=== PATIENT | female | born 1950 | race Caucasian/White ===

== ENCOUNTER 2021-10-04 09:45 | Outpatient (RCR) | payer MEDICARE, SELFPAY ==
--- NOTE | 2021-09-27 15:36 | PT.OPEX ---
[facility] [place] Outpatient Eval PT [facility] Outpatient Eval Start: 09/27/21 07:12 Freq: Status: Active Protocol: Document 09/27/21 13:45 CLK (Rec: 09/27/21 13:54 CLK [id number]) E-Signed By Donya Palacio PT Physical Therapy Outpatient Evaluation Insurance Information Recert Due Date 12/20/21 Insurance Name Medicare B Medical Diagnosis Vertigo Imbalance Treating Diagnosis functional strength deficit Poor balance skills Referring MD Dr Ceci Kessler Subjective Subjective Radha reports having vertigo for the first time on August 01, 2021. This was her first time with these issues. Score of self graded 8/10 vertigo. I was given Meclizine, which I took for only a week or so. My symptoms have slowly dissolved to only being present at night with rolling and now have been absent for a week. I am back to 100% PLOF concerning my vertigo. However, I do still feel like I have impaired balance since having obdulio TKR. They were completing in September and Nov. I was trying to be active, then covid hit and I have never really gotten back to ex. I really do not feel comfortable returning to [place]. I used to do their swim class. I would like a routine I can do on my own. I have pain greater in the morning at mid to low back. My legs feel fine. Some LE ache with fatique at night. I can walk fine, up to 2 hours if needed. I have not had any sensation of buckling. I can A/D stairs correctly. I just don't feel stable, and I would like to. Pain Comments low and more tolerable, seems to subside with activities Date of Last Physician Visit 09/01/21 Current Work Status Retired Precautions Treatment Precautions/Contraindications Arthritis Obdulio TKR GERD Chronic diarhea Obesity Hypertension Weight Bearing Status Full Weight Bearing Objective Range of Motion Reduced Rt hip AROM 0-6 deg Strength 3+/5 strength obdulio hip ABD and EXT Balance & Gait SLS max 5 sec obdulio Gait with reduced heel to toe and lateral trunk shift Posture Increased lumbar lordosis Assessment Assessment/Impression 71 yo female with DX of Vertigo, sudden onset on July 29, 2021. She was seen in ED and started on Meclizine. Over the past 2 months these symptoms have dissipated, with client denying any residual symptoms. She does report feeling unsteady and unstable with gait. She exhibits reduced heel to toe gait pattern with near flat foot strike and lateral trunk shift . She has weakness 3+/5 obdulio hip EXT and ABD (mini squat and step up and over exhibit obdulio hip IR and hip ADD - weakness of hip ABD and ER). Poor quad control in both concentric step up and eccentric step down (obdulio). She has reduced Rt hip EXT in AROM in stance, rectus femoris /hip flex hypertension. SLS is max of 5 sec obdulio. She is able to perform Dbl heel raise, but only to partial range due to weakness of ankle planter flex/gastroc. She will benefit from continued skilled physical therapy to compile HEP to address the above with ex of stretch, strength and balance/prop training. Thank you for this referral. Plan of Care Rehabilitation Potential Good Physical Therapy Goals In 3-5 visits, Radha will be able to: 1. Complete HEP with proper alignment, pace, reps/HOLD times to regain full strength and flexibility 2. Increased SLS to minimum of 10 sec obdulio In 8-10 visits, Radha will be able to: 1. Squat to depth of at least 50 deg with proper hip/knee/ foot alignment 2. Resume walking for ex, at least 30 min per day average 3. Improved confidence with A/ D stairs; gently hold railing with hand for safety vs pulling up with UE assist 4. Return to ex at [employer] with her 3 X/ week to promote full body strength and improve community ambulation and safety remaining living with her in her own home. Coordination/Communication With Referral Source Treatment Plan/Direct Interventions Canalith Repositioning,Gait Training,Joint Mobilization, Manual Therapy,Neuromuscular Re-ed,Self-Care/Home Management,Therapeutic Exercises Frequency/Duration 1X/Wk for 10 visits Patient Will Be Discharged From Therapy Completion of LTG(s),Skills Plateau,Independent w/HEP, Independently Progressing Evaluation Billing Untimed Code Treatment Minutes 38 Complexity Moderate Certification Information Initial Certification Date 09/27/21 Ending Certification Date 12/20/21 Document 09/27/21 15:30 PILO (Rec: 09/27/21 15:35 PILO [id number]) E-Signed By Donya Palacio PT Physical Therapy Outpatient Evaluation Insurance Information Recert Due Date 12/20/21 Insurance Name Medicare B Medical Diagnosis Vertigo Imbalance Treating Diagnosis functional strength deficit Poor balance skills Referring MD Dr Ceci Kessler Subjective Subjective Radha reports having vertigo for the first time on August 01, 2021. This was her first time with these issues. Score of self graded 8/10 vertigo. I was given Meclizine, which I took for only a week or so. My symptoms have slowly dissolved to only being present at night with rolling and now have been absent for a week. I am back to 100% PLOF concerning my vertigo. However, I do still feel like I have impaired balance since having obdulio TKR. They were completing in September and Nov. I was trying to be active, then covid hit and I have never really gotten back to ex. I really do not feel comfortable returning to [place]. I used to do their swim class. I would like a routine I can do on my own. I have pain greater in the morning at mid to low back. My legs feel fine. Some LE ache with fatique at night. I can walk fine, up to 2 hours if needed. I have not had any sensation of buckling. I can A/D stairs correctly. I just don't feel stable, and I would like to. Pain Comments low and more tolerable, seems to subside with activities Date of Last Physician Visit 09/01/21 Current Work Status Retired Precautions Treatment Precautions/Contraindications Arthritis Obdulio TKR GERD Chronic diarhea Obesity Hypertension Weight Bearing Status Full Weight Bearing Objective Range of Motion Reduced Rt hip AROM 0-6 deg Strength 3+/5 strength obdulio hip ABD and EXT Balance & Gait SLS max 5 sec obdulio Gait with reduced heel to toe and lateral trunk shift Posture Increased lumbar lordosis Assessment Assessment/Impression 71 yo female with DX of Vertigo, sudden onset on July 29, 2021. She was seen in ED and started on Meclizine. Over the past 2 months these symptoms have dissipated, with client denying any residual symptoms. She does report feeling unsteady and unstable with gait. She exhibits reduced heel to toe gait pattern with near flat foot strike and lateral trunk shift . She has weakness 3+/5 obdulio hip EXT and ABD (mini squat and step up and over exhibit obdulio hip IR and hip ADD - weakness of hip ABD and ER). Poor quad control in both concentric step up and eccentric step down (obdulio). She has reduced Rt hip EXT in AROM in stance, rectus femoris /hip flex hypertension. SLS is max of 5 sec obdulio. She is able to perform Dbl heel raise, but only to partial range due to weakness of ankle planter flex/gastroc. She will benefit from continued skilled physical therapy to compile HEP to address the above with ex of stretch, strength and balance/prop training. Thank you for this referral. Plan of Care Rehabilitation Potential Good Physical Therapy Goals In 3-5 visits, Radha will be able to: 1. Complete HEP with proper alignment, pace, reps/HOLD times to regain full strength and flexibility 2. Increased SLS to minimum of 10 sec obdulio In 8-10 visits, Radha will be able to: 1. Squat to depth of at least 50 deg with proper hip/knee/ foot alignment 2. Resume walking for ex, at least 30 min per day average 3. Improved confidence with A/ D stairs; gently hold railing with hand for safety vs pulling up with UE assist 4. Return to ex at [employer] with her 3 X/ week to promote full body strength and improve community ambulation and safety remaining living with her in her own home. Coordination/Communication With Referral Source Treatment Plan/Direct Interventions Canalith Repositioning,Gait Training,Joint Mobilization, Manual Therapy,Neuromuscular Re-ed,Self-Care/Home Management,Therapeutic Exercises Frequency/Duration 1X/Wk for 10 visits Patient Will Be Discharged From Therapy Completion of LTG(s),Skills Plateau,Independent w/HEP, Independently Progressing Evaluation Billing Untimed Code Treatment Minutes 38 Complexity Moderate Certification Information Initial Certification Date 09/27/21 Ending Certification Date 12/20/21
== END 2021-11-18 08:35 | disposition home or self-care (01) ==
PROVIDERS: PCP Family Medicine; Visit Provider Family Medicine
DX: R42 Dizziness and giddiness (principal); R26.9 Unspecified abnormalities of gait and mobility; Z51.89 Encounter for other specified aftercare
CPT/HCPCS: 97110; 97162

== ENCOUNTER 2022-01-20 13:23 | Outpatient (CLI) | payer MEDICARE, SELFPAY | END 2022-01-20 13:24 | disposition home or self-care (01) | PROVIDERS: PCP Family Medicine; Visit Provider Student in an Organized Health Care Education/Training Program | DX: R30.0 Dysuria (principal); R35.0 Frequency of micturition; N39.0 Urinary tract infection, site not specified | CPT/HCPCS: 87086; 87186 ==

== ENCOUNTER 2022-03-01 09:55 | Outpatient (CLI) | payer MEDICARE, SELFPAY | END 2022-03-01 09:56 | disposition home or self-care (01) | LOC: NFLDREF 10:02 | PROVIDERS: PCP Family Medicine; Visit Provider Family Medicine | DX: R30.0 Dysuria (principal); R35.0 Frequency of micturition | CPT/HCPCS: 87086 ==

== ENCOUNTER 2022-09-05 08:44 | Outpatient (CLI) | payer MEDICARE, SELFPAY | END 2022-09-05 08:45 | disposition home or self-care (01) | LOC: NFLDREF 13:15 | PROVIDERS: PCP Internal Medicine; Referring Provider Family Medicine; Visit Provider Internal Medicine | DX: E78.5 Hyperlipidemia, unspecified (principal); I10 Essential (primary) hypertension | CPT/HCPCS: 80048; 80061 ==

== ENCOUNTER 2022-09-19 08:32 | Outpatient (CLI) | payer MEDICARE, SELFPAY ==
--- NOTE | 2022-09-19 08:45 | CRLHL7_ITS ---
For Patients: As a result of the Cures Act, medical imaging exams and procedure reports are released immediately into your electronic medical record. You may view this report before your referring provider. If you have questions, please contact your health care provider. BILATERAL SCREENING MAMMOGRAM WITH COMPUTER-AIDED DETECTION AND TOMOSYNTHESIS TECHNIQUE: CC and MLO views were obtained. These mammographic images have been obtained using full-field digital technique. These mammographic images were interpreted with the benefit of computer-aided detection. Breast Tomosynthesis was used in this interpretation. COMPARISON FILM: 08/31/21, 11/10/19, 10/18/17. FINDINGS: The breasts are almost entirely fatty IMPRESSION: There is no radiographic evidence for malignancy. ASSESSMENT: BI-RADS Category 1: Negative RECOMMENDATION: Routine screening mammogram in 1 year. A lay language report of this examination will be provided to the patient. Naresh Joshi M.D. Diagnostic Radiologist [email or web address] MEE/marline / be/Dictated by: Naresh Joshi MD @ 09/19/2022 11:01:00 AM (Electronically Signed)
== END 2022-09-19 08:33 | disposition home or self-care (01) ==
LOC: MAMMO 08:32
PROVIDERS: PCP Internal Medicine; Visit Provider Internal Medicine
DX: Z12.31 Encounter for screening mammogram for malignant neoplasm of breast (principal)
CPT/HCPCS: 77063; 77067

== ENCOUNTER 2022-10-25 11:57 | Day surgery (SDC) | payer MEDICARE, SELFPAY ==
[2022-10-25] MEDS: LACTATED RINGERS 1000 ML 1,000 ML 100 ML IV (11:15)
[2022-10-25 12:07] VITALS: BP 126/90; PULSE 74; RESP 16; TEMP 36.5; O2SAT 98; BMI 49.0
[2022-10-25] MEDS: SODIUM CHLORIDE 0.9 % (FLUSH) 10 ML SYRINGE IVF (12:18)
--- NOTE | 2022-10-25 13:02 | P.ANES_ITS ---
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
[2022-10-25] MEDS: BUPIVACAINE 0.5 %/EPI 1:200K 30 ML INJECTION (13:18)
[2022-10-25] MEDS: TETRACAINE 0.5% OPHTH 2 DROP EYE-BOTH (13:19)
--- NOTE | 2022-10-25 13:55 | W.ANESCHARGE ---
Anesthesia Charges Start Date/Time Anesthesia Start Date: 10/25/22 Anesthesia Start Time: 13:05 Stop Date/Time Anesthesia Stop Date: 10/25/22 Anesthesia Stop Time: 14:13 Summary Extremes of Age - Over 70 or under 1: MDA
--- NOTE | 2022-10-25 14:13 | P.OPTPRC_ITS ---
Procedure Note Date of procedure: 10/25/22 Will [facility] bill your pro fee for this procedure?: Yes Procedure Description: SURGEON: Kimberly Aguilar MD PREOPERATIVE DIAGNOSIS: Dermatochalasis, bilateral upper eyelids. POSTOPERATIVE DIAGNOSIS: Dermatochalasis, bilateral upper eyelids. NAME OF OPERATION: Bilateral upper eyelid blepharoplasty. ANESTHESIA: Local monitored anesthesia care. ESTIMATED BLOOD LOSS: Less than 2 cc. COMPLICATIONS: None. IMPLANTS: None. INDICATIONS: The patient is seen today for bilateral upper eyelid blepharoplasty. The patient complains of upper eyelids interfering with vision. I reviewed the visual engel and facial photographs. Surgery was indicated for functional improvement of vision. The risks, benefits and alternatives were discussed pre-operatively. The risks included pain, infection, bleeding, poor cosmetic result, scarring, asymmetry, need for further treatment including surgery, inability to close lids, dry eyes, decreased vision, loss of vision and loss of eye. The benefits included improvement of symptoms. The alternative was observation and no surgery. All questions were answered to the patient's satisfaction, and the patient elected to proceed with the bilateral upper eyelid blepharoplasty. Informed consent was obtained. PROCEDURE: In a sitting position, the upper eyelid crease was marked with a marking pen, and the pinch technique was used to determine the amount of upper eyelid skin to be excised. A calipers was used to measure for symmetry and to confirm an appropriate amount of remaining skin. The patient was taken to the operating room. 4 cc of anesthetic was injected subcutaneously along the full extent of each upper eyelid. This anesthetic was made with 1:1 of 2% lidocaine with epinephrine and 0.5% bupivacaine. Both eyes were prepped and draped in the usual sterile ophthalmic fashion. The following was performed on both the right and left upper eyelid: A #15 blade was used to incise the skin. Bishops and Robert scissors were used to excise the skin and orbicularis muscle. Handheld cautery was used to achieve hemostasis. The eyelids were examined for symmetry. The skin was closed with a running 6-0 nylon suture. Erythromycin ointment was applied to the wounds. The patient tolerated the procedure well. DISPOSITION: The patient was sent to the recovery room and discharged to home in stable condition. The patient was given my postoperative instructions handout. The patient was told to ice as directed. The patient will apply erythromycin ophthalmic ointment to the eyelids three times a day until the sutures are removed, then for another three days. The patient will follow up in one week for suture removal or sooner as needed. The patient was instructed to call me or go to the emergency department with any sudden change, including dramatic loss of vision, excessive bleeding, redness or discharge from the incisions, or severe pain in the eye.
[2022-10-25 14:19] VITALS: BP 140/107; PULSE 62; RESP 16; TEMP 36.4; O2SAT 99
[2022-10-25 14:30] VITALS: BP 151/73; PULSE 61; RESP 16; O2SAT 100
[2022-10-25 14:45] VITALS: BP 142/75; PULSE 62; RESP 16; O2SAT 100
== END 2022-10-25 15:00 | disposition home or self-care (01) ==
LOC: OR 11:57
PROVIDERS: PCP Internal Medicine; Visit Provider Ophthalmology
PROC: (CPT 15823; principal; 2022-10-25 12:30)
DX: H02.834 Dermatochalasis of left upper eyelid (principal); H02.831 Dermatochalasis of right upper eyelid; H53.8 Other visual disturbances
CPT/HCPCS: 15823; 103; 99100; A9270; J2250; J2704; J3010; J3490; J7120

== ENCOUNTER 2022-11-30 08:42 | Outpatient (CLI) | payer MEDICARE, SELFPAY | END 2022-11-30 08:43 | disposition home or self-care (01) | LOC: NFLDREF 12-04 13:09 | PROVIDERS: PCP Internal Medicine; Referring Provider Internal Medicine; Visit Provider Internal Medicine | DX: E78.5 Hyperlipidemia, unspecified (principal) | CPT/HCPCS: 80061 ==

== ENCOUNTER 2023-02-05 11:13 | Outpatient (CLI) | payer MEDICARE, SELFPAY | END 2023-02-05 11:14 | disposition home or self-care (01) | PROVIDERS: PCP Internal Medicine; Visit Provider Obstetrics & Gynecology | DX: R30.0 Dysuria (principal) | CPT/HCPCS: 87086; 87186 ==

== ENCOUNTER 2023-09-05 09:30 | Outpatient (CLI) | payer MEDICARE, SELFPAY ==
--- OUTSIDE RECORDS SUMMARY | 2023-09-07 09:14 | XMS_ITS | Encounter Summary ---
Author Organization [facility] Address [address] [address] Care Team Providers Care Accounts Receivable Supervisor Name Role Phone Ceci Kessler MD Primary Care Provider + Reason for Visit * Auth/Cert (Routine) Specialty Diagnoses / Procedures Referred By Amilcar t Referred To Contact Surgery Diagnoses Urge incontinence Full incontinence of feces Urge incontinence [N39.41] Full incontinence of feces [R15.9] Procedures TN INSERT/REPL PERIPH SACRAL/GASTRIC NSTIM/RCVR, W PCKT CRTJ & CONN TN REV/REM PERIPH SACRAL/GASTRIC NSTIM/RCV, DETACH CONN ELEC ARRAY REMOVAL OF INTERSTIM SACRAL NEUROMODULATION LEAD AND GENERATOR. 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 PLACE [employer]ONICS SACRAL NEUROMODULATION SYSTEM STAGE ONE AND TWO (Bladder) Dave Stout MD 06/28/23 0941 06/28/23 1124 Events Date Time Event Comment 06/28/2023 0841 0941 An Start 0943 An Start Data 0945 AN REASSESS I attest that I have identified and re-evaluated the patient immediately before the induction of anesthesia and I am satisfied that the anesthetic plan is suitable for the patient's condition and procedure. The first vital signs recorded are pre- induction. Vincenzo Kenney APRN [employer]ICULTURAL FARMWORKER 0949 Anesthesia Ready for Procedu re 1015 MD Present 1051 MD Present 1118 an stop data 1124 An Stop Electronically signed by Vincenzo Kenney APRN CRNA on June 28, 2023 11:24 AM Meds Name Total fentaNYL (SUBLIMAZE) injection 100 mcg lidocaine 1% 5 mL propofol drip mcg/kg/min 927.77 mg phenylephrine (VINCENT-SYNEPHRINE) injection 200 mcg ondansetron 2mg/mL 4 mg ceFAZolin Sodium (ANCEF) injection 3 g 3 g dexmedeTOMIDine (PRECEDEX) bolus 200 mcg 20 mcg lactated ringers infusion 1,200 mL * Agents Name O2 Exp Sevoflurane Exp Isoflurane Exp Desflurane O2 Delivery Device Ins Sevoflurane Ins Isoflurane Ins Desflurane O2 Auxiliary * Blood No blood administrations on file. Lines, Drains, and Airways Type Details Placement Removal Incision/Surgical Site 10/26/14; 1018; Back 10/10 09/23 1018 by Corina Gonzalez RN Incision/Surgical Site 10/26/14; 1018; R ight; Back 10/26/14 1018 by Corina Gonzalez RN Incision/Surgical Site 06/28/23; 1109; R ight, Lateral; Lumbar spine 06/28/23 1109 by Ginger Gómez RN Incision/Surgical Site 06/28/23; 1110; L ower, Midline; Lumbar spine 06/28/23 1110 by Ginger Gómez RN Incision/Surgical Site 06/28/23; 1110; L eft; Lumbar spine 06/28/23 1110 by Ginger Gómez RN Peripheral IV 06/28/23; 0850; 20 G ; Right, Dorsal; Hand; Chlorhexidine 06/28/23 0850 by Ana Pinto RN 06/28/23 1212 by Haley Jimenez RN documented in this encounter Social History Tobacco Use Types Packs/Day Years Used Date Smoking Tobacco: Former Cigarettes Q uit: 10/28/1976 Smokeless Tobacco: Never Comments:quit more than 35 y ears ago Alcohol Use Standard Drinks/Week Comments Yes 0 (1 standard drink = 0.6 oz pur e alcohol) twice a month PHQ-2 Answer Date Recorded PHQ-2 Score 0 01/16/2019 Adolescent Education Answer Date Record ed Getting School Help Needed Not on file 12/16 Sex and Gender Information Value Date Recorded Sex Assigned at Not on file Gender Identity Not on file Sexual Orientation Not on file documented as of this encounter OR Notes * Anesthesia Postprocedure Evaluation - Dave Stout MD - 06/28/2023 12:59 PM CDT Patient: Radha Phan Procedure: Procedure(s): REMOVAL OF INTERSTIM SACRAL NEUROMODULATION LEAD AND GENERATOR. PLACE [employer] SACRAL NEUROMODULATION SYSTEM STAGE ONE AND TWO Anesthesia Type: MAC Note: Disposition: Outpatient Postop Pain Control: Uneventful Sign Out: Well controlled pain PONV: No Neuro/Psych: Uneventful Sign Out: Acceptable/Baseline neuro status Airway/Respiratory: Uneventful Sign Out: Acceptable/Baseline resp. status CV/Hemodynamics: Uneventful Sign Out: Acceptable CV status; No obvious hypovolemia; No obvious fluid overload Other NRE: NONE DID A NON-ROUTINE EVENT OCCUR? No Last vitals: Vitals Value Taken Time BP 128/65 06/28/23 1213 Temp 36.6 ??C (97.8 ??F) 06/28/23 1213 Pulse 62 06/28/23 1215 Resp 16 06/28/23 1213 SpO2 100 % 06/28/23 1215 Electronically Signed By: Dave Stout MD June 28, 2023 12:59 PM * Anesthesia Preprocedure Evaluation - Dave Stout MD - 06/28/2023 8:30 AM CDT Anesthesia Pre-Procedure Evaluation Patient: Radha Phan : 1950 Procedure : Procedure(s): REMOVAL OF INTERSTIM SACRAL NEUROMODULATION LEAD AND GENERATOR. PLACE AXONICS SACRAL NEUROMODULATION SYSTEM STAGE ONE AND TWO Past Medical History: Diagnosis Date A-fib (H) Allergic rhinitis, cause unspecified Arrhythmia a fib Atrial fibrillation (H) Hyperlipidemia Hypertension on medication to control NONSPECIFIC MEDICAL HISTORY 03/18 nl DEXA Obesity, unspecified ANA MARIA (obstructive sleep apnea) does not use CPAP Pain in joint, lower leg knee pain, previous steriod injections Palpitations 11/15 event monitor: PAC and SVT PONV (postoperative nausea and vomiting) Rosacea Past Surgical History: Procedure Laterality Date BREAST SURGERY 03/12/1993 reduction BREAST SURGERY 03/12/1993 reduction COLONOSCOPY 02/09/2014 COSMETIC SURGERY 03/12/1993 breast reduction COSMETIC SURGERY 03/12/1993 breast reduction GENITOURINARY SURGERY bladder sling GENITOURINARY SURGERY bladder sling IMPLANT STIMULATOR AND LEADS SACRAL NERVE (STAGE ONE AND TWO) N/A 10/26/2014 Procedure: IMPLANT STIMULATOR AND LEADS SACRAL NERVE (STAGE ONE AND TWO); Surgeon: Sukhjinder Wolf MD; Location: [facility] OR ORTHOPEDIC SURGERY SURGICAL HISTORY OF - 11/11/2007 bladder sling placed [facility] NONSPECIFIC PROCEDURE 03/12/1993 breast reduction [facility] NONSPECIFIC PROCEDURE 1977 & nvd-full term [facility] NONSPECIFIC PROCEDURE 03/12/2003 nl colonoscopy Allergies Allergen Reactions No Known Drug Allergy Social History Tobacco Use Smoking status: Former Current packs/day: 0.00 Types: Cigarettes Quit date: 10/28/1976 Years since quittin.6 Smokeless tobacco: Never Tobacco comments: quit more than 35 years ago Substance Use Topics Alcohol use: Yes Alcohol/week: 0.0 standard drinks of alcohol Comment: twice a month Wt Readings from Last 1 Encounters: 06/28/23 124.2 kg (273 lb 14.4 oz) Anesthesia Evaluation Pt has had prior anesthetic. History of anesthetic complications - PONV. ROS/MED HX ENT/Pulmonary: (+) sleep apnea, Neurologic: - neg neurologic ROS Cardiovascular: (+) Dyslipidemia hypertension- - - - - Taking blood thinners dysrhythmias, a- fib, (-) murmur METS/Exercise Tolerance: Hematologic: Musculoskeletal: (+) arthritis, GI/Hepatic: - neg GI/hepatic ROS Renal/Genitourinary: - neg Renal ROS Endo: (+) Obesity, Psychiatric/Substance Use: - neg psychiatric ROS Infectious Disease: - neg infectious disease ROS Malignancy: - neg malignancy ROS Other: - neg other ROS Physical Exam Airway airway exam normal Mallampati: II TM distance: > 3 FB Neck ROM: full Mouth opening: > 3 cm Respiratory Devices and Support Dental (+) Completely normal teeth Cardiovascular cardiovascular exam normal Rhythm and rate: regular and normal (-) no murmur Pulmonary pulmonary exam normal breath sounds clear to auscultation OUTSIDE LABS: CBC: Lab Results Component Value Date WBC 5.9 11/28/2018 WBC 5.3 08/22/2018 HGB 13.2 11/28/2018 HGB 13.6 08/22/2018 HCT 40.6 11/28/2018 HCT 41.1 08/22/2018 PLT 259 11/28/2018 PLT 247 08/22/2018 BMP: Lab Results Component Value Date NA 139 11/28/2018 NA 140 08/22/2018 POTASSIUM 4.5 11/28/2018 POTASSIUM 4.4 08/22/2018 CHLORIDE 100 07/29/2021 CHLORIDE 105 11/28/2018 CO2 29 11/28/2018 CO2 28 08/22/2018 BUN 16 11/28/2018 BUN 17 08/22/2018 CR 0.81 11/28/2018 CR 0.83 08/22/2018 GLC 94 11/28/2018 GLC 98 08/22/2018 COAGS: Lab Results Component Value Date PTT 28 11/25/2007 INR 0.96 07/29/2021 POC: Lab Results Component Value Date BGM 98 10/26/2014 HEPATIC: Lab Results Component Value Date ALBUMIN 3.6 12/06/2017 PROTTOTAL 7.1 12/06/2017 ALT 26 12/06/2017 AST 17 12/06/2017 ALKPHOS 89 12/06/2017 BILITOTAL 1.1 12/06/2017 OTHER: Lab Results Component Value Date A1C 5.4 02/15/2015 JULI 9.4 11/28/2018 LIPASE 138 06/23/2014 TSH 2.47 04/25/2017 CRP 0.9 03/01/2009 Anesthesia Plan ASA Status: 3 NPO Status: NPO Appropriate Anesthesia Type: MAC. - Reason for MAC: straight local not clinically adequate Consents Anesthesia Plan(s) and associated risks, benefits, and realistic alternatives discussed. Questions answered and patient/auto claim representative(s) expressed understanding. - Discussed: Risks, Benefits and Alternatives for BOTH SEDATION and the PROCEDURE were discussed - Discussed with: Patient Postoperative Care Pain management: IV analgesics, Oral pain medications, Multi-modal analgesia. PONV prophylaxis: Ondansetron (or other 5HT-3), Background Propofol Infusion Comments: Other Comments: Risks of MAC anesthesia including but not limited to recall, awareness, and potential conversion to general anesthesia discussed. Dave Stout MD I have reviewed the pertinent notes and labs in the chart from the past 30 days and (re)examined the patient. Any updates or changes from those notes are reflected in this note. # Drug Induced Coagulation Defect: home medication list includes an anticoagulant medication documented in this encounter Miscellaneous Notes * Anesthesia Care Transfer Note - Vincenzo Kenney APRN H[employer]ICULTURAL FARMWORKER - 06/28/2023 11:24 AM CDT Patient: Radha Phan Procedure: Procedure(s): REMOVAL OF INTERSTIM SACRAL NEUROMODULATION LEAD AND GENERATOR. PLACE [employer] SACRAL NEUROMODULATION SYSTEM STAGE ONE AND TWO Diagnosis: Urge incontinence [N39.41] Full incontinence of feces [R15.9] Diagnosis Additional Information: No value filed. Anesthesia Type: MAC Note: Oropharynx: oropharynx clear of all foreign objects Level of Consciousness: awake Oxygen Supplementation: room air Independent Airway: airway patency satisfactory and stable Dentition: dentition unchanged Vital Signs Stable: post-procedure vital signs reviewed and stable Report to RN Given: handoff report given Patient transferred to: Phase II Handoff Report: Identifed the Patient, Identified the Reponsible Provider, Reviewed the pertinent medical history, Discussed the surgical course, Reviewed Intra-OP anesthesia mangement and issues during anesthesia, Set expectations for post-procedure period and Allowed opportunity for questions andacknowledgement of understanding Vitals: Vitals Value Taken Time BP 93/53 06/28/23 1122 Temp 97.8 Pulse 65 06/28/23 1122 Resp 12 SpO2 96 % 06/28/23 1122 Vitals shown include unfiled device data. Electronically Signed By: Vincenzo Kenney APRN CRNA June 28, 2023 11:24 AM documented in this encounter Plan of Treatment Not on file documented as of this encounter Visit Diagnoses Not on filedocumented in this encounter Administered Medications Inactive Administered Medications - up to 3 most recent administrations Medication Order MAR Action Action Date Dose Rate Site ceFAZolin Sodium (ANCEF) injection 3 g Routine, 3 g, Intravenous, PRE-OP/PRE-PROCEDURE, Starting on Kalani 06/28/23 at 0743, For 1 dose, Give first dose within 1 hour PRIOR to incision. If patient weight is greater than or equal to 120 kg increase dose to 3 g., Indications: Perioperative Pharmacoprophylaxis, Pre-procedure $Given 06/28/2023 9:45 AM CDT 3 g dexmedeTOMIDine (PRECEDEX) bolus 200 mcg Intravenous, CONTINUOUS PRN, Starting on Kalani 06/28/23 at 0942, Anesthesia Intra-op $Bolus 06/28/2023 9:54 AM CDT 4 mcg $Bolus 06/28/2023 9:49 AM CDT 8 mcg $New Bag 06/28/2023 9:42 AM CDT 8 mcg fentaNYL (PF) (SUBLIMAZE) injection Intravenous, PRN, Administer over 3-5 Minutes, Starting on Kalani 06/28/23 at 0943, Anesthesia Intra-op $Given 06/28/2023 11:02 AM CDT 25 mcg $Given 06/28/2023 10:14 AM CDT 25 mcg $Given 06/28/2023 9:43 AM CDT 50 mcg lactated ringers infusion at 10 mL/hr, Intravenous, CONTINUOUS, Pre-procedure, Starting on Kalani 06/28/23 at 0900, Until Kalani 06/28/23 at 1432 $New Bag 06/28/2023 11:05 AM CDT $New Bag 06/28/2023 9:13 AM CDT $New Bag 06/28/2023 8:51 AM CDT 10 mL/hr lidocaine 1 % injection Intravenous, PRN, Starting on Kalani 06/28/23 at 0945, Anesthesia Intra-op $Given 06/28/2023 9:45 AM CDT 5 mLs ondansetron (ZOFRAN) injection Intravenous, PRN, Administer over 2-5 Minutes, Starting on Kalani 06/28/23 at 1000, Anesthesia Intra-op $Given 06/28/2023 10:00 AM CDT 4 mg phenylephrine (VINCENT-SYNEPHRINE) injection Intravenous, CONTINUOUS PRN, Starting on Kalani 06/28/23 at 1028, Anesthesia Intra-op $Bolus 06/28/2023 10:52 AM CDT 100 mcg $New Bag 06/28/2023 10:28 AM CDT 100 mcg propofol (DIPRIVAN) infusion Intravenous, CONTINUOUS PRN, Starting on Kalani 06/28/23 at 0945, Anesthesia Intra-op Rate/Dose Change 06/28/2023 11:03 AM CDT 80 mcg/kg/min 59.616 mL/hr Rate/Dose Change 06/28/2023 10:52 AM CDT 100 mcg/kg/min 74 .52 mL/hr Rate/Dose Change 06/28/2023 10:45 AM CDT 110 mcg/kg/min 81 .972 mL/hr documented in this encounter Additional Health Concerns Assessment Noted Time PHQ-9 Depression Total Score: 0 09/22/19 17 7:24 AM CDT documented as of this encounter Care Teams Accounts Receivable Supervisor Relationship Specialty Start Date End Date Ceci Kessler MD [facility] [place] [address] PCP - General Family Medicine 09/02/20 documented as of this encounter
--- OUTSIDE RECORDS SUMMARY | 2023-09-07 09:14 | XMS_ITS | Referral Summary ---
Author Organization [facility] Address [address] [place] [address] Care Team Providers Care Watch Mechanic Name Role Phone Ceci Kessler MD Primary Care Provider + Encounters Date Type Department Care Team Description 06/28/2023 9:41 AM CDT Anesthesia Event [address] [phone] Dave Stout MD Corrow, Vincenzo, REVENUE AUDIT CLERK FRANCHISE SALES REPRESENTATIVE 06/28/2023 9:00 AM CDT - 06/28/2023 11:00 AM CDT Surgery [address] [phone] Marco Padilla MD REMOVAL OF INTERSTIM SACRAL NEUROMODULATION LEAD AND GENERATOR. PLACE [employer] SACRAL NEUROMODULATION SYSTEM STAGE ONE AND TWO 06/28/2023 7:13 AM CDT - 06/28/2023 12:32 PM CDT Hospital Encounter [facility] PR[facility]NA Phase II [address] [place] [phone] Marco Padilla MD S/P gynecological surgery, follow-up exam (Primary Dx) Discharge Disposition: Home or Self Care from Last 3 Months Allergies Active Allergy Reactions Criticality Noted Date Comments No Known Drug Allergy 09/16/2003 Medications Medication Sig Dispensed Refills Start Date End Date Status MULTI-DAY OR 1 tablet daily Active Cholecalciferol (VITAMIN D3 PO) Take 2,000 Units by mouth daily Active calcium-vitamin D (CALTRATE) 600-400 MG-UNIT per tablet Take 1 tablet by mouth 2 times daily Active Carroll-3 Fatty Acids (OMEGA-3 FISH OIL PO) Take 1,600 mg by mouth daily Active betamethasone dipropionate (DIPROSONE) 0.05 % creamIndications:Nestor h and nonspecific skin eruption Apply topically 2 times daily 15 g 1 03/23/2016 Active MAGNESIUM ASPARTATE PO Take 400 mg by mouth daily Active trospium (SANCTURA XR) 60 MG CP24 24 hr capsule Take 60 mg by mouth every morning Active metroNIDAZOLE (METROGEL) 0.75 % external gelIndications:Rosac ea Apply topically daily as needed Apply 0.25 inches topically daily as needed. 45 g 2 04/04/2018 Active gabapentin (NEURONTIN) 300 MG capsule Take 1 capsule at bedtime for 3 to 4 days, then increase to 1 capsule twice daily thereafter if needed 03/13/2019 Active traMADol (ULTRAM) 50 MG tabletIndications:Ch ronic pain of both knees Take 1 tablet (50 mg) by mouth every 6 hours as needed for moderate to severe pain 30 tablet 09/05/2019 Active Additional Information Patient not taking.Reported on 11/25/2021 tolterodine ER (DETROL LA) 4 MG 24 hr capsuleIndications:U rge incontinence of urine Take 1 capsule by mouth daily. This replaces the Oxybutynin and/or Trospium. 90 capsule 1 09/04/2019 Active fluticasone (FLONASE) 50 MCG/ACT nasal spray [place] 1 spray into both nostrils as needed for rhinitis or allergies Generic target brand Active omeprazole (PRILOSEC) [address] capsule Take 1 capsule by mouth every 24 hours 09/20/2021 Active triamcinolone (KENALOG) 0.1 % external ointment Apply topically 2 times daily Active losartan (COZAAR) 50 MG tabletIndications:Be nign essential hypertension Take 1.5 tablets (75 mg) by mouth daily 135 tablet 4 11/25/2021 Active metoprolol succinate ER (TOPROL XL) 50 MG 24 hr tabletIndications:At rial fibrillation, unspecified type (H) Take 1 tablet (50 mg) by mouth 2 times daily 180 tablet 4 11/25/2021 Active rivaroxaban ANTICOAGULANT (XARELTO ANTICOAGULANT) 20 MG TABS tabletIndications:At rial fibrillation, unspecified type (H),Benign essential hypertension,Mixed hyperlipidemia Take 1 tablet (20 mg) by mouth daily (with dinner) 90 tablet 4 11/25/2021 Active acetaminophen (TYLENOL) 500 MG tablet Take 1,000 mg by mouth every 6 hours as needed for mild pain Active rosuvastatin (CRESTOR) 5 MG tablet Take 5 mg by mouth daily Active ibuprofen (ADVIL/MOTRIN) 600 MG tabletIndications:S/ P gynecological surgery, follow-up exam Take 1 tablet (600 mg) by mouth every 6 hours as needed for other (mild and/or inflammatory pain) 30 tablet 06/28/2023 Active oxyCODONE (ROXICODONE) 5 MG tabletIndications:S/ P gynecological surgery, follow-up exam Take 1-2 tablets (5-10 mg) by mouth every 4 hours as needed for moderate to severe pain 20 tablet 06/28/2023 Active Active Problems Problem Noted Date Diagnosed Date Obesity (BMI 35.0-39.9) with comorbidity 019 A-fib 10/01/2012 Overview: On Xarelto Fam hx-osteoporosis 10/02/2011 Obstructive sleep apnea 02/14/2011 Overview: On CPAP CARDIOVASCULAR SCREENING; LDL GOAL LESS THAN 160 09/27/2010 Urge incontinence 04/29/2007 Symptomatic menopausal or female climacteric sta melissa 04/29/2007 Obesity 09/16/2003 Overview: Problem list name updated by automated process. Provider to review Rosacea 09/16/2003 Hyperlipidemia Palpitations Overview: event monitor: PAC and SVT ANA MARIA (obstructive sleep apnea) Hypertension Resolved Problems Problem Noted Date Diagnosed Date Resolved Date Morbid obesity 01/19/2017 08/22/2018 Advanced directives, counseling/discussion 09/19/2010 08/27/2023 Overview: Advance Directive Problem List Overview: Name Relationship Phone Primary Health Care Agent Alternative Health Care Agent Discussed advance care planning with patient; information given to patient to review. 10/21/2010 Ines Green RN Hyperlipidemia LDL goal <160 01/09/2010 09/27/2010 Hypercholesteremia 03/08/2009 1 Plantar fascial fibromatosis 10/29/2008 12/14/2008 Contact dermatitis and other eczema, due to unspecified cause 04/29/2007 09/27/2010 Allergic rhinitis 09/16/2003 09/27/2010 Overview: Problem list name updated by automated process. Provider to review Immunizations Name Administration Dates Next Due Influenza (High Dose) 3 valent vaccine 9,12/06/2017 Influenza (IIV3) PF 12/09/2014,12/18/2012,2002 Influenza (intradermal) 12/19/2011,12/06/2010 Influenza Vaccine 65+ (Fluzone HD) 12/17/2019 Influenza Vaccine, 6+MO IM ( QUADRIVALENT W/PRESERVATIVES) 12/15/2016 Nasal Influenza Vaccine 2-49 (FluMist) 4 Pneumo Conj 13-V (2010&after) 12/06/2017 Pneumococcal 23 valent 01/16/2019 TD,PF 7+ (Tenivac) 03/12/2000 TDAP Vaccine (Adacel) 09/19/2010 09/20/2011 Zoster recombinant adjuvanted (SHINGRIX) 019,07/25/2018 Social History Tobacco Use Types Packs/Day Years Used Date Smoking Tobacco: Former Cigarettes Q uit: 10/28/1976 Smokeless Tobacco: Never Tobacco Cessation:Counseling Given: Not Answered Comments:quit more than 35 years ago Alcohol Use Standard Drinks/Week Comments Yes [...] on file Sexual Orientation Not on file Last Filed Vital Signs Vital Sign Reading Time Taken Comments Blood Pressure 128/65 06/28/2023 12:13 PM CDT Pulse 62 06/28/2023 12:15 PM CDT Temperature 36.6 ??C (97.8 ??F) 06/28/2023 1 2:13 PM CDT Respiratory Rate 16 06/28/2023 12:1 3 PM CDT Oxygen Saturation 100% 06/28/2023 12: 15 PM CDT Inhaled Oxygen Concentration - - Weight 124.2 kg (273 lb 14.4 oz) 06/28/2023 7:29 AM CDT Height 162.6 cm (5' 4) 11/25/2021 10:2 1 AM CDT Body Mass Index 47.01 11/25/2021 10:21 AM CDT Plan of Treatment Not on file Medical Devices Implanted Type Area Cardiovascular Disease Specialist Device Identifier Shelf Expiration Date Model / Serial / Lot Kit Nrstm [employer] Caro Lead Curved Stylet 1201 - [id number] Implanted:Qty : 1 on 06/28/2023 by Marco Padilla MD at [facility] Leads N/A: Bladder [employer] [id number] 09/20/2025 1201 / [id number] / Imp Nrstm [employer] Snm System 4101 - [id number] Implanted:Qty : 1 on 06/28/2023 by Marco Padilla MD at [facility] Neurology device N/A: Bladder [employer] [id number] 01/26/2024 4101 / [id number] / Sns Lead 28cm Implanted:Qty : 1 on 10/26/2014 by Sukhjinder Wolf MD at [facility] N/A: Sacrum [employer] 08/18/2018 3889 / / [id number] Stimulator Neuro Interstim Ii 3058 Implanted:Qty : 1 on 10/26/2014 by Sukhjinder Wolf MD at [facility] N/A: Sacrum [employer] 02/07/2016 [id number] / [id number] / Procedures Procedure Name Priority Date/Time Associated Diagnosis Comments XR SURGERY BRODIE FLUORO LESS THAN 5 MIN Routine 06/28/2023 11:09 AM CDT REVISION, PROCEDURE INVOLVING BLADDER NEUROSTIMULATOR 06/28/2023 9:43 AM CDT Urge incontinence Full incontinence of feces Case Notes [employer] sales representative womens health coming (Chevy Moseley)Antibiotic irrigation ordered - need to release Special Needs Req 90 mins, Philomena Barraza to Assist. [employer] rep will coordinate with [employer] regarding supplies and equipment. REP. Chevy Moseley notified. HCG QUANTITATIVE STAT 06/28/2023 8:00 AM CDT MAMMOGRAM - HIM SCAN 08/31/2021 1:36 PM CDT LIPID PROFILE Routine 08/26/2019 8:33 AM CDT Atrial fibrillation, unspecified type (H) Essential hypertension Paroxysmal atrial fibrillation (H) Benign essential hypertension Mixed hyperlipidemia BASIC METABOLIC PANEL Routine 11/28/2018 9:04 AM CDT Preop general physical exam DX BONE DENSITY Routine 05/16/2017 10:06 AM GEOMORPHOLOGIST Screening for osteoporosis HEPATITIS C SCREEN REFLEX TO HCV RNA QUANT AND GENOTYPE Routine 03/23/2016 9:49 AM GEOMORPHOLOGIST Need for hepatitis C screening test COLONOSCOPY - HIM SCAN Routine 02/16/2014 from Last 3 Months or Most Recently Relevant to Health Maintenance Results * XR Surgery BRODIE L/T 5 Min Fluoro (06/28/2023 11:09 AM CDT) Narrative [facility] - 06/28/2023 11:10 AM CDT This exam was marked as non-reportable because it will not be read by a radiologist or a [facility] non-radiologist provider. Marco Padilla MD IMG DIAGNOSTIC IM AGING ORDERABLES [facility] * HCG quantitative (06/28/2023 8:00 AM CDT) hCG Quantitative 1 <5 mIU/mL 06/28/19 8:39 AM CDT [facility] Comment: Adult: 0-5 mIU/mL for healthy non- person Neonates: Should be within normal ranges by 2 days after Blood TOPOGRAPHY UNKNOWN / Unknown Venipuncture / Unknown 06/28/2023 8:00 AM CDT 06/28/2023 8:10 AM CDT Janie Jajakandice Jacques REVENUE AUDIT CLERK HEALTH OFFICER LAB - BLOOD ORDERABLES [facility] [address] [place] [address], [facility] * MAMMOGRAM - HIM SCAN (08/31/2021 1:36 PM CDT) Anatomical Region Laterality Modality Other 08/31/2021 1:36 PM CDT Provider Outside IMG MAMMOGRAPHY AVELINOE EJ * (ABNORMAL) Lipid Profile (08/26/2019 8:33 AM CDT) Cholesterol 206(H) <200 mg/dL 08/26/2019 12:46 PM CDT [facility] Comment:Desirable: <200 mg/d l Triglycerides 84 <150 mg/dL 08/26/2019 12:57 PM CDT [facility] HDL Cholesterol 63 >49 mg/dL 0 1:00 PM CDT [facility] LDL Cholesterol Calculated 126(H) <100 mg/dL 08/26/2019 1:00 PM CDT [facility] Comment: Above desirable: ??100-129 mg/dl Borderline High: ??130-159 mg/dL High: ? 160-189 mg/dL Very high: ? >189 mg/dl Non HDL Cholesterol 143(H) <130 mg/dL 08/26/2019 1:00 PM CDT [facility] Comment: Above Desirable: ??130-159 mg/dl Borderline high: ??160-189 mg/dl High: ? 190-219 mg/dl Very high: ? >219 mg/dl Blood specimen (specimen) 08/26/2019 8:33 AM CDT 08/26/2019 8:34 AM CDT Tiffanie Araya DO LAB - BLOOD ORDERABLES [facility] [address] [place] [address] * Basic metabolic panel (11/28/2018 9:04 AM CDT) Sodium 139 133 - 144 mmol/L 11/29/2018 8:06 AM CDT [facility] Potassium 4.5 3.4 - 5.3 mmol/L 11/29/2018 8:06 AM CDT [facility] Chloride 105 94 - 109 mmol/L 11/29/2018 8:06 AM CDT [facility] Carbon Dioxide 29 20 - 32 mmol/L 11/29/2018 8:15 AM CDT [facility] Anion Gap 5 3 - 14 mmol/L 11/29/2018 8:15 AM CDT [facility] Glucose 94 70 - 99 mg/dL 11/29/2018 8:15 AM CDT [facility] Urea Nitrogen 16 7 - 30 mg/dL 11/29/2018 8:15 AM CDT [facility] Creatinine 0.81 0.52 - 1.04 mg/dL 11/29/2018 8:15 AM CDT [facility] GFR Estimate 76 >60 mL/min/{1 .73_m2} 11/29/2018 8:15 AM T [facility] Comment: Non GFR Calc Starting 02/26/2018, serum creatinine based estimated GFR (eGFR) will be calculated using the Chronic Kidney Disease Epidemiology Collaboration (CKD-EPI) equation. GFR Estimate If Black 88 >60 mL/min/{1 .73_m2} 11/29/2018 8:15 AM CDT [facility] Comment: GFR Calc Starting 02/26/2018, serum creatinine based estimated GFR (eGFR) will be calculated using the Chronic Kidney Disease Epidemiology Collaboration (CKD-EPI) equation. Calcium 9.4 8.5 - 10.1 mg/dL 11/29/2018 8:15 AM CDT [facility] Blood specimen (specimen) 11/28/2018 9:04 AM CDT 11/28/2018 9:08 AM CDT Parag Pires PA-C LAB - BLOOD OR DERABLES Performing Organization Address [facility]/State/ZIP Co de Phone Number [facility] [address] [place] [address] * DX Hip/Pelvis/Spine (05/16/2017 10:06 AM GEOMORPHOLOGIST) Anatomical Region Laterality Modality Dexa Bone Mineral Den sity Narrative 05/17/2017 4:13 PM GEOMORPHOLOGIST BONE DENSITOMETRY [address] [address] 05/16/2017 ?? PATIENT: Vi Donato CHART: [id number] : ??1950 AGE: ??66 year old SEX: ??female REFERRING PROVIDER: ??Parag Pires PA-C ?? PROCEDURE: ??Bone density scanning was performed using DXA technology of the lumbar spine and hip. ??Scanning was performed on a [employer] scanner. ??Reporting is completed in the form of a T-score. ??The T-score represents the standard deviation from peak bone mass based on a young healthy adult. ?? REFERENCE T-SCORES: ?Normal ?-1.0 and greater ?Osteopenia ? Between -1.0 and -2.5 ?Osteoporosis ? -2.5 and less ? RISK FACTORS: ??Post-menopausal, Parent history of osteoporosis CURRENT TREATMENT: ??Calcium with Vitamin D ?? FINDINGS: ? Lumbar Spine (L1-L2) T-score: -1.0, marked degenerative changes present at L3,4, so only L1,2 are evaluated. ? Left Femoral Neck T-score: ??-0.7 ? Right Femoral Neck T-score: ??-1.0 ? Lumbar (L1-L2) BMD: 1.047 ?? Previous: 1.198 ? Total Hip Mean BMD: 1.003 ?? Previous: 1.115 Comparison is made to another DXA performed on a different [employer] machine on 11/06/2011. IMPRESSION Normal bone mineral density. Comparisons from different scanners that have not been cross calibrated, are not necessarily valid. Such a comparison has been performed here; one should interpret with caution. There has been probable ??significant decrease in bone density of the lumbar spine. There has been probable significant decrease in bone density of the hip(s). Recommendations include ensuring adequate Calcium and Vitamin D. The current NOF Guidelines recommend treatment for patients with prior hip or vertebral fracture, T-score -2.5 or below, or 10 year risk of any major osteoporotic fracture >20% or 10 year risk of hip fracture >3%, as calculated using the FRAX calculator (www.shef.ac.uk/FRAX or you can google FRAX). ?? This patient's risks based on available information, with the use of FRAX, are 6.7 % for major osteoporotic fracture and 0.4 % for hip fracture. Based on these guidelines, treatment (in addition to calcium and vitamin D) is not recommended for this patient, after ruling out other causes of osteoporosis. This is meant as an aid to clinical decision making; one must still use clinical judgement. Follow up can be considered in 5 years. Vero Rodriguez M.D. Electronically signed ? Parag Pires PA-C IMG DEXA ORDER [facility] * Hepatitis C Screen Reflex to HCV RNA Quant and Genotype (03/23/2016 9:49 AM GEOMORPHOLOGIST) Hepatitis C Antibody Nonreactive Assay performance characteristics have not been established for newborns, infants, and children NR [facility] Blood specimen (specimen) 03/23/2016 9:49 AM GEOMORPHOLOGIST 03/23/2016 9:50 AM GEOMORPHOLOGIST Parag Pires PA-C LAB - BLOOD OR DERABLES [facility] [address] [place], [place] [address] * Colonoscopy - HIM Scan (02/16/2014) Naz Lugo PA-C PROCEDURES from Last 3 Months or Most Recently Relevant to Health Maintenance Care Teams Watch Mechanic Relationship Specialty Start Date End Date Ceci Kessler MD [facility] & [address] [address] PCP - General Family Medicine 09/02/20
--- OUTSIDE RECORDS SUMMARY | 2023-09-07 09:14 | XMS_ITS | Clinical Summary ---
Author Organization [place] Address [address] [place] [address] Care Team Providers Care Back Panel Padder Name Role Phone Ceci Kessler MD Primary Care Provider + Allergies Active Allergy Reactions Criticality Noted Date Comments No Known Drug Allergy 09/16/2003 Medications Medication Sig Dispensed Refills Start Date End Date Status MULTI-DAY OR 1 tablet daily Active Cholecalciferol (VITAMIN D3 PO) Take 2,000 Units by mouth daily Active calcium-vitamin D (CALTRATE) 600-400 MG-UNIT per tablet Take 1 tablet by mouth 2 times daily Active [place]-3 Fatty Acids (OMEGA-3 FISH OIL PO) Take [...] Active fluticasone (FLONASE) 50 MCG/ACT nasal spray [place] 1 spray into both nostrils as needed [...] Diagnosed Date Obesity (BMI 35.0-39.9) with comorbidity 06/13/2 019 A-fib 10/01/2012 Overview: On Xarelto Fam [...] updated by automated process. Provider to review Encounters Date Type Department Care Team Description 06/28/2023 9:41 AM CDT Anesthesia Event [address] [phone] Dave Stout MD Corrow, Caleb, APRN CRNA 06/28/2023 9:00 AM CDT - 06/28/2023 11:00 AM CDT Surgery [address] [phone] Marco Padilla MD REMOVAL OF INTERSTIM SACRAL NEUROMODULATION LEAD AND GENERATOR. PLACE [employer] SACRAL NEUROMODULATION SYSTEM STAGE ONE AND TWO 06/28/2023 7:13 AM CDT - 06/28/2023 12:32 PM CDT [facility] Phase II [address] [place] [phone] Marco Padilla MD S/P gynecological surgery, follow-up exam (Primary Dx) Discharge Disposition: Home or Self Care from Last 3 Months Immunizations Name Administration Dates Next Due Influenza (High Dose) 3 valent vaccine 9,12/06/2017 Influenza (IIV3) PF 12/09/2014,12/18/2012,2002 Influenza (intradermal) 12/19/2011,12/06/2010 Influenza Vaccine 65+ (Fluzone HD) 12/17/2019 Influenza Vaccine, 6+MO IM ( QUADRIVALENT W/PRESERVATIVES) 12/15/2016 Nasal Influenza Vaccine 2-49 (FluMist) 4 Pneumo Conj 13-V (2010&after) 12/06/2017 Pneumococcal 23 valent 01/16/2019 TD,PF 7+ (Tenivac) 03/12/2000 TDAP Vaccine (Adacel) 09/19/2010 09/20/2011 Zoster recombinant adjuvanted (SHINGRIX) 019,07/25/2018 Family History Medical History Relation Comments Cancer Brother 1 nonsmoker Other Cancer Brother 1 Lung cancer No Known Problems Brother 2 Other Cancer Cousin abdominal mass/a bdominal mass/abdominal mass/abdominal mass Hypertension Father Anesthesia Reaction Mother extreme naus ea Cerebrovascular Disease Mother Hyperlipidemia Mother Hypertension Mother Osteoporosis Mother Breast Cancer Other Breast Cancer Paternal Aunt Cerebrovascular Disease Paternal Grandfather Breast Cancer Paternal Grandmother Mental Illness Son Colon Cancer No family hx of Diabetes No family hx of Relation Status Comments Brother 1 Brother 2 Alive Cousin Father Maternal Grandfather Maternal Grandmother Mother Alive Other Paternal Aunt Paternal Grandfather Paternal Grandmother Son Social History Tobacco Use Types Packs/Day Years [...] 11/25/2021 10:21 AM CDT Plan of Treatment Health Maintenance Due Date Last Done Comments ANNUAL REVIEW OF HM ORDERS 1950 CT COLONOGRAPHY 1950 FIT 1950 FLEX SIG 1950 URINE DRUG SCREEN 1950 sDNA (Cologuard) 1950 RSV VACCINE ( & 60+) (1 - 1-dose 60+ series) 2012 FALL RISK ASSESSMENT 01/17/2020 01/16/2019, 11/28/2018, 11/28/2018, Additional history exists LIPID 08/25/2020 08/26/2019, 0608/2018, 12/06/2017, Additional history exists MEDICARE ANNUAL WELLNESS VISIT 08/31/2021 08/31/2020, 07/08/2020, 07/08/2020, Additional history exists GLUCOSE 11/28/2021 11/28/2018, 08/10, 01/22/2018, Additional history exists DEXA 05/16/2022 05/16/2017, 080 09/2011, 03/20/2006 COVID-19 Vaccine (7 - 2023-24 season) 2022 09/09/2022, 01/12/2022, 10/04/2021, Additional history exists PHQ-2 (once per calendar year) 2023 01/16/2019, 11/28/2018, 12/06/2017, Additional history exists MAMMO SCREENING 09/01/2023 08/31/2021, 0803/2019, 10/18/2017, Additional history exists INFLUENZA VACCINE (Season Ended) 2023 01/20/2022, 12/09/2020, 12/17/2019, Additional history exists ADVANCE CARE PLANNING 01/28/2024 01/27/2019 , 12/06/2017, 10/20/2010, Additional history exists COLONOSCOPY 08/12/2025 08/12/2020, 12/10/2013, 01/04/2004 COLORECTAL CANCER SCREENING 08/12/2025 DTAP/TDAP/TD IMMUNIZATION (3 - Td or Tdap) 11/29/2030 11/29/2020, 09/19/2010, 03/12/2000 HEPATITIS C SCREENING Completed 03/23/2016 ZOSTER IMMUNIZATION Completed 10/04/2018, 9 Pneumococcal Vaccine: 65+ Years Completed 01/16/2019, 12/06/2017 HPV IMMUNIZATION Aged Out No longer e ligible based on patient's age to complete this topic IPV IMMUNIZATION Aged Out No longer e ligible based on patient's age to complete this topic MENINGITIS IMMUNIZATION Aged Out No l onger eligible based on patient's age to complete this topic RSV MONOCLONAL ANTIBODY Aged Out No l onger eligible based on patient's age to complete this topic Medical Devices Implanted Type Area Educational Technologist Device Identifier Shelf Expiration Date Model / Serial / Lot Kit [facility] [employer] Caro Lead Curved Stylet 1201 - [id number] Implanted:Qty : 1 on 06/28/2023 by Marco Padilla MD at [facility] Leads N/A: Bladder [employer] [id number] 09/20/2025 1201 / [id number] / Imp Nrs [employer] Snm System 4101 - [id number] Implanted:Qty : 1 on 06/28/2023 by Marco Padilla MD at [facility] Neurology device N/A: Bladder [employer] [id number] 01/26/2024 4101 / [id number] / Sns Lead 28cm Implanted:Qty : 1 on 10/26/2014 by Sukhjinder Wolf MD at [facility] N/A: Sacrum [employer] 08/18/2018 3889 / / [id number] Stimulator Neuro Interstim Ii 3058 Implanted:Qty : 1 on 10/26/2014 by Sukhjinder Wolf MD at [facility] N/A: Sacrum [employer] 02/07/2016 [id number] / [id number] / Procedures Procedure Name Priority Date/Time Associated Diagnosis Comments XR SURGERY BRODIE FLUORO LESS THAN 5 MIN Routine 06/28/2023 11:09 AM CDT REVISION, PROCEDURE INVOLVING BLADDER NEUROSTIMULATOR 06/28/2023 9:43 AM CDT Urge incontinence Full incontinence of feces Case Notes Knowlent sales producer coming (Chevy Moseley)Antibiotic irrigation ordered - need to release Special Needs Req 90 mins, Philomena Barraza to Assist. Knowlent rep will coordinate with [facility] regarding supplies and equipment. REP. Chevy Moseley [...] DX BONE DENSITY Routine 05/16/2017 10:06 AM DIRECTOR SEARCH Screening for osteoporosis HEPATITIS C SCREEN REFLEX TO HCV RNA QUANT AND GENOTYPE Routine 03/23/2016 9:49 AM DIRECTOR SEARCH Need for hepatitis C screening test COLONOSCOPY - HIM SCAN Routine 02/16/2014 from Last 3 Months or Most Recently Relevant to Health Maintenance Results * XR Surgery BRODIE L/T 5 Min Fluoro (06/28/2023 11:09 AM CDT) Narrative RADIANT - 06/28/2023 11:10 AM CDT This exam was marked as non-reportable because it will not be read by a radiologist or a [place] non-radiologist provider. Marco Padilla MD IMG DIAGNOSTIC IM AGING ORDERABLES RADIANT * HCG quantitative (06/28/2023 8:00 AM CDT) hCG Quantitative 1 <5 mIU/mL 06/28/19 8:39 AM CDT [facility] Comment: Adult: 0-5 mIU/mL for healthy non- person Neonates: Should be within normal ranges by 2 days after Blood TOPOGRAPHY UNKNOWN / Unknown Venipuncture / Unknown 06/28/2023 8:00 AM CDT 06/28/2023 8:10 AM CDT Janie Jacques QUALITY ASSURANCE ENGINEER ENTRY LEVEL INSTALLATION TECHNICIAN LAB - BLOOD ORDERABLES N LABORATORY [facility] [address] * MAMMOGRAM - HIM SCAN (08/31/2021 1:36 PM CDT) Anatomical Region Laterality Modality Other 08/31/2021 1:36 PM CDT Provider Outside IMG MAMMOGRAPHY ORDE RABLES * (ABNORMAL) Lipid Profile (08/26/2019 8:33 AM CDT) Cholesterol 206(H) <200 mg/dL 08/26/2019 12:46 PM CDT [facility] Comment:Desirable: <200 mg/d l Triglycerides 84 <150 mg/dL 08/26/2019 12:57 PM CDT [facility] HDL Cholesterol 63 >49 mg/dL 0 1:00 PM CDT [facility] LDL Cholesterol Calculated 126(H) <100 mg/dL 08/26/2019 1:00 PM CDT [facility] Comment: Above desirable: ??100-129 mg/dl Borderline High: ??130-159 mg/dL High: ? 160-189 mg/dL Very high: ? >189 mg/dl Non HDL Cholesterol 143(H) <130 mg/dL 08/26/2019 1:00 PM CDT [facility] Comment: Above Desirable: ??130-159 mg/dl Borderline high: ??160-189 mg/dl High: ? 190-219 mg/dl Very high: ? >219 mg/dl Blood specimen (specimen) 08/26/2019 8:33 AM CDT 08/26/2019 8:34 AM CDT Tiffanie Luly Araya DO LAB - BLOOD ORDERABLES [facility] [address] [place] [address] * Basic metabolic panel (11/28/2018 9:04 AM CDT) Sodium 139 133 - 144 mmol/L 11/29/2018 8:06 AM CDT [facility] Potassium 4.5 3.4 - 5.3 mmol/L 11/29/2018 8:06 AM CDT [facility] Chloride 105 94 - 109 mmol/L 11/29/2018 8:06 AM CDT [facility] Carbon Dioxide 29 20 - 32 mmol/L 11/29/2018 8:15 AM CDT [facility] Anion Gap 5 3 - 14 mmol/L 11/29/2018 8:15 AM CDT [facility] Glucose 94 70 - 99 mg/dL 11/29/2018 8:15 AM CDT [facility] Urea Nitrogen 16 7 - 30 mg/dL 11/29/2018 8:15 AM CDT [facility] Creatinine 0.81 0.52 - 1.04 mg/dL 11/29/2018 8:15 AM CDT [facility] GFR Estimate 76 >60 mL/min/{1 .73_m2} 11/29/2018 8:15 AM CDT [facility] Comment: Non GFR Calc Starting 02/26/2018, serum creatinine based estimated GFR (eGFR) will be calculated using the Chronic Kidney Disease Epidemiology Collaboration (CKD-EPI) equation. GFR Estimate If Black 88 >60 mL/min/{1 .73_m2} 11/29/2018 8:15 AM CDT [facility] Comment: GFR Calc Starting 02/26/2018, serum creatinine based estimated GFR (eGFR) will be calculated using the Chronic Kidney Disease Epidemiology Collaboration (CKD-EPI) equation. Calcium 9.4 8.5 - 10.1 mg/dL 11/29/2018 8:15 AM CDT [facility] Blood specimen (specimen) 11/28/2018 9:04 AM CDT 11/28/2018 9:08 AM CDT Parag Pires PA-C LAB - BLOOD OR DERABLES [facility] [address] [place] [address] * DX Hip/Pelvis/Spine (05/16/2017 10:06 AM DIRECTOR SEARCH) Anatomical Region Laterality Modality Dexa Bone Mineral Den sity Narrative 05/17/2017 4:13 PM DIRECTOR SEARCH BONE DENSITOMETRY [address] [address] 05/16/2017 ?? PATIENT: Vi Phan CHART: [id number] : ??1950 AGE: ??66 year old SEX: ??female REFERRING PROVIDER: ??Parag Pires PA-C ?? PROCEDURE: ??Bone density scanning was performed using DXA technology of the lumbar spine and hip. ??Scanning was performed on a Bizen scanner. ??Reporting is completed in the form [...] to another DXA performed on a different Intelipost machine on 11/06/2011. IMPRESSION Normal bone mineral [...] RNA Quant and Genotype (03/23/2016 9:49 AM DIRECTOR SEARCH) Hepatitis C Antibody Nonreactive Assay performance characteristics have not been established for newborns, infants, and children NR [facility] Blood specimen (specimen) 03/23/2016 9:49 AM DIRECTOR SEARCH 03/23/2016 9:50 AM DIRECTOR SEARCH Parag Pires PA-C LAB - BLOOD OR DERABLES [facility] [address] * Colonoscopy - HIM Scan (02/16/2014) Naz Lugo PA-C PROCEDURES from Last 3 Months or Most Recently Relevant to Health Maintenance Care Teams Back Panel Padder Relationship Specialty Start Date End Date Ceci Kessler MD [facility] [address] [place] [address] PCP - General Family Medicine 09/02/20
--- OUTSIDE RECORDS SUMMARY | 2023-09-07 09:15 | XMS_ITS | Encounter Summary ---
Author Organization [place] Address [address] [facility] [place] [address] Care Team Providers Care Cuff Turner Machine Operator Name Role Phone Elvis Lugo PA-C Primary Care Provid er Jocelyn Jane PA-C Primary Care Pr ovider Parag Pires PA-C Primary Care Provider Parag Pires PA-C Unavailable [phone] Parag Pires PA-C Unavailable [phone] Tiffanie Araya DO Unavailable [phone] Ceci Kessler MD Primary Care Provider + Encounter Details Date Type Department Care Team (Late st Contact Info) Description 08/06/2012 Office Visit-[facility] [place] [id number] [facility] [address] [place] [address] Morena Mota MD HEART [address] [place], [place] [id number] Social History Tobacco Use Types Packs/Day Years Used Date Smoking Tobacco: Former Cigarettes Q uit: 10/28/1976 Smokeless Tobacco: Never Comments:quit more than 25 y ears ago Alcohol Use Standard Drinks/Week Comments Yes 0 (1 standard drink = 0.6 oz pur e alcohol) very rare Sex and Gender Information Value Date Recorded Sex Assigned at Not on file Gender Identity Not on file Sexual Orientation Not on file documented as of this encounter Progress Notes * Morena Mota MD - 08/12/2012 10:12 AM CDT Progress Note Created by: Morena Mota M.D. [id number] DATE: 08/06/2012 [place] VI DATE OF : 1950 AGE: [age] years old Referring Physician: ELVIS LEIVA Referring Clinic: [facility] CURRENT DIAGNOSES 1. Hyperlipidemia-mixed disorder, 272.4 2. Arrhythmia-Palpitations, 785.1 3. - Abnormal EKG, 794.31 4. - Atrial Fibrillation, 427.31 ALLERGIES NKDA MEDICATIONS (prior to changes made today) 1. Calcium 500 With D 500 mg(1,250mg) -400 unit Tablet, 2 p.o. daily 2. Daily Multi-Vitamin Tablet, 1 p.o. daily 3. Fish Oil 1,000 (120-180) mg Capsule, 1400mg tab daily 4. metoprolol succinate 50 mg tablet extended release 24 hr, 1 tab twice daily 5. Metrogel Vaginal 0.75 % Gel, 1 p.o. PRN as Directed 6. Vesicare 10 mg Tablet, 1 p.o. daily 7. Vitamin D3 2,000 unit Tablet, 1 p.o. daily 8. Xarelto 10 mg tablet, 1 p.o. daily CHIEF COMPLAINTS HISTORY OF PRESENT ILLNESS This is a follow-up for atrial fibrillation. Ms. Phan is a very pleasant 61-year-old lady who comes in routine follow-up. She was last seen by Dr. Ugalde in August of last year who started her on Xareltoin the setting of chronic asymptomatic atrial fibrillation and hypertension. He recommended continuing rate control, as well as managing her sleep apnea. Ms. Phan has been going quite well and denies cardiorespiratory complaints of chest pain, shortness of breath, light-headedness, syncope or presyncope, paroxysmal nocturnal dyspnea, orthopnea, significant palpitations or pedal edema. Her blood pressure is elevated today on our check and we have been surveilling this in the past. Review of her note with her primary care physician on last evaluationunfortunately does not document vital signs. Her dyspnea has not particularly changed and she does complain about her need for weight loss. We have discussed various diets and she expresses her frustration with failure, but wonders if laparoscopic banding would be reasonable. PAST HISTORY Past Medical Illnesses: obesity, insomnia, hyperlipidemia, urge incontinence Past Cardiac Illnesses: irregular heart beat, Mild pulmonary hypertension Infectious History: UTI Surgeries/Procedures - General: no prior surgical procedures Cardiology Procedures-NonInvasive: holter monitor Nov 2010, echocardiogram Nov 2010 Pulmonary Testing: Sleep Study Jan 2011 PMHx Echo Results: 11/20 LVSF normal, RVSF normal, no regional wall motion abnormalities, Left atrium mildly dilated, Mild OMID,Right atrium mildly dilated,Trace to mild MR,Mild TR, Mild PHTN,Trace to mild AR,Mild PVR, Afib Left Ventricular Ejection Fraction: EF 55-60% by echo 11/20 LVEF of 55-60% documented via echocardiogram on 11/29/2010 FAMILY HISTORY: Father - Age 65, 'electrical system shut down'; Mother - mitral valve replacement in 1983, arthri; CARDIAC RISK FACTORS Tobacco Abuse: negative; Family History of Heart Disease: negative; Hyperlipidemia: positive; Hypertension: negative; Diabetes Mellitus: negative; Prior History of Heart Disease: negative SOCIAL HISTORY Alcohol Use - drinks rarely; Smoking - does not smoke; Diet - regular diet without modifications and caffeine use-rare; Lifestyle - and children; Exercise - stationery bike, resistant bands and no regular exercise; Seat Belt Use - always; 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 INTEGUMENTARY denies any change in hair or nails, rashes, or skin lesions. EYES wears eye glasses/contact lenses EARS, NOSE, THROAT, MOUTH denies any hearing loss, epistaxis, hoarseness or difficulty speaking. RESPIRATORY sleep apnea, not using c-pap, dyspnea, when going up stairs CARDIOVASCULAR palpitations, occ. ABDOMINAL history of GERD and Acid reflux/heart burn from tomatoes MUSCULOSKELETAL denies any history of arthritic symptoms or back problems. NEUROLOGICAL denies any history of recurrent strokes, headaches, TIA, or seizure disorder. PSYCHIATRIC denies any history of depression, substance abuse or change in cognitive functions. ENDOCRINE denies any history of thyroid disease or diabetes mellitus. HEMATOLOGICAL/IMMUNOLOGIC denies any food allergies, seasonal allergies, bleeding disorders. PHYSICAL EXAMINATION VITAL SIGNS: Blood Pressure: 144/90Sitting, Left arm, large cuff Pulse- 84.00/min. Weight- 260.80 lbs. Height- 64 BMI Measurement: 44 CONSTITUTIONAL cooperative, alert and oriented,well developed, well nourished, in no acute distress. SKIN warm and dry to touch, no apparent skin lesions, or masses noted. HEAD normocephalic, atraumatic EYES Pupils equal and round, conjunctivae and lids unremarkable, sclera white, no xanthalasma ENT no pallor or cyanosis, dentition good NECK carotid pulses are full and equal bilaterally, JVP normal, no carotid bruit, CHEST normal symmetry, no tenderness to palpation, normal respiratory excursion, no intercostal retraction, no use of accessory muscles, clear to auscultation and percussion. CARDIAC no murmurs, gallops or rubs detected, irregularly irregular rhythm ABDOMEN abdomen soft, bowel sounds normoactive, no masses, no hepatosplenomegaly, non- tender, no bruits PERIPHERAL PULSES pulses full and equal in all extremities, no bruits auscultated. EXTREMITIES & BACK no deformities, clubbing, cyanosis, erythema or edema observed. There are no spinal abnormalities noted. Normal muscle strength and tone. NEUROLOGICAL no gross motor deficits noted, affect appropriate, oriented to time, person and place. MEDICATIONS UPDATED/STARTED TODAY: metoprolol succinate 50 mg tablet extended release 24 hr, 1 tab twice daily, #180 (One [place] Eighty) Metrogel Vaginal 0.75 % Gel, 1 p.o. PRN as Directed, #0 (Zero) Xarelto 10 mg tablet, 1 p.o. daily, #90 (Ninety) MEDICATIONS REFILLED/STOPPED TODAY: metoprolol succinate 50 mg Tablet Extended Release 24 hr 1 tabs daily #0 (Zero) Refill and Xarelto 20 mg tablet 1 p.o. daily #90 (Ninety) Refill IMPRESSIONS/PLAN A pleasant 71-year-old lady with atrial fibrillation and hypertension. She is currently on Xarelto and rate control. She is on metoprolol for rate control with a pulse today of 84, which increases with activity. I do think it is reasonable to double her metoprolol to 100 at bedtime (50 twice daily)and she will have a follow-up Holter monitor in one week's to document rate control. With respect to her weight loss I have encouraged her to get in touch with a biomass plant technician as been referred previously with Debi, who also appears to do counseling with macario since Debi has had significant weight loss. I have given her the number that was communicating to me in our medical records. We will follow-up after the Holter monitor and make further recommendations at that time. Further recommendations will be pending the results. She continues to be followed by her primary care physician. Total time was 30 minutes, 25 in coordination of care and counseling. TODAYS ORDERS 1. Holter Monitor 24 1 week, 24-Hour 2. F/U with Any POWERTRAIN CONTROL SYSTEMS ENGINEER Return with Diagnostic Testing Morena Mota M.D. documented in this encounter Plan of Treatment Not on file documented as of this encounter Visit Diagnoses Not on filedocumented in this encounter Care Teams Cuff Turner Machine Operator Relationship Specialty Start Date End Date Elvis Lugo PA-C [address] [address] PCP - General Family Practice 10/02/11 09/14/14 Jocelyn Jane PA-C [address] [place] [address] PCP - General Physician Systems Accountant 09/15/14 03/22/16 Parag Pires PA-C [address] [place] [address] PCP - General Physician Systems Accountant - Medical 03/23/16 09/01/20 Parag Pires PA-C [address] [facility] [place] [address] PCP - Assigned PCP 06/17/17 05/14/18 Ceci Kessler MD [facility] & [address] [address] PCP - General Family Medicine 09/02/20 Parag Pires PA-C [address] [place] [address] Assigned PCP 06/17/17 01/20/22 Tiffanie Araya DO [address] [place] [address] Assigned Heart and Vascular Provider 01/02/20 06/01/23 documented as of this encounter
--- OUTSIDE RECORDS SUMMARY | 2023-09-07 09:15 | XMS_ITS | Encounter Summary ---
Author Organization [place] Address [address] [place] [address] Care Team Providers Care Entry Level Financial Analyst Name Role Phone Isabell Keating MD Primary Care Provider Naz Lugo PA-C Primary Care Provid er Jocelyn Jane-C Primary Care Pr ovider Parag Pires PA-C Primary Care Provider Parag Pires PA-C Unavailable + [phone] Parag PiersC Unavailable + [phone] Tiffanie Araya DO Unavailable + [phone] Ceci Kessler MD Primary Care Provider + Encounter Details Date Type Department Care Team (Late st Contact Info) Description 03/20/2011 Office Visit-[facility] [place] [address] [facility] [address] [place] [address] Jessica Franks, PRODUCT DEVELOPMENT ACTUARY LACTATION CONSULTANT [address] [facility] [address] [place] [id number] Social History Tobacco Use Types Packs/Day Years Used Date Smoking Tobacco: Former Cigarettes Q uit: 10/28/1976 Comments:quit more than 25 y ears ago Alcohol Use Standard Drinks/Week Comments Yes 0 (1 standard drink = 0.6 oz pur e alcohol) very rare Sex and Gender Information Value Date Recorded Sex Assigned at Not on file Gender Identity Not on file Sexual Orientation Not on file documented as of this encounter Progress Notes * Jessica Franks NP - 03/23/2011 3:19 PM CST Progress Note Created by: Jessica Franks N.P. [id number] DATE: 03/20/2011 RADHA DONATO DATE OF : 1950 AGE: [age] years old Referring Physician: ISABELL KEATING Referring Clinic: [facility] CURRENT DIAGNOSES 1. Hyperlipidemia-mixed disorder, 272.4 2. - Atrial Fibrillation, 427.31 3. Arrhythmia-Palpitations, 785.1 4. - Abnormal EKG, 794.31 ALLERGIES NKDA MEDICATIONS (prior to changes made today) 1. Aspirin 81 Mg Tablet, Delayed Release (e.c.), 2 p.o. daily 2. Calcium 500 With D 500 mg(1,250mg) -400 unit Tablet, 2 p.o. daily 3. carbidopa-levodopa 25-100 mg Tablet Extended Release, 1 p.o. twice daily 4. Fish Oil 1,000 (120-180) mg Capsule, 1400mg tab daily 5. metoprolol succinate 50 mg Tablet Extended Release 24 hr, 1 1/2 tabs daily 6. Vesicare 10 mg Tablet, 1 p.o. daily CHIEF COMPLAINTS Followup of CAD HISTORY OF PRESENT ILLNESS This is a delightful 60-year-old female who presents to the [facility] today for a follow-up visit. She is a patient of Dr. Mota seen in our clinic for a past medical history of: Atrial fibrillation, hypertension and sleep apnea. Radha has a history of chronic atrial fibrillation. She is fairly asymptomatic. Holter monitor done November of 2010 showed uncontrolled heart rate and she was started on metoprolol succinate. In follow-up her heart rate improved. She remains in aspirin for cerebrovascular accident prophylaxis. E chocardiogram done in November of 2010 shows preserved left ventricular function, mild biatrial enlargement and diastolic dysfunction. Her blood pressure has been borderline. She recently underwent a sleep study, which revealed mild obstructive sleep apnea and has since been started on carbidopa/levodopa. She was noted to have elevated heart rates during her sleep. She returns today for reassessment. Radha tells me she has been doing well. Since starting this new medication for sleep she has beenfeeling more restful sleep and improved daytime energy. She denies any chest discomfort, neck, arm or jaw pain with activity or at rest. She is not short of breath. She denies any sensations of palpations, light- headedness, dizziness or near syncope. She also denies orthopnea, peripheral arterial disease or peripheral edema. Her blood pressure today is 134/88 with a heart rate of 96 beats per minute. I took a full minute apical pulse and got a heart rate of 86 beats per minute. Her lungs are clear. There is no evidence of any jugular venous distention or peripheral edema. It appears her sleep study did reveal that her heart rate was elevated during sleep anywhere from 60 to 150 beats per minute. Further review of systems and physical examination as noted below. 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 EYES wears eye glasses/contact lenses EARS, NOSE, THROAT, MOUTH denies any hearing loss, epistaxis, hoarseness or difficulty speaking. RESPIRATORY positive for sleep apnea, c pap CARDIOVASCULAR negative for palpitations, chest pain, orthopnea, PND, peripheral edema, syncope or claudication. ABDOMINAL history of GERD and Acid reflux/heart [...] disorders. PHYSICAL EXAMINATION VITAL SIGNS: Blood Pressure: 134/88Sitting, Right arm, large cuff Pulse- 96.00/min. Weight- 256.00 lbs. Height- 64.00 CONSTITUTIONAL cooperative, alert and oriented,well developed, well [...] time, person and place. MEDICATIONS UPDATED/STARTED TODAY: carbidopa-levodopa 25-100 mg Tablet Extended Release, 1 p.o. twice daily, #0 (Zero) metoprolol succinate 50 mg Tablet Extended Release 24 hr, 1 1/2 tabs daily, #135 (One Purcell Thirty Five) MEDICATIONS REFILLED/STOPPED TODAY: metoprolol succinate 50 mg Tablet Extended Release 24 hr 1 1/2 tabs daily #45 Refill and metoprololsuccinate 50 mg Tablet Extended Release 24 hr 1 p.o. daily #90 (Ninety) Dosage Increased IMPRESSIONS/PLAN 1. Atrial fibrillation. Chronic. Asymptomatic. She is on metoprolol for heart rate control, however, recent evaluation did show slightly elevated heart rates when sleeping. Her resting heart rate today is 96 beats per minute. Therefore, I have elected to increase her metoprolol to 75 mg daily. I would like for her to return in two months for reassessment. She is on aspirin for cerebrovascular accident prophylaxis as her CHADS 2 score is 0. 2. Hypertension, borderline diastolic elevation today. Again her metoprolol dose has been adjusted. 3. Sleep apnea with recent addition of carbidopa/levodopa. Her sleeping actually has improved. Thank you for allowing me to participate in this patient's care. I will have her return as planned.She is to notify our clinic with chest discomfort, shortness of breath, light-headedness, dizzinessor other concerns she may have during the interim. TODAYS ORDERS 1. Return Visit 2 months Jessica Franks N.P. documented in this encounter Plan of Treatment Not on file documented as of this encounter Visit Diagnoses Not on filedocumented in this encounter Care Teams Entry Level Financial Analyst Relationship Specialty Start Date End Date Isabell Keating MD PCP - General Family Practice 09/05/10 10/01/11 Naz Lugo PA-C [address] [address] PCP - General Family Practice 10/02/11 09/14/14 Jocelyn Jane PA-C [address] [place] [address] PCP - General Physician Chisel Worker 09/15/14 03/22/16 Parag Pires PA-C [address] [place] [address] PCP - General Physician Chisel Worker - Medical 03/23/16 09/01/20 Parag Pires PA-C [address] [place] [address] PCP - Assigned PCP 06/17/17 05/14/18 Ceci Kessler MD [facility] & [address] [address] PCP - General Family Medicine 09/02/20 Parag Pires PA-C [address] [place] [id number] Assigned PCP 06/17/17 01/20/22 Tiffanie Araya DO [address] [place] [address] Assigned Heart and Vascular Provider 01/02/20 06/01/23 documented as of this encounter
--- OUTSIDE RECORDS SUMMARY | 2023-09-07 09:15 | XMS_ITS | Encounter Summary ---
Author Organization [place] Address [address] [facility] [place] [address] Care Team Providers Care Clerical Proofreader Name Role Phone Naz Lugo PA-C Primary Care Provid er Jocelyn Jane PA-C Primary Care Pr ovider Parag Pires PA-C Primary Care Provider Parag iPres PA-C Unavailable [phone] Parag Pires PA-C Unavailable [phone] Tiffanie Araya DO Unavailable + [phone] Ceci Kessler MD Primary Care Provider + Encounter Details Date Type Department Care Team (Late st Contact Info) Description 06/28/2012 [facility] Only [facility] [address], [address] [place] [id number] Radha Phan Social History Tobacco Use Types Packs/Day Years [...] on file documented as of this encounter Plan of Treatment Not on file documented as of this encounter Visit Diagnoses Not on filedocumented in this encounter Care Teams Clerical Proofreader Relationship Specialty Start Date End Date Naz Lugo PA-C [address] [address] [place] [address] PCP - General Family Practice 10/02/11 09/14/14 Jocelyn Jane PA-C [address] [place] [address] PCP - General Physician New Car Make Ready Mechanic 09/15/14 03/22/16 Parag Pires PA-C [address] [place] [address] PCP - General Physician New Car Make Ready Mechanic - Medical 03/23/16 09/01/20 Parag Pires PA-C [address] [place] [address] PCP - Assigned PCP 06/17/17 05/14/18 Ceci Kessler MD [facility] & [address] [address] PCP - General Family Medicine 09/02/20 Parag Pires PA-C [address] [address] [place] [address] Assigned PCP 06/17/17 01/20/22 Tiffanie Araya DO [address] [place] [id number] Assigned Heart and Vascular Provider 01/02/20 06/01/23 documented as of this encounter
--- OUTSIDE RECORDS SUMMARY | 2023-09-07 09:15 | XMS_ITS | Encounter Summary ---
Author Organization [place] Address [address] [place] [address] Care Team Providers Care Audio Video Repairer Name Role Phone Parag Pires PA-C Primary Care Provider Parag Pires PA-C Unavailable + [phone] Tiffanie Araya DO Unavailable + [phone] Ceci Kessler MD Primary Care Provider + Reason for Visit * Reason Onset Date Comments Refill Request 03/10/2019 Tramadol 50mg Encounter Details Date Type Department Care Team (Late st Contact Info) Description 03/10/2019 My[facility] Medical Advice [address], [address] [place] [address] Parag Pires PA-C [address] [place], [place] [id number] Refill Request (Tramadol 50mg) Social History Tobacco Use Types Packs/Day Years Used Date Smoking Tobacco: Former Cigarettes Q uit: 10/28/1976 Smokeless Tobacco: Never Comments:quit more than 35 y ears ago Alcohol Use Standard Drinks/Week Comments Yes 0 (1 standard drink = 0.6 oz pur e alcohol) twice a month PHQ-2 Answer Date Recorded PHQ-2 Score 0 01/16/2019 Sex and Gender Information Value Date Recorded Sex Assigned at Not on file Gender Identity Not on file Sexual Orientation Not on file documented as of this encounter Miscellaneous Notes * Telephone Encounter - Ines Green RN - 03/14/2019 7:45 AM CST Tolterodine ER 4mg rx was sent to [facility] on 01/16/2019 for #90 with 1 additional refill. Ines Green RN TRUCTION SAFETY MANAGER * Telephone Encounter - Shruthi Burger RN - 03/13/2019 3:17 PM CONSTRUCTION SAFETY MANAGER Routing refill request to provider for review/approval because: Tramadol: Drug not on the [facility] refill [place] Requested Prescriptions Pending Prescriptions Disp Refills ??? tolterodine ER (DETROL LA) 4 MG 24 hr capsule 90 capsule 1 Sig: Take 1 capsule by mouth daily. This replaces the Oxybutynin and/or Trospium. Muscarinic Antagonists (Urinary Incontinence Agents) Passed - 03/11/2019 8:26 AM Passed - Recent (12 mo) or future (30 days) visit within the authorizing provider's specialty Patient has had an office visit with the authorizing provider or a provider within the authorizing providers department within the previous 12 mos or has a future within next 30 days. See Patient Info tab in inbasket, or Choose Columns in Meds & Orders section of the refill encounter. Passed - Patient does not have a diagnosis of glaucoma on the problem list If glaucoma diagnosis is new, refer refill to physician. Passed - Medication is active on med list Passed - Patient is 18 years of age or older ??? traMADol (ULTRAM) 50 MG tablet 30 tablet 0 Sig: Take 1 tablet (50 mg) by mouth every 6 hours as needed for moderate to severe pain There is no refill protocol information for this order TRUCTION SAFETY MANAGER documented in this encounter Plan of Treatment Not on file documented as of this encounter Visit Diagnoses Diagnosis Urge incontinence of urine Urge incontinence Chronic pain of both knees documented in this encounter Additional Health Concerns Assessment Noted Time PHQ-9 Depression Total Score: 0 09/22/19 17 7:24 AM CDT documented as of this encounter Care Teams Audio Video Repairer Relationship Specialty Start Date End Date Parag Pires PA-C PCP - General Physician Social Work Professor - Medical 03/23/16 09/01/[address] [facility] & [address] [address] PCP - General Family Medicine 09/02/20 Parag Pires PA-C [address] [place] [id number] Assigned PCP 06/17/17 01/20/22 Tiffanie Araya DO [address] [place] [address] Assigned Heart and Vascular Provider 01/02/20 06/01/23 documented as of this encounter
--- OUTSIDE RECORDS SUMMARY | 2023-09-07 09:15 | XMS_ITS | Encounter Summary ---
Author Organization [place] Address [address] [facility] [place] [address] Care Team Providers Care Roll Forming Machine Operator Name Role Phone Naz Lugo PA-C Primary Care Provid er Jocelyn Jane PA-C Primary Care Pr ovider Parag Pires PA-C Primary Care Provider Parag Pires PA-C Unavailable [phone] Parag Pires PA-C Unavailable [phone] Tiffanie Araya DO Unavailable + [phone] Ceci Kessler MD Primary Care Provider + Encounter Details Date Type Department Care Team (Late st Contact Info) Description 03/04/2012 [facility] [place] [address] [place] [address] Lissy Cintron MD Social History Tobacco Use Types Packs/Day Years [...] on file documented as of this encounter Last Filed Vital Signs Vital Sign Reading Time Taken Comments Blood Pressure - - Pulse - - Temperature - - Respiratory Rate - - Oxygen Saturation - - Inhaled Oxygen Concentration - - Weight 117.2 kg (258 lb 7 oz) 11/20/2011 8:00 AM CDT Height 161.9 cm (5' 3.75) 11/20/2011 8:00 AM CD T Body Mass Index 44.71 11/20/2011 8:00 AM CDT documented in this encounter Plan of Treatment Not on file documented as of this encounter Visit Diagnoses Not on filedocumented in this encounter Care Teams Roll Forming Machine Operator Relationship Specialty Start Date End Date Naz Lugo PA-C [address] [address] [place] [address] PCP - General Family Practice 10/02/11 09/14/14 Jocelyn Jane PA-C [address] [place] [address] PCP - General Physician Mold Cutting Machine Operator 09/15/14 03/22/16 Parag Pires PA-C [address] [place] [address] PCP - General Physician Mold Cutting Machine Operator - Medical 03/23/16 09/01/20 Parag Pires PA-C [address] [place] [address] PCP - Assigned PCP 06/17/17 05/14/18 Ceci Kessler MD [facility] & [address] [address] PCP - General Family Medicine 09/02/20 Parag Pires PA-C [address] [place] [id number] Assigned PCP 06/17/17 01/20/22 Tiffaine Araya DO [address] [place] [address] Assigned Heart and Vascular Provider 01/02/20 06/01/23 documented as of this encounter
--- OUTSIDE RECORDS SUMMARY | 2023-09-07 09:15 | XMS_ITS | Encounter Summary ---
Author Organization [place] Address [address] [facility] [address] [place] [address] Care Team Providers Care Addictions Counselor Assistant Name Role Phone Elvis Lugo PA-C Primary Care Provid er Jocelyn Jane PA-C Primary Care Pr ovider Parag Pires PA-C Primary Care Provider Parag Pires PA-C Unavailable [phone] Parag Pires PA-C Unavailable [phone] Tiffanie Araya DO Unavailable + [phone] Ceci Kessler MD Primary Care Provider + Encounter Details Date Type Department Care Team (Late st Contact Info) Description 09/05/2012 Office Visit-[facility] [place] [id number] [facility] [address] [place] [address] Joleen Pineda APRN CNP Social History Tobacco Use Types Packs/Day Years [...] as of this encounter Progress Notes * Joleen Pineda, DIPTI - 09/10/2012 1:23 PM CDT Progress Note Created by: Joleen Pineda. N.P. #[id number] DATE: 09/05/2012 VI DONATO DATE OF : 1950 AGE: [age] years [...] unit Tablet, 1 p.o. daily 8. Xarelto 20 mg tablet, 1 p.o. daily CHIEF COMPLAINTS A-fib HISTORY OF PRESENT ILLNESS: Vi Donato is a delightful 61-year-old patient of Dr. Mota who presents in clinic today for a follow-up on her atrial fibrillation. She has persistent atrial fibrillation, which is treated with anticoagulation and rate control therapy. She does have sleep apnea, which is treated with CPAP therapy. She has hypertension as well, which is medically treated. At her last visit, resting heart rate was somewhat elevated and her metoprolol was increased. She states that she felt fatigue on the increased dose, however, is adjusting to it. Holter monitor was performed showing an average heart rate of 90 beats/minute with a minimum heart rate of 50 and a maximum heart rate of 140. She is not having any symptoms at this time. She has no chest pain or pressure, has no lightheadedness, dizziness, presyncope, syncope, palpitations, shortness of breath, PND ororthopnea. In our office today, her blood pressure is 124/84. Heart rate is 79 beats/minute. Her weight is 258.6 pounds. Please see below for remaining past medical history and physical exam. 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 PHYSICAL EXAMINATION VITAL SIGNS: Blood Pressure: 124/84Sitting, Right arm, large cuff Pulse- 79.00/min. Weight- 258.60 lbs. Height- 64.00 BMI Measurement: 44 CONSTITUTIONAL cooperative, alert and [...] time, person and place. MEDICATIONS UPDATED/STARTED TODAY: IMPRESSION/PLAN: 1. Persistent atrial fibrillation with rate control and anticoagulation therapy. She is currently asymptomatic and has been tolerating the increased dose of metoprolol. 2. Hypertension with mildly elevated blood pressure today. She does have follow-up with her primary care physician in the near future where she states her blood pressure will be reevaluated. 3. Obesity. She is trying to lose weight and has begun to be more active riding her bike and will continue to move forward with this. 4. Obstructive sleep apnea, currently treated with CPAP therapy. It was my pleasure to participate in the care of Ms. Donato in clinic today. Joleen Pineda. N.P. documented in this encounter Plan of Treatment Not on file documented as of this encounter Visit Diagnoses Not on filedocumented in this encounter Care Teams Addictions Counselor Assistant Relationship Specialty Start Date End Date Elvis Lugo PA-C [address] [address] [place] [id number] PCP - General Family Practice 10/02/11 09/14/14 Jocelyn Jane PA-C [address] [facility] [facility] [place] [address] PCP - General Physician Bead Worker Sewing 09/15/14 03/22/16 Parag Pires PA-C [address] [place] [address] PCP - General Physician Bead Worker Sewing - Medical 03/23/16 09/01/20 Parag Pires PA-C [address] [place] [address] PCP - Assigned PCP 06/17/17 05/14/18 Ceci Kessler MD [facility] & [address] [address] PCP - General Family Medicine 09/02/20 Parag Pires PA-C [address] [place] [address] Assigned PCP 06/17/17 01/20/22 Tiffanie Araya DO [address] [place] [address] Assigned Heart and Vascular Provider 01/02/20 06/01/23 documented as of this encounter
--- OUTSIDE RECORDS SUMMARY | 2023-09-07 09:15 | XMS_ITS | Encounter Summary ---
Author Organization [place] Address [address] [facility] [place] [address] Care Team Providers Care Assembler Cards And Announcements Name Role Phone Parag Pires PA-C Primary Care Provider Parag Pires PA-C Unavailable + [phone] Parag Pires PA-C Unavailable + [phone] Tiffanie Araya DO Unavailable [phone] Ceci Kessler MD Primary Care Provider + Encounter Details Date Type Department Care Team (Late st Contact Info) Description 03/26/2017 MyC Medical Advice [address], [address] [place] [address] Alice Hardin MA Social History Tobacco Use Types Packs/Day Years Used Date Smoking Tobacco: Former Cigarettes Q uit: 10/28/1976 Smokeless Tobacco: Never Comments:quit more than 35 y ears ago Alcohol Use Standard Drinks/Week Comments Yes 0 (1 standard drink = 0.6 oz pur e alcohol) twice a month Sex and Gender Information Value Date Recorded Sex Assigned at Not on file Gender Identity Not on file Sexual Orientation Not on file documented as of this encounter Plan of Treatment Not on file documented as of this encounter Visit Diagnoses Not on filedocumented in this encounter Additional Health Concerns Assessment Noted Time PHQ-9 Depression Total Score: 0 09/22/19 17 7:24 AM CDT documented as of this encounter Care Teams Assembler Cards And Announcements Relationship Specialty Start Date End Date Parag Pires PA-C PCP - General Physician Extender - Medical 03/23/16 09/01/20 Parag Pires PA-C [address] [address] [place] [address] PCP - Assigned PCP 06/17/17 05/14/18 Ceci Kessler MD [facility] & [address] [address] PCP - General Family Medicine 09/02/20 Parag Pires PA-C [address] [place] [id number] Assigned PCP 06/17/17 01/20/22 Tiffanie Araya DO [address] [place] [address] Assigned Heart and Vascular Provider 01/02/20 06/01/23 documented as of this encounter
--- OUTSIDE RECORDS SUMMARY | 2023-09-07 09:15 | XMS_ITS | Encounter Summary ---
Author Organization [place] Address [address] [place] [address] Care Team Providers Care Healthcare Risk Control Consultant Name Role Phone Parag Pires PA-C Unavailable + [phone] Tiffanie Araya DO Unavailable + [phone] Ceci Kessler MD Primary Care Provider + Encounter Details Date Type Department Care Team (Late st Contact Info) Description 07/29/2021 External Order Results Formerly [facility] [address] [place] [address] Outside, Provider Social History Tobacco Use Types Packs/Day Years [...] on file documented as of this encounter Procedures Procedure Name Priority Date/Time Associated Diagnosis Comments TROPONIN I Routine 07/29/2021 3:10 PM CDT CBC WITH PLATELETS & DIFFERENTIAL Routine 07/29/2021 1:10 PM CDT TSH Routine 07/29/2021 1:10 PM CDT TROPONIN I Routine 07/29/2021 1:10 PM CDT ROUTINE UA WITH MICROSCOPIC Routine 07/29/2021 1:10 PM CDT INR Routine 07/29/2021 1:10 PM CDT N TERMINAL PRO BNP OUTPATIENT Routine 07/29/2021 1:10 PM CDT CRP INFLAMMATION Routine 07/29/2021 1:10 PM CDT COMPREHENSIVE METABOLIC PANEL Routine 07/29/2021 1:10 PM CDT EXTERNAL CULTURE RESULTS Routine 07/29/2021 12:32 PM CDT documented in this encounter Results * Troponin I (07/29/2021 3:10 PM CDT) Troponin I (External) 0.01 0.00 - 0.04 NG/ML NON-INTERFACED (ONBASE SCANS) Blood 07/29/2021 3:10 PM CDT Precious CAMPOS PFT - 11/10/2021 9:04 AM CDT Verified by Shahid Leon on 11/10/2021. Provider Outside LAB - BLOOD ORDERABL ES BREEZE PFT NON-INTERFACED (ONBASE SCANS) * (ABNORMAL) CRP inflammation (07/29/2021 1:10 PM CDT) CRP Inflammation (External) <0.50(L) 0.5 - 1.0 mg/dL NON-INTERFACE D (ONBASE SCANS) Blood 07/29/2021 1:10 PM CDT Precious CAMPOS PFT - 11/10/2021 9:04 AM CDT Verified by Shahid Leon on 11/10/2021. Provider Outside LAB - BLOOD ORDERABL ES BREEZE PFT NON-INTERFACED (ONBASE SCANS) * (ABNORMAL) CBC with Platelets & Differential (07/29/2021 1:10 PM CDT) WBC Count (External) 4.64(L) 5.00 - 10.00 K/UL NON-INTERFACE D (ONBASE SCANS) RBC Count (External) 4.95 3.90 - 5.03 M/UL NON-INTERFACE D (ONBASE SCANS) Hemoglobin (External) 14.5 12.0 - 15.5 GM/DL NON-INTERFACE D (ONBASE SCANS) Hematocrit (External) 44.4 34.9 - 44.5 % NON-INTERFACE D (ONBASE SCANS) MCV (External) 90 82 - 98 FL NON- INTERFACE D (ONBASE SCANS) MCH (External) 29 27 - 34 PG NON- INTERFACE D (ONBASE SCANS) MCHC (External) 33 32 - 36 GM/DL NON-INTERFACE D (ONBASE SCANS) Platelet Count (External) 251 150 - 450 K/UL NON-INTERFACE D (ONBASE SCANS) RDW (External) 13.3 11.5 - 15.3 % NON-INTERFACE D (ONBASE SCANS) % Neutrophils (External) 69.4 50.0 - 70.0 % NON-INTERFACE D (ONBASE SCANS) % Lymphocytes (External) 22.0(L) 25.0 - 45.0 % NON-INTERFACE D (ONBASE SCANS) % Monocytes (External) 8.0 0.00 - 11.0 % NON-INTERFACE D (ONBASE SCANS) % Eosinophils (External) 0.2 0.0 - 7.0 % NON-INTERFACE D (ONBASE SCANS) % Basophils (External) 0.4 0.0 - 3.0 % NON-INTERFACE D (ONBASE SCANS) % Immature Granulocytes (External) 0.0 % NON-INTERFACE D (ONBASE SCANS) Absolute Neutrophils (External) 3.22 1.70 - 7.00 K/UL NON-INTERFACE D (ONBASE SCANS) Absolute Lymphocytes (External) 1.02 0.90 - 2.90 K/uL NON-INTERFACE D (ONBASE SCANS) Absolute Monocytes (External) 0.37 0.30 - 0.90 K/uL NON-INTERFACE D (ONBASE SCANS) Absolute Eosinophils (External) 0.01 0.00 - 0.50 K/uL NON-INTERFACE D (ONBASE SCANS) Absolute Basophils (External) 0.02 0.00 - 0.20 K/uL NON-INTERFACE D (ONBASE SCANS) Absolute Immature Granulocytes (External) 0.00 K/uL NON-INTERFACE D (ONBASE SCANS) Blood 07/29/2021 1:10 PM CDT Narrative BREEZE PFT - 11/10/2021 9:04 AM CDT Verified by Shahid Leon on 11/10/2021. Provider Outside LAB - BLOOD ORDERABL ES Performing Organization Address [facility]/ZIP Co de Phone Number BREEZE PFT NON-INTERFACED (ONBASE SCANS) * INR (07/29/2021 1:10 PM CDT) INR (External) 0.96 0.91 - 1.10 NON-INTERFACED (ONBASE SCANS) Blood 07/29/2021 1:10 PM CDT Narrative BREEZE PFT - 11/10/2021 9:04 AM CDT Verified by Shahid Leon on 11/10/2021. Provider Outside LAB - BLOOD ORDERABL ES Performing Organization Address [facility] Co de Phone Number BREEZE PFT NON-INTERFACED (ONBASE SCANS) * UA with Microscopic (07/29/2021 1:10 PM CDT) Color Urine (External) YELLOW YELLOW NON-INTERFAC ED (ONBASE SCANS) Appearance Urine (External) CLEAR CLEAR NON-INTERFAC ED (ONBASE SCANS) Glucose Urine (External) NEGATIVE NEGATIVE NON-INTERFAC ED (ONBASE SCANS) Bilirubin Urine (External) NEGATIVE NEGATIVE NON-INTERFAC ED (ONBASE SCANS) Ketones Urine (External) NEGATIVE NEGATIVE NON-INTERFAC ED (ONBASE SCANS) Specific [place] Urine (External) 1.010 1.000 - 1.030 NON-INTERFAC ED (ONBASE SCANS) pH Urine (External) 7.0 5.0 - 8.5 NON-INTERFAC ED (ONBASE SCANS) Protein Albumin Ur (External) NEGATIVE NEGATIVE NON-INTERFAC ED (ONBASE SCANS) Urobilinogen (External) 0.2 0.2 NON-INTERFAC ED (ONBASE SCANS) Nitrites Urine (External) NEGATIVE NEGATIVE NON-INTERFAC ED (ONBASE SCANS) Blood Urine (External) NEGATIVE NEGATIVE NON-INTERFAC ED (ONBASE SCANS) Leukocyte Esterase Urine (External) NEGATIVE NEGATIVE NON-INTERFAC ED (ONBASE SCANS) WBC Urine (External) 0-2 0 - 2 NON-INTERFAC ED (ONBASE SCANS) RBC Urine (External) 0-2 0 - 2 NON-INTERFAC ED (ONBASE SCANS) Casts Urine (External) 0 0 NON-INTERFAC ED (ONBASE SCANS) Crystal Urine (External) 0 0 NON-INTERFAC ED (ONBASE SCANS) Squamous Epithelial Urine (External) FEW FEW NON-INTERFAC ED (ONBASE SCANS) Bacteria Urine (External) RARE FEW NON-INTERFAC ED (ONBASE SCANS) Urine 07/29/2021 1:10 PM CDT Narrative MYAHE PFT - 11/10/2021 9:04 AM CDT Verified by Shahid Leon on 11/10/2021. Provider Outside LAB - URINE ORDERABL ES ANDRES PFT NON-INTERFACED (ONBASE SCANS) * Comprehensive metabolic panel (07/29/2021 1:10 PM CDT) Glucose (External) 113 60 - 115 mg/dL NON-INTERFACE D (ONBASE SCANS) Urea Nitrogen (External) 16 7 - 30 mg/dL NON-INTERFACE D (ONBASE SCANS) Creatinine (External) 0 . 7 0.5 - 1.5 mg/dL NON-INTERFACE D (ONBASE SCANS) GFR Estimated (External) 69.78249 ml/min NON-INTERFACE D (ONBASE SCANS) Sodium (External) 139 135 - 149 mmol/L NON-INTERFACE D (ONBASE SCANS) Potassium (External) 4.0 3.6 - 5.1 mmol/L NON-INTERFACE D (ONBASE SCANS) Chloride (External) 100 96 - 114 mmol/L NON-INTERFACE D (ONBASE SCANS) CO2 (External) 31 20 - 32 mmol/L NON-INTERFACE D (ONBASE SCANS) Calcium (External) 9.5 2.4 - 10.6 mg/dL NON-INTERFACE D (ONBASE SCANS) Protein Total (External) 8.2 6.0 - 8.3 g/dL NON-INTERFACE D (ONBASE SCANS) Albumin (External) 4.5 3.3 - 5.0 g/dL NON-INTERFACE D (ONBASE SCANS) Bilirubin Total (External) 1.2 0.1 - 1.5 mg/dL NON-INTERFACE D (ONBASE SCANS) Bilirubin Direct (External) 0.4 0.0 - 0.5 MG/DL NON-INTERFACE D (ONBASE SCANS) AST (External) 28 12 - 35 U/L NON-INTERFACE D (ONBASE SCANS) ALT (External) 24 4 - 35 U/L NON- INTERFACE D (ONBASE SCANS) Alk Phosphatase (External) 127 40 - 150 U/L NON-INTERFACE D (ONBASE SCANS) Blood 07/29/2021 1:10 PM CDT Narrative BREEZE PFT - 11/10/2021 9:04 AM CDT Verified by Shahid Leon on 11/10/2021. Provider Outside LAB - BLOOD ORDERABL ES Performing Organization Address City/[facility]/ZIP Co de Phone Number BREEZE PFT NON-INTERFACED (ONBASE SCANS) * TSH (07/29/2021 1:10 PM CDT) TSH (External) 1.890 0.270 - 4.200 uIU/mL NON-INTERFACED (ONBASE SCANS) Blood 07/29/2021 1:10 PM CDT Narrative BREEZE PFT - 11/10/2021 9:04 AM CDT Verified by Shahid Leon on 11/10/2021. Provider Outside LAB - BLOOD ORDERABL ES BREEZE PFT NON-INTERFACED (ONBASE SCANS) * Troponin I (07/29/2021 1:10 PM CDT) Troponin I (External) 0.01 0.00 - 0.04 NG/ML NON-INTERFACED (ONBASE SCANS) Blood 07/29/2021 1:10 PM CDT Narrative BREEZE PFT - 11/10/2021 9:04 AM CDT Verified by Shahid Leon on 11/10/2021. Provider Outside LAB - BLOOD ORDERABL ES Performing Organization Address [facility] Co de Phone Number BREEZE PFT NON-INTERFACED (ONBASE SCANS) * (ABNORMAL) N terminal pro BNP outpatient (07/29/2021 1:10 PM CDT) N-Terminal Pro BNP (External) 431(H) 0 - 125 pg/mL NON-INTERFACED (ONBASE SCANS) Blood 07/29/2021 1:10 PM CDT Narrative BREEZE PFT - 11/10/2021 9:04 AM CDT Verified by Shahid Leon on 11/10/2021. Provider Outside LAB - BLOOD ORDERABL ES Performing Organization Address [facility] de Phone Number BREEZE PFT NON-INTERFACED (ONBASE SCANS) * External Culture Results (07/29/2021 12:32 PM CDT) Scan Culture Results (External) See Scanned Report NON-INTERFACE D (ONBASE SCANS) Comment:URINE CULTURE 07/29/2021 12:3 2 PM CDT Narrative BREEZE PFT - 11/10/2021 9:04 AM CDT Verified by Shahid Leon on 11/10/2021. Provider Outside LABORATORY Performing Organization Address [facility] Co de Phone Number BREEZE PFT NON-INTERFACED (ONBASE SCANS) documented in this encounter Visit Diagnoses Not on filedocumented in this encounter Additional Health Concerns Assessment Noted Time PHQ-9 Depression Total Score: 0 09/22/19 17 7:24 AM CDT documented as of this encounter Care Teams Healthcare Risk Control Consultant Relationship Specialty Start Date End Date Ceci Kessler MD [facility] [address] [place] [address] PCP - General Family Medicine 09/02/20 Parag Pires PA-C [address] [place] [address] Assigned PCP 06/17/17 01/20/22 Tiffanie Araya DO [address] [place] [address] Assigned Heart and Vascular Provider 01/02/20 06/01/23 documented as of this encounter
--- OUTSIDE RECORDS SUMMARY | 2023-09-07 09:15 | XMS_ITS | Encounter Summary ---
Author Organization [place] Address [address] [address] Care Team Providers Care Account Contact Associate Name Role Phone Naz Lugo PA-C Primary Care Provid er Jocelyn Jane PA-C Primary Care Pr ovider Parag Pires PA-C Primary Care Provider Parag Pires PA-C Unavailable [phone] Parag Pires PA-C Unavailable [phone] Tiffanie Araya DO Unavailable + [phone] Ceci Kessler MD Primary Care Provider + Reason for Visit * Reason Onset Date Comments MyChart Communication 12/22/2013 Encounter Details Date Type Department Care Team (Latest Contact Info) Description 12/22/2013 MyC Medical Advice [address] [address] Naz Lugo PA-C [address] [id number] MyChart Communication Social History Tobacco Use Types Packs/Day Years [...] on filedocumented in this encounter Care Teams Account Contact Associate Relationship Specialty Start Date End Date Naz Lugo PA-C [address] [facility] [address] [place] [address] PCP - General Family Practice 10/02/11 09/14/14 Jocelyn Jane PA-C [address] [place] [address] PCP - General Physician Manufacturing Leader 09/15/14 03/22/16 Parag Pires PA-C [address] [place] [address] PCP - General Physician Manufacturing Leader - Medical 03/23/16 09/01/20 Parag Pires PA-C [address] [place] [address] PCP - Assigned PCP 06/17/17 05/14/18 Ceci Kessler MD [facility] [address] [address] PCP - General Family Medicine 09/02/20 Parag Pires PA-C [address] [place] [address] Assigned PCP 06/17/17 01/20/22 Tiffanie Araya DO [address] [place] [address] Assigned Heart and Vascular Provider 01/02/20 06/01/23 documented as of this encounter
--- OUTSIDE RECORDS SUMMARY | 2023-09-07 09:15 | XMS_ITS | Encounter Summary ---
Author Organization [place] Address [address] [place] [address] Care Team Providers Care Welder Repair Name Role Phone Isabell Capone MD Primary Care Provider Naz Lugo PA-C Primary Care Provid er Jocelyn aJne-C Primary Care Pr ovider Parag Pires PA-C Primary Care Provider Parag Pires PA-C Unavailable + [phone] Parag Pires-C Unavailable + [phone] Tiffanie Araya DO Unavailable + [phone] Ceci Kessler MD Primary Care Provider + Encounter Details Date Type Department Care Team (Late st Contact Info) Description 08/24/2011 Office Visit-[facility] [place] [address] [facility] [address] [place] [phone] Tejal Ugalde MD [address] [facility] [address] [place] [address] Social History Tobacco Use Types Packs/Day Years [...] as of this encounter Progress Notes * Tejal Ugalde MD - 08/29/2011 10:52 AM CDT Progress Note Created by: Tejal Ugalde M.D. [id number] DATE: 08/24/2011 DONATOVI DATE OF : 1950 AGE: [age] years old Referring Physician: ISABELL CAPONE Referring Clinic: [facility] CURRENT DIAGNOSES 1. Hyperlipidemia-mixed disorder, [...] tab daily 4. metoprolol succinate 50 mg Tablet Extended Release 24 hr, 1 tabs daily 5. Vesicare 10 mg Tablet, 1 p.o. daily 6. Vitamin D3 2,000 unit Tablet, 1 p.o. daily 7. Xarelto 20 mg tablet, 1 p.o. daily CHIEF COMPLAINTS Atrial Fibrillation HISTORY OF PRESENT ILLNESS Dr. Morena Mota has asked me to evaluate Ms. Vi Donato regarding longstanding persistentatrial fibrillation. This is a truly delightful 60-year-old woman with a history of atrial fibrillation that was discovered on routine exam in the summer. Reportedly, the patient had an irregular heartbeat three or four years earlier at the time of blood donation. A Holter monitor around that time had shown some atrial fibrillation as well. I do not have details. Ms. Donato's cardiac workup included an echocardiogram that showed normal LV function with EF of 55-60%, with normal LV size and mild biatrial enlargement. There was a Holter monitor in November,,which showed elevated average heart rate at 106 beats per minute. The patient was placed on a beta-tamara. Finally, she underwent polysomnography and was diagnosed with sleep apnea but unfortunatelythe patient has been unable to tolerate CPAP. Other than occasional and brief sensation of palpitations, the patient appears to be completely asymptomatic from her AF. She does describe some breathlessness on exertion when walking upstairs, but she is significantly overweight. She has had no syncope, chest pain with exertion, or other symptoms. Her current treatment for AF includes metoprolol and aspirin. On physical examination today blood pressure is 152/90, heart rate 100 and irregular, weight 259.6 pounds. This is a significantly overweight, very pleasant woman in no apparent distress. Head: Normocephalic, atraumatic. Neck: Supple without bruits. Lungs: Clear, no crackles or wheezes. Cardiovascular: Normal JVP, irregular rhythm, around 90 beats per minute, no gallop, murmur, or rub. Abdomen: Moderately obese, soft, and nontender. Extremities: Trace edema. Skin: No rash. Back: No CVA tenderness. Neurologic: Alert and oriented x 3. DIAGNOSTIC STUDIES: Her 12-lead electrocardiogram today showed atrial fibrillation with a resting rate of 109 beats per minute. There was delayed R wave progression in the precordial leads, likely reflecting the patient's body habitus and/or lead placement. For the results of her echocardiogram, please refer to the HPI. I reviewed her laboratory tests, including a normal thyroid panel from September,. 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 INTEGUMENTARY denies any change in hair or nails, rashes, or skin lesions. EYES wears eye glasses/contact lenses EARS, NOSE, THROAT, MOUTH denies any hearing loss, epistaxis, hoarseness or difficulty speaking. RESPIRATORY sleep apnea, not using c-pap CARDIOVASCULAR palpitations, occ. ABDOMINAL history of GERD and Acid reflux/heart burn from tomatoes MUSCULOSKELETAL joint pain NEUROLOGICAL denies any history of recurrent strokes, headaches, TIA, or seizure disorder. PSYCHIATRIC denies any history of depression, substance abuse or change in cognitive functions. ENDOCRINE denies any history of thyroid disease or diabetes mellitus. HEMATOLOGICAL/IMMUNOLOGIC denies any food allergies, seasonal allergies, bleeding disorders. PHYSICAL EXAMINATION VITAL SIGNS: Blood Pressure: 152/90Sitting, Right arm, large cuff Pulse- 109.00/min. Weight- 259.60 lbs. Height- 64 BMI Measurement: 44 CONSTITUTIONAL [...] time, person and place. MEDICATIONS UPDATED/STARTED TODAY: Daily Multi-Vitamin Tablet, 1 p.o. daily, #0 (Zero) Xarelto 20 mg tablet, 1 p.o. daily, #30 (Thirty) MEDICATIONS REFILLED/STOPPED TODAY: Aspirin 81 Mg Tablet, Delayed Release (e.c.) 2 p.o. daily #0 Physician Order IMPRESSION/RECOMMENDATIONS: 1. Longstanding persistent atrial fibrillation. Ms. Donato is a 60-year-old woman with obesity, sleep apnea, and borderline hypertension. Her blood pressure was elevated today. She has been treated withmetoprolol and aspirin thus far. Her heart rate was mildly tachycardic when she came in but decreased after several minutes of rest. Ms. Donato's AF is almost completely asymptomatic. She has normal LV function. A. We had a long discussion regarding anticoagulation. Her CHADS 2 score is either 0 or 1,depending on whether someone gives her a point for hypertension, which I think is reasonable. Even with a CHADS 2 score of 0, her annual risk of stroke is estimated to be in the 1.5-1.8% per year range. For a CHADS 2 score of 1, the annual risk of stroke increases to approximately 2.8% per year. I think that treatment with a more potent anticoagulant such as warfarin, Xarelto, or Pradaxa is certainly in the devlin zone but reasonable given her circumstances. I discussed with the patient that she is clearly at a low risk category with regard to cardioembolic risk associated with her AF. However, low risk does not mean zero risk. The ultimate priority is to protect the brain and in my opinion I think it is reasonable to consider a more potent anticoagulant than aspirin. In the end, she decided to try Xarelto 20 mg q.d. She will call us back if the cost of this is prohibitive. B. With regard to rate control versus rhythm control, I would favor continuation of rate control in this lady. Given the almost complete lack of symptoms, the untreated sleep apnea (the patient states that she cannot at all tolerate CPAP), I think mu-ism and maintenance of sinus rhythm would be an uphill soriano that will not be clearly beneficial for the patient. It would require either treatment with potent antiarrhythmic agents and/or catheter ablation. This will be hard to justify in an asymptomatic patient. RECOMMENDATIONS: A. Stop aspirin and start Xarelto 20 mg q.d. B. Continue treatment with metoprolol for rate control and not attempt to restore/maintain sinus rhythm. C. A follow up with Dr. Mota has been made in [place] in one year. Thank you very much for giving me the opportunity to evaluate Ms. Donato. Please feel free to contact me should you have additional questions or concerns. TODAYS ORDERS 1. Return Visit 1 year Tejal Ugalde M.D. documented in this encounter Plan of Treatment Not on file documented as of this encounter Visit Diagnoses Not on filedocumented in this encounter Care Teams Welder Repair Relationship Specialty Start Date End Date Isabell Capone MD PCP - General Family Practice 09/05/10 10/01/11 Naz Lugo PA-C [address] [address] PCP - General Family Practice 10/02/11 09/14/14 Jocelyn Jane PA-C [address] [place] [address] PCP - General Physician Vp Account Director 09/15/14 03/22/16 Parag Pires PA-C [address] [place] [address] PCP - General Physician Vp Account Director - Medical 03/23/16 09/01/20 Parag Pires PA-C [address] [facility] [place] [address] PCP - Assigned PCP 06/17/17 05/14/18 Ceci Kessler MD [facility] [address] [place] [address] PCP - General Family Medicine 09/02/20 Parag Pires PA-C [address] [facility] [address] Assigned PCP 06/17/17 01/20/22 Tiffanie Araya DO [address] [place] [address] Assigned Heart and Vascular Provider 01/02/20 06/01/23 documented as of this encounter
--- OUTSIDE RECORDS SUMMARY | 2023-09-07 09:15 | XMS_ITS | Encounter Summary ---
Author Organization [place] Address [address] [place] [address] Care Team Providers Care Statement Clerks Manager Name Role Phone Isabell Keating MD Primary Care Provider Naz Lugo PA-C Primary Care Provid er Jocelyn Jane-C Primary Care Pr ovider Parag Pires PA-C Primary Care Provider Parag Pires PA-C Unavailable [phone] Parag Pires-C Unavailable + [phone] Tiffanie Araya DO Unavailable [phone] Ceci Kessler MD Primary Care Provider + Encounter Details Date Type Department Care Team (Late st Contact Info) Description 07/25/2011 Office Visit-[facility] [place] [id number] [facility] [address] [place] [address] Morena Mota MD HEART [facility] [address] [facility] [place] [address] Social History Tobacco Use Types Packs/Day Years [...] Progress Notes * Morena Mota MD - 08/22/2011 8:25 AM CDT Progress Note Created by: Morena Mota M.D. [id number] DATE: 07/25/2011 VI DONATO DATE OF : 1950 AGE: [age] years old Referring Physician: ISABELL KEATING Referring Clinic: [facility] CURRENT DIAGNOSES 1. Hyperlipidemia-mixed disorder, 272.4 2. Arrhythmia-Palpitations, 785.1 3. - Abnormal EKG, 794.31 4. - Atrial Fibrillation, 427.31 ALLERGIES NKDA MEDICATIONS (prior to changes made today) 1. Aspirin 81 Mg Tablet, Delayed Release (e.c.), 2 p.o. daily 2. Calcium 500 With D 500 mg(1,250mg) -400 unit Tablet, 2 p.o. daily 3. Fish Oil 1,000 (120-180) mg Capsule, 1400mg tab daily 4. metoprolol succinate 50 mg Tablet Extended Release 24 hr, 1 tabs daily 5. Vesicare 10 mg Tablet, 1 p.o. daily 6. Vitamin D3 2,000 unit Tablet, 1 p.o. daily CHIEF COMPLAINTS HISTORY OF PRESENT ILLNESS This is a follow-up visit for atrial fibrillation, hypertension and sleep apnea. Ms. Donato is a very pleasant 60-year-old lady with a history of chronic atrial fibrillation, with which she is asymptomatic. She had apparently had episodes of arrhythmias as far back as five or six years ago when she was trying to give blood and was told she could not without a physician's clearance given an irregularheartbeat. We have suggestions that three to four years before presentation with us she may have had paroxysms of atrial fibrillation at least. She has been in chronic atrial fibrillation since I sawher in November of 2010 with a Holter monitor showing uncontrolled heart rate and she was started on metoprolol at that time. She is still on aspirin 162 mg a day for stroke prophylaxis, this is given her young age and absence of known hypertension, diabetes, valvular heart disease, congestive heart failure or history of stroke. She does have mild obstructive sleep apnea and is also unfortunately obese. It is unclear to me whether she, in fact, has some degree of hypertension to begin with, although her wall thickness on echo was normal last year. I have discussed with her that she may potentially have a CHADS 1 risk score if her blood pressure is, in fact, elevated reasonably consistently, giving her a choice between aspirin and Coumadin. Given the uncertainty of that possibility though she prefers to continue on aspirin, which is certainly reasonable. She has no cardiorespiratory complaints. She denies chest pain, shortness of breath, light-headedness, syncope or presyncope, paroxysmal nocturnal dyspnea, orthopnea, palpations or swelling of the ankles. She states she is not really compliant with her continuous positive airway pressure because she awakens after fours hours with it and cannot get back to sleep. I have suggested that she discuss this with her sleep doctor and consider perhaps a dental device or some other alternative just so that it is being managed to some degree. 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 EYES wears eye glasses/contact lenses EARS, NOSE, THROAT, MOUTH denies any hearing loss, epistaxis, hoarseness or difficulty speaking. RESPIRATORY positive for sleep apnea, c pap - not using consistently CARDIOVASCULAR negative for palpitations, chest pain, orthopnea, [...] disorders. PHYSICAL EXAMINATION VITAL SIGNS: Blood Pressure: 120/90Sitting, Left arm, large cuff Pulse- 80.00/min. Weight- 261.00 lbs. Height- 64.00 BMI Measurement: 44 CONSTITUTIONAL [...] MEDICATIONS UPDATED/STARTED TODAY: metoprolol succinate 50 mg Tablet Extended Release 24 hr, 1 tabs daily, #0 (Zero) Vitamin D3 2,000 unit Tablet, 1 p.o. daily, #0 (Zero) MEDICATIONS REFILLED/STOPPED TODAY: carbidopa-levodopa 25-100 mg Tablet Extended Release 1 p.o. twice daily #0 (Zero) Patient Terminated and metoprolol succinate 50 mg Tablet Extended Release 24 hr 1 1/2 tabs daily #135 (One Rector Thirty Five) Patient Request IMPRESSIONS/PLAN A pleasant 60-year-old lady with chronic atrial fibrillation. It has been actually quite longstanding and she has ongoing precipitants of obesity and sleep apnea. I have mentioned that I will curbside one of our electrophysiologists with respect to whether he would offer any other potential therapies, but at this time I would continue on her current course. Her heart rate appears to be reasonablywell controlled. She will be checking her lipids again in September with her primary care physician, which have been controlled in the past and she does also want to make efforts towards weight loss. I dorecommend she be vigilant for hypertension and may check her blood pressure sporadically, otherwiseI will see her back in a year's time or sooner as needed. It is a pleasure being involved in this pleasant lady's care. Total time was 30 minutes, 25 in coordination of care and counseling. TODAYS ORDERS 1. Return Visit 1 year Morena Mota M.D. documented in this encounter Plan of Treatment Not on file documented as of this encounter Visit Diagnoses Not on filedocumented in this encounter Care Teams Statement Clerks Manager Relationship Specialty Start Date End Date Isabell Keating MD PCP - General Family Practice 09/05/10 10/01/11 Naz Lugo PA-C [address] [address] PCP - General Family Practice 10/02/11 09/14/14 Jocelyn Jane PA-C [address] [place], [place] [id number] PCP - General Physician Drug Clerk 09/15/14 03/22/16 Parag Pires PA-C [address] [place], [place] [id number] PCP - General Physician Drug Clerk - Medical 03/23/16 09/01/20 Parag Pires PA-C [address] [place] [address] PCP - Assigned PCP 06/17/17 05/14/18 Ceci Kessler MD [facility] & [address] [address] PCP - General Family Medicine 09/02/20 Parag Pires PA-C [address] [place] [address] Assigned PCP 06/17/17 01/20/22 Tiffanie Araya DO [address] [place] [address] Assigned Heart and Vascular Provider 01/02/20 06/01/23 documented as of this encounter
--- OUTSIDE RECORDS SUMMARY | 2023-09-07 09:15 | XMS_ITS | Encounter Summary ---
Author Organization [place] Address [address] [address] Care Team Providers Care Geriatric Nurse Name Role Phone Radha Keating MD Primary Care Provider Naz Lugo PA-C Primary Care Provid er Jocelyn Jane-Grant Primary Care Pr ovider Parag Pires PA-C Primary Care Provider Parag Pires PA-C Unavailable [phone] Parag Pires PA-C Unavailable + [phone] Tiffanie Araya DO Unavailable + [phone] Ceci Kessler MD Primary Care Provider + Encounter Details Date Type Department Care Team (Late st Contact Info) Description 09/29/[address] [address] [place] [address] Social History Tobacco Use Types Packs/Day Years [...] on filedocumented in this encounter Care Teams Geriatric Nurse Relationship Specialty Start Date End Date Radha Keating MD PCP - General Family Practice 09/05/10 10/01/11 Naz Lugo PA-C [address] [address] PCP - General Family Practice 10/02/11 09/14/14 Jocelyn Jane PA-C [address] [place] [address] PCP - General Physician Warp Hauler 09/15/14 03/22/16 Parag Pires PA-C [address] [place] [address] PCP - General Physician Warp Hauler - Medical 03/23/16 09/01/20 Parag Pires PA-C [address] [place] [address] PCP - Assigned PCP 06/17/17 05/14/18 Ceci Kessler MD [facility] & [address] [address] PCP - General Family Medicine 09/02/20 Parag Pires PA-C [address] [place] [address] Assigned PCP 06/17/17 01/20/22 Tiffanie Araya DO [address] [place] [address] Assigned Heart and Vascular Provider 01/02/20 06/01/23 documented as of this encounter
--- OUTSIDE RECORDS SUMMARY | 2023-09-07 09:15 | XMS_ITS | Encounter Summary ---
Author Organization [place] Address [address] [facility] [place] [address] Care Team Providers Care Field Support Technician Name Role Phone Isabell Capone MD Primary Care Provider Naz Lugo PA-C Primary Care Provid er Jocelyn Jane-C Primary Care Pr ovider Parag Pires PA-C Primary Care Provider Parag Pires PA-C Unavailable [phone] Parag PiresC Unavailable + [phone] Tiffanie Araya DO Unavailable [phone] Ceci Kessler MD Primary Care Provider + Encounter Details Date Type Department Care Team (Late st Contact Info) Description 01/12/2011 Office Visit-[facility] [address] [place] [address] Unknown, DoctorMD Social History Tobacco Use Types Packs/Day Years [...] as of this encounter Progress Notes * Unknown, DoctorMD - 01/17/2011 2:20 PM CST Progress Note Created by: Kimberly Alvarez PA-C DATE: 01/12/2011 [id number] VI DONATO DATE OF : 1950 AGE: [age] years old Referring Physician: ISABELL CAPONE Referring Clinic: [facility] CURRENT DIAGNOSES 1. - Atrial Fibrillation, 427.31 2. Hyperlipidemia-mixed disorder, 272.4 3. Arrhythmia-Palpitations, 785.1 4. - Abnormal EKG, 794.31 ALLERGIES NKDA MEDICATIONS (prior to changes made today) 1. Aspirin 81 Mg Tablet, Delayed Release (e.c.), 2 p.o. daily 2. Calcium 500 With D 500 mg(1,250mg) -400 unit Tablet, 2 p.o. daily 3. Fish Oil 1,000 (120-180) mg Capsule, 1400mg tab daily 4. metoprolol succinate 50 mg Tablet Extended Release 24 hr, 1 p.o. daily 5. Vesicare 10 mg Tablet, 1 p.o. daily CHIEF COMPLAINTS fu afib and med change HISTORY OF PRESENT ILLNESS Ms. Donato is a very delightful 60-year-old female who presents to [facility] today for a follow-up visit regarding her atrial fibrillation and medication change. Asyou recall, she is followed in our office by Dr. Mota due to atrial fibrillation for which she is relatively asymptomatic. It sounds as though she had atrial fibrillation noted approximately three years ago. She has had borderline high blood pressure in the past. A Holter monitor was done that shows that her heart rates were not adequately controlled and for this reason I have started her on metoprolol succinate at 50 mg q.d. She is tolerating this without any difficulty. Her blood pressure appears to be adequately controlled now and her heart rates are much improved compared to her last visit without the metoprolol. An echocardiogram did not show any evidence of LVH or diastolic dysfunction and her ejection fraction was normal. She had mild biatrial enlargement, most likely from the atrial fibrillation. I also discussed the possibility of obstructive sleep apnea and referred her to Dr. Travis. She did undergo a sleep study earlier this week and is awaiting the results. On physical examination today her blood pressure is 110/72, pulse is 72 and irregular. All other review of systems, past medical history, and physical examination findings are noted below. 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 EYES wears eye glasses/contact lenses EARS, NOSE, THROAT, MOUTH denies any hearing loss, epistaxis, hoarseness or difficulty speaking. RESPIRATORY dyspnea with exertion, after flights of stairs CARDIOVASCULAR negative for palpitations, chest pain, orthopnea, PND, peripheral edema, syncope or claudication. ABDOMINAL denies ulcer disease, hematochezia or melena. MUSCULOSKELETAL denies any history of arthritic symptoms or back problems. NEUROLOGICAL denies any history of recurrent strokes, headaches, TIA, or seizure disorder. PSYCHIATRIC denies any history of depression, substance abuse or change in cognitive functions. ENDOCRINE denies any history of thyroid disease or diabetes mellitus. HEMATOLOGICAL/IMMUNOLOGIC denies any food allergies, seasonal allergies, bleeding disorders. PHYSICAL EXAMINATION VITAL SIGNS: Blood Pressure: 110/74 Pulse- 72.00/min. Weight- .00 lbs. CONSTITUTIONAL cooperative, alert and oriented,well developed, well [...] muscles, clear to auscultation and percussion. CARDIAC regular rhythm, S1 normal, S2 normal, No S3 or S4, Apical impulse not displaced, no murmurs, gallops or rubs detected. ABDOMEN abdomen soft, bowel sounds normoactive, no [...] mg Tablet Extended Release 24 hr, 1 p.o. daily, #90 (Ninety) MEDICATIONS REFILLED/STOPPED TODAY: metoprolol succinate 50 mg Tablet Extended Release 24 hr 1 p.o. daily #30 (Thirty) Refill IMPRESSIONS/PLAN 1. Atrial fibrillation with improved ventricular rates now that she is on long- acting metoprolol. At this point in time I think it is reasonable to continue with this. She has a CHADS score of 0 withno evidence of hypertension, stroke, diabetes, advanced age, or cardiomyopathy. She can continue with aspirin. 2. Possible obstructive sleep apnea for which she did undergo a sleep study earlier thisweek and is awaiting her echocardiogram results. She does have a mild elevation of her pulmonary pressures on echo and this may be actually due to sleep apnea. 3. At this point in time I am not goingto make any further changes. I will have her return in six months for a follow-up visit, or sooner if she has problems in the interim, and I would certainly be happy to see her sooner. Thank you for allowing us to be involved in her care. TODAYS ORDERS 1. F/U with Morena Kolb MD 6 months PALOMO Bennett documented in this encounter Plan of Treatment Not on file documented as of this encounter Visit Diagnoses Not on filedocumented in this encounter Care Teams Field Support Technician Relationship Specialty Start Date End Date Isabell Capone MD PCP - General Family Practice 09/05/10 10/01/11 Naz Lugo PA-C [address] [place] [address] [place] [address] PCP - General Family Practice 10/02/11 09/14/14 Jocelyn Jane PA-C [address] [place] [address] PCP - General Physician High School Mathematics Teacher 09/15/14 03/22/16 Parag Pires PA-C [address] [place] [address] PCP - General Physician High School Mathematics Teacher - Medical 03/23/16 09/01/20 Parag Pires PA-C [address] [place] [address] PCP - Assigned PCP 06/17/17 05/14/18 Ceci Kessler MD [facility] & [address] [address] PCP - General Family Medicine 09/02/20 Parag Pires PA-C [address] [place] [address] Assigned PCP 06/17/17 01/20/22 Tiffanie Araya DO [address] [place] [address] Assigned Heart and Vascular Provider 01/02/20 06/01/23 documented as of this encounter
--- OUTSIDE RECORDS SUMMARY | 2023-09-07 09:15 | XMS_ITS | Encounter Summary ---
Author Organization [place] Address [address] [facility] [place] [address] Care Team Providers Care Page Makeup System Operator Name Role Phone Jocelyn Jane PA-C Primary Care Pr ovider Parag Pires PA-C Primary Care Provider Parag Pires PA-C Unavailable + [phone] Parag Pires PA-C Unavailable [phone] Tiffanie Araya DO Unavailable + [phone] Ceci Kessler MD Primary Care Provider + Reason for Visit * Reason Onset Date Comments MyChart Communication 04/26/2015 Encounter Details Date Type Department Care Team (Latest Contact Info) Description 04/26/2015 MyC Medical Advice [facility] [id number] [place] [phone] Jocelyn Jane PA-C [id number] [place] [address] MyChart Communication Social History Tobacco Use Types [...] encounter Miscellaneous Notes * Telephone Encounter - Kathy Garduno RN - 04/26/2015 1:09 PM CST Please see my chart Kathy Garduno RN AGE MAKER documented in this encounter Plan of Treatment Not on file documented as of this encounter Visit Diagnoses Not on filedocumented in this encounter Care Teams Page Makeup System Operator Relationship Specialty Start Date End Date Jocelyn Jane PA-C [address] [place] [address] PCP - General Physician Obstetrics Tech 09/15/14 03/22/16 Parag Pires PA-C [address] [place] [address] PCP - General Physician Obstetrics Tech - Medical 03/23/16 09/01/20 Parag Pires PA-C [address] [place] [address] PCP - Assigned PCP 06/17/17 05/14/[address] [facility] [address] [place] [address] PCP - General Family Medicine 09/02/20 Parag Pires PA-C [address] [place] [address] Assigned PCP 06/17/17 01/20/22 Tiffanie Araya DO [address] [place] [id number] Assigned Heart and Vascular Provider 01/02/20 06/01/23 documented as of this encounter
--- OUTSIDE RECORDS SUMMARY | 2023-09-07 09:15 | XMS_ITS | Encounter Summary ---
Author Organization [place] Address [address] [facility] [place] [address] Care Team Providers Care Manager Credit Name Role Phone Jocelyn Jane PA-C Primary Care Pr ovider Parag Pires PA-C Primary Care Provider Parag Pires PA-C Unavailable + [phone] Parag Pires PA-C Unavailable [phone] Tiffanie Araya DO Unavailable + [phone] Ceci Kessler MD Primary Care Provider + Reason for Visit * Reason Onset Date Comments MyChart Communication 06/07/2015 Encounter Details Date Type Department Care Team (Latest Contact Info) Description 06/07/2015 MyC Medical Advice [facility] [address] [place] [phone] Jocelyn Jane PA-C [id number] [place] [address] MyChart Communication Social History Tobacco Use [...] encounter Miscellaneous Notes * Telephone Encounter - Rosa Isela Navarro RN - 06/07/2015 12:33 PM CDT Routing refill request to provider for review/approval because: Drug not active on patient's medication list Rosa Isela Navarro RN, BSN documented in this encounter Plan of Treatment Not on file documented as of this encounter Visit Diagnoses Diagnosis Rosacea- Primary documented in this encounter Care Teams Manager Credit Relationship Specialty Start Date End Date Jocelyn Jane PA-C [address] [place] [address] PCP - General Physician Dress Cutter 09/15/14 03/22/16 Parag Pires PA-C [address] [place] [address] PCP - General Physician Dress Cutter - Medical 03/23/16 09/01/20 Parag Pires PA-C [address] [facility] [place] [address] PCP - Assigned PCP 06/17/17 05/14/18 Ceci Kessler MD [facility] & [address] [address] PCP - General Family Medicine 09/02/20 Parag Pires PA-C [address] [place] [address] Assigned PCP 06/17/17 01/20/22 Tiffanie Araya DO [address] [place] [address] Assigned Heart and Vascular Provider 01/02/20 06/01/23 documented as of this encounter
--- OUTSIDE RECORDS SUMMARY | 2023-09-07 09:15 | XMS_ITS | Encounter Summary ---
Author Organization [place] Address [address] [place] [address] Care Team Providers Care Genetic Physician Name Role Phone Radha Keating MD Primary Care Provider Naz Lugo PA-C Primary Care Provid er Jocelyn Jane-C Primary Care Pr ovider Parag Pires PA-C Primary Care Provider Parag Pires PA-C Unavailable [phone] Parag PiresC Unavailable + [phone] Tiffanie Araya DO Unavailable [phone] Ceci Kessler MD Primary Care Provider + Encounter Details Date Type Department Care Team (Late st Contact Info) Description 12/22/2010 Office Visit-[facility] [address] [place] [address] Unknown, DoctorMD Social History Tobacco [...] encounter Progress Notes * Unknown, DoctorMD - 12/26/2010 1:51 PM CDT Progress Note Created by: Kimberly Alvarez PA-C DATE: 12/22/2010 [id number] VI DONATO DATE OF : 1950 AGE: [age] years old Referring Physician: ELIEZER ROMEO Referring Clinic: [facility] CURRENT DIAGNOSES 1. - Atrial Fibrillation, 427.31 [...] mg Tablet, 1 p.o. daily CHIEF COMPLAINTS follow up holter and echo HISTORY OF PRESENT ILLNESS: Ms. Donato is a delightful 60-year-old female who presents to the [facility] today for a follow-up visit regarding her atrial fibrillation and recent Holter monitor and echocardiogram. As you recall, she was seen in consultation by Dr. Her due to the atrial fibrillation. She has actually been relatively asymptomatic with this. It sounds as though she had an electrocardiogram and Holter monitor done three years ago, which apparently did show atrial fibrillation. Her thyroid has been checked and has been within normal limits. She has had borderline high blood pressure in the past. We did obtain a Holter monitor to check for adequate rate control. Her Holter monitor shows that she was in atrial fibrillation for the time she had the monitor on with an average heart rate of 106 beats per minute with a minimum of 57 and a maximum of 169. Also an echocardiogram was obtained, which did not show any evidence of left ventricular hypertrophy or diastolic dysfunction. Her ejection fraction was normal. She does have mild biatrial enlargement most likely from the atrial fibrillation. She has a trace to mild mitral regurgitation. She also has mild tricuspid regurgitation with mild elevation in her pulmonary pressures estimated at 33 mm ofmercury plus right atrial pressure. Due to this finding I did inquire about possibly obstructive sleep apnea. She does have a poor sleep pattern, as well as the fact that she does have complaints of nocturia consistent with sleep apnea. She has daytime fatigue as well. Certainly she is willing to do a sleep study and I would recommend this. All other review of systems, past medical [...] of 55-60% documented via echocardiogram on 11/29/2010 REVIEW OF SYSTEMS GENERAL weight loss, 1 [...] disorders. PHYSICAL EXAMINATION VITAL SIGNS: Blood Pressure: 130/80Sitting, Right arm, large cuff Pulse- 88.00/min. Weight- 248.50 lbs. Height- 64.00 CONSTITUTIONAL cooperative, alert and [...] Extended Release 24 hr, 1 p.o. daily, #30 (Thirty) IMPRESSION/PLAN: 1. Atrial fibrillation with poor ventricular rate control. For this reason I am going to place her on metoprolol long acting 50 mg once daily. We will plan to see her back in the clinic in three to four weeks to assess her heart rate at that time. We may need to repeat her Holter monitor to make sure that she does have adequate rate control. She has a CHADS score of 0 as there is no evidence of hypertension. For this reason she can continue with aspirin. 2. Possible obstructive sleep apnea. Maverick have some symptoms consistent with obstructive sleep apnea with mild elevation in her pulmonary pressures on echo, which I think is probably likely due to this. For this reason I have referred her for a sleep study and sleep evaluation. Otherwise I am not going to make any further changes other than what is noted above. We will see her back in the clinic in three to four weeks. If she has any problems in the interim certainly would be happy to see her sooner. Thank you for allowing us to be involved in her care. TODAYS ORDERS 1. Sleep Study Schedule At [facility] 2. Return Visit 3 weeks PALOMO Bennett Electronically signed by [facility], [facility] Data Conversion at 07/24/2013 7:59 PM CDT documented in this encounter Plan of Treatment Not on file documented as of this encounter Visit Diagnoses Not on filedocumented in this encounter Care Teams Genetic Physician Relationship Specialty Start Date End Date Radha Keating MD PCP - General Family Practice 09/05/10 10/01/11 Naz Lugo PA-C [address] [place] [address] [place] [address] PCP - General Family Practice 10/02/11 09/14/14 Jocelyn Jaen PA-C [address] [place] [address] PCP - General Physician Song Lyricist 09/15/14 03/22/16 Parag Pires PA-C [address] [place] [address] PCP - General Physician Song Lyricist - Medical 03/23/16 09/01/20 Parag Pires PA-C [address] [place] [address] PCP - Assigned PCP 06/17/17 05/14/18 Ceci Kessler MD [facility] & [address] [address] PCP - General Family Medicine 09/02/20 Parag Pires PA-C [address] [place] [address] Assigned PCP 06/17/17 01/20/22 Tiffanie Araya DO [address] [place] [address] Assigned Heart and Vascular Provider 01/02/20 06/01/23 documented as of this encounter
--- OUTSIDE RECORDS SUMMARY | 2023-09-07 09:15 | XMS_ITS | Encounter Summary ---
Author Organization [place] Address [address] [place] [address] Care Team Providers Care Tar Processing Technician Name Role Phone Jocelyn Jane PA-C Primary Care Pr ovider Parag Pires PA-C Primary Care Provider Parag Pires PA-C Unavailable + [phone] Parag Pires PA-C Unavailable [phone] Tiffanie Araya DO Unavailable + [phone] Ceci Kessler MD Primary Care Provider + Encounter Details Date Type Department Care Team (Late st Contact Info) Description 01/12/2015 MyC Medical Advice [facility] [id number] [place] [address] Aubrie Summers, CLINICAL EDUCATION ACADEMIC COORDINATOR Social History Tobacco Use Types Packs/Day Years [...] on filedocumented in this encounter Care Teams Tar Processing Technician Relationship Specialty Start Date End Date Jocelyn Jane PA-C [address] [place] [address] PCP - General Physician Bog Cutter 09/15/14 03/22/16 Parag Pires PA-C [address] [place] [address] PCP - General Physician Bog Cutter - Medical 03/23/16 09/01/20 Parag Pires PA-C [address] [place] [address] PCP - Assigned PCP 06/17/17 05/14/18 Ceci Kessler MD [facility] & [address] [address] PCP - General Family Medicine 09/02/20 Parag Pires PA-C [address] [place] [address] Assigned PCP 06/17/17 01/20/22 Tiffanie Araya DO [address] [place] [address] Assigned Heart and Vascular Provider 01/02/20 06/01/23 documented as of this encounter
--- OUTSIDE RECORDS SUMMARY | 2023-09-07 09:15 | XMS_ITS | Encounter Summary ---
Author Organization [place] Address [address] [facility] [place] [address] Care Team Providers Care Storage Garage Manager Name Role Phone Parag Pires PA-C Primary Care Provider Parag Pires PA-C Unavailable + [phone] Parag Pires PA-C Unavailable + [phone] Tiffanie Araya DO Unavailable [phone] Ceci Kessler MD Primary Care Provider + Encounter Details Date Type Department Care Team (Late st Contact Info) Description 03/19/2017 MyC Medical Advice [address], [address] [place] [address] Alice Hardin MA Social History [...] documented as of this encounter Care Teams Storage Garage Manager Relationship Specialty Start Date End Date Parag Pires PA-C PCP - General Physician Mail Processor - Medical 03/23/16 09/01/20 Parag Pires PA-C [address] [address] PCP - Assigned PCP 06/17/17 05/14/18 Ceci Kessler MD [facility] & [address] [address] PCP - General Family Medicine 09/02/20 Parag Pires PA-C [address] [address] Assigned PCP 06/17/17 01/20/22 Tiffanie Araya DO [address] [place] [address] Assigned Heart and Vascular Provider 01/02/20 06/01/23 documented as of this encounter
--- OUTSIDE RECORDS SUMMARY | 2023-09-07 09:15 | XMS_ITS | Encounter Summary ---
Author Organization [employer] Address [address] [place] [address] Care Team Providers Care Technology Lead Name Role Phone Naz Lugo PA-C Primary Care Provid er Jocelyn Jane PA-C Primary Care Pr ovider Parag Pires PA-C Primary Care Provider Parag Pires PA-C Unavailable [phone] Parag Pires PA-C Unavailable [phone] Tiffanie Araya DO Unavailable + [phone] Ceci Kessler MD Primary Care Provider + Reason for Visit * Reason Onset Date Comments Refill Request 03/04/2014 metronidazole ge l Encounter Details Date Type Department Care Team (Late st Contact Info) Description 03/04/2014 Refill [facility] [address] [address] Naz Lugo PA-C [address] [id number] Refill Request (metronidazole gel) Social History Tobacco Use Types Packs/Day Years [...] encounter Miscellaneous Notes * Telephone Encounter - Jackson Beyer RN - 03/11/2014 9:11 AM CST If pharmacy cannot refill PSO,an RN cannot refill PSO. PCP, Naz Lugo PA-C, is no longer working for [employer]. Will ask team provider to review. Jackson Beyer RN CTOR PROCESS * Telephone Encounter - Phoebe Orosco - 03/04/2014 12:53 PM CST Last Fill Date: 11/17/2013 Last Fill Quantity: 45 Last Office Visit: 01/20/2013 [facility]ebe Orosco [phone] CTOR PROCESS documented in this encounter Plan of Treatment Not on file documented as of this encounter Visit Diagnoses Diagnosis Rosacea- Primary documented in this encounter Care Teams Technology Lead Relationship Specialty Start Date End Date Naz Lugo PA-C [address] [address] PCP - General Family Practice 10/02/11 09/14/14 Jocelyn Jane PA-C [address] [facility] [place] [address] PCP - General Physician In Room Dining Server 09/15/14 03/22/16 Parag Pires PA-C [address] [place] [address] PCP - General Physician In Room Dining Server - Medical 03/23/16 09/01/20 Parag Pires PA-C [address] [place] [address] PCP - Assigned PCP 06/17/17 05/14/18 Ceci Kessler MD [facility] & [address] [address] PCP - General Family Medicine 09/02/20 Parag Pires PA-C [address] [address] Assigned PCP 06/17/17 01/20/22 Tiffanie Araya DO [address] [place] [id number] Assigned Heart and Vascular Provider 01/02/20 06/01/23 documented as of this encounter
--- OUTSIDE RECORDS SUMMARY | 2023-09-07 09:15 | XMS_ITS | Encounter Summary ---
Author Organization [facility] Address [address] [place] [address] Care Team Providers Care Cotton Converter Name Role Phone Ceci Kessler MD Primary Care Provider + Reason for Visit * Auth/Cert (Routine) Specialty Diagnoses / Procedures Referred By Amilcar rodrigez Referred To Contact Surgery Diagnoses Urge incontinence Full incontinence of feces Urge incontinence [N39.41] Full incontinence of feces [R15.9] Procedures [place] INSERT/REPL PERIPH SACRAL/GASTRIC NSTIM/RCVR, W PCKT CRTJ & CONN [place] REV/REM PERIPH SACRAL/GASTRIC NSTIM/RCV, DETACH CONN ELEC ARRAY REMOVAL OF INTERSTIM SACRAL NEUROMODULATION LEAD AND GENERATOR. PLACE [employer] SACRAL NEUROMODULATION SYSTEM STAGE ONE AND TWO [facility] [address] [place] [address] Referral ID Status Reason Start Date Expiration Date Visits Re quested Visits Authorized [id number] 1 1 Encounter Details Date Type Department Care Team (Latest Contact Info) Description 06/28/2023 7:13 AM CDT - 06/28/2023 12:32 PM CDT Hospital Encounter [facility] Phase II [address] [place] [address] Marco Padilla MD [address] [place] [address] S/P gynecological surgery, follow-up exam (Primary Dx) Discharge Disposition: Home or Self Care Social History Tobacco Use Types Packs/Day Years [...] 14.4 oz) 06/28/2023 7:29 AM CDT Height - - Body Mass Index 47.01 11/25/2021 10:21 AM CDT documented in this encounter Discharge Instructions * Attachments The following attachments cannot be sent through Care Everywhere. * (s) After Anesthesia (Sleep Medicine) (Senegalese) documented in this encounter Medications at Time of Discharge Medication Sig Dispensed Refills Start Date End Date acetaminophen (TYLENOL) 500 MG tablet Take 1,000 mg by mouth every 6 hours as needed for mild pain betamethasone dipropionate (DIPROSONE) 0.05 % creamIndications:Rash and nonspecific skin eruption Apply topically 2 times daily 15 g 1 03/23/2016 calcium-vitamin D (CALTRATE) 600-400 MG-UNIT per tablet Take 1 tablet by mouth 2 times daily Cholecalciferol (VITAMIN D3 PO) Take 2,000 Units by mouth daily fluticasone (FLONASE) 50 MCG/ACT nasal spray [place] 1 spray into both nostrils as needed for rhinitis or allergies Generic target brand gabapentin (NEURONTIN) 300 MG capsule Take 1 capsule at bedtime for 3 to 4 days, then increase to 1 capsule twice daily thereafter if needed 03/13/2019 ibuprofen (ADVIL/MOTRIN) 600 MG tabletIndications:S/P gynecological surgery, follow-up exam Take 1 tablet (600 mg) by mouth every 6 hours as needed for other (mild and/or inflammatory pain) 30 tablet 06/28/2023 losartan (COZAAR) 50 MG tabletIndications:[place] gn essential hypertension Take 1.5 tablets (75 mg) by mouth daily 135 tablet 4 11/25/2021 MAGNESIUM ASPARTATE PO Take 400 mg by mouth daily metoprolol succinate ER (TOPROL XL) 50 MG 24 hr tabletIndications:Atri al fibrillation, unspecified type (H) Take 1 tablet (50 mg) by mouth 2 times daily 180 tablet 4 11/25/2021 metroNIDAZOLE (METROGEL) 0.75 % external gelIndications:Rosacea Apply topically daily as needed Apply 0.25 inches topically daily as needed. 45 g 2 04/04/2018 MULTI-DAY OR 1 tablet daily [place]-3 Fatty Acids (OMEGA-3 FISH OIL PO) Take 1,600 mg by mouth daily omeprazole (PRILOSEC) [address] capsule Take 1 capsule by mouth every 24 hours 09/20/2021 oxyCODONE (ROXICODONE) 5 MG tabletIndications:S/P gynecological surgery, follow-up exam Take 1-2 tablets (5-10 mg) by mouth every 4 hours as needed for moderate to severe pain 20 tablet 06/28/2023 rivaroxaban ANTICOAGULANT (XARELTO ANTICOAGULANT) 20 MG TABS tabletIndications:Atri al fibrillation, unspecified type (H),Benign essential hypertension,Mixed hyperlipidemia Take 1 tablet (20 mg) by mouth daily (with dinner) 90 tablet 4 11/25/2021 rosuvastatin (CRESTOR) 5 MG tablet Take 5 mg by mouth daily tolterodine ER (DETROL LA) 4 MG 24 hr capsuleIndications:Urg e incontinence of urine Take 1 capsule by mouth daily. This replaces the Oxybutynin and/or Trospium. 90 capsule 1 09/04/2019 traMADol (ULTRAM) 50 MG tabletIndications:Stable Helper elva pain of both knees Take 1 tablet (50 mg) by mouth every 6 hours as needed for moderate to severe pain 30 tablet 09/05/2019 triamcinolone (KENALOG) 0.1 % external ointment Apply topically 2 times daily trospium (SANCTURA XR) 60 MG CP24 24 hr capsule Take 60 mg by mouth every morning cephALEXin (KEFLEX) 500 MG capsuleIndications:S/P gynecological surgery, follow-up exam Take 1 capsule (500 mg) by mouth 2 times daily for 7 days 14 capsule 06/28/2023 07/05/2023 documented as of this encounter H&P Notes * Marco Padilla MD - 06/28/2023 9:19 AM CDT I have reviewed the surgical (or preoperative) H&P that is linked to this encounter, and examined the patient. There are no significant changes Clinical Conditions Present on Arrival: Clinically Significant Risk Factors Present on Admission # Drug Induced Coagulation Defect: home medication list includes an anticoagulant medication Source Note - Shamir Provider - 06/15/2023 7:48 AM CDT documented in this encounter Miscellaneous Notes * Op Note - Marco Padilla MD - 06/28/2023 10:11 AM CDT Images from the original note were not included. Procedure Date: 12/21/22 PREOPERATIVE DIAGNOSES: 1. Urge incontinence. 2. Overactive bladder. PREOPERATIVE DIAGNOSES: 1. Urge incontinence. 2. Overactive bladder. PROCEDURES: 1. Removal of Interstim generator. 2. Removal of Interstim lead. 3. Placement of Axonics generator. 4. Placement of Axonics lead. 5. Complex programming. 6. Fluoroscopy. SURGEON: Marco Padilla MD FINDINGS: Normal pelvis. DESCRIPTION OF PROCEDURE: After assuring informed consent, the patient was taken to the operating room. She was prepped and draped in the usual manner, placed in the prone position. At this point, anincision was made over the previous generator site. The generator was removed from the incision. The lead midline location was then identified by gently pulling the generator. A separate small incision was made over the lead in the midline location. Dissection through the midline incision was performed to idenify the lead. The lead was then taken through this incision. The lead and generator removed intact. At this point, fluoroscopy was used to identify the S3 foramen. S3 foramen was identified. A foramen needle was placed through the S3 foramen on the patient's right side. She had good motor and sensory responses. At this point, the directional guide was placed followed by a cannula. The lead was then placed with electrode 3 and 2 straddling the anterior bone plate. There were good responses on all electrodes; 2 and 3 had the best response. At this point, the lead was then tunneled tothe pocket. A new generator was attached to the lead. This was placed into the pocket. The pocket was closed. The space was closed. The skin incisions were closed. This concluded the procedure. Instruments, needle, and sponge counts were correct x2. It should be noted a complex Axonics programming was performed. DISPOSITION: The patient sent to recovery room in stable condition. Marco Padilla MD documented in this encounter Plan of Treatment Not on file documented as of this encounter Procedures Procedure Name Priority Date/Time Associated Diagnosis Comments XR SURGERY BRODIE FLUORO LESS THAN 5 MIN Routine 06/28/2023 11:09 AM CDT REVISION, PROCEDURE INVOLVING BLADDER NEUROSTIMULATOR 06/28/2023 9:43 AM CDT Urge incontinence Full incontinence of feces Case Notes [employer] commercial solar sales consultant coming (Chevy Moseley)Antibiotic irrigation ordered - need to release Special Needs Req 90 mins, Philomena Barraza to Assist. [facility] rep will coordinate with [facility] regarding supplies and equipment. REP. Chevy Moseley notified. HCG QUANTITATIVE STAT 06/28/2023 8:00 AM CDT documented in this encounter Results * XR Surgery BRODIE L/T 5 Min Fluoro (06/28/2023 11:09 AM CDT) Narrative RADIANT - 06/28/2023 11:10 AM CDT This exam was marked as non-reportable because it will not be read by a radiologist or a [facility] non-radiologist provider. Marco Padilla MD IMG DIAGNOSTIC IM AGING ORDERABLES RADIANT * HCG quantitative (06/28/2023 8:00 AM CDT) hCG Quantitative 1 <5 mIU/mL 06/28/19 8:39 AM CDT [facility] Comment: Adult: 0-5 mIU/mL for healthy non- person Neonates: Should be within normal ranges by 2 days after Blood TOPOGRAPHY UNKNOWN / Unknown Venipuncture / Unknown 06/28/2023 8:00 AM CDT 06/28/2023 8:10 AM CDT Janie Jacques REGULATORY AFFAIRS CONSULTANT CAR WASH SUPERVISOR LAB - BLOOD ORDERABLES Performing Organization Address City/[facility] Co de Phone Number [facility] [address] [place] [address], [facility] documented in this encounter Visit Diagnoses Diagnosis S/P gynecological surgery, follow-up exam- Primary Follow-up examination, following other surgery documented in this encounter Administered Medications Inactive Administered Medications - up to 3 most recent administrations Medication Order MAR Action Action Date Dose Rate Site acetaminophen (TYLENOL) tablet 975 mg 975 mg, Oral, ONCE, On Kalani 06/28/23 at 0800, For 1 dose, Give within 60 min of procedure. Hold if patient has taken acetaminophen within 4 hours. Maximum acetaminophen dose from all sources = 75 mg/kg/day not to exceed 4 grams/day., Pre-procedure $Given 06/28/2023 8:56 AM CDT 975 mg ceFAZolin Sodium (ANCEF) injection 3 g Routine, 3 g, Intravenous, SEE ADMIN INSTRUCTIONS, Starting on Kalani 06/28/23 at 0743, Intra-Op Dose.??Give every 4 hours while patient in surgery, starting 4 hours after pre-op dose., Indications: Perioperative Pharmacoprophylaxis, Pre-procedure lactated ringers infusion at 10 mL/hr, Intravenous, CONTINUOUS, Pre-procedure, Starting on Kalani 06/28/23 at 0900, Until Kalani 06/28/23 at 1432 $New Bag 06/28/2023 11:05 AM CDT $New Bag 06/28/2023 9:13 AM CDT $New Bag 06/28/2023 8:51 AM CDT 10 mL/hr lidocaine (LMX4) cream Topical, EVERY 1 HOUR PRN, pain, with VAD insertion, Starting on Kalani 06/28/23 at 0836, Apply at least 30 minutes prior to VAD insertion in divided doses as needed for size of site for insertion. MAX Dose: 2.5 g (?? of 5 g tube) Do NOT give if patient has a history of allergy to any local anesthetic or any lana product. Do NOT use both lidocaine intradermal/subcutaneous injection and the lidocaine cream on the same site., Pre-procedure lidocaine 1 % 0.1-1 mL 0.1-1 mL, Other, EVERY 1 HOUR PRN, mild pain with VAD insertion, Starting on Kalani 06/28/23 at 0836, MAX dose 1 mL subcutaneous OR intradermal along the side of the vein in divided doses as needed for VAD insertion. Do NOT give if patient has a history of allergy to any local anesthetic or any lana product. Do NOT use both lidocaine intradermal/subcutaneous injection and the lidocaine cream on the same site., Pre-procedure lidocaine-EPINEPHrine 1 %-1:085457 injection PRN, Starting on Kalani 06/28/23 at 1011, Intra-procedure $Given 06/28/2023 11:04 AM CDT 14 mLs Operative Site/Surgi deidre Site $Given 06/28/2023 10:16 AM CDT 3 mLs $Given 06/28/2023 10:11 AM CDT 8 mLs naloxone (NARCAN) injection 0.1 mg 0.1 mg, Intravenous, EVERY 2 MIN PRN, opioid reversal, Starting on Kalani 06/28/23 at 1128, Notify Anesthesia Provider when administering naloxone (NARCAN) for unintended sedation or respiratory depression IF all three of the following criteria are met: 1. Respiratory rate LESS than or EQUAL to 8. 2. SaO2 is LESS than 92% and/or end-tidal CO2 is GREATER than 50. 3. Patient is receiving an opioid, has unintended sedation assessed as RASS (-4) or (-5) and patient is NOT currently on mechanical ventilation. RASS scale (-4) is deep sedation with no response to voice but movement or eye opening to physical stimulation. RASS scale (-5) is unarousable. Notify Anesthesia Provider PRIOR to administering additional opioids if naloxone (NARCAN) given. Once patient has demonstrated a response to naloxone (NARCAN), continue to monitor respiratory rate, depth, oxygen saturation EVERY 15 minutes x 2, then EVERY 30 minutes x 2, then EVERY hour x 1 after each naloxone (NARCAN) dose. Monitor in Phase II for 2 hours after last naloxone (NARCAN) dose PRIOR to discharge., Phase ll ondansetron (ZOFRAN ODT) ODT tab 4 mg 4 mg, Oral, EVERY 30 MIN PRN, nausea, Starting on Kalani 06/28/23 at 1128, For 2 doses, MAX total dose = 8 mg, including OR dosing. If not resolved in 15 minutes, then go to step 2 [prochlorperazine (COMPAZINE), if ordered]. With dry hands, peel back foil backing and gently remove tablet. Do not push oral disintegrating tablet through foil backing. Administer immediately on tongue and oral disintegrating tablet dissolves in seconds, then swallow with saliva. Liquid not required., Phase ll ondansetron (ZOFRAN) injection 4 mg 4 mg, Intravenous, EVERY 30 MIN PRN, nausea, Administer over 2-5 Minutes, Starting on Kalani 06/28/23 at 1128, For 2 doses, MAX total dose = 8 mg, including OR dosing. If not resolved in 15 minutes, then go to step 2 [prochlorperazine (COMPAZINE), if ordered]. Irritant., Phase ll oxyCODONE (ROXICODONE) tablet 5 mg 5 mg, Oral, ONCE PRN, moderate pain, other, or is unable to participate in post op recovery due to pain., Starting on Kalani 06/28/23 at 1128, For 1 dose, Max: 5 mg for opioid-na??ve patient., Phase ll prochlorperazine (COMPAZINE) injection 5 mg 5 mg, Intravenous, EVERY 6 HOURS PRN, nausea, vomiting, Administer over 1-2 Minutes, Starting on Kalani 06/28/23 at 1128, Phase ll sodium chloride (PF) 0.9% PF flush 3 mL 3 mL, Intracatheter, EVERY 8 HOURS, First dose on Kalani 06/28/23 at 0900, to lock peripheral IV dormant line, Pre-procedure sodium chloride (PF) 0.9% PF flush 3 mL 3 mL, Intracatheter, EVERY 1 MIN PRN, line flush, other, to ensure patency or to lock dormant line, Starting on Kalani 06/28/23 at 0836, Pre-procedure documented in this encounter Active and Recently Administered Medications Times are shown in CDT. Scheduled Medication Order 06/26/2023 06/27/2023 06/28/2023 acetaminophen (TYLENOL) tablet 975 mg (COMPLETED) 975 mg, Oral, ONCE, On Kalani 06/28/23 at 0800, For 1 dose, Give within 60 min of procedure. Hold if patient has taken acetaminophen within 4 hours. Maximum acetaminophen dose from all sources = 75 mg/kg/day not to exceed 4 grams/day., Pre-procedure 0856 ($Given - Provi nicole: Ana Pinto RN) ceFAZolin (ANCEF) 1 g in sterile water (bottle) 500 mL irrigation bottle (ANCEF) (COMPLETED) 1 g, Irrigation, CONSTRUCTION IRONWORKER TO O.R., Starting on Kalani 06/28/23 at 0919, For 1 dose, Intra-procedure 1108 ($Given - Provi nicole: Marco Padilla MD) ceFAZolin Sodium (ANCEF) injection 3 g (COMPLETED) Routine, 3 g, Intravenous, PRE-OP/PRE-PROCEDURE, Starting on Kalani 06/28/23 at 0743, For 1 dose, Give first dose within 1 hour PRIOR to incision. If patient weight is greater than or equal to 120 kg increase dose to 3 g., Indications: Perioperative Pharmacoprophylaxis, Pre-procedure 0945 ($Given - Provi nicole: Vincenzo Kenney APRN CRNA) ceFAZolin Sodium (ANCEF) injection 3 g Routine, 3 g, Intravenous, SEE ADMIN INSTRUCTIONS, Starting on Kalani 06/28/23 at 0743, Intra-Op Dose.??Give every 4 hours while patient in surgery, starting 4 hours after pre-op dose., Indications: Perioperative Pharmacoprophylaxis, Pre-procedure sodium chloride (PF) 0.9% PF flush 3 mL 3 mL, Intracatheter, EVERY 8 HOURS, First dose on Kalani 24 at 0900, to lock peripheral IV dormant line, Pre-procedure 0900 (Canceled Entry - Provider: Orders Generic Provider - Comment: Automatically canceled at discontinue of medication order) Continuous Medication Order 06/26/2023 06/27/2023 06/28/2023 lactated ringers infusion at 10 mL/hr, Intravenous, CONTINUOUS, Pre-procedure, Starting on Kalani 06/28/23 at 0900, Until Kalani 06/28/23 at 1432 0851 ($New Bag - Pro vider: Ana Pinto RN)0912 (Paused - Provider: Vincenzo Kenney APRN SALES SUPPORT REP - Comment: Switch to gravity)0913 ($New Bag - Provider: Vincenzo Kenney APRN SALES SUPPORT REP)1105 ($New Bag - Provider: Vincenzo Kenney APRN CRNA)1124 (Anesthesia Volume Adjustment - Provider: Vincenzo Kenney APRN CRNA) PRN Medication Order 06/26/2023 06/27/2023 06/28/2023 lidocaine (LMX4) cream Topical, EVERY 1 HOUR PRN, pain, with VAD insertion, Starting on Kalani 06/28/23 at 0836, Apply at least 30 minutes prior to VAD insertion in divided doses as needed for size of site for insertion. MAX Dose: 2.5 g (?? of 5 g tube) Do NOT give if patient has a history of allergy to any local anesthetic or any lana product. Do NOT use both lidocaine intradermal/subcutaneous injection and the lidocaine cream on the same site., Pre-procedure lidocaine 1 % 0.1-1 mL 0.1-1 mL, Other, EVERY 1 HOUR PRN, mild pain with VAD insertion, Starting on Kalani 06/28/23 at 0836, MAX dose 1 mL subcutaneous OR intradermal along the side of the vein in divided doses as needed for VAD insertion. Do NOT give if patient has a history of allergy to any local anesthetic or any lana product. Do NOT use both lidocaine intradermal/subcutaneous injection and the lidocaine cream on the same site., Pre-procedure lidocaine-EPINEPHrine 1 %-1:314992 injection PRN, Starting on Kalani 06/28/23 at 1011, Intra-procedure 1011 ($Given - Provi nicole: Marco Padilla MD)1016 ($Given - Provider: Marco Padilla MD)1104 ($Given - Provider: Marco Padilla MD) naloxone (NARCAN) injection 0.1 mg 0.1 mg, Intravenous, EVERY 2 MIN PRN, opioid reversal, Starting on Kalani 06/28/23 at 1128, Notify Anesthesia Provider when administering naloxone (NARCAN) for unintended sedation or respiratory depression IF all three of the following criteria are met: 1. Respiratory rate LESS than or EQUAL to 8. 2. SaO2 is LESS than 92% and/or end-tidal CO2 is GREATER than 50. 3. Patient is receiving an opioid, has unintended sedation assessed as RASS (-4) or (-5) and patient is NOT currently on mechanical ventilation. RASS scale (-4) is deep sedation with no response to voice but movement or eye opening to physical stimulation. RASS scale (-5) is unarousable. Notify Anesthesia Provider PRIOR to administering additional opioids if naloxone (NARCAN) given. Once patient has demonstrated a response to naloxone (NARCAN), continue to monitor respiratory rate, depth, oxygen saturation EVERY 15 minutes x 2, then EVERY 30 minutes x 2, then EVERY hour x 1 after each naloxone (NARCAN) dose. Monitor in Phase II for 2 hours after last naloxone (NARCAN) dose PRIOR to discharge., Phase ll ondansetron (ZOFRAN ODT) ODT tab 4 mg(Linked Group 1) 4 mg, Oral, EVERY 30 MIN PRN, nausea, Starting on Kalani 06/28/23 at 1128, For 2 doses, MAX total dose = 8 mg, including OR dosing. If not resolved in 15 minutes, then go to step 2 [prochlorperazine (COMPAZINE), if ordered]. With dry hands, peel back foil backing and gently remove tablet. Do not push oral disintegrating tablet through foil backing. Administer immediately on tongue and oral disintegrating tablet dissolves in seconds, then swallow with saliva. Liquid not required., Phase ll ondansetron (ZOFRAN) injection 4 mg(Linked Group 1) 4 mg, Intravenous, EVERY 30 MIN PRN, nausea, Administer over 2-5 Minutes, Starting on Kalani 24 at 1128, For 2 doses, MAX total dose = 8 mg, including OR dosing. If not resolved in 15 minutes, then go to step 2 [prochlorperazine (COMPAZINE), if ordered]. Irritant., Phase ll oxyCODONE (ROXICODONE) tablet 5 mg 5 mg, Oral, ONCE PRN, moderate pain, other, or is unable to participate in post op recovery due to pain., Starting on Kalani 06/28/23 at 1128, For 1 dose, Max: 5 mg for opioid-na??ve patient., Phase ll prochlorperazine (COMPAZINE) injection 5 mg 5 mg, Intravenous, EVERY 6 HOURS PRN, nausea, vomiting, Administer over 1-2 Minutes, Starting on Kalani 06/28/23 at 1128, Phase ll sodium chloride (PF) 0.9% PF flush 3 mL 3 mL, Intracatheter, EVERY 1 MIN PRN, line flush, other, to ensure patency or to lock dormant line, Starting on Kalani 06/28/23 at 0836, Pre-procedure Linked Groups Order Group 1: ondansetron (ZOFRAN ODT) ODT tab 4 mgJump to med 4 mg, Oral, EVERY 30 MIN PRN, nausea, Starting on Kalani 06/28/23 at 1128, For 2 doses, MAX total dose = 8 mg, including OR dosing. If not resolved in 15 minutes, then go to step 2 [prochlorperazine (COMPAZINE), if ordered]. With dry hands, peel back foil backing and gently remove tablet. Do not push oral disintegrating tablet through foil backing. Administer immediately on tongue and oral disintegrating tablet dissolves in seconds, then swallow with saliva. Liquid not required., Phase ll Or ondansetron (ZOFRAN) injection 4 mgJump to med 4 mg, Intravenous, EVERY 30 MIN PRN, nausea, Administer over 2-5 Minutes, Starting on Kalani 06/28/23 at 1128, For 2 doses, MAX total dose = 8 mg, including OR dosing. If not resolved in 15 minutes, then go to step 2 [prochlorperazine (COMPAZINE), if ordered]. Irritant., Phase ll documented in this encounter Additional Health Concerns Assessment Noted Time PHQ-9 Depression Total Score: 0 09/22/19 17 7:24 AM CDT documented as of this encounter Care Teams Cotton Converter Relationship Specialty Start Date End Date Ceci Kessler MD [facility] & [address] [address] PCP - General Family Medicine 09/02/20 documented as of this encounter
--- OUTSIDE RECORDS SUMMARY | 2023-09-07 09:15 | XMS_ITS | Encounter Summary ---
Author Organization [facility] Address [address] [address] Care Team Providers Care Laborer [employer] Name Role Phone Parag Pires PA-C Primary Care Provider Parag Pires PA-C Unavailable + [phone] Parag Pires PA-C Unavailable + [phone] Tifafnie Araya DO Unavailable [phone] Ceci Kessler MD Primary Care Provider + Encounter Details Date Type Department Care Team (Late st Contact Info) Description 04/17/2017 MyC Medical Advice [facility] [address] [place] [address] Janel Mueller PA-C [address] [place] [address] Social History Tobacco Use Types Packs/Day Years [...] documented as of this encounter Care Teams Laborer Golf Course Relationship Specialty Start Date End Date Parag Pires PA-C PCP - General Physician Mining Technician - Medical 03/23/16 09/01/20 Parag Pires PA-C [id number] [id number] PCP - Assigned PCP 06/17/17 05/14/18 Ceci Kessler MD [facility] & [address] [address] PCP - General Family Medicine 09/02/20 Parag Pires PA-C [address] [id number] Assigned PCP 06/17/17 01/20/22 Tiffanie Araya DO [address] [id number] Assigned Heart and Vascular Provider 01/02/20 06/01/23 documented as of this encounter
--- OUTSIDE RECORDS SUMMARY | 2023-09-07 09:15 | XMS_ITS | Encounter Summary ---
Author Organization [place] Address [address] [place] [address] Care Team Providers Care Vessel Builder Name Role Phone Ceci Kessler MD Primary Care Provider + Reason for Visit * Auth/Cert (Routine) Specialty Diagnoses / Procedures Referred By Amilcar rodrigez Referred To Contact Surgery Diagnoses Urge incontinence Full incontinence of feces Urge incontinence [N39.41] Full incontinence of feces [R15.9] Procedures SC INSERT/REPL PERIPH SACRAL/GASTRIC NSTIM/RCVR, W PCKT CRTJ & CONN SC REV/REM PERIPH SACRAL/GASTRIC NSTIM/RCV, DETACH CONN ELEC ARRAY REMOVAL OF INTERSTIM SACRAL NEUROMODULATION LEAD AND GENERATOR. PLACE [employer] SACRAL NEUROMODULATION SYSTEM STAGE ONE AND TWO [facility] [address] [place] [phone] Referral ID Status Reason Start Date Expiration Date Visits Re quested Visits Authorized [id number] 1 1 Encounter Details Date Type Department Care Team (Late st Contact Info) Description 06/28/2023 9:00 AM CDT - 06/28/2023 11:00 AM CDT Surgery [facility] [address] [place] [phone] Marco Padilla MD [address] [place] [address] REMOVAL OF INTERSTIM SACRAL NEUROMODULATION LEAD AND GENERATOR. PLACE [employer] SACRAL NEUROMODULATION SYSTEM STAGE ONE AND TWO Surgery Details Date/Time Status Location OR Service Patient Class Case Class Case Type Trauma Case? 06/28/23 9:00 AM Posted [facility] OR [facility] OR Gynecology Same Day Surgery Elective Panel 1 Procedure LRB Anes Op Region Wound Class Comments REMOVAL OF INTERSTIM SACRAL NEUROMODULATION LEAD AND GENERATOR. PLACE [employer] SACRAL NEUROMODULATION SYSTEM STAGE ONE AND TWO N/A MAC Bladder I-Clean Surgeon Surgeon Role Service Panel Marco Padilla MD Primary Gynecology 1 Case Notes [employer] sales porter coming (Chevy Moseley)Antibiotic irrigation ordered - need to release Special Needs Req 90 mins, Philomena Barraza to Assist. [employer] rep will coordinate with [employer] regarding supplies and equipment. REP. Chevy Moseley notified. documented in this encounter Social History Tobacco [...] Sign Reading Time Taken Comments Blood Pressure 147/70 06/28/2023 7:40 AM CDT Pulse 77 06/28/2023 7:40 AM CDT Temperature 37.2 ??C (98.9 ??F) 06/28/2023 7:40 AM CD T Respiratory Rate 18 06/28/2023 7:40 AM CDT Oxygen Saturation 98% 06/28/2023 7:40 AM CDT Inhaled Oxygen Concentration - - Weight 124.2 kg (273 lb 14.4 oz) 06/28/2023 7:29 AM CDT Height - - Body Mass Index 47.01 11/25/2021 10:21 AM CDT documented in this encounter Discharge Instructions * Attachments The following attachments cannot be sent through Care Everywhere. * (s) After Anesthesia (Sleep Medicine) ([place]) documented in this encounter Medications at Time [...] daily fluticasone (FLONASE) 50 MCG/ACT nasal spray [place] 1 spray into both nostrils as needed [...] 2 04/04/2018 MULTI-DAY OR 1 tablet daily [place]-3 Fatty Acids (OMEGA-3 FISH OIL PO) Take [...] capsule 1 09/04/2019 traMADol (ULTRAM) 50 MG tabletIndications:[place] Feather Trimmer elva pain of both knees Take 1 [...] incontinence Full incontinence of feces Case Notes [employer] sales porter coming (Chevy Moseley)Antibiotic irrigation ordered - need to release Special Needs Req 90 mins, Philomena Barraza to Assist. [employer] rep will coordinate with [facility] regarding supplies and equipment. REP. Chevy Moseley notified. HCG QUANTITATIVE STAT 06/28/2023 8:00 AM CDT documented in this encounter Results * XR Surgery BRODIE L/T 5 Min Fluoro (06/28/2023 11:09 AM CDT) Narrative RADIANT - 06/28/2023 11:10 AM CDT This exam was marked as non-reportable because it will not be read by a radiologist or a [place] non-radiologist provider. Marco Padilla MD IMG DIAGNOSTIC IM AGING ORDERABLES Performing Organization Address City/[facility] Co de Phone Number RADIANT * HCG quantitative (06/28/2023 8:00 AM CDT) hCG Quantitative 1 <5 mIU/mL 06/28/19 24 8:39 AM CDT N LABORATORY Comment: Adult: 0-5 mIU/mL for healthy non- person Neonates: Should be within normal ranges by 2 days after Blood TOPOGRAPHY UNKNOWN / Unknown Venipuncture / Unknown 06/28/2023 8:00 AM CDT 06/28/2023 8:10 AM CDT Janie Jacques APRN FACILITIES OPERATIONS TECHNICIAN LAB - BLOOD ORDERABLES Performing Organization Address City/[facility]/ZIP Co de Phone Number [facility] [address] [place] [address], [facility] documented in this encounter Visit Diagnoses Diagnosis S/P gynecological surgery, follow-up exam- Primary Follow-up examination, following other surgery Urge incontinence Full incontinence of feces documented in this encounter Administered Medications Inactive [...] 06/28/2023 8:56 AM CDT 975 mg ceFAZolin (ANCEF) 1 g in sterile water (bottle) 500 mL irrigation bottle (ANCEF) 1 g, Irrigation, CARDIOVASCULAR SONOGRAPHER TO O.R., Starting on Kalani 06/28/23 at 0919, For 1 dose, Intra-procedure $Given 06/28/2023 11:08 AM CDT 500 mLs Operative Site/Surgical Site ceFAZolin Sodium (ANCEF) injection 3 g [...] on the same site., Pre-procedure lidocaine-EPINEPHrine 1 %-1:814327 injection PRN, Starting on Kalani 06/28/23 at [...] irrigation bottle (ANCEF) (COMPLETED) 1 g, Irrigation, CARDIOVASCULAR SONOGRAPHER TO O.R., Starting on Kalani 06/28/23 at [...] RN)0912 (Paused - Provider: Vincenzo Kenney APRN CRNA - Comment: Switch to gravity)0913 ($New Bag - Provider: Vincenzo Kenney APRN CRNA)1105 ($New Bag - Provider: Vincenzo Kenney APRN [...] on the same site., Pre-procedure lidocaine-EPINEPHrine 1 %-1:058343 injection PRN, Starting on Kalani 06/28/23 at [...] 30 MIN PRN, nausea, Starting on Kalani 24 at 1128, For [...] Administer over 1-2 Minutes, Starting on Kalani 24 at 1128, Phase ll sodium chloride (PF) 0.9% PF flush 3 mL 3 mL, Intracatheter, EVERY 1 MIN PRN, line flush, other, to ensure patency or to lock dormant line, Starting on Kalani 06/28/23 at 0836, Pre-procedure Linked Groups Order Group 1: ondansetron (ZOFRAN ODT) ODT tab 4 mgJump to med 4 mg, Oral, EVERY 30 MIN PRN, nausea, Starting on Kalani 24 at 1128, For [...] documented as of this encounter Care Teams Vessel Builder Relationship Specialty Start Date End Date Ceci Kessler MD [facility] & [address] [address] PCP - General Family Medicine 09/02/20 documented as of this encounter
--- OUTSIDE RECORDS SUMMARY | 2023-09-07 09:15 | XMS_ITS | Encounter Summary ---
Author Organization [place] Address [address] [place] [address] Care Team Providers Care Director Nursery School Name Role Phone Parag Pires PA-C Primary Care Provider Parag Pires PA-C Unavailable + [phone] Tiffanie Araya DO Unavailable + [phone] Ceci Kessler MD Primary Care Provider + Encounter Details Date Type Department Care Team (Late st Contact Info) Description 03/14/2019 [facility] Medical Advice [address], [address] [place] [address] Gilma Lopez, EVELIO Social History Tobacco Use Types Packs/Day Years [...] documented as of this encounter Care Teams Director Nursery School Relationship Specialty Start Date End Date Parag Pires PA-C PCP - General Physician Business Development Director - Medical 03/23/16 09/01/20 Ceci Kessler MD [facility] & [address] [address] PCP - General Family Medicine 09/02/20 Parag Pires PA-C [address] [address] Assigned PCP 06/17/17 01/20/22 Tiffanie Araya DO [address] [place] [address] Assigned Heart and Vascular Provider 01/02/20 06/01/23 documented as of this encounter
--- OUTSIDE RECORDS SUMMARY | 2023-09-07 09:16 | XMS_ITS | Encounter Summary ---
Author Organization [place] Address [address] [place] [address] Care Team Providers Care Artist'S Representative Name Role Phone Radha Keating MD Primary Care Provider Naz Lugo PA-C Primary Care Provid er Jocelyn Jane-C Primary Care Pr ovider Parag Pires PA-C Primary Care Provider Parag Pires PA-C Unavailable [phone] Parag PiresC Unavailable + [phone] Tiffanie Araya DO Unavailable + [phone] Ceci Kessler MD Primary Care Provider + Reason for Visit * Reason Onset Date Comments Referral 09/26/2010 Cardiology Pt. Information/instruction 09/26/2010 [facility] record Encounter Details Date Type Department Care Team (Late st Contact Info) Description 09/26/2010 My[facility] Medical Advice [address], [address] [place] [address] [place] [address] [place] [address] Referral (Cardiology); Pt. Information/ins... Social History Tobacco Use Types Packs/Day Years [...] as of this encounter Visit Diagnoses Diagnosis CARDIOVASCULAR SCREENING; LDL GOAL LESS THAN 160- Primary documented in this encounter Care Teams Artist'S Representative Relationship Specialty Start Date End Date Radha Keating MD PCP - General Family Practice 09/05/10 10/01/11 Naz Lugo PA-C [address] [address] PCP - General Family Practice 10/02/11 09/14/14 Jocelyn Jane PA-C [address] [place] [address] PCP - General Physician Commissioned Sales Associate 09/15/14 03/22/16 Parag Pires PA-C [address] [place] [address] PCP - General Physician Commissioned Sales Associate - Medical 03/23/16 09/01/20 Parag Pires PA-C [address] [place] [address] PCP - Assigned PCP 06/17/17 05/14/18 Ceci Kessler MD [facility] [address] [place] [address] PCP - General Family Medicine 09/02/20 Parag Piers PA-C [address] [place] [address] Assigned PCP 06/17/17 01/20/22 Tiffanie Araya DO [address] [place] [address] Assigned Heart and Vascular Provider 01/02/20 06/01/23 documented as of this encounter
--- OUTSIDE RECORDS SUMMARY | 2023-09-07 09:16 | XMS_ITS | Encounter Summary ---
Author Organization [place] Address [address] [place] [address] Care Team Providers Care Service Delivery Supervisor Name Role Phone Radha Keating MD Primary Care Provider Naz Lugo PA-C Primary Care Provid er Jocelyn Jane-C Primary Care Pr ovider Parag Pires PA-C Primary Care Provider Parag Pires PA-C Unavailable [phone] Parag Pires-C Unavailable + [phone] Tiffanie Araya DO Unavailable + [phone] Ceci Kessler MD Primary Care Provider + Encounter Details Date Type Department Care Team (Late st Contact Info) Description 10/27/2010 Office Visit-[facility] [place] [address] [facility] [address] [place] [address] Morena Mota MD HEART [facility] [address] [facility] [address] [place], [place] [id number] Social History Tobacco Use Types Packs/Day Years [...] Progress Notes * Morena Mota MD - 11/01/2010 3:16 PM CDT Progress Note Created by: Morena Mota M.D. [id number] DATE: 10/27/2010 VI DONATO DATE OF : 1950 AGE: [age] years old Referring Physician: ELIEZER ROMEO Referring Clinic: [facility] CURRENT DIAGNOSES 1. - Atrial Fibrillation, 427.31 2. Hyperlipidemia-mixed disorder, 272.4 3. Arrhythmia-Palpitations, 785.1 4. - Abnormal EKG, 794.31 ALLERGIES NKDA MEDICATIONS (prior to changes made today) 1. Vesicare 10 mg Tablet, 1 p.o. daily 2. Fish Oil 1,000 (120-180) mg Capsule, 1400mg tab daily 3. Calcium 500 With D 500 mg(1,250mg) -400 unit Tablet, 2 p.o. daily 4. Aspirin 81 Mg Tablet, Delayed Release (e.c.), 2 p.o. daily CHIEF COMPLAINTS Last ekg showed afib HISTORY OF PRESENT ILLNESS REASON FOR VISIT: New patient evaluation for atrial fibrillation. SUBJECTIVE: Ms. Donato is a very pleasant 60-year-old lady who was found to be in atrial fibrillation on routine exam. She has had apparently an EKG and Holter monitor three years ago that showed nothing to worry about though apparently initially did show atrial fibrillation. She is completely asymptomatic with the arrhythmia. She is currently in atrial fibrillation at this visit. She has no lightheadedness or shortness of breath. Occasionally she can feel her heart race a bit and can feel it irregular if she takes her pulse. She has no chest discomfort. Her thyroid has been checked and is normal. She has no swelling of the ankle or orthopnea. She has no TIA or CVA history, no family history of premature coronary disease, no diabetes, no hypertension, though she has had borderline hypertension in the past and she has no significant tobacco abuse history, having quit over 30 years agoafter smoking about two cigarettes a week. She is dyslipidemic. She is less than 75 years of age and has no suggestion of congestive heart failure. I looked at her last lipids with an LDL of 128. 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 INTEGUMENTARY denies any change in hair or nails, rashes, or skin lesions. EYES wears eye glasses/contact lenses EARS, NOSE, THROAT, MOUTH denies any hearing loss, epistaxis, hoarseness or difficulty speaking. RESPIRATORY dyspnea with exertion, after flights of stairs CARDIOVASCULAR recent ekg showed afib ABDOMINAL denies ulcer disease, hematochezia or melena. [...] disorders. PHYSICAL EXAMINATION VITAL SIGNS: Blood Pressure: 110/80Sitting, Right arm, large cuff Pulse- 110.00/min. Weight- 249.40 lbs. Height- 64.00 Temperature- .00 CONSTITUTIONAL cooperative, alert and oriented,well developed, well [...] time, person and place. MEDICATIONS UPDATED/STARTED TODAY: Aspirin 81 Mg Tablet, Delayed Release (e.c.), 2 p.o. daily, #0 Calcium 500 With D 500 mg(1,250mg) -400 unit Tablet, 2 p.o. daily, #0 Fish Oil 1,000 (120-180) mg Capsule, 1400mg tab daily, #0 Vesicare 10 mg Tablet, 1 p.o. daily, #0 MEDICATIONS REFILLED/STOPPED TODAY: aspirin 81 mg Tablet, Delayed Release (E.C.) 1 p.o. daily #0 Refill ASSESSMENT/PLAN: This is a pleasant 59-year-old lady with atrial fibrillation, completely asymptomatic. She is currently taking aspirin for anticoagulation, and I have suggested she take 162 mg q.d. as long as it is tolerated. Rate control did not appear to be an issue but I will check a Holter monitor to verify that in facther rate is reasonably controlled with activity at home. I will check an echo for structural evaluation. This will have prognostic significance. With respect to her lipids, we have reduced the fat in her diet and she will recheck it in three months with her primary physician. We have discussed the importance of rate control, anticoagulation, and atrial fibrillation. Her CHADS risk score is potentially 1 with possible hypertension, but even that is unclear. LVH on Holter may substantiate that. However, her blood pressure is entirely normal now as it was at her primary doctor's, without medication. With a CHADS score of zero she does not require anticoagulation. We will have her back with the results of the above tests and make further recommendations at that time. It is a pleasure to be involved in this pleasant lady's care. Total time: 45 minutes, 40 in coordination of care and counseling. TODAYS ORDERS 1. 2D, color flow, doppler 1 week 2. F/U with Any FLYER REPAIRER 7-14 days 3. Holter Monitor Today, 24-Hour Morena Mota M.D. documented in this encounter Plan of Treatment Not on file documented as of this encounter Visit Diagnoses Not on filedocumented in this encounter Care Teams Service Delivery Supervisor Relationship Specialty Start Date End Date Radha Keatign MD PCP - General Family Practice 09/05/10 10/01/11 Naz Lugo PA-C [address] [address] PCP - General Family Practice 10/02/11 09/14/14 Jocelyn Jane PA-C [address] [address] PCP - General Physician Storage Garage Manager 09/15/14 03/22/16 Parag Pires PA-C [address] [place] [address] PCP - General Physician Storage Garage Manager - Medical 03/23/16 09/01/20 Parag Pires PA-C [address] [place] [address] PCP - Assigned PCP 06/17/17 05/14/18 Ceci Kessler MD [facility] & [address] [address] PCP - General Family Medicine 09/02/20 Parag Pires PA-C [address] [place] [address] Assigned PCP 06/17/17 01/20/22 Tiffanie Araya DO [address] [place] [id number] Assigned Heart and Vascular Provider 01/02/20 06/01/23 documented as of this encounter
== END 2023-09-05 09:31 | disposition home or self-care (01) ==
PROVIDERS: PCP Internal Medicine; Referring Provider Internal Medicine; Visit Provider Internal Medicine
DX: I10 Essential (primary) hypertension (principal); E78.5 Hyperlipidemia, unspecified; R73.03 Prediabetes; I48.0 Paroxysmal atrial fibrillation; K21.9 Gastro-esophageal reflux disease without esophagitis; E66.01 Morbid (severe) obesity due to excess calories
CPT/HCPCS: 80061; 82947

== ENCOUNTER 2023-09-21 10:15 | Outpatient (CLI) | payer MEDICARE, SELFPAY ==
--- NOTE | 2023-09-21 10:15 | CRLHL7_ITS ---
For Patients: As a result of the Century Cures Act, medical imaging exams and procedure reports are released immediately into your electronic medical record. You may view this report before your referring provider. If you have questions, please contact your health care provider. BILATERAL SCREENING MAMMOGRAM WITH COMPUTER-AIDED DETECTION AND TOMOSYNTHESIS TECHNIQUE: CC and MLO views were obtained. These mammographic images have been obtained using full-field digital technique. These mammographic images were interpreted with the benefit of computer-aided detection. Breast Tomosynthesis was used in this interpretation. COMPARISON FILM: 09/19/22, 08/31/21, 11/10/19. FINDINGS: The breasts are almost entirely fatty. IMPRESSION: There is no radiographic evidence for malignancy. ASSESSMENT: BI-RADS Category 1: Negative RECOMMENDATION: Routine screening mammogram in 1 year. A lay language report of this examination will be provided to the patient. Naresh Joshi M.D. Diagnostic Radiologist [email or web address] SP/Dictated by: Naresh Joshi MD @ 09/24/2023 12:03:00 PM (Electronically Signed)
--- OUTSIDE RECORDS SUMMARY | 2023-09-21 10:18 | XMS_ITS | Encounter Summary ---
Author Organization [place] Address [address] [facility] [facility] [address] [place] [address] Care Team Providers Care Mixed Livestock Farmer Name Role Phone Ceci Kessler MD Primary Care Provider + Reason for Visit * Auth/Cert (Routine) Specialty Diagnoses / Procedures Referred By Amilcar t Referred To Contact Surgery Diagnoses Urge incontinence Full incontinence of feces Urge incontinence [N39.41] Full incontinence of feces [R15.9] Procedures [place] INSERT/REPL PERIPH SACRAL/GASTRIC NSTIM/RCVR, W PCKT CRTJ & CONN [place] REV/REM PERIPH SACRAL/GASTRIC NSTIM/RCV, DETACH CONN ELEC ARRAY REMOVAL OF INTERSTIM SACRAL NEUROMODULATION LEAD AND GENERATOR. PLACE [employer] SACRAL NEUROMODULATION SYSTEM STAGE ONE AND TWO [facility] [address] [place] [address] Referral ID Status Reason Start Date Expiration Date Visits Re quested Visits Authorized [id number] 1 1 Encounter Details Date Type Department Care Team (Late st Contact Info) Description 06/28/2023 9:41 AM CDT Anesthesia Event [facility] [address] [place] [address] Dave Stout [place] [address] [place] [address] Vincenzo Kenney APRN EMAIL PRODUCER Anesthesia Record Procedure Summary Procedure Name Responsible [...] recorded are pre- induction. Vincenzo Kenney APRN EMAIL PRODUCER 0949 Anesthesia Ready for Procedu re 1015 [...] INTERSTIM SACRAL NEUROMODULATION LEAD AND GENERATOR. PL[employer] SACRAL NEUROMODULATION SYSTEM STAGE ONE AND [...] and realistic alternatives discussed. Questions answered and patient/fraud representative(s) expressed understanding. - Discussed: Risks, Benefits [...] Care Transfer Note - Vincenzo Kenney APRN EMAIL PRODUCER - 06/28/2023 11:24 AM CDT Patient: Radha [...] documented as of this encounter Care Teams Mixed Livestock Farmer Relationship Specialty Start Date End Date Ceci Kessler MD [facility] [place] [place] [address] PCP - General Family Medicine 09/02/20 documented as of this encounter
--- OUTSIDE RECORDS SUMMARY | 2023-09-21 10:18 | XMS_ITS | Clinical Summary ---
Author Organization [facility] Address [address] [address] Care Team Providers Care Innovations Paraprofessional Name Role Phone Ceci Kessler MD Primary [...] tablet by mouth 2 times daily Active Drifting-3 Fatty Acids (OMEGA-3 FISH OIL PO) Take [...] Active fluticasone (FLONASE) 50 MCG/ACT nasal spray [place] 1 spray into both nostrils as needed [...] Description 06/28/2023 9:41 AM CDT Anesthesia Event [address] [phone] Dave Stout MD Corrow, Caleb, APRN CRNA 06/28/2023 9:00 AM CDT - 06/28/2023 11:00 AM CDT Surgery [address] [phone] Marco Padilla MD REMOVAL OF INTERSTIM SACRAL NEUROMODULATION LEAD AND GENERATOR. PLACE [employer] SACRAL NEUROMODULATION SYSTEM STAGE ONE AND TWO 06/28/2023 7:13 AM CDT - 06/28/2023 12:32 PM CDT Hospital [facility] PRERNA Phase II [address] [place] [phone] Marco Padilla MD S/P gynecological surgery, follow-up [...] 05/16/2022 05/16/2017, 080 09/2011, 03/20/2006 COVID-19 Vaccine ( season) 2022 09/09/2022, 01/12/2022, 10/04/2021, Additional history exists PHQ-2 (once per calendar year) 2023 01/16/2019, 11/28/2018, 12/06/2017, Additional history exists MAMMO SCREENING 09/01/2023 08/31/2021, 08/03/2019, 10/18/2017, Additional history exists INFLUENZA VACCINE (#1) 2023 , 12/09/2020, 12/17/2019, Additional history exists ADVANCE CARE [...] this topic Medical Devices Implanted Type Area Psychotherapist Social Worker Device Identifier Shelf Expiration Date Model / Serial / Lot Kit [facility] Axon[employer]epoint Caro Lead Curved Stylet 1201 - [id number] Implanted:Qty : 1 on 06/28/2023 by Marco Padilla MD at [facility] Leads N/A: Bladder [employer] [id number] 09/20/2025 1201 / [id number] 33 / Imp Nrs [employer]epoint Snm System 4101 - [id number] Implanted:Qty : 1 on 06/28/2023 by Marco Padilla MD at [facility] Neurology device N/A: Bladder [employer] [id number] 01/26/2024 4101 / [id number] 59 / Sns Lead 28cm Implanted:Qty : 1 on 10/26/2014 by Sukhjinder Wolf MD at [facility] N/A: Sacrum [employer] 08/18/2018 3889 / / [id number] Stimulator Neuro Interstim Ii [id number] Implanted:Qty : 1 on 10/26/2014 by Sukhjinder Wolf MD at [facility] N/A: Sacrum [employer] 02/07/2016 [id number] / [id number] / Procedures Procedure Name Priority Date/Time Associated Diagnosis Comments XR SURGERY BRODIE FLUORO LESS THAN 5 MIN Routine 06/28/2023 11:09 AM CDT REVISION, PROCEDURE INVOLVING BLADDER NEUROSTIMULATOR 06/28/2023 9:43 AM CDT Urge incontinence Full incontinence of feces Case Notes [employer] specialty sales representative coming (Chevy Moseley)Antibiotic irrigation ordered - need to release Special Needs Req 90 mins, Philomena Barraza to Assist. [employer] rep will coordinate with [facility] regarding supplies and equipment. REP. Chevy Moseley [...] DX BONE DENSITY Routine 05/16/2017 10:06 AM COACH BUILDER Screening for osteoporosis HEPATITIS C SCREEN REFLEX TO HCV RNA QUANT AND GENOTYPE Routine 03/23/2016 9:49 AM COACH BUILDER Need for hepatitis C screening test COLONOSCOPY - HIM SCAN Routine 02/16/2014 from Last 3 Months or Most Recently Relevant to Health Maintenance Results * XR Surgery BRODIE L/T 5 Min Fluoro (06/28/2023 11:09 AM CDT) Narrative RADIANT - 06/28/2023 11:10 AM CDT This exam was marked as non-reportable because it will not be read by a radiologist or a [facility] non-radiologist provider. Marco Padilla MD IMG DIAGNOSTIC IM AGING ORDERABLES [facility] * HCG quantitative (06/28/2023 8:00 AM CDT) hCG Quantitative 1 <5 mIU/mL 06/28/19 8:39 AM CDT [facility] Comment: Adult: 0-5 mIU/mL for healthy non- person Neonates: Should be within normal ranges by 2 days after Blood TOPOGRAPHY UNKNOWN / Unknown Venipuncture / Unknown 06/28/2023 8:00 AM CDT 06/28/2023 8:10 AM CDT Janie Jacques INTERMEDIATE CARD TENDER TAIL BOARD WORKER LAB - BLOOD ORDERABLES N LABORATORY [facility] [address] * MAMMOGRAM - HIM SCAN (08/31/2021 1:36 PM CDT) Anatomical Region Laterality Modality Other 08/31/2021 1:36 PM CDT Provider Outside IMG MAMMOGRAPHY ORDE RABLES * (ABNORMAL) Lipid Profile (08/26/2019 8:33 AM CDT) Cholesterol 206(H) <200 mg/dL 08/26/2019 12:46 PM CDT [facility] Comment:Desirable: <200 mg/d l Triglycerides 84 <150 mg/dL 08/26/2019 12:57 PM CDT [facility] HDL Cholesterol 63 >49 mg/dL 0 1:00 PM CDT [facility] LDL Cholesterol Calculated 126(H) <100 mg/dL 08/26/2019 1:00 PM CDT [facility] Comment: Above desirable: ??100-129 mg/dl Borderline High: ??130-159 mg/dL High: ? 160-189 mg/dL Very high: ? >189 mg/dl Non HDL Cholesterol 143(H) <130 mg/dL 08/26/2019 1:00 PM CDT [facility] Comment: Above Desirable: ??130-159 mg/dl Borderline high: ??160-189 mg/dl High: ? 190-219 mg/dl Very high: ? >219 mg/dl Blood specimen (specimen) 08/26/2019 8:33 AM CDT 08/26/2019 8:34 AM CDT Tiffanie Luly Araya DO LAB - BLOOD ORDERABLES [facility] [address] [place] [address] * Basic metabolic panel (11/28/2018 9:04 AM CDT) Sodium 139 133 - 144 mmol/L 11/29/2018 8:06 AM CDT [facility] Potassium 4.5 3.4 - 5.3 mmol/L 11/29/2018 8:06 AM CDT [facility] Chloride 105 94 - 109 mmol/L 11/29/2018 8:06 AM CDT [facility] Carbon Dioxide 29 20 - 32 mmol/L 11/29/2018 8:15 AM CDT [facility] Anion Gap 5 3 - 14 mmol/L 11/29/2018 8:15 AM CDT [facility] Glucose 94 70 - 99 mg/dL 11/29/2018 8:15 AM CDT [facility] Urea Nitrogen 16 7 - 30 mg/dL 11/29/2018 8:15 AM CDT [facility] Creatinine 0.81 0.52 - 1.04 mg/dL 11/29/2018 8:15 AM CDT [facility] GFR Estimate 76 >60 mL/min/{1 .73_m2} 11/29/2018 8:15 AM CDT [facility] Comment: Non GFR Calc Starting 02/26/2018, serum creatinine based estimated GFR (eGFR) will be calculated using the Chronic Kidney Disease Epidemiology Collaboration (CKD-EPI) equation. GFR Estimate If Black 88 >60 mL/min/{1 .73_m2} 11/29/2018 8:15 AM CDT [facility] Comment: GFR Calc Starting 02/26/2018, serum creatinine based estimated GFR (eGFR) will be calculated using the Chronic Kidney Disease Epidemiology Collaboration (CKD-EPI) equation. Calcium 9.4 8.5 - 10.1 mg/dL 11/29/2018 8:15 AM CDT [facility] Blood specimen (specimen) 11/28/2018 9:04 AM CDT 11/28/2018 9:08 AM CDT Parag Pires PA-C LAB - BLOOD OR DERABLES [facility] [address] [place] [address] * DX Hip/Pelvis/Spine (05/16/2017 10:06 AM COACH BUILDER) Anatomical Region Laterality Modality Dexa Bone Mineral Den sity Narrative 05/17/2017 4:13 PM COACH BUILDER BONE DENSITOMETRY [address] [address] 05/16/2017 ?? PATIENT: Vi Phan CHART: [id number] : ??1950 AGE: ??66 year old SEX: ??female REFERRING PROVIDER: ??Parag Pires PA-C ?? PROCEDURE: ??Bone density scanning was performed using DXA technology of the lumbar spine and hip. ??Scanning was performed on a EyeQuant scanner. ??Reporting is completed in the form [...] to another DXA performed on a different [employer] machine on 11/06/2011. IMPRESSION Normal bone mineral [...] RNA Quant and Genotype (03/23/2016 9:49 AM COACH BUILDER) Hepatitis C Antibody Nonreactive Assay performance characteristics have not been established for newborns, infants, and children NR [facility] Blood specimen (specimen) 03/23/2016 9:49 AM COACH BUILDER 03/23/2016 9:50 AM COACH BUILDER Parag iPres PA-C LAB - BLOOD OR DERABLES [facility] [address] * Colonoscopy - HIM Scan (02/16/2014) Naz Lugo PA-C PROCEDURES from Last 3 Months or Most Recently Relevant to Health Maintenance Care Teams Innovations Paraprofessional Relationship Specialty Start Date End Date Ceci Kessler MD [facility] [address] [place] [address] PCP - General Family Medicine 09/02/20
--- OUTSIDE RECORDS SUMMARY | 2023-09-21 10:18 | XMS_ITS | Referral Summary ---
Author Organization [facility] Address [address] [place] [address] Care Team Providers Care Electrical Cad Technician Name Role Phone Ceci Kessler MD Primary Care Provider + Encounters Date Type Department Care Team Description 06/28/2023 9:41 AM CDT Anesthesia Event [address] [phone] Dave Stout MD Corrow, Vincenzo, MANAGER BANK PARTS CLASSIFIER 06/28/2023 9:00 AM CDT - 06/28/2023 11:00 AM CDT Surgery [address] [phone] Marco Padilla MD REMOVAL OF INTERSTIM SACRAL NEUROMODULATION LEAD AND GENERATOR. PLACE AXONICS SACRAL NEUROMODULATION SYSTEM STAGE ONE AND TWO 06/28/2023 7:13 AM CDT - 06/28/2023 12:32 PM CDT Hospital Encounter [facility] PRERNA Phase II [address] [place] [phone] Marco Padilla MD S/P gynecological surgery, follow-up [...] tablet by mouth 2 times daily Active [place]-3 Fatty Acids (OMEGA-3 FISH OIL PO) Take [...] Active fluticasone (FLONASE) 50 MCG/ACT nasal spray [place] 1 spray into both nostrils as needed [...] on file Medical Devices Implanted Type Area Accuracy Expert Device Identifier Shelf Expiration Date Model / Serial / Lot Kit Nrstm [employer] Caro Lead Curved Stylet 1201 - [id number] Implanted:Qty : 1 on 06/28/2023 by Marco Padilla MD at [facility] Leads N/A: Bladder [employer] [id number] 09/20/2025 1201 / [id number] 33 / Imp Nrstm [employer]on[employer] Snm System 4101 - [id number] Implanted:Qty : 1 on 06/28/2023 by Marco Padilla MD at [facility] Neurology device N/A: Bladder [employer] [id number] 01/26/2024 4101 / [id number] 59 / Sns Lead 28cm Implanted:Qty : 1 on 10/26/2014 by Sukhjinder Wolf MD at [facility] N/A: Sacrum [employer] 08/18/2018 3889 / / [id number] Stimulator Neuro Interstim Ii [id number] Implanted:Qty : 1 on 10/26/2014 by Sukhjinder Wolf MD at [facility] N/A: Sacrum [employer] 02/07/2016 [id number] / [id number] / Procedures Procedure Name Priority Date/Time Associated Diagnosis Comments XR SURGERY BRODIE FLUORO LESS THAN 5 MIN Routine 06/28/2023 11:09 AM CDT REVISION, PROCEDURE INVOLVING BLADDER NEUROSTIMULATOR 06/28/2023 9:43 AM CDT Urge incontinence Full incontinence of feces Case Notes [employer] equipment sales specialist coming (Chevy Moseley)Antibiotic irrigation ordered - need to release Special Needs Req 90 mins, Philomena Barraza to Assist. [employer] rep will coordinate with [place] regarding supplies and equipment. REP. Chevy Moseley [...] DX BONE DENSITY Routine 05/16/2017 10:06 AM PERSONNEL WORKER Screening for osteoporosis HEPATITIS C SCREEN REFLEX TO HCV RNA QUANT AND GENOTYPE Routine 03/23/2016 9:49 AM PERSONNEL WORKER Need for hepatitis C screening test COLONOSCOPY - HIM SCAN Routine 02/16/2014 from Last 3 Months or Most Recently Relevant to Health Maintenance Results * XR Surgery BRODIE L/T 5 Min Fluoro (06/28/2023 11:09 AM CDT) Narrative RADIANT - 06/28/2023 11:10 AM CDT This exam was marked as non-reportable because it will not be read by a radiologist or a [facility] non-radiologist provider. Marco Padilla MD IMG DIAGNOSTIC [...] 06/28/2023 8:10 AM CDT Janie Jajakandice Jacques MANAGER BANK ELECTRIC MOTOR WINDERS ASSEMBLER LAB - BLOOD ORDERABLES [facility] [address] [place] [address], [facility] * MAMMOGRAM - HIM SCAN (08/31/2021 1:36 PM CDT) Anatomical Region Laterality Modality Other 08/31/2021 1:36 PM CDT Provider Outside IMG MAMMOGRAPHY [facility] * (ABNORMAL) Lipid Profile (08/26/2019 8:33 AM CDT) Cholesterol 206(H) <200 mg/dL 08/26/2019 12:46 PM CDT [facility] Comment:Desirable: <200 mg/d l Triglycerides 84 <150 mg/dL 08/26/2019 12:57 PM CDT [facility] HDL Cholesterol 63 >49 mg/dL 0 1:00 PM CDT [facility] LDL Cholesterol Calculated 126(H) <100 mg/dL 08/26/2019 1:00 PM CDT [facility] Comment: Above desirable: ??100-129 mg/dl Borderline High: ??130-159 mg/dL High: ? 160-189 mg/dL Very high: ? >189 mg/dl Non HDL Cholesterol 143(H) <130 mg/dL 08/26/2019 1:00 PM CDT [facility] Comment: Above Desirable: ??130-159 mg/dl Borderline high: ??160-189 mg/dl High: ? 190-219 mg/dl Very high: ? >219 mg/dl Blood specimen (specimen) 08/26/2019 8:33 AM CDT 08/26/2019 8:34 AM CDT Tiffanie Araya DO LAB - BLOOD ORDERABLES [facility] [address] [place] [address] * Basic metabolic panel (11/28/2018 9:04 AM CDT) Sodium 139 133 - 144 mmol/L 11/29/2018 8:06 AM CDT [facility] Potassium 4.5 3.4 - 5.3 mmol/L 11/29/2018 8:06 AM CDT [facility] Chloride 105 94 - 109 mmol/L 11/29/2018 8:06 AM CDT [facility] Carbon Dioxide 29 20 - 32 mmol/L 11/29/2018 8:15 AM CDT [facility] Anion Gap 5 3 - 14 mmol/L 11/29/2018 8:15 AM CDT [facility] Glucose 94 70 - 99 mg/dL 11/29/2018 8:15 AM CDT [facility] Urea Nitrogen 16 7 - 30 mg/dL 11/29/2018 8:15 AM CDT [facility] Creatinine 0.81 0.52 - 1.04 mg/dL 11/29/2018 8:15 AM CDT [facility] GFR Estimate 76 >60 mL/min/{1 .73_m2} 11/29/2018 8:15 AM T [facility] Comment: Non GFR Calc Starting 02/26/2018, serum creatinine based estimated GFR (eGFR) will be calculated using the Chronic Kidney Disease Epidemiology Collaboration (CKD-EPI) equation. GFR Estimate If Black 88 >60 mL/min/{1 .73_m2} 11/29/2018 8:15 AM CDT [facility] Comment: GFR Calc Starting 02/26/2018, serum creatinine based estimated GFR (eGFR) will be calculated using the Chronic Kidney Disease Epidemiology Collaboration (CKD-EPI) equation. Calcium 9.4 8.5 - 10.1 mg/dL 11/29/2018 8:15 AM CDT [facility] Blood specimen (specimen) 11/28/2018 9:04 AM CDT 11/28/2018 9:08 AM CDT Parag Pires PA-C LAB - BLOOD OR DERABLES Performing Organization Address [facility]/State/ZIP Co de Phone Number [facility] [address] [place] [address] * DX Hip/Pelvis/Spine (05/16/2017 10:06 AM PERSONNEL WORKER) Anatomical Region Laterality Modality Dexa Bone Mineral Den sity Narrative 05/17/2017 4:13 PM PERSONNEL WORKER BONE DENSITOMETRY [address] [address] 05/16/2017 ?? PATIENT: Vi Donato CHART: [id number] : ??1950 AGE: ??66 year old SEX: ??female REFERRING PROVIDER: ??Parag Pires PA-C ?? PROCEDURE: ??Bone density scanning was performed using DXA technology of the lumbar spine and hip. ??Scanning was performed on a [employer] scanner. ??Reporting is completed in the form [...] to another DXA performed on a different [employer] machine on 11/06/2011. IMPRESSION Normal bone mineral [...] RNA Quant and Genotype (03/23/2016 9:49 AM PERSONNEL WORKER) Hepatitis C Antibody Nonreactive Assay performance characteristics have not been established for newborns, infants, and children NR [facility] Blood specimen (specimen) 03/23/2016 9:49 AM PERSONNEL WORKER 03/23/2016 9:50 AM PERSONNEL WORKER Parag Pires PA-C LAB - BLOOD OR DERABLES [facility] [address] [place], [place] [address] * Colonoscopy - HIM Scan (02/16/2014) Naz Lugo PA-C PROCEDURES from Last 3 Months or Most Recently Relevant to Health Maintenance Care Teams Electrical Cad Technician Relationship Specialty Start Date End Date Ceci Kessler MD [facility] & [address] [address] PCP - General Family Medicine 09/02/20
--- OUTSIDE RECORDS SUMMARY | 2023-09-21 10:18 | XMS_ITS | Encounter Summary ---
Author Organization [facility] Address [address] [place] [address] Care Team Providers Care Corn Breeder Name Role Phone Ceci Kessler MD Primary Care Provider + Reason for Visit * Auth/Cert (Routine) Specialty Diagnoses / Procedures Referred By Amilcar rodrigez Referred To Contact Surgery Diagnoses Urge incontinence Full incontinence of feces Urge incontinence [N39.41] Full incontinence of feces [R15.9] Procedures UT INSERT/REPL PERIPH SACRAL/GASTRIC NSTIM/RCVR, W PCKT CRTJ & CONN UT REV/REM PERIPH SACRAL/GASTRIC NSTIM/RCV, DETACH CONN ELEC ARRAY REMOVAL OF INTERSTIM SACRAL NEUROMODULATION LEAD AND GENERATOR. PLACE [employer] SACRAL NEUROMODULATION SYSTEM STAGE ONE AND TWO [facility] Periop Services [facility] [place] [address] Referral ID Status Reason Start Date Expiration Date Visits Re quested Visits Authorized [id number] 1 1 Encounter Details Date Type Department Care Team (Late st Contact Info) Description 06/28/2023 9:00 AM CDT - 06/28/2023 11:00 AM CDT Surgery [facility] [address] [place] [phone] Marco Padilla MD [address] [place] [address] REMOVAL OF INTERSTIM SACRAL NEUROMODULATION LEAD AND GENERATOR. PLACE [employer] SACRAL NEUROMODULATION SYSTEM STAGE ONE AND TWO Surgery Details Date/Time Status Location OR Service Patient Class Case Class Case Type Trauma Case? 06/28/23 9:00 AM Posted [facility] OR [facility] OR Gynecology Same Day Surgery Elective Panel 1 Procedure [facility] Anes Op Region Wound Class Comments REMOVAL OF INTERSTIM SACRAL NEUROMODULATION LEAD AND GENERATOR. PLACE AXONICS SACRAL NEUROMODULATION SYSTEM STAGE ONE AND TWO N/A MAC Bladder I-Clean Surgeon Surgeon Role Service Panel Marco Padilla MD Primary Gynecology 1 Case Notes [employer] sales developer coming (Chevy Moseley)Antibiotic irrigation ordered - need to release Special Needs Req 90 mins, Philomena Barraza to Assist. Health Benefits Direct rep will coordinate with [facility] regarding supplies [...] Everywhere. * (s) After Anesthesia (Sleep Medicine) (Belizean) documented in this encounter Medications at Time of Discharge Medication Sig Dispensed Refills Start Date End Date acetaminophen (TYLENOL) 500 MG tablet Take 1,000 mg by mouth every 6 hours as needed for mild pain betamethasone dipropionate (DIPROSONE) 0.05 % creamIndications:Rash and nonspecific skin eruption Apply topically 2 times daily 15 g 1 03/23/2016 ibuprofen (ADVIL/MOTRIN) 600 MG tabletIndications:S/P gynecological surgery, follow-up exam Take 1 tablet (600 mg) by mouth every 6 hours as needed for other (mild and/or inflammatory pain) 30 tablet 06/28/2023 losartan (COZAAR) 50 MG tabletIndications:[place] gn essential hypertension Take 1.5 tablets (75 mg) by mouth daily 135 tablet 4 11/25/2021 metoprolol succinate ER (TOPROL XL) 50 MG 24 hr tabletIndications:Atri al fibrillation, unspecified type (H) Take 1 tablet (50 mg) by mouth 2 times daily 180 tablet 4 11/25/2021 metroNIDAZOLE (METROGEL) 0.75 % external gelIndications:Rosacea Apply topically daily as needed Apply 0.25 inches topically daily as needed. 45 g 2 04/04/2018 omeprazole (PRILOSEC) [address] capsule Take 1 capsule by mouth every 24 hours 09/20/2021 oxyCODONE (ROXICODONE) 5 MG tabletIndications:S/P gynecological surgery, follow-up exam Take 1-2 tablets (5-10 mg) by mouth every 4 hours as needed for moderate to severe pain 20 tablet 06/28/2023 rosuvastatin (CRESTOR) 5 MG tablet Take 5 mg by mouth daily tolterodine ER (DETROL LA) 4 MG 24 hr capsuleIndications:Urg e incontinence of urine Take 1 capsule by mouth daily. This replaces the Oxybutynin and/or Trospium. 90 capsule 1 09/04/2019 triamcinolone (KENALOG) 0.1 % external ointment Apply topically 2 times daily calcium-vitamin D (CALTRATE) 600-400 MG-UNIT per tablet Take 1 tablet by mouth 2 times daily Cholecalciferol (VITAMIN D3 PO) Take 2,000 Units by mouth daily fluticasone (FLONASE) 50 MCG/ACT nasal spray [place] 1 spray into both nostrils as needed for rhinitis or allergies Generic target brand gabapentin (NEURONTIN) 300 MG capsule Take 1 capsule at bedtime for 3 to 4 days, then increase to 1 capsule twice daily thereafter if needed 03/13/2019 MAGNESIUM ASPARTATE PO Take 400 mg by mouth daily MULTI-DAY OR 1 tablet daily [place]ool-3 Fatty Acids (OMEGA-3 FISH OIL PO) Take 1,600 mg by mouth daily rivaroxaban ANTICOAGULANT (XARELTO ANTICOAGULANT) 20 MG TABS tabletIndications:Atri al fibrillation, unspecified type (H),Benign essential hypertension,Mixed hyperlipidemia Take 1 tablet (20 mg) by mouth daily (with dinner) 90 tablet 4 11/25/2021 traMADol (ULTRAM) 50 MG tabletIndications:Cloud Developer elva pain of both knees Take 1 tablet (50 mg) by mouth every 6 hours as needed for moderate to severe pain 30 tablet 09/05/2019 trospium (SANCTURA XR) 60 MG CP24 24 [...] incontinence Full incontinence of feces Case Notes Health Benefits Direct sales developer coming (Chevy Moseley)Antibiotic irrigation ordered - need to release Special Needs Req 90 mins, Philomena Barraza to Assist. Health Benefits Direct rep will coordinate with [facility] regarding supplies and equipment. REP. Chevy Moseley notified. HCG QUANTITATIVE STAT 06/28/2023 8:00 AM CDT documented in this encounter Results * XR Surgery BRODIE L/T 5 Min Fluoro (06/28/2023 11:09 AM CDT) Narrative RADIANT - 06/28/2023 11:10 AM CDT This exam was marked as non-reportable because it will not be read by a radiologist or a [facility] non-radiologist provider. Maroc Padilla MD IMG DIAGNOSTIC IM AGING ORDERABLES Performing Organization Address City/[facility] Co de Phone Number RADI[facility] * HCG quantitative (06/28/2023 8:00 AM CDT) hCG Quantitative 1 <5 mIU/mL 06/28/19 24 8:39 AM CDT N LABORATORY Comment: Adult: 0-5 mIU/mL for healthy non- person Neonates: Should be within normal ranges by 2 days after Blood TOPOGRAPHY UNKNOWN / Unknown Venipuncture / Unknown 06/28/2023 8:00 AM CDT 06/28/2023 8:10 AM CDT Janie Jacques APRN BRIDGE TEACHER LAB - BLOOD ORDERABLES Performing Organization Address City/[facility]/ZIP Co de Phone Number [facility] [address] [place] [address], [facility] documented in this encounter Visit Diagnoses Diagnosis [...] mL irrigation bottle (ANCEF) 1 g, Irrigation, SLIP BRIDGE OPERATOR TO O.R., Starting on Kalani 06/28/23 at [...] on the same site., Pre-procedure lidocaine-EPINEPHrine 1 %-1:[id number] injection PRN, Starting on Kalani 06/28/23 at [...] irrigation bottle (ANCEF) (COMPLETED) 1 g, Irrigation, SLIP BRIDGE OPERATOR TO O.R., Starting on Kalani 06/28/23 at [...] on the same site., Pre-procedure lidocaine-EPINEPHrine 1 %-1:[id number] injection PRN, Starting on Kalani 06/28/23 at [...] documented as of this encounter Care Teams Corn Breeder Relationship Specialty Start Date End Date Ceci Kessler MD [facility] & [address] [address] PCP - General Family Medicine 09/02/20 documented as of this encounter
--- OUTSIDE RECORDS SUMMARY | 2023-09-21 10:19 | XMS_ITS | Encounter Summary ---
Author Organization [place] Address [address] [facility] [place] [address] Care Team Providers Care Machine Stacker Name Role Phone Radha Keating MD Primary Care Provider Naz Lugo PA-C Primary Care Provid er Jocelyn Jane-Grant Primary Care Pr ovider Parag Pires PA-C Primary Care Provider Parag Pires PA-C Unavailable [phone] Parag Pires PA-C Unavailable + [phone] Tiffanie Araya DO Unavailable + [phone] Ceci Kessler MD Primary Care Provider + Encounter Details Date Type Department Care Team (Late st Contact Info) Description 09/29/[address] [address] Emilia Lr Social History Tobacco [...] on filedocumented in this encounter Care Teams Machine Stacker Relationship Specialty Start Date End Date Radha Keating MD PCP - General Family Practice 09/05/10 10/01/11 Naz Lugo PA-C [address] [address] PCP - General Family Practice 10/02/11 09/14/14 Jocelyn Jane PA-C [address] [place] [address] PCP - General Physician Merchandise Adjustment Clerk 09/15/14 03/22/16 Parag Pires PA-C [address] [place] [address] PCP - General Physician Merchandise Adjustment Clerk - Medical 03/23/16 09/01/20 Parag Pires PA-C [address] [place] [address] PCP - Assigned PCP 06/17/17 05/14/18 Ceci Kessler MD [facility] & [address] [address] PCP - General Family Medicine 09/02/20 Parag Pires PA-C [address] [place] [address] Assigned PCP 06/17/17 01/20/22 Tiffanie Araya DO [address] [place] [address] Assigned Heart and Vascular Provider 01/02/20 06/01/23 documented as of this encounter
--- OUTSIDE RECORDS SUMMARY | 2023-09-21 10:19 | XMS_ITS | Encounter Summary ---
Author Organization [place] Address [address] [facility] [place] [address] Care Team Providers Care Cloth Folder Machine Name Role Phone Parag Pires PA-C Primary Care Provider Parag Pires PA-C Unavailable + [phone] Parag Pires PA-C Unavailable + [phone] Tiffanie Araya DO Unavailable +[phone] Ceci Kessler MD Primary Care Provider + Encounter Details Date Type Department Care Team (Late st Contact Info) Description 03/19/2017 MyC Medical Advice [address], [address] [place] [address] Alice Hardin MA Social History [...] documented as of this encounter Care Teams Cloth Folder Machine Relationship Specialty Start Date End Date Parag Pires PA-C PCP - General Physician Beauty School Instructor - Medical 03/23/16 09/01/20 Parag Pires PA-C [address] [place] [address] PCP - Assigned PCP 06/17/17 05/14/18 Ceci Kessler MD [facility] & [address] [address] PCP - General Family Medicine 09/02/20 Parag Pires PA-C [address] [place] [address] Assigned PCP 06/17/17 01/20/22 Tiffanie Araya DO [address] [place] [address] Assigned Heart and Vascular Provider 01/02/20 06/01/23 documented as of this encounter
--- OUTSIDE RECORDS SUMMARY | 2023-09-21 10:19 | XMS_ITS | Encounter Summary ---
Author Organization [place] Address [address] [facility] [place] [address] Care Team Providers Care High School French Teacher Name Role Phone Naz Lugo PA-C Primary Care Provid er Jocelyn Jane PA-C Primary Care Pr ovider Parag Pires PA-C Primary Care Provider Parag Pires PA-C Unavailable [phone] Parag Pires PA-C Unavailable +[phone] Tiffanie Araya DO Unavailable + [phone] Ceci Kessler MD Primary Care Provider + Encounter Details Date Type Department Care Team (Late st Contact Info) Description 06/28/2012 [facility] Only [facility] [address], [address] [place] [phone] Radha Phan Social History Tobacco Use Types [...] on filedocumented in this encounter Care Teams High School French Teacher Relationship Specialty Start Date End Date Naz Lugo PA-C [address] [place] [address] [place] [address] PCP - General Family Practice 10/02/11 09/14/14 Jocelyn Jane PA-C [address] [place] [address] PCP - General Physician Disc Recordist 09/15/14 03/22/16 Parag Pires PA-C [address] [place] [address] PCP - General Physician Disc Recordist - Medical 03/23/16 09/01/20 Parag Pires PA-C [address] [place] [address] PCP - Assigned PCP 06/17/17 05/14/18 Ceci Kessler MD [facility] & [address] [address] PCP - General Family Medicine 09/02/20 Parag Pires PA-C [address] [place] [place] [address] Assigned PCP 06/17/17 01/20/22 Tiffanie Araya DO [address] [place] [id number] Assigned Heart and Vascular Provider 01/02/20 06/01/23 documented as of this encounter
--- OUTSIDE RECORDS SUMMARY | 2023-09-21 10:19 | XMS_ITS | Encounter Summary ---
Author Organization [place] Address [address] [facility] [place] [address] Care Team Providers Care Animal Husbandry Worker Name Role Phone Radha Keating MD Primary Care Provider Naz Lugo PA-C Primary Care Provid er Jocelyn Jane-C Primary Care Pr ovider Parag Pires PA-C Primary Care Provider Parag Pires PA-C Unavailable +[phone] Parag Pires-C Unavailable + [phone] Tiffanie Araya DO Unavailable + [phone] Ceci Kessler MD Primary Care Provider + Encounter Details Date Type Department Care Team (Late st Contact Info) Description 10/27/2010 Office Visit-[facility] [place] [address] [facility] [address] [place] [address] Morena Mota MD HEART [facility] [address] [facility] [address] [place], [place] [id number] Social History Tobacco Use Types Packs/Day Years [...] Progress Note Created by: Morena Mota M.D. [id number] DATE: 10/27/2010 VI DONATO DATE OF : 1950 AGE: [age] years old Referring Physician: ELIEZER ROMEO Referring Clinic: [facility] CURRENT DIAGNOSES 1. 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 F/U with Any AIRCRAFT ELECTRONICS TECHNICAL OFFICER 7-14 days 3. Holter Monitor Today, 24-Hour Morena Mota M.D. documented in this encounter Plan of Treatment Not on file documented as of this encounter Visit Diagnoses Not on filedocumented in this encounter Care Teams Animal Husbandry Worker Relationship Specialty Start Date End Date Radha Keating MD PCP - General Family Practice 09/05/10 10/01/11 Naz Lugo PA-C [address] [address] PCP - General Family Practice 10/02/11 09/14/14 Jocelyn Jane PA-C [address] [place] [address] PCP - General Physician Commis Chef 09/15/14 03/22/16 Parag Pires PA-C [address] [place] [address] PCP - General Physician Commis Chef - Medical 03/23/16 09/01/20 Parag Pires PA-C [address] [place] [address] PCP - Assigned PCP 06/17/17 05/14/18 Ceci Kessler MD [facility] & [address] [address] PCP - General Family Medicine 09/02/20 Parag Pires PA-C [address] [place] [address] Assigned PCP 06/17/17 01/20/22 Tiffanie Araya DO [address] [place] [id number] Assigned Heart and Vascular Provider 01/02/20 06/01/23 documented as of this encounter
--- OUTSIDE RECORDS SUMMARY | 2023-09-21 10:19 | XMS_ITS | Encounter Summary ---
Author Organization [place] Address [address] [facility] [place] [address] Care Team Providers Care General Practice Name Role Phone Radha Keating MD Primary Care Provider Naz Lugo PA-C Primary Care Provid er Jocelyn Jane-C Primary Care Pr ovider Parag Pires PA-C Primary Care Provider Parag Pires PA-C Unavailable +[phone] Parag PiresC Unavailable + [phone] Tiffanie Araya DO Unavailable [phone] Ceci Kessler MD Primary Care Provider + Encounter Details Date Type Department Care Team (Late st Contact Info) Description 12/22/2010 Office Visit-[facility] [address] [place] [address] Unknown, DoctorMD Social History Tobacco [...] Created by: Kimberly Alvarez PA-C DATE: 12/22/2010 [id number] [place] DATE OF : 1950 AGE: [age] years old Referring Physician: ELIEZER ROMEO Referring Clinic: [facility] CURRENT DIAGNOSES 1. - Atrial [...] delightful 60-year-old female who presents to the [facility] today for a follow-up [...] TODAYS ORDERS 1. Sleep Study Schedule [facility] 2. Return Visit 3 weeks PALOMO Bennett documented in this encounter Plan of Treatment Not on file documented as of this encounter Visit Diagnoses Not on filedocumented in this encounter Care Teams General Practice Relationship Specialty Start Date End Date Radha Keating MD PCP - General Family Practice 09/05/10 10/01/11 Naz Lugo PA-C [address] [place] [address] [place] [address] PCP - General Family Practice 10/02/11 09/14/14 Jocelyn Jane PA-C [address] [place] [address] PCP - General Physician Photographic Platemaker 09/15/14 03/22/16 Parag Pires PA-C [address] [place] [address] PCP - General Physician Photographic Platemaker - Medical 03/23/16 09/01/20 Parag Pires PA-C [address] [place] [address] PCP - Assigned PCP 06/17/17 05/14/18 Ceci Kessler MD [facility] & [address] [address] PCP - General Family Medicine 09/02/20 Parag Pires PA-C [address] [place] [address] Assigned PCP 06/17/17 01/20/22 Tiffanie Araya DO [address] [place] [address] Assigned Heart and Vascular Provider 01/02/20 06/01/23 documented as of this encounter
--- OUTSIDE RECORDS SUMMARY | 2023-09-21 10:19 | XMS_ITS | Encounter Summary ---
Author Organization [place] Address [address] [facility] [place] [address] Care Team Providers Care Space Systems Operations Manager Name Role Phone Isabell Capone MD Primary Care Provider Naz Lugo PA-C Primary Care Provid er Jocelyn Jane-C Primary Care Pr ovider Parag Pires PA-C Primary Care Provider Parag Pires PA-C Unavailable + [phone] Parag Pires-C Unavailable + [phone] Tiffanie Araya DO Unavailable + [phone] Ceci Kessler MD Primary Care Provider + Encounter Details Date Type Department Care Team (Late st Contact Info) Description 08/24/2011 Office Visit-[facility] [place] [address] [facility] [address] [place] [address] Tejal Ugalde MD [address] [facility] [address] [place] [address] Social History Tobacco [...] Progress Note Created by: Tejal Ugalde M.D. [id number] DATE: 08/24/2011 DONATOVI DATE OF : 1950 AGE: [age] years old Referring Physician: ISABELL CAPONE Referring Clinic: [facility] CURRENT DIAGNOSES 1. 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 Mota has been made in [place] in one year. Thank you very much [...] on filedocumented in this encounter Care Teams Space Systems Operations Manager Relationship Specialty Start Date End Date Isabell Capone MD PCP - General Family Practice 09/05/10 10/01/11 Naz Lugo PA-C [address] [address] PCP - General Family Practice 10/02/11 09/14/14 Jocelyn Jane PA-C [address] [place] [address] PCP - General Physician Code Enforcement Supervisor 09/15/14 03/22/16 Parag Pires PA-C [address] [place] [address] PCP - General Physician Code Enforcement Supervisor - Medical 03/23/16 09/01/20 Parag Pires PA-C [address] [facility] [place] [address] PCP - Assigned PCP 06/17/17 05/14/18 Ceci Kessler MD [facility] [address] [place] [address] PCP - General Family Medicine 09/02/20 Parag Pires PA-C [address] [facility] [place] [address] Assigned PCP 06/17/17 01/20/22 Tiffanie Araya DO [address] [place] [address] Assigned Heart and Vascular Provider 01/02/20 06/01/23 documented as of this encounter
--- OUTSIDE RECORDS SUMMARY | 2023-09-21 10:19 | XMS_ITS | Encounter Summary ---
Author Organization [place] Address [address] [facility] [facility] [place] [address] Care Team Providers Care Defense Travel Administrator Name Role Phone Naz Lugo PA-C Primary Care Provid er Jocelyn Jane PA-C Primary Care Pr ovider Parag Pires PA-C Primary Care Provider Parag Pires PA-C Unavailable +[phone] Parag Pires PA-C Unavailable +[phone] Tiffanie Araya DO Unavailable + [phone] Ceci Kessler MD Primary Care Provider + Reason for Visit * Reason Onset Date Comments Refill Request 03/04/2014 metronidazole ge l Encounter Details Date Type Department Care Team (Late st Contact Info) Description 03/04/2014 [facility]ill [facility] [address] [address] Naz Lugo PA-C [address] [address] Refill Request (metronidazole gel) Social History Tobacco [...] Lugo PA-C, is no longer working for [employer]. Will ask team provider to review. Jackson Beyer RN LAGE CLERK * Telephone Encounter - Phoebe Orosco - 03/04/2014 12:53 PM CST Last Fill Date: 11/17/2013 Last Fill Quantity: 45 Last Office Visit: 01/20/2013 [facility] Orosco [phone] LAGE CLERK documented in this encounter Plan of Treatment Not on file documented as of this encounter Visit Diagnoses Diagnosis Rosacea- Primary documented in this encounter Care Teams Defense Travel Administrator Relationship Specialty Start Date End Date Naz Lugo PA-C [address] [address] PCP - General Family Practice 10/02/11 09/14/14 Jocelyn Jane PA-C [address] [facility] [place] [address] PCP - General Physician Director Business Integration 09/15/14 03/22/16 Parag Pires PA-C [address] [place] [address] PCP - General Physician Director Business Integration - Medical 03/23/16 09/01/20 Parag Pires PA-C [address] [place] [address] PCP - Assigned PCP 06/17/17 05/14/18 Ceci Kessler MD [facility] & [address] [address] PCP - General Family Medicine 09/02/20 Parag Pires PA-C [address] [place] [address] Assigned PCP 06/17/17 01/20/22 Tiffanie Araya DO [address] [place] [address] Assigned Heart and Vascular Provider 01/02/20 06/01/23 documented as of this encounter
--- OUTSIDE RECORDS SUMMARY | 2023-09-21 10:19 | XMS_ITS | Encounter Summary ---
Author Organization [place] Address [address] [facility] [place] [address] Care Team Providers Care Morphology Teacher Name Role Phone Parag Pires PA-C Unavailable + [phone] Tiffanie Araya DO Unavailable + [phone] Ceci Kessler MD Primary Care Provider + Encounter Details Date Type Department Care Team (Late st Contact Info) Description 07/29/2021 External Order Results [facility] [address] [place] [address] Outside, Provider Social History Tobacco Use Types [...] - BLOOD ORDERABL ES Performing Organization Address [facility]/ZIP Co de Phone Number B[facility]ZE PFT NON-INTERFACED (ONBASE SCANS) * INR (07/29/2021 1:10 PM CDT) INR (External) 0.96 0.91 - 1.10 NON-INTERFACED (ONBASE SCANS) Blood 07/29/2021 1:10 PM CDT Narrative BREEZE PFT - 11/10/2021 9:04 AM CDT Verified by Shahid Leon on 11/10/2021. Provider Outside LAB - BLOOD ORDERABL ES Performing Organization Address [facility] Co de Phone Number [...] NEGATIVE NEGATIVE NON-INTERFAC ED (ONBASE SCANS) Specific [place] Urine (External) 1.010 1.000 - 1.030 NON-INTERFAC [...] NON-INTERFACE D (ONBASE SCANS) GFR Estimated (External) 69.97721 ml/min NON-INTERFACE D (ONBASE SCANS) Sodium (External) [...] - BLOOD ORDERABL ES Performing Organization Address City/[facility]/ZIP Co de Phone Number BREEZE PFT NON-INTERFACED [...] - BLOOD ORDERABL ES Performing Organization Address [facility] Co de Phone Number [...] - BLOOD ORDERABL ES Performing Organization Address [facility] de Phone Number BREEZE PFT NON-INTERFACED (ONBASE SCANS) * External Culture Results (07/29/2021 12:32 PM CDT) Scan Culture Results (External) See Scanned Report NON-INTERFACE D (ONBASE SCANS) Comment:URINE CULTURE 07/29/2021 12:3 2 PM CDT Narrative BREEZE PFT - 11/10/2021 9:04 AM CDT Verified by Shahid Leon on 11/10/2021. Provider Outside LABORATORY Performing Organization Address [facility] Co de Phone Number BREEZE PFT NON-INTERFACED (ONBASE SCANS) documented in this encounter Visit Diagnoses Not on filedocumented in this encounter Additional Health Concerns Assessment Noted Time PHQ-9 Depression Total Score: 0 09/22/19 17 7:24 AM CDT documented as of this encounter Care Teams Morphology Teacher Relationship Specialty Start Date End Date Ceci Kessler MD [facility] [address] [place] [address] PCP - General Family Medicine 09/02/20 Parag Pires PA-C [address] [place] [address] Assigned PCP 06/17/17 01/20/22 Tiffanie Araya DO [address] [place] [address] Assigned Heart and Vascular Provider 01/02/20 06/01/23 documented as of this encounter
--- OUTSIDE RECORDS SUMMARY | 2023-09-21 10:19 | XMS_ITS | Encounter Summary ---
Author Organization [place] Address [address] [facility] [place] [address] Care Team Providers Care Night Shift Name Role Phone Jocelyn Jane PA-C Primary Care Pr ovider Parag Pires PA-C Primary Care Provider Parag Pires PA-C Unavailable + [phone] Parag Pires PA-C Unavailable [phone] Tiffanie Araya DO Unavailable + [phone] Ceci Kessler MD Primary Care Provider + Reason for Visit * Reason Onset Date Comments MyChart Communication 04/26/2015 Encounter Details Date Type Department Care Team (Latest Contact Info) Description 04/26/2015 MyC Medical Advice [facility] [address] [place] [address] Jocelyn Jane PA-C [address] [place] [address] MyChart Communication Social History Tobacco Use [...] Please see my chart Kathy Garduno RN P PRESIDENT documented in this encounter Plan of Treatment Not on file documented as of this encounter Visit Diagnoses Not on filedocumented in this encounter Care Teams Night Shift Relationship Specialty Start Date End Date Jocelyn Jane PA-C [address] [place] [address] PCP - General Physician Surveillance Systems Engineer 09/15/14 03/22/16 Parag Pires PA-C [address] [place] [address] PCP - General Physician Surveillance Systems Engineer - Medical 03/23/16 09/01/20 Parag Pires PA-C [address] [place] [address] PCP - Assigned PCP 06/17/17 05/14/18 Ceci Kessler MD [facility] [address] [place] [address] PCP - General Family Medicine 09/02/20 Parag Pires PA-C [address] [place] [address] Assigned PCP 06/17/17 01/20/22 Tiffanie Araya DO [address] [place] [address] Assigned Heart and Vascular Provider 01/02/20 06/01/23 documented as of this encounter
--- OUTSIDE RECORDS SUMMARY | 2023-09-21 10:19 | XMS_ITS | Encounter Summary ---
Author Organization [place] Address [address] [facility] [place] [address] Care Team Providers Care Manager Field Investigations Name Role Phone Naz Lugo PA-C Primary Care Provid er Jocelyn Jane PA-C Primary Care Pr ovider Parag Pires PA-C Primary Care Provider Parag Pires PA-C Unavailable [phone] Parag Pires PA-C Unavailable +[phone] Tiffanie Araya DO Unavailable + [phone] Ceci Kessler MD Primary Care Provider + Encounter Details Date Type Department Care Team (Late st Contact Info) Description 03/04/2012 Abstract [facility] [place] [address] [place] [address] Lissy Cintron MD Social History Tobacco [...] on filedocumented in this encounter Care Teams Manager Field Investigations Relationship Specialty Start Date End Date Naz Lugo PA-C [address] [place] [address] [place] [address] PCP - General Family Practice 10/02/11 09/14/14 Jocelyn Jane PA-C [address] [place] [address] PCP - General Physician Truck Driver Heavy 09/15/14 03/22/16 Parag Pires PA-C [address] [place] [address] PCP - General Physician Truck Driver Heavy - Medical 03/23/16 09/01/20 Parag Pires PA-C [address] [place] [address] PCP - Assigned PCP 06/17/17 05/14/18 Ceci Kessler MD [facility] & [address] [address] PCP - General Family Medicine 09/02/20 Parag Pires PA-C [address] [place] [address] Assigned PCP 06/17/17 01/20/22 Tiffanie Araya DO [address] [place] [address] Assigned Heart and Vascular Provider 01/02/20 06/01/23 documented as of this encounter
--- OUTSIDE RECORDS SUMMARY | 2023-09-21 10:19 | XMS_ITS | Encounter Summary ---
Author Organization [place] Address [address] [facility] [place] [address] Care Team Providers Care Sr Technical Sales Consultant Name Role Phone Elvis Lugo PA-C Primary Care Provid er Jocelyn Jane PA-C Primary Care Pr ovider Parag Pires PA-C Primary Care Provider Parag Pires PA-C Unavailable [phone] Parag Pires PA-C Unavailable +[phone] Tiffanie Araya DO Unavailable + [phone] Ceci Kessler MD Primary Care Provider + Encounter Details Date Type Department Care Team (Late st Contact Info) Description 08/06/2012 Office Visit-[facility] [place] [id number] [facility] [address] [place] [address] Morena Mota MD HEART [address] [place], [place] [address] Social History Tobacco Use Types Packs/Day Years [...] Progress Note Created by: Morena Mota M.D. [id number] DATE: 08/06/2012 KING[place] VI DATE OF : 1950 AGE: [age] years old Referring Physician: ELVIS LEIVA Referring Clinic: [facility] CURRENT DIAGNOSES 1. 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 F/U with Any COAGULATING BATH MIXER Return with Diagnostic Testing Morena Mota M.D. documented in this encounter Plan of Treatment Not on file documented as of this encounter Visit Diagnoses Not on filedocumented in this encounter Care Teams Sr Technical Sales Consultant Relationship Specialty Start Date End Date Elvis Lugo PA-C [address] [address] PCP - General Family Practice 10/02/11 09/14/14 Jocelyn Jane PA-C [address] [place] [address] PCP - General Physician Table Saw Operator 09/15/14 03/22/16 Parag Pires PA-C [address] [place] [address] PCP - General Physician Table Saw Operator - Medical 03/23/16 09/01/20 Parag Pires PA-C [address] [facility] [place] [address] PCP - Assigned PCP 06/17/17 05/14/18 Ceci Kessler MD [facility] & [address] [address] PCP - General Family Medicine 09/02/20 Parag Pires PA-C [address] [place] [address] Assigned PCP 06/17/17 01/20/22 Tiffanie Araya DO [address] [place] [address] Assigned Heart and Vascular Provider 01/02/20 06/01/23 documented as of this encounter
--- OUTSIDE RECORDS SUMMARY | 2023-09-21 10:19 | XMS_ITS | Encounter Summary ---
Author Organization [place] Address [address] [facility] [place] [address] Care Team Providers Care Record Label Internship Name Role Phone Isabell Capone MD Primary Care Provider Naz Lugo PA-C Primary Care Provid er Jocelyn Jane-C Primary Care Pr ovider Parag Pires PA-C Primary Care Provider Parag Pires PA-C Unavailable [phone] Parag PiresC Unavailable + [phone] Tiffanie Araya DO Unavailable [phone] Ceci Kessler MD Primary Care Provider + Encounter Details Date Type Department Care Team (Late st Contact Info) Description 01/12/2011 Office Visit-[facility] [address] [place] [address] Unknown, DoctorMD Social History Tobacco [...] Created by: Kimberly Alvarez PA-C DATE: 01/12/2011 [id number] VI DONATO DATE OF : 1950 AGE: [age] years old Referring Physician: ISABELL CAPONE Referring Clinic: [facility] CURRENT DIAGNOSES 1. - Atrial Fibrillation, [...] very delightful 60-year-old female who presents to [facility] today for a follow-up [...] on filedocumented in this encounter Care Teams Record Label Internship Relationship Specialty Start Date End Date Isabell Capone MD PCP - General Family Practice 09/05/10 10/01/11 Naz Lugo PA-C [address] [place] [address] [place] [address] PCP - General Family Practice 10/02/11 09/14/14 Jocelyn Jane PA-C [address] [place] [address] PCP - General Physician Data Analysis Assistant 09/15/14 03/22/16 Parag Pires PA-C [address] [place] [address] PCP - General Physician Data Analysis Assistant - Medical 03/23/16 09/01/20 Parag Pires PA-C [address] [place] [address] PCP - Assigned PCP 06/17/17 05/14/18 Ceci Kessler MD [facility] & [address] [address] PCP - General Family Medicine 09/02/20 Parag Pires PA-C [address] [place] [address] Assigned PCP 06/17/17 01/20/22 Tiffanie Araya DO [address] [place] [address] Assigned Heart and Vascular Provider 01/02/20 06/01/23 documented as of this encounter
--- OUTSIDE RECORDS SUMMARY | 2023-09-21 10:19 | XMS_ITS | Encounter Summary ---
Author Organization [place] Address [address] [facility] [place] [address] Care Team Providers Care Corn Cooker Name Role Phone Radha Keating MD Primary Care Provider Naz Lugo PA-C Primary Care Provid er Jocelyn Jane-C Primary Care Pr ovider Parag Pires PA-C Primary Care Provider Parag Pires PA-C Unavailable +[phone] Parag PiresC Unavailable + [phone] Tiffanie Araya DO Unavailable + [phone] Ceci Kessler MD Primary Care Provider + Reason for Visit * Reason Onset Date Comments Referral 09/26/2010 Cardiology Pt. Information/instruction 09/26/2010 [facility] record Encounter Details Date Type Department Care Team (Late st Contact Info) Description 09/26/2010 MyC Medical Advice [address], [address] [place] [address] [place] [address] [address] [place] [address] Referral (Cardiology); Pt. Information/ins... Social [...] Primary documented in this encounter Care Teams Corn Cooker Relationship Specialty Start Date End Date Radha Keating MD PCP - General Family Practice 09/05/10 10/01/11 Naz Lugo PA-C [address] [address] PCP - General Family Practice 10/02/11 09/14/14 Jocelyn Jane PA-C [address] [place] [address] PCP - General Physician Potato Chip Sacking Machine Operator 09/15/14 03/22/16 Parag Pires PA-C [address] [place] [address] PCP - General Physician Potato Chip Sacking Machine Operator - Medical 03/23/16 09/01/20 Parag Pires PA-C [address] [place] [address] PCP - Assigned PCP 06/17/17 05/14/18 Ceci Kessler MD [facility] [address] [place] [address] PCP - General Family Medicine 09/02/20 Parag Pires PA-C [address] [place] [address] Assigned PCP 06/17/17 01/20/22 Tiffanie Araya DO [address] [place] [address] Assigned Heart and Vascular Provider 01/02/20 06/01/23 documented as of this encounter
--- OUTSIDE RECORDS SUMMARY | 2023-09-21 10:19 | XMS_ITS | Encounter Summary ---
Author Organization [place] Address [address] [place] [place] [address] Care Team Providers Care Client Service Coordinator Name Role Phone Isabell Keating MD Primary Care Provider Naz Lugo PA-C Primary Care Provid er Jocelyn Jane-C Primary Care Pr ovider Parag Pires PA-C Primary Care Provider Parag Pires PA-C Unavailable + [phone] Parag PiresC Unavailable + [phone] Tiffanie Araya DO Unavailable + [phone] Ceci Kessler MD Primary Care Provider + Encounter Details Date Type Department Care Team (Late st Contact Info) Description 03/20/2011 Office Visit-[facility] [place] [address] [facility] [address] [place] [address] Jessica Franks E, ELEMENTARY SPANISH TEACHER SNUFF DRIER [address] [facility] [address] [place] [id number] Social History Tobacco Use Types Packs/Day Years [...] Progress Note Created by: Jessica Franks N.P. [id number] DATE: 03/20/2011 RADHA DONATO DATE OF : 1950 AGE: [age] years old Referring Physician: ISABELL KEATING Referring Clinic: [facility] CURRENT DIAGNOSES 1. 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; Place of - [place]; Hours Worked - 30 hours per week; [...] hr, 1 1/2 tabs daily, #135 (One [place] Thirty Five) MEDICATIONS REFILLED/STOPPED TODAY: metoprolol succinate [...] on filedocumented in this encounter Care Teams Client Service Coordinator Relationship Specialty Start Date End Date Isabell Keating MD PCP - General Family Practice 09/05/10 10/01/11 Naz Lugo PA-C [address] [address] PCP - General Family Practice 10/02/11 09/14/14 Jocelyn Jane PA-C [address] [place] [address] PCP - General Physician Railroad Firer/Fireman 09/15/14 03/22/16 Parag Pires PA-C [address] [place] [address] PCP - General Physician Railroad Firer/Fireman - Medical 03/23/16 09/01/20 aPrag Pires PA-C [address] [place] [address] PCP - Assigned PCP 06/17/17 05/14/18 Ceci Kessler MD [facility] & [address] [address] PCP - General Family Medicine 09/02/20 Parag Pires PA-C [address] [place] [address] Assigned PCP 06/17/17 01/20/22 Tiffanie Araya DO [address] [place] [address] Assigned Heart and Vascular Provider 01/02/20 06/01/23 documented as of this encounter
--- OUTSIDE RECORDS SUMMARY | 2023-09-21 10:19 | XMS_ITS | Encounter Summary ---
Author Organization [place] Address [address] [facility] [place] [address] Care Team Providers Care Software Project Manager Name Role Phone Parag Pires PA-C Primary Care Provider Parag Pires PA-C Unavailable + [phone] Parag Pires PA-C Unavailable + [phone] Tiffanie Araya DO Unavailable [phone] Ceci Kessler MD Primary Care Provider + Encounter Details Date Type Department Care Team (Late st Contact Info) Description 04/17/2017 MyC Medical Advice [facility] [address] [place] [address] Janel Mueller PA-C [address] [place] [address] Social History Tobacco Use Types [...] documented as of this encounter Care Teams Software Project Manager Relationship Specialty Start Date End Date Parag Pires PA-C PCP - General Physician Bricklayer Paving Brick - Medical 03/23/16 09/01/20 Parag Pires PA-C [address] [place] [address] PCP - Assigned PCP 06/17/17 05/14/18 Ceci Kessler MD [facility] & [address] [address] PCP - General Family Medicine 09/02/20 Parag Pires PA-C [address] [place] [address] Assigned PCP 06/17/17 01/20/22 Tiffanie Araya DO [address] [place] [address] Assigned Heart and Vascular Provider 01/02/20 06/01/23 documented as of this encounter
--- OUTSIDE RECORDS SUMMARY | 2023-09-21 10:19 | XMS_ITS | Encounter Summary ---
Author Organization [place] Address [address] [place] [address] Care Team Providers Care Vehicle Delivery Worker Name Role Phone Jocelyn Jane PA-C Primary Care Pr ovider Parag Pires PA-C Primary Care Provider Parag Pires PA-C Unavailable + [phone] Parag Pires PA-C Unavailable +[phone] Tiffanie Araya DO Unavailable + [phone] Ceci Kessler MD Primary Care Provider + Reason for Visit * Reason Onset Date Comments MyChart Communication 06/07/2015 Encounter Details Date Type Department Care Team (Latest Contact Info) Description 06/07/2015 MyC Medical Advice [facility] [address] [place] [address] Jocelyn Jane PA-C [address] [place] [address] MyChart Communication Social History Tobacco Use [...] Primary documented in this encounter Care Teams Vehicle Delivery Worker Relationship Specialty Start Date End Date Jocelyn Jane PA-C [address] [place] [address] PCP - General Physician Clinical Coder 09/15/14 03/22/16 Parag Pires PA-C [address] [place] [address] PCP - General Physician Clinical Coder - Medical 03/23/16 09/01/20 Parag Pires PA-C [address] [facility] [place] [address] PCP - Assigned PCP 06/17/17 05/14/18 Ceci Kessler MD [facility] & [address] [address] PCP - General Family Medicine 09/02/20 Parag Pires PA-C [address] [place] [address] Assigned PCP 06/17/17 01/20/22 Tiffanie Araya DO [address] [place] [address] Assigned Heart and Vascular Provider 01/02/20 06/01/23 documented as of this encounter
--- OUTSIDE RECORDS SUMMARY | 2023-09-21 10:19 | XMS_ITS | Encounter Summary ---
Author Organization [place] Address [address] [place] [address] Care Team Providers Care Vice President Risk Management Name Role Phone Ceci Kessler MD Primary Care Provider + Reason for Visit * Auth/Cert (Routine) Specialty Diagnoses / Procedures Referred By Amilcar rodrigez Referred To Contact Surgery Diagnoses Urge incontinence Full incontinence of feces Urge incontinence [N39.41] Full incontinence of feces [R15.9] Procedures AL INSERT/REPL PERIPH SACRAL/GASTRIC NSTIM/RCVR, W PCKT CRTJ & CONN AL REV/REM PERIPH SACRAL/GASTRIC NSTIM/RCV, DETACH CONN ELEC ARRAY REMOVAL OF INTERSTIM SACRAL NEUROMODULATION LEAD AND GENERATOR. PLACE [employer] SACRAL NEUROMODULATION SYSTEM STAGE ONE AND TWO [facility] [address] [place] [address] Referral ID Status Reason Start Date Expiration Date Visits Re quested Visits Authorized [id number] 1 1 Encounter Details Date Type Department Care Team (Latest Contact Info) Description 06/28/2023 7:13 AM CDT - 06/28/2023 12:32 PM CDT Hospital Encounter [facility] Phase II [address] [place] [address] Marco Padilla MD [address] [place] [address] S/P gynecological surgery, follow-up exam [...] Everywhere. * (s) After Anesthesia (Sleep Medicine) (Equatorial [place]inean) documented in this encounter Medications at Time [...] daily fluticasone (FLONASE) 50 MCG/ACT nasal spray Newcomb 1 spray into both nostrils as needed for rhinitis or allergies Generic target brand gabapentin (NEURONTIN) 300 MG capsule Take 1 capsule at bedtime for 3 to 4 days, then increase to 1 capsule twice daily thereafter if needed 03/13/2019 MAGNESIUM ASPARTATE PO Take 400 mg by mouth daily MULTI-DAY OR 1 tablet daily Early-3 Fatty Acids (OMEGA-3 FISH OIL PO) Take 1,600 mg by mouth daily rivaroxaban ANTICOAGULANT (XARELTO ANTICOAGULANT) 20 MG TABS tabletIndications:Atri al fibrillation, unspecified type (H),Benign essential hypertension,Mixed hyperlipidemia Take 1 tablet (20 mg) by mouth daily (with dinner) 90 tablet 4 11/25/2021 traMADol (ULTRAM) 50 MG tabletIndications:Rock Star elva pain of both knees Take 1 [...] incontinence Full incontinence of feces Case Notes [employer] automobile sales representative coming (Chevy Moseley)Antibiotic irrigation ordered - need to release Special Needs Req 90 mins, Philomena Barraza to Assist. [employer] rep will coordinate with [facility] regarding supplies and equipment. REP. Chevy Moseley notified. HCG QUANTITATIVE STAT 06/28/2023 8:00 AM CDT documented in this encounter Results * XR Surgery BRODIE L/T 5 Min Fluoro (06/28/2023 11:09 AM CDT) Narrative RADIANT - 06/28/2023 11:10 AM CDT This exam was marked as non-reportable because it will not be read by a radiologist or a [place] non-radiologist provider. Marco Padilla MD IMG DIAGNOSTIC IM AGING ORDERABLES RADIANT * HCG quantitative (06/28/2023 8:00 AM CDT) hCG Quantitative 1 <5 mIU/mL 06/28/19 8:39 AM CDT [facility] Comment: Adult: 0-5 mIU/mL for healthy non- person Neonates: Should be within normal ranges by 2 days after Blood TOPOGRAPHY UNKNOWN / Unknown Venipuncture / Unknown 06/28/2023 8:00 AM CDT 06/28/2023 8:10 AM CDT Janie Jacques PURSE FRAMER STAFF TRAINING AND DEVELOPMENT MANAGER LAB - BLOOD ORDERABLES Performing Organization Address City/[facility] Co de Phone Number [facility] [address] [place] [address], [facility] documented in this encounter Visit Diagnoses Diagnosis [...] on the same site., Pre-procedure lidocaine-EPINEPHrine 1 %-1:141152 injection PRN, Starting on Kalani 06/28/23 at [...] irrigation bottle (ANCEF) (COMPLETED) 1 g, Irrigation, SHIFT MECHANIC TO O.R., Starting on Kalani 06/28/23 at [...] RN)0912 (Paused - Provider: Vincenzo Kenney APRN FARM OPERATOR - Comment: Switch to gravity)0913 ($New Bag - Provider: Vincenzo Kenney APRN FARM OPERATOR)1105 ($New Bag - Provider: Vincenzo Kenney APRN [...] on the same site., Pre-procedure lidocaine-EPINEPHrine 1 %-1:813927 injection PRN, Starting on Kalani 06/28/23 at [...] documented as of this encounter Care Teams Vice President Risk Management Relationship Specialty Start Date End Date Ceci Kessler MD [facility] & [address] [address] PCP - General Family Medicine 09/02/20 documented as of this encounter
--- OUTSIDE RECORDS SUMMARY | 2023-09-21 10:19 | XMS_ITS | Encounter Summary ---
Author Organization [place] Address [address] [facility] [place] [address] Care Team Providers Care Crusher Foreman Name Role Phone Parag Pires PA-C Primary Care Provider Parag Pires PA-C Unavailable + [phone] Tiffanie Araya DO Unavailable + [phone] Ceci Kessler MD Primary Care Provider + Encounter Details Date Type Department Care Team (Late st Contact Info) Description 03/14/2019 MyC Medical Advice [address], [address] [place] [address] Gilma Lopez, EVELIO Social History [...] documented as of this encounter Care Teams Crusher Foreman Relationship Specialty Start Date End Date Parag Pires PA-C PCP - General Physician Resource Paraprofessional - Medical 03/23/16 09/01/20 Ceci Kessler MD [facility] & [address] [address] PCP - General Family Medicine 09/02/20 Parag Pires PA-C [address] [place] [address] Assigned PCP 06/17/17 01/20/22 Tiffanie Araya DO [address] [place] [address] Assigned Heart and Vascular Provider 01/02/20 06/01/23 documented as of this encounter
--- OUTSIDE RECORDS SUMMARY | 2023-09-21 10:19 | XMS_ITS | Encounter Summary ---
Author Organization [place] Address [address] [place] [address] Care Team Providers Care Striper Spray Gun Name Role Phone Isabell Keating MD Primary Care Provider Naz Lugo PA-C Primary Care Provid er Jocelyn Jane-C Primary Care Pr ovider Parag Pires PA-C Primary Care Provider Parag Pires PA-C Unavailable [phone] Parag Pires-C Unavailable + [phone] Tiffanie Araya DO Unavailable [phone] Ceci Kessler MD Primary Care Provider + Encounter Details Date Type Department Care Team (Late st Contact Info) Description 07/25/2011 Office Visit-[facility] [place] [id number] [facility] [address] [place] [address] Morena Mota MD HEART [facility] [address] [facility] [address] [place] [address] Social History Tobacco Use Types Packs/Day Years [...] Progress Note Created by: Morena Mota M.D. [id number] DATE: 07/25/2011 VI DONATO DATE OF : 1950 AGE: [age] years old Referring Physician: ISABELL KEATING Referring Clinic: [facility] CURRENT DIAGNOSES 1. 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 - [place]; Hours Worked - 30 hours per week; [...] hr 1 1/2 tabs daily #135 (One [place] Thirty Five) Patient Request IMPRESSIONS/PLAN A pleasant [...] on filedocumented in this encounter Care Teams Striper Spray Gun Relationship Specialty Start Date End Date Isabell Keating MD PCP - General Family Practice 09/05/10 10/01/11 Naz Lugo PA-C [address] [address] PCP - General Family Practice 10/02/11 09/14/14 Jocelyn Jane PA-C [address] [place] [place], [place] [address] PCP - General Physician Dumpcart Driver 09/15/14 03/22/16 Parag Pires PA-C [address] [place], [place] [address] PCP - General Physician Dumpcart Driver - Medical 03/23/16 09/01/20 Parag Pires PA-C [address] [place] [address] PCP - Assigned PCP 06/17/17 05/14/18 Ceci Kessler MD [facility] & [address] [address] PCP - General Family Medicine 09/02/20 Parag Pires PA-C [address] [place] [address] Assigned PCP 06/17/17 01/20/22 Tiffanie Araya DO [address] [place] [address] Assigned Heart and Vascular Provider 01/02/20 06/01/23 documented as of this encounter
--- OUTSIDE RECORDS SUMMARY | 2023-09-21 10:19 | XMS_ITS | Encounter Summary ---
Author Organization [place] Address [address] [facility] [place] [address] Care Team Providers Care Estimating Engineer Name Role Phone Elvis Lugo PA-C Primary Care Provid er Jocelyn Jane PA-C Primary Care Pr ovider Parag Pires PA-C Primary Care Provider Parag Pires PA-C Unavailable [phone] Parag Pires PA-C Unavailable [phone] Tiffanie Araya DO Unavailable + [phone] Ceci Kessler MD Primary Care Provider + Encounter Details Date Type Department Care Team (Late st Contact Info) Description 09/05/2012 Office Visit-[facility] [place] [address] [facility] [address] [place] [address] Joleen Pineda APRN CNP Social [...] Progress Note Created by: Joleen Pineda. N.P. #[id number] DATE: 09/05/2012 VI DONATO DATE OF : 1950 AGE: [age] years old Referring Physician: ELVIS LEIVA Referring Clinic: [facility] CURRENT DIAGNOSES 1. Hyperlipidemia-mixed disorder, 272.4 2. [...] on filedocumented in this encounter Care Teams Estimating Engineer Relationship Specialty Start Date End Date Elvis Lugo PA-C [address] [place] [address] [place] [address] PCP - General Family Practice 10/02/11 09/14/14 Jocelyn Jane PA-C [address] [place] [address] PCP - General Physician Building Associate 09/15/14 03/22/16 Parag Pires PA-C [address] [place] [address] PCP - General Physician Building Associate - Medical 03/23/16 09/01/20 Parag Pires PA-C [address] [place] [address] PCP - Assigned PCP 06/17/17 05/14/18 Ceci Kessler MD [facility] & [address] [address] PCP - General Family Medicine 09/02/20 Parag Pires PA-C [address] [place] [address] Assigned PCP 06/17/17 01/20/22 Tiffanie Araya DO [address] [place] [address] Assigned Heart and Vascular Provider 01/02/20 06/01/23 documented as of this encounter
--- OUTSIDE RECORDS SUMMARY | 2023-09-21 10:19 | XMS_ITS | Encounter Summary ---
Author Organization [place] Address [address] [place] [address] Care Team Providers Care Elevator Erector Helper Name Role Phone Jocelyn Jane PA-C Primary Care Pr ovider Parag Pires PA-C Primary Care Provider Parag Pires PA-C Unavailable + [phone] Parag Pires PA-C Unavailable [phone] Tiffanie Araya DO Unavailable + [phone] Ceci Kessler MD Primary Care Provider + Encounter Details Date Type Department Care Team (Late st Contact Info) Description 01/12/2015 MyC Medical Advice [facility] [address] [place] [address] Aubrie Summers, CHIEF COOK Social History Tobacco Use Types Packs/Day Years [...] on filedocumented in this encounter Care Teams Elevator Erector Helper Relationship Specialty Start Date End Date Jocelyn Jane PA-C [address] [place] [address] PCP - General Physician Personal Banker 09/15/14 03/22/16 Parag Pires PA-C [address] [place] [address] PCP - General Physician Personal Banker - Medical 03/23/16 09/01/20 Parag Pires PA-C [address] [place] [address] PCP - Assigned PCP 06/17/17 05/14/18 Ceci Kessler MD [facility] & [address] [address] PCP - General Family Medicine 09/02/20 Parag Pires PA-C [address] [place] [address] Assigned PCP 06/17/17 01/20/22 Tiffanie Araya DO [address] [place] [address] Assigned Heart and Vascular Provider 01/02/20 06/01/23 documented as of this encounter
--- OUTSIDE RECORDS SUMMARY | 2023-09-21 10:19 | XMS_ITS | Encounter Summary ---
Author Organization [place] Address [address] [facility] [place] [address] Care Team Providers Care Inspector Water Pollution Control Name Role Phone Naz Lugo PA-C Primary Care Provid er Jocelyn Jane PA-C Primary Care Pr ovider Parag Pires PA-C Primary Care Provider Parag Pires PA-C Unavailable [phone] Parag Pires PA-C Unavailable [phone] Tiffanie Araya DO Unavailable + [phone] Ceci Kesselr MD Primary Care Provider + Reason for Visit * Reason Onset Date Comments MyChart Communication 12/22/2013 Encounter Details Date Type Department Care Team (Latest Contact Info) Description 12/22/2013 MyC Medical Advice [address] [address] Naz Lugo PA-C [address] [id number] MyChart Communication Social History Tobacco Use Types [...] on filedocumented in this encounter Care Teams Inspector Water Pollution Control Relationship Specialty Start Date End Date Naz Lugo PA-C [address] [facility] [address] [place] [address] PCP - General Family Practice 10/02/11 09/14/14 Jocelyn Jane PA-C [address] [place] [address] PCP - General Physician Tubing Machine Operator 09/15/14 03/22/16 Parag Pires PA-C [address] [place] [address] PCP - General Physician Tubing Machine Operator - Medical 03/23/16 09/01/20 Parag Pires PA-C [address] [place] [address] PCP - Assigned PCP 06/17/17 05/14/18 Ceci Kessler MD [facility] & [address] [address] PCP - General Family Medicine 09/02/20 Parag Pires PA-C [address] [place] [address] Assigned PCP 06/17/17 01/20/22 Tiffanie Araya DO [address] [place] [address] Assigned Heart and Vascular Provider 01/02/20 06/01/23 documented as of this encounter
--- OUTSIDE RECORDS SUMMARY | 2023-09-21 10:19 | XMS_ITS | Encounter Summary ---
Author Organization [place] Address [address] [place] [address] Care Team Providers Care Drawstring Knotter Name Role Phone Parag Pires PA-C Primary Care Provider Parag Pires PA-C Unavailable + [phone] Tiffanie Araya DO Unavailable + [phone] Ceci Kessler MD Primary Care Provider + Reason for Visit * Reason Onset Date Comments Refill Request 03/10/2019 Tramadol 50mg Encounter Details Date Type Department Care Team (Late st Contact Info) Description 03/10/2019 MyC Medical Advice [address], [address] [place] [address] Parag Pires PA-C [address] [place], [place] [id number] Refill Request (Tramadol 50mg) Social History Tobacco [...] Tolterodine ER 4mg rx was sent to [facility] on 01/16/2019 for #90 with 1 additional refill. Ines Green RN /[employer] * Telephone Encounter - Shruthi Burger RN - 03/13/2019 3:17 PM GM/[employer] Routing refill request to provider for review/approval because: Tramadol: Drug not on the [facility] refill protocol Requested Prescriptions Pending Prescriptions Disp [...] no refill protocol information for this order /[employer] documented in this encounter Plan of Treatment Not on file documented as of this encounter Visit Diagnoses Diagnosis Urge incontinence of urine Urge incontinence Chronic pain of both knees documented in this encounter Additional Health Concerns Assessment Noted Time PHQ-9 Depression Total Score: 0 09/22/19 17 7:24 AM CDT documented as of this encounter Care Teams Drawstring Knotter Relationship Specialty Start Date End Date Parag Pires PA-C PCP - General Physician Wastewater Treatment Plant Chemist - Medical 03/23/16 09/01/20 Ceci Kessler MD [facility] & [address] [address] PCP - General Family Medicine 09/02/20 Parag Pires PA-C [address] [address] Assigned PCP 06/17/17 01/20/22 Tiffanie Araya DO [address] [place] [address] Assigned Heart and Vascular Provider 01/02/20 06/01/23 documented as of this encounter
--- OUTSIDE RECORDS SUMMARY | 2023-09-21 10:19 | XMS_ITS | Encounter Summary ---
Author Organization [place] Address [address] [place] [address] Care Team Providers Care Load Out Supervisor Name Role Phone Parag Pires PA-C Primary Care Provider Parag Pires PA-C Unavailable + [phone] Parag Pires PA-C Unavailable + [phone] Tiffanie Araya DO Unavailable [phone] Ceci Kessler MD Primary Care Provider + Encounter Details Date Type Department Care Team (Late st Contact Info) Description 03/26/2017 MyC Medical Advice [address], [address] [place] [address] Alice Hardin MA Social History [...] documented as of this encounter Care Teams Load Out Supervisor Relationship Specialty Start Date End Date Parag Pires PA-C PCP - General Physician Cylindrical Mixer - Medical 03/23/16 09/01/20 Parag Pires PA-C [address] [id number] PCP - Assigned PCP 06/17/17 05/14/18 Ceci Kessler MD [facility] & [address] [address] PCP - General Family Medicine 09/02/20 Parag Pires PA-C [address] [id number] Assigned PCP 06/17/17 01/20/22 Tiffanie Araya DO [address] [place] [address] Assigned Heart and Vascular Provider 01/02/20 06/01/23 documented as of this encounter
== END 2023-09-21 10:16 | disposition home or self-care (01) ==
LOC: MAMMO 10:16
PROVIDERS: PCP Internal Medicine; Visit Provider Internal Medicine
DX: Z12.31 Encounter for screening mammogram for malignant neoplasm of breast (principal)
CPT/HCPCS: 77063; 77067

== ENCOUNTER 2023-10-31 10:22 | Outpatient (CLI) | payer MEDICARE, SELFPAY | END 2023-10-31 10:23 | disposition home or self-care (01) | PROVIDERS: PCP Internal Medicine; Visit Provider Physician Assistant Medical | DX: R30.0 Dysuria (principal); R35.0 Frequency of micturition | CPT/HCPCS: 87086; 87186 ==

== ENCOUNTER 2023-11-13 09:53 | Outpatient (CLI) | payer MEDICARE, SELFPAY ==
--- OUTSIDE RECORDS SUMMARY | 2023-11-14 06:16 | XMS_ITS | Encounter Summary ---
Author Organization [place] Address [address] [place] [address] Care Team Providers Care Saw Offbearer Name Role Phone Naz Lugo PA-C Primary Care Provid er Jocelyn Jane PA-C Primary Care Pr ovider Parag Pires PA-C Primary Care Provider Parag Pires PA-C Unavailable [phone] Parag Pires PA-C Unavailable +[phone] Tiffanie Araya DO Unavailable + [phone] Ceci Kessler MD Primary Care Provider + Reason for Visit * Reason Onset Date Comments Refill Request 03/04/2014 metronidazole ge l Encounter Details Date Type Department Care Team (Late st Contact Info) Description 03/04/2014 Refill [facility] [address] [address] Naz Lugo PA-C [address] [address] Refill Request (metronidazole gel) Social History Tobacco [...] Lugo PA-C, is no longer working for [facility]. Will ask team provider to review. Jackson Beyer RN TRO TECH * Telephone Encounter - Phoebe Orosco - 03/04/2014 12:53 PM CST Last Fill Date: 11/17/2013 Last Fill Quantity: 45 Last Office Visit: 01/20/2013 Phoebe [facility]rosco [facility] [phone] TRO TECH documented in this encounter Plan of Treatment Not on file documented as of this encounter Visit Diagnoses Diagnosis Rosacea- Primary documented in this encounter Care Teams Saw Offbearer Relationship Specialty Start Date End Date Naz Lugo PA-C [address] [address] PCP - General Family Practice 10/02/11 09/14/14 Jocelyn Jane PA-C [address] [facility] [place] [address] PCP - General Physician Advanced Clinical Specialist 09/15/14 03/22/16 Parag Pires PA-C [address] [place] [address] PCP - General Physician Advanced Clinical Specialist - Medical 03/23/16 09/01/20 Parag Pires PA-C [address] [place] [address] PCP - Assigned PCP 06/17/17 05/14/18 Ceic Kessler MD [facility] & [address] [address] PCP - General Family Medicine 09/02/20 Parag Pires PA-C [address] [place] [address] Assigned PCP 06/17/17 01/20/22 Tiffanie Araya DO [address] [place] [id number] Assigned Heart and Vascular Provider 01/02/20 06/01/23 documented as of this encounter
--- OUTSIDE RECORDS SUMMARY | 2023-11-14 06:16 | XMS_ITS | Referral Summary ---
Author Organization [place] Address [address] 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 Special Agent [employer] Device Identifier Shelf Expiration Date Model / Serial / Lot Kit Nrstm Axonics Caro Lead Curved Stylet 1201 - [id number] Implanted:Qty : 1 on 06/28/2023 by Marco Padilla MD at [facility] Leads N/A: Bladder [employer] [id number] 09/20/2025 1201 / [id number] / Imp Nrstm Axonics Snm System 4101 - [id number] Implanted:Qty : 1 on 06/28/2023 by Marco Padilla MD at [facility] Neurology device N/A: Bladder [employer] [id number] 01/26/2024 4101 / [id number] / Sns Lead 28cm Implanted:Qty : 1 on 10/26/2014 by Sukhjinder Wolf MD at [facility] N/A: Sacrum [employer] 08/18/2018 3889 / / [id number] Stimulator Neuro Interstim Ii [id number] Implanted:Qty : 1 on 10/26/2014 by Sukhjinder Wolf MD at [facility] N/A: Sacrum [employer] 02/07/2016 [id number] / [id number] / Procedures Procedure Name Priority Date/Time Associated Diagnosis Comments MAMMOGRAM - HIM SCAN 08/31/2021 1:36 PM CDT LIPID PROFILE Routine 08/26/2019 8:33 AM CDT Atrial fibrillation, unspecified type (H) Essential hypertension Paroxysmal atrial fibrillation (H) Benign essential hypertension Mixed hyperlipidemia BASIC METABOLIC PANEL Routine 11/28/2018 9:04 AM CDT Preop general physical exam DX BONE DENSITY Routine 05/16/2017 10:06 AM CERTIFIED MORTICIAN Screening for osteoporosis HEPATITIS C SCREEN REFLEX TO HCV RNA QUANT AND GENOTYPE Routine 03/23/2016 9:49 AM CERTIFIED MORTICIAN Need for hepatitis C screening test COLONOSCOPY - HIM SCAN Routine 02/16/2014 from Last 3 Months or Most Recently Relevant to Health Maintenance Results * MAMMOGRAM - HIM SCAN (08/31/2021 1:36 PM CDT) Anatomical Region Laterality Modality Other 08/31/2021 1:36 PM CDT Provider Outside IMG MAMMOGRAPHY ORDE EJ * (ABNORMAL) Lipid Profile (08/26/2019 8:33 AM CDT) Cholesterol 206(H) <200 mg/dL 08/26/2019 12:46 PM CDT [facility] Comment:Desirable: <200 mg/d l Triglycerides 84 <150 mg/dL 08/26/2019 12:57 PM CDT [facility] HDL Cholesterol 63 >49 mg/dL 0 1:00 PM CDT [facility] LDL Cholesterol Calculated 126(H) <100 mg/dL 08/26/2019 1:00 PM CDT [facility] Comment: Above desirable: ??100-129 mg/dl Borderline High: ??130-159 mg/dL High: ? 160-189 mg/dL Very high: ? >189 mg/dl Non HDL Cholesterol 143(H) <130 mg/dL 08/26/2019 1:00 PM CDT [facility] Comment: Above Desirable: ??130-159 mg/dl Borderline high: ??160-189 mg/dl High: ? 190-219 mg/dl Very high: ? >219 mg/dl Blood specimen (specimen) 08/26/2019 8:33 AM CDT 08/26/2019 8:34 AM CDT Tiffanie Araya DO LAB - BLOOD ORDERABLES Performing Organization Address [facility]/State/[facility] Co de Phone Number [facility] [address] [place] [address] * Basic metabolic panel (11/28/2018 9:04 AM CDT) Sodium 139 133 - 144 mmol/L 11/29/2018 8:06 AM CDT [facility] Potassium 4.5 3.4 - 5.3 mmol/L 11/29/2018 8:06 AM CDT [facility] Chloride 105 94 - 109 mmol/L 11/29/2018 8:06 AM CDT [facility] Carbon Dioxide 29 20 - 32 mmol/L 11/29/2018 8:15 AM CDT [facility] Anion Gap 5 3 - 14 mmol/L 11/29/2018 8:15 AM CDT [facility] Glucose 94 70 - 99 mg/dL 11/29/2018 8:15 AM CDT [facility] Urea Nitrogen 16 7 - 30 mg/dL 11/29/2018 8:15 AM CDT [facility] Creatinine 0.81 0.52 - 1.04 mg/dL 11/29/2018 8:15 AM CDT [facility] GFR Estimate 76 >60 mL/min/{1 .73_m2} 11/29/2018 8:15 AM CDT [facility] Comment: Non GFR Calc Starting 02/26/2018, serum creatinine based estimated GFR (eGFR) will be calculated using the Chronic Kidney Disease Epidemiology Collaboration (CKD-EPI) equation. GFR Estimate If Black 88 >60 mL/min/{1 .73_m2} 11/29/2018 8:15 AM CDT [facility] Comment: GFR Calc Starting 02/26/2018, serum creatinine based estimated GFR (eGFR) will be calculated using the Chronic Kidney Disease Epidemiology Collaboration (CKD-EPI) equation. Calcium 9.4 8.5 - 10.1 mg/dL 11/29/2018 8:15 AM CDT [facility] Blood specimen (specimen) 11/28/2018 9:04 AM CDT 11/28/2018 9:08 AM CDT Parag Pires PA-C LAB - BLOOD OR DERABLES Performing Organization Address City/State/[facility] Co de Phone Number [facility] [address] [place] [address] * DX Hip/Pelvis/Spine (05/16/2017 10:06 AM CERTIFIED MORTICIAN) Anatomical Region Laterality Modality Dexa Bone Mineral Den sity Narrative 05/17/2017 4:13 PM CERTIFIED MORTICIAN BONE DENSITOMETRY [address] [address] 05/16/2017 ?? PATIENT: Vi Donato CHART: [id number] : ??1950 AGE: ??66 year old SEX: ??female REFERRING PROVIDER: ??Parag Pires PA-C ?? PROCEDURE: ??Bone density scanning was performed using DXA technology of the lumbar spine and hip. ??Scanning was performed on a [employer] Gun[employer] scanner. ??Reporting is completed in the form [...] to another DXA performed on a different Narr8 machine on 11/06/2011. IMPRESSION Normal bone mineral [...] RNA Quant and Genotype (03/23/2016 9:49 AM CERTIFIED MORTICIAN) Hepatitis C Antibody Nonreactive Assay performance characteristics have not been established for newborns, infants, and children NR [facility] Blood specimen (specimen) 03/23/2016 9:49 AM CERTIFIED MORTICIAN 03/23/2016 9:50 AM CERTIFIED MORTICIAN Parag Pires PA-C LAB - BLOOD OR DERABLES [facility] [address] [place] [address], [facility] * Colonoscopy - HIM Scan (02/16/2014) Naz Lugo PA-C PROCEDURES from Last 3 Months or Most Recently Relevant to Health Maintenance Care Teams Collator Operator Relationship Specialty Start Date End Date Ceci Kessler MD [facility] [address] [place], [place] [id number] PCP - General Family Medicine 09/02/20
--- OUTSIDE RECORDS SUMMARY | 2023-11-14 06:16 | XMS_ITS | Encounter Summary ---
Author Organization [place] Address [address] [facility] [place] [address] Care Team Providers Care Hygiene Coordinator Name Role Phone Jocelyn Jane PA-C Primary Care Pr ovider Parag Pires PA-C Primary Care Provider Parag Pires PA-C Unavailable + [phone] Parag Pires PA-C Unavailable [phone] Tiffanie Araya DO Unavailable + [phone] Ceci Kessler MD Primary Care Provider + Reason for Visit * Reason Onset Date Comments MyChart Communication 06/07/2015 Encounter Details Date Type Department Care Team (Latest Contact Info) Description 06/07/2015 MyC Medical Advice [facility] [address] [place] [address] Jocelyn Jane PA-C [id number] [place] [address] MyChart Communication Social History Tobacco Use [...] Primary documented in this encounter Care Teams Hygiene Coordinator Relationship Specialty Start Date End Date Jocelyn Jane PA-C [address] [place] [address] PCP - General Physician Order Processing Specialist 09/15/14 03/22/16 Parag Pires PA-C [address] [place] [address] PCP - General Physician Order Processing Specialist - Medical 03/23/16 09/01/20 Parag Pires PA-C [address] [facility] [address] PCP - Assigned PCP 06/17/17 05/14/18 Ceci [facility]ess[facility] MD [facility] & [address] [address] PCP - General Family Medicine 09/02/20 Parag Pires PA-C [address] [place] [address] Assigned PCP 06/17/17 01/20/22 Tiffanie Araya DO [address] [address] Assigned Heart and Vascular Provider 01/02/20 06/01/23 documented as of this encounter
--- OUTSIDE RECORDS SUMMARY | 2023-11-14 06:16 | XMS_ITS | Encounter Summary ---
Author Organization [place] Address [address] [facility] [place] [address] Care Team Providers Care Bar Tender Name Role Phone Parag Pires PA-C Primary Care Provider Parag Pires PA-C Unavailable + [phone] Parag Pires PA-C Unavailable + [phone] Tiffanie Araya DO Unavailable [phone] Ceci Kessler MD Primary Care Provider + Encounter Details Date Type Department Care Team (Late st Contact Info) Description 03/26/2017 MyC Medical Advice [address], [address] [place] [address] Alice Hardin MA Social History [...] documented as of this encounter Care Teams Bar Tender Relationship Specialty Start Date End Date Parag Pires PA-C PCP - General Physician Quality Management Coordinator - Medical 03/23/16 09/01/20 Parag Pires PA-C [address] [address] PCP - Assigned PCP 06/17/17 05/14/18 Ceci Kessler MD [facility] & [address] [address] PCP - General Family Medicine 09/02/20 Parag Pires PA-C [address] [address] Assigned PCP 06/17/17 01/20/22 Tiffanie Araya DO [address] [place] [address] Assigned Heart and Vascular Provider 01/02/20 06/01/23 documented as of this encounter
--- OUTSIDE RECORDS SUMMARY | 2023-11-14 06:16 | XMS_ITS | Encounter Summary ---
Author Organization [place] Address [address] [facility] [facility] [place] [address] Care Team Providers Care Director Cpg Name Role Phone Jocelyn Jane PA-C Primary Care Pr ovider Parag Pires PA-C Primary Care Provider Parag Pires PA-C Unavailable + [phone] Parag Pires PA-C Unavailable [phone] Tiffanie Araya DO Unavailable + [phone] Ceci Kessler MD Primary Care Provider + Encounter Details Date Type Department Care Team (Late st Contact Info) Description 01/12/2015 MyC Medical Advice [facility] [address] [place] [address] Aubrie Summers, EGG CRATER Social History Tobacco Use Types Packs/Day Years [...] on filedocumented in this encounter Care Teams Director Cpg Relationship Specialty Start Date End Date Jocleyn Jane PA-C [address] [place] [address] PCP - General Physician Visual Inspector 09/15/14 03/22/16 Parag Pires PA-C [address] [place] [address] PCP - General Physician Visual Inspector - Medical 03/23/16 09/01/20 Parag Pires PA-C [address] [place] [address] PCP - Assigned PCP 06/17/17 05/14/18 Ceci Kessler MD [facility] & [address] [address] PCP - General Family Medicine 09/02/20 Parag Pires PA-C [address] [place] [address] Assigned PCP 06/17/17 01/20/22 Tiffanie Araya DO [address] [place] [address] Assigned Heart and Vascular Provider 01/02/20 06/01/23 documented as of this encounter
--- OUTSIDE RECORDS SUMMARY | 2023-11-14 06:16 | XMS_ITS | Continuity of Care Document ---
Author Organization [facility] Address [address] [address] [place] [address] Phone Care Team Providers Care Glassware Finisher Name Role Phone Gulshan Dean MD, Bassam Unavailable Unavailabl e Allergies, Adverse Reactions, Alerts Substance Reaction Status Criticality No Known Drug Allergies Active No I nformation Medications Medication Instructions Dosage Effective Dates (start - stop) Status Comments Flovent Diskus 50 mcg/actuation powder for inhalation inhale 2 puff by inhalation route 2 times every day - Active losartan 50 mg tablet take 1 tablet by oral route every day 50 MG - Active MAGNESIUM (unknown strength) pt takes 400 MG Not Available - Active omeprazole 20 mg capsule,delayed release take 1 capsule by oral route every day 30 minutes to 1 hour before a meal 20 MG - Active Xarelto 10 mg tablet take 1 tablet by oral route every day 10 MG - Active triamcinolone acetonide 0.1 % topical cream apply by topical route 2 times every day a thin layer to the affected area(s) 0.00 - Active metoprolol succinate ER 50 mg tablet,extended release 24 hr take 1 tablet by oral route every day 50 MG - Active Xarelto 20 mg tablet take 1 tablet by oral route every day with the evening meal 20 MG - Active Multi For Her 18 mg iron-600 mcg-80 mcg tablet - Active Calcium 600 + D(3) 600 mg calcium-200 unit capsule take 1 Capsule by Oral route every day 1 Capsule - Active Procedures Procedure Date Offic/outpt E&m New Mod-hi Colonoscopy Flex; W/remov Les- 14 Level Ii-surg Path Gross/micro 14 Advance Directives Directive Yes / No Effective Date File Name No Information Encounters Encounter Description Practice Location Reason(s) For Visit Diagnoses Date Provider Providers Copied on Encounter [facility], [address] [address], [place], [id number], [place] tel:[phone] [facility] No Information 2 Gulshan Banegas. [address] [facility], [address], [id number], [place]. tel:[phone] Offic/outpt E&m [facility] [place], [address] [address], [place], [id number], [place] tel:[phone] [facility] Comment (chief complaint) Chronic diarrheaHeartb urn 2 No Information Referring Provider: Ceci Kessler MD, [address] [place], [address]. tel:[phone] [facility], [address] [address], [place], [id number], [place] tel:[phone] [facility] No Information 2 Gulshan Banegas. [address] [facility], [facility] [address], [place], [id number], [place]. tel:[phone] [facility], [address] [address], [place], [id number], [place] tel:[phone] [facility] Polyp of colonColon Cancer ScreeningDiges tive Neoplasm Nos 4 Dorothy Ugarte. [address] [facility], [facility] [address], [place], [place], [id number], [place]. tel:[phone] Referring Provider: Referral Self, USE FOR SELF REFERRALS. Family History Family Member Type Diagnosis Age At Onset Brother Problem (finding) Alive and well Brother Problem (finding) colitis Brother Problem (finding) Father Problem (finding) gallbladder disease Son Problem (finding) Alive and well Father Problem (finding) Brother Problem (finding) malignant neop lasm of lung (Cause Of ) Mother Problem (finding) Alive and well Immunizations Vaccine Date Status Comments SARS-COV-2 (COVID-19) vaccin e, mRNA, spike protein, LNP, preservative free, 30 mcg/0.3mL dose administered Note: [facility] bi-direct ional interface ; Source: Other Registry influenza, high-dose seasona l, quadrivalent, .7mL dose, preservative free administered Note: [facility] bi-direct ional interface ; Source: Other Registry tetanus toxoid, reduced diphtheria toxoid, and acellular pertussis vaccine, adsorbed administered Note: [facility] b i-directional interface ; Source: Other Registry SARS-COV-2 (COVID-19) vaccin e, mRNA, spike protein, LNP, preservative free, 30 mcg/0.3mL dose administered Note: [facility] bi-direct ional interface ; Source: Other Registry SARS-COV-2 (COVID-19) vaccin e, mRNA, spike protein, LNP, preservative free, 30 mcg/0.3mL dose administered Note: [facility] bi-direct ional interface ; Source: Other Registry influenza, high-dose seasona l, quadrivalent, .7mL dose, preservative free administered Note: [facility] bi-direct ional interface ; Source: Other Registry Pneumovax 23 administered Note: [facility] bi-d irectional interface ; Source: Other Registry influenza, high dose seasona l, preservative-free administered Note: [facility] bi-direct ional interface ; Source: Other Registry zoster vaccine recombinant administered N ote: [facility] bi-directional interface ; Source: Other Registry zoster vaccine recombinant administered N ote: [facility] bi-directional interface ; Source: Other Registry Prevnar 13 administered Note: [facility] bi-d irectional interface ; Source: Other Registry influenza, high dose seasona l, preservative-free administered Note: [facility] bi-direct ional interface ; Source: Other Registry Influenza administered Note: [facility] bi-d irectional interface ; Source: Other Registry seasonal influenza, intrader mal, preservative free administered Note: [facility] bi-direct ional interface ; Source: Other Registry seasonal influenza, intrader mal, preservative free administered Note: [facility] bi-direct ional interface ; Source: Other Registry tetanus toxoid, reduced diphtheria toxoid, and acellular pertussis vaccine, adsorbed administered Note: [facility] b i-directional interface ; Source: Other Registry Influenza, seasonal, injectable administe red Note: [facility] bi- directional interface ; Source: Other Registry Payers Payer name Insurance type Covered republican ID Authoriza tiermelinda(s) [employer] Medicare MB [id number] Social History Type Description Quantity Date Captured Comments Sex Female Smoking Status No Information Chief Complaint And Reason For Visit No Information Reason For Referral Reason For Referral No Information History Of Present Illness Encounter Date Complaint History Of Prese nt Illness Comment Radha Phan is a very pleasant 70-year-old female who requested referral to our office from Dr. Ceci Kessler for evaluation of persistent diarrhea/loose stools and symptoms of heartburn. Ms. Phan has a significant past medical history of hypertension, atrial fibrillation (Xarelto) morbid obesity, obstructive sleep apnea, and chronic gastroesophageal reflux disease. Her primary concern today is chronic diarrhea that she describes as a daily loose stool that will land in a pile. She denies watery, bloody or black tarry stools. She reports most often she will only have 1 stool per day however intermittently she will have episodes where she will have up to 4 or 5 stools occurring 1-2x/month. Approximately 4 years ago she had stool cultures completed at [facility], which per patient's report, came back negative for any infection. She questioned the possibility of celiac disease, reports her father has celiac sprue. Per pt report lab work was obtained at her last visit 09/01/21 with PCP and was negative for celiac. She denies specific food intolerances or sensitivities; she reports she has avoided gluten in the past notes raw vegetables and lettuce will perpetuate soft loose stool almost immediately following eating. She denies any recent infection, travel exposure, or antibiotic therapy. She does have do due to some urgency with diarrhea and urinary tract in urinary incontinence she does have history of UTIs in the past. When questioned she does not feel as though she is completely emptying her colon even though there is a large amount of loose stool. She has not trialed anything in regards to [id number] antidiarrheals. Review of outside records she had a complete workup complete blood work including electrolytes, liver function tests, CBC all WNL. 08/12/20 colonoscopy reviewed and significant for removal of a total of 5 polyps noted in the cecum, descending colon, sigmoid colon and rectum. The report does not note that random biopsies were obtained to evaluate for possible microscopic colitis. Patient denies abdominal cramping associated with the stools. She denies fever, chills or unintentional weight loss, hematochezia, decreased appetite or nausea or vomiting. Secondarily patient does have history of chronic gastroesophagitis reflux disease. She reports she has had heartburn for years normally would use TUMS on a quite frequent basis and then independently treated herself with gjti-urp-nkltxti acid reducers; approximately 1 year ago she began getting a prescription of omeprazole 20 milligrams from her primary care provider. She reports overall symptoms associated with this are well controlled. She reports prior to beginning PPI therapy she would experience regurgitation, mid central chest pain, heartburn. She does note that she continues to avoid tomato based fried fatty foods, large meals, lying down after meals, eating late at night, and has the HOB elevatedSocial history patient reports occasional use of nonsteroidal anti-inflammatories nothing on a daily basis she is a nonsmoker and rarely uses alcohol Family history: Dad with celiac sprue, brother with colitis. Otherwise denies colon cancer or other autoimmune disorders. Patient has never had an upper endoscopy. Functional Status Date Functional Assessmen t No Information Instructions Date Instruction Additional Infor pedro Bowel cleanse with Christine Boudreaux the bowel cleanse start daily Miralax 1 capful a day and fiber supplement (Citrucel or Benefiber)Drink plenty of water to avoid dehydration.Consider elimination diet/low FODMAP diet.We will schedule a follow up visit in 4-6 weeks. If your symptoms are well controlled you can cancel this appointment.If you have any questions please let me know through the patient portal or my patient coordinator [phone] Related to Chronic diarrhea Bowel Cleanse Related to Chron ic diarrhea Miralax instructions Related to Chronic diarrhea Low FODMAPS diet Related to Validation Architect elva diarrhea Colon Cancer Prevention Related to Polyp of colon Colon Polyps Related to Polyp of colon Assessments Type Assessment Date No Information Patient Care Teams Name Effective Dates (start - stop) Status Members No Information
--- OUTSIDE RECORDS SUMMARY | 2023-11-14 06:16 | XMS_ITS | Encounter Summary ---
Author Organization [place] Address [address] [place] [address] Care Team Providers Care Heating And Ventilating Tender Name Role Phone Parag Pires PA-C Unavailable + [phone] Tiffanie Araya DO Unavailable + [phone] Ceci Kessler MD Primary Care Provider + Encounter Details Date Type Department Care Team (Late st Contact Info) Description 07/29/2021 External Order Results [facility] [address] [place] [address] Outside, Provider Social History Tobacco Use Types [...] - BLOOD ORDERABL ES Performing Organization Address [facility]/ZIP Co de Phone Number BREEZE PFT NON-INTERFACED (ONBASE SCANS) * INR (07/29/2021 1:10 PM CDT) INR (External) 0.96 0.91 - 1.10 NON-INTERFACED (ONBASE SCANS) Blood 07/29/2021 1:10 PM CDT Narrative BREEZE PFT - 11/10/2021 9:04 AM CDT Verified by Shahid Leon on 11/10/2021. Provider Outside LAB - BLOOD ORDERABL ES Performing Organization Address [facility] Co de Phone Number BREEZE PFT NON-INTERFACED (ONBASE SCANS) * UA with Microscopic (07/29/2021 1:10 PM CDT) Color Urine (External) YELLOW YELLOW NON-INTERFAC ED (ONBASE SCANS) Appearance Urine (External) CLEAR CLEAR NON-INTERFAC ED (ONBASE SCANS) Glucose Urine (External) NEGATIVE NEGATIVE NON-INTERFAC ED (ONBASE SCANS) Bilirubin Urine (External) NEGATIVE NEGATIVE NON-INTERFAC ED (ONBASE SCANS) Ketones Urine (External) NEGATIVE NEGATIVE NON-INTERFAC ED (ONBASE SCANS) Specific [place] Urine (External) 1.010 1.000 - 1.030 NON-INTERFAC [...] NON-INTERFACE D (ONBASE SCANS) GFR Estimated (External) 69.28106 ml/min NON-INTERFACE D (ONBASE SCANS) Sodium (External) [...] - BLOOD ORDERABL ES Performing Organization Address City/[facility]/ZIP Co de Phone Number BREEZE PFT [...] - BLOOD ORDERABL ES Performing Organization Address [facility] Co de Phone Number BREEZE PFT NON-INTERFACED (ONBASE SCANS) * (ABNORMAL) N terminal pro BNP outpatient (07/29/2021 1:10 PM CDT) N-Terminal Pro BNP (External) 431(H) 0 - 125 pg/mL NON-INTERFACED (ONBASE SCANS) Blood 07/29/2021 1:10 PM CDT Narrative BREEZE PFT - 11/10/2021 9:04 AM CDT Verified by Shahid Leon on 11/10/2021. Provider Outside LAB - BLOOD ORDERABL ES Performing Organization Address [facility] de Phone Number BREEZE PFT NON-INTERFACED (ONBASE SCANS) * External Culture Results (07/29/2021 12:32 PM CDT) Scan Culture Results (External) See Scanned Report NON-INTERFACE D (ONBASE SCANS) Comment:URINE CULTURE 07/29/2021 12:3 2 PM CDT Narrative BREEZE PFT - 11/10/2021 9:04 AM CDT Verified by Shahid Leon on 11/10/2021. Provider Outside LABORATORY Performing Organization Address [facility] Co de Phone Number BREEZE PFT NON-INTERFACED (ONBASE SCANS) documented in this encounter Visit Diagnoses Not on filedocumented in this encounter Additional Health Concerns Assessment Noted Time PHQ-9 Depression Total Score: 0 09/22/19 17 7:24 AM CDT documented as of this encounter Care Teams Heating And Ventilating Tender Relationship Specialty Start Date End Date Ceci Kessler MD [facility] [address] [place] [address] PCP - General Family Medicine 09/02/20 Parag Pires PA-C [id number] [place] [address] Assigned PCP 06/17/17 01/20/22 Tiffanie Araya DO [address] [place] [address] Assigned Heart and Vascular Provider 01/02/20 06/01/23 documented as of this encounter
--- OUTSIDE RECORDS SUMMARY | 2023-11-14 06:16 | XMS_ITS | Clinical Summary ---
Author Organization [place] Address [address] [place] [address] Care Team Providers Care Machined Parts Quality Inspector Name Role Phone Ceci Kessler MD Primary [...] tablet by mouth 2 times daily Active [place]-3 Fatty Acids (OMEGA-3 FISH OIL PO) Take [...] Active fluticasone (FLONASE) 50 MCG/ACT nasal spray Massey 1 spray into both nostrils as needed [...] SCREEN 1950 sDNA (Cologuard) 1950 RSV VACCINE (1 - 1-dose 60+ series) 2012 FALL RISK ASSESSMENT 01/17/2020 01/16/2019, 11/28/2018, 11/28/2018, Additional history exists LIPID 08/25/2020 08/26/2019, 08/2018, 12/06/2017, Additional history exists MEDICARE ANNUAL WELLNESS VISIT 08/31/2021 08/31/2020, 07/08/2020, 07/08/2020, Additional history exists GLUCOSE 11/28/2021 11/28/2018, 08/10, 01/22/2018, Additional history exists DEXA 05/16/2022 05/16/2017, 09/2011, 03/20/2006 COVID-19 Vaccine ( season) 2022 09/09/2022, 01/12/2022, 10/04/2021, Additional history exists PHQ-2 (once per calendar year) 2023 01/16/2019, 11/28/2018, 12/06/2017, Additional history exists MAMMO SCREENING 09/01/2023 08/31/2021, 0803/2019, 10/18/2017, Additional history exists INFLUENZA VACCINE (#1) 2023 , 12/09/2020, 12/17/2019, Additional history exists ADVANCE CARE PLANNING 01/28/2024 01/27/2019 , 12/06/2017, 10/20/2010, Additional history exists COLONOSCOPY 08/12/2025 08/12/2020, 10/2013, 01/04/2004 COLORECTAL CANCER SCREENING 08/12/2025 DTAP/TDAP/TD IMMUNIZATION [...] this topic Medical Devices Implanted Type Area Camera Machinist Device Identifier Shelf Expiration Date Model / Serial / Lot Kit Nrstm Axonics Caro Lead Curved Stylet 1201 - [id number] Implanted:Qty : 1 on 06/28/2023 by Marco Padlila MD at [facility] Leads N/A: Bladder [employer] [id number] 09/20/2025 1201 / [id number] / Imp Nrstm Axonics Snm System 4101 - [id number] Implanted:Qty : 1 on 06/28/2023 by Marco Padilla MD at [facility] Neurology device N/A: Bladder [employer] [id number] 01/26/2024 4101 / [id number] / Sns Lead 28cm Implanted:Qty : 1 on 10/26/2014 by Sukhjinder Wolf MD at [facility] N/A: Sacrum [employer] 08/18/2018 3889 / / [id number] Stimulator Neuro Interstim Ii 3058 Implanted:Qty : 1 on 10/26/2014 by Sukhjinder Wolf MD at [facility] N/A: Sacrum [employer] 02/07/2016 [id number] / [id number] / Procedures Procedure Name Priority Date/Time Associated Diagnosis Comments MAMMOGRAM - HIM SCAN 08/31/2021 1:36 PM CDT LIPID PROFILE Routine 08/26/2019 8:33 AM CDT Atrial fibrillation, unspecified type (H) Essential hypertension Paroxysmal atrial fibrillation (H) Benign essential hypertension Mixed hyperlipidemia BASIC METABOLIC PANEL Routine 11/28/2018 9:04 AM CDT Preop general physical exam DX BONE DENSITY Routine 05/16/2017 10:06 AM ACETYLENE OPERATOR Screening for osteoporosis HEPATITIS C SCREEN REFLEX TO HCV RNA QUANT AND GENOTYPE Routine 03/23/2016 9:49 AM ACETYLENE OPERATOR Need for hepatitis C screening test COLONOSCOPY - HIM SCAN Routine 02/16/2014 from Last 3 Months or Most Recently Relevant to Health Maintenance Results * MAMMOGRAM - HIM SCAN (08/31/2021 1:36 PM CDT) Anatomical Region Laterality Modality Other 08/31/2021 1:36 PM CDT Provider Outside IM MAMMOGRAPHY ANTELMO PAGAN * (ABNORMAL) Lipid Profile (08/26/2019 8:33 AM CDT) Cholesterol 206(H) <200 mg/dL 08/26/2019 12:46 PM CDT [facility] Comment:Desirable: <200 mg/d l Triglycerides 84 <150 mg/dL 08/26/2019 12:57 PM CDT [facility] HDL Cholesterol 63 >49 mg/dL 0 1:00 PM CDT [facility] LDL Cholesterol Calculated 126(H) <100 mg/dL 08/26/2019 1:00 PM CDT [facility] Comment: Above desirable: ??100-129 mg/dl Borderline High: ??130-159 mg/dL High: ? 160-189 mg/dL Very high: ? >189 mg/dl Non HDL Cholesterol 143(H) <130 mg/dL 08/26/2019 1:00 PM CDT [facility] Comment: Above Desirable: ??130-159 mg/dl Borderline high: ??160-189 mg/dl High: ? 190-219 mg/dl Very high: ? >219 mg/dl Blood specimen (specimen) 08/26/2019 8:33 AM CDT 08/26/2019 8:34 AM CDT Tiffanie Novakle LAB - BLOOD ORDERABLES [facility] [address] [place] [address] * Basic metabolic panel (11/28/2018 9:04 AM CDT) Sodium 139 133 - 144 mmol/L 11/29/2018 8:06 AM CDT [facility] Potassium 4.5 3.4 - 5.3 mmol/L 11/29/2018 8:06 AM CDT [facility] Chloride 105 94 - 109 mmol/L 11/29/2018 8:06 AM CDT [facility] Carbon Dioxide 29 20 - 32 mmol/L 11/29/2018 8:15 AM CDT [facility] Anion Gap 5 3 - 14 mmol/L 11/29/2018 8:15 AM CDT [facility] Glucose 94 70 - 99 mg/dL 11/29/2018 8:15 AM CDT [facility] Urea Nitrogen 16 7 - 30 mg/dL 11/29/2018 8:15 AM T [facility] Creatinine 0.81 0.52 - 1.04 mg/dL 11/29/2018 8:15 AM T [facility] GFR Estimate 76 >60 mL/min/{1 .73_m2} 11/29/2018 8:15 AM T [facility] Comment: Non GFR Calc Starting 02/26/2018, serum creatinine based estimated GFR (eGFR) will be calculated using the Chronic Kidney Disease Epidemiology Collaboration (CKD-EPI) equation. GFR Estimate If Black 88 >60 mL/min/{1 .73_m2} 11/29/2018 8:15 AM T [facility] Comment: GFR Calc Starting 02/26/2018, serum creatinine based estimated GFR (eGFR) will be calculated using the Chronic Kidney Disease Epidemiology Collaboration (CKD-EPI) equation. Calcium 9.4 8.5 - 10.1 mg/dL 11/29/2018 8:15 AM T [facility] Blood specimen (specimen) 11/28/2018 9:04 AM CDT 11/28/2018 9:08 AM CDT Parag Pires PA-C LAB - BLOOD OR DERABLES Performing Organization Address [facility]/State/ZIP Co de Phone Number [facility] [address] [place] [address] * DX Hip/Pelvis/Spine (05/16/2017 10:06 AM ACETYLENE OPERATOR) Anatomical Region Laterality Modality Dexa Bone Mineral Den sity Narrative 05/17/2017 4:13 PM ACETYLENE OPERATOR BONE DENSITOMETRY [address] [address] 05/16/2017 ?? PATIENT: Vi Donato CHART: [id number] : ??1950 AGE: ??66 year old SEX: ??female REFERRING PROVIDER: ??Parga Pires PA-C ?? PROCEDURE: ??Bone density scanning was performed using DXA technology of the lumbar spine and hip. ??Scanning was performed on a [employer] scanner. ??Reporting is completed in the form [...] to another DXA performed on a different [employer] App machine on 11/06/2011. IMPRESSION Normal bone mineral [...] up can be considered in 5 years. Ciara. Michael, M.D. Electronically signed ? Parag Pires PA-C IMG DEXA ORDER [facility] * Hepatitis C Screen Reflex to HCV RNA Quant and Genotype (03/23/2016 9:49 AM ACETYLENE OPERATOR) Hepatitis C Antibody Nonreactive Assay performance characteristics have not been established for newborns, infants, and children NR [facility] Blood specimen (specimen) 03/23/2016 9:49 AM ACETYLENE OPERATOR 03/23/2016 9:50 AM ACETYLENE OPERATOR Parag Pires PA-C LAB - BLOOD OR DERABLES [facility] [address] [place], [place] [id number] [place] [address] * Colonoscopy - HIM Scan (02/16/2014) Naz Lugo PA-C PROCEDURES from Last 3 Months or Most Recently Relevant to Health Maintenance Care Teams Machined Parts Quality Inspector Relationship Specialty Start Date End Date Ceci Kessler MD [facility] [address] [place] [address] PCP - General Family Medicine 09/02/20
--- OUTSIDE RECORDS SUMMARY | 2023-11-14 06:16 | XMS_ITS | Encounter Summary ---
Author Organization [place] Address [address] [place] [address] Care Team Providers Care Front Desk Host Name Role Phone Parag Pires PA-C Primary Care Provider Parag Pires PA-C Unavailable + [phone] Parag Pires PA-C Unavailable + [phone] Tiffanie Araya DO Unavailable [phone] Ceci Kessler MD Primary Care Provider + Encounter Details Date Type Department Care Team (Late st Contact Info) Description 04/17/2017 MyC Medical Advice [facility] [address] [place] [address] Janel Mueller PA-C [address] [place] [address] Social History Tobacco Use Types [...] documented as of this encounter Care Teams Front Desk Host Relationship Specialty Start Date End Date Parag Pires PA-C PCP - General Physician Nurse Transition - Medical 03/23/16 09/01/20 Parag Pires PA-C [address] [place] [address] PCP - Assigned PCP 06/17/17 05/14/18 Ceci Kessler MD [facility] [address] [address] PCP - General Family Medicine 09/02/20 Parag Pires PA-C [address] [address] Assigned PCP 06/17/17 01/20/22 Tiffanie Araya DO [address] [place] [address] Assigned Heart and Vascular Provider 01/02/20 06/01/23 documented as of this encounter
--- OUTSIDE RECORDS SUMMARY | 2023-11-14 06:16 | XMS_ITS | Encounter Summary ---
Author Organization [place] Address [address] [facility] [place] [address] Care Team Providers Care Model Builder Name Role Phone Parag Pires PA-C Primary Care Provider Parag Pires PA-C Unavailable + [phone] Tiffanie Araya DO Unavailable + [phone] Ceci Kessler MD Primary Care Provider + Encounter Details Date Type Department Care Team (Late st Contact Info) Description 03/14/2019 MyC Medical Advice [address], [address] [place] [address] Gilma Lopez, EVELIO Social History [...] documented as of this encounter Care Teams Model Builder Relationship Specialty Start Date End Date Parag Pires PA-C PCP - General Physician Multimedia Project Manager - Medical 03/23/16 09/01/20 Ceci Kessler MD [facility] & [address] [address] PCP - General Family Medicine 09/02/20 Parag Pires PA-C [address] [place] [address] Assigned PCP 06/17/17 01/20/22 Tiffanie Araya DO [address] [place] [address] Assigned Heart and Vascular Provider 01/02/20 06/01/23 documented as of this encounter
--- OUTSIDE RECORDS SUMMARY | 2023-11-14 06:16 | XMS_ITS | Encounter Summary ---
Author Organization [place] Address [address] [facility] [place] [address] Care Team Providers Care Factory Representative Name Role Phone Jocelyn Jane PA-C Primary Care Pr ovider Parag Pires PA-C Primary Care Provider Parag Pires PA-C Unavailable + [phone] Parag Pires PA-C Unavailable +[phone] Tiffanie Araya DO Unavailable + [phone] Ceci Kessler MD Primary Care Provider + Reason for Visit * Reason Onset Date Comments MyChart Communication 04/26/2015 Encounter Details Date Type Department Care Team (Latest Contact Info) Description 04/26/2015 MyC Medical Advice [facility] [id number] [place] [address] Jocelyn Jane PA-C [address] [place] [address] MyChart Communication Social History Tobacco Use [...] Please see my chart Kathy Garduno RN [facility] FOREMAN documented in this encounter Plan of Treatment Not on file documented as of this encounter Visit Diagnoses Not on filedocumented in this encounter Care Teams Factory Representative Relationship Specialty Start Date End Date Jocelyn Jane PA-C [address] [place] [address] PCP - General Physician Automation Qtp Tester 09/15/14 03/22/16 Parag Pires PA-C [address] [place] [address] PCP - General Physician Automation Qtp Tester - Medical 03/23/16 09/01/20 Parag Pires PA-C [address] [place] [address] PCP - Assigned PCP 06/17/17 05/14/18 Ceci K[place]ler MD [facility] [address] [place] [address] PCP - General Family Medicine 09/02/20 Parag Pires PA-C [address] [place] [address] Assigned PCP 06/17/17 01/20/22 Tiffanie Araya DO [address] [place] [id number] Assigned Heart and Vascular Provider 01/02/20 06/01/23 documented as of this encounter
--- OUTSIDE RECORDS SUMMARY | 2023-11-14 06:16 | XMS_ITS | Encounter Summary ---
Author Organization [place] Address [address] [facility] [place] [address] Care Team Providers Care Waste Cotton Cleaner Name Role Phone Parag Pires PA-C Primary Care Provider Parag Pires PA-C Unavailable + [phone] Parag Pires PA-C Unavailable + [phone] Tiffanie Araya DO Unavailable +[phone] Ceci K[place]ler MD Primary Care Provider + Encounter Details Date Type Department Care Team (Late st Contact Info) Description 03/19/2017 MyC Medical Advice [address], [address] [place] [address] Alice Hardin MA Social History [...] documented as of this encounter Care Teams Waste Cotton Cleaner Relationship Specialty Start Date End Date Parag Pires PA-C PCP - General Physician Shell Core And Molding Supervisor - Medical 03/23/16 09/01/20 Parag Pires PA-C [address] [place] [address] PCP - Assigned PCP 06/17/17 05/14/18 Ceci Kessler MD [facility] & [address] [address] PCP - General Family Medicine 09/02/20 Parag Pires PA-C [address] [place] [address] Assigned PCP 06/17/17 01/20/22 Tiffanie Araya DO [address] [place] [address] Assigned Heart and Vascular Provider 01/02/20 06/01/23 documented as of this encounter
--- OUTSIDE RECORDS SUMMARY | 2023-11-14 06:16 | XMS_ITS | Encounter Summary ---
Author Organization [place] Address [address] [place] [address] Care Team Providers Care Car Examiner Name Role Phone Parag Pires PA-C Primary Care Provider Parag Pires PA-C Unavailable + [phone] Tiffanie Araya DO Unavailable + [phone] Ceci K[place]ler MD Primary Care Provider + Reason for Visit * Reason Onset Date Comments Refill Request 03/10/2019 Tramadol 50mg Encounter Details Date Type Department Care Team (Late st Contact Info) Description 03/10/2019 MyC Medical Advice [address], [address] [place] [address] Parag Pires PA-C [address] [place], [place] [id number] Refill Request (Tramadol 50mg) Social History Tobacco [...] Tolterodine ER 4mg rx was sent to [facility] on 01/16/2019 for #90 with 1 additional refill. Ines Green RN RACT ANALYST * Telephone Encounter - Shruthi Burger RN - 03/13/2019 3:17 PM CONTRACT ANALYST Routing refill request to provider for review/approval because: Tramadol: Drug [place] [facility] [place] Requested Prescriptions Pending Prescriptions Disp [...] no refill protocol information for this order RACT ANALYST documented in this encounter Plan of Treatment Not on file documented as of this encounter Visit Diagnoses Diagnosis Urge incontinence of urine Urge incontinence Chronic pain of both knees documented in this encounter Additional Health Concerns Assessment Noted Time PHQ-9 Depression Total Score: 0 09/22/19 17 7:24 AM CDT documented as of this encounter Care Teams Car Examiner Relationship Specialty Start Date End Date Parag Pires PA-C PCP - General Physician Dat Instructor - Medical 03/23/16 09/01/20 Ceci K[place]ler MD [facility] & [address] [address] PCP - General Family Medicine 09/02/20 Parag Pires PA-C [address] [place] [address] Assigned PCP 06/17/17 01/20/22 Tiffanie Araya DO [address] [place] [address] Assigned Heart and Vascular Provider 01/02/20 06/01/23 documented as of this encounter
--- OUTSIDE RECORDS SUMMARY | 2023-11-14 06:17 | XMS_ITS | Encounter Summary ---
Author Organization [place] Address [address] [facility] [place] [address] Care Team Providers Care Assistant Laboratory Director Name Role Phone Radha Keating MD Primary Care Provider Naz Lugo PA-C Primary Care Provid er Jocelyn Jane-C Primary Care Pr ovider Parag Pires PA-C Primary Care Provider Parag Pires PA-C Unavailable [phone] Parag Pires-C Unavailable + [phone] Tiffanie Araya DO Unavailable + [phone] Ceci K[place]ler MD Primary Care Provider + Encounter Details Date Type Department Care Team (Late st Contact Info) Description 10/27/2010 Office Visit-[facility] [place] [address] [facility] [address] [place] [address] Morena Mota MD [facility] [place] [address] [facility] [address] [place], [place] [id number] Social History Tobacco Use Types Packs/Day Years [...] Progress Note Created by: Morena Mota M.D. [id number] DATE: 10/27/2010 VI DONATO DATE OF : 1950 AGE: [age] years old Referring Physician: ELIEZER ROMEO Referring Clinic: [facility] CURRENT DIAGNOSES 1. 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 F/U with Any CLINICAL EDITOR 7-14 days 3. Holter Monitor Today, 24-Hour Morena Mota M.D. documented in this encounter Plan of Treatment Not on file documented as of this encounter Visit Diagnoses Not on filedocumented in this encounter Care Teams Assistant Laboratory Director Relationship Specialty Start Date End Date Radha Keating MD PCP - General Family Practice 09/05/10 10/01/11 Naz Lugo PA-C [address] [address] PCP - General Family Practice 10/02/11 09/14/14 Jocelyn Jane PA-C [address] [place] [address] PCP - General Physician Business Resiliency Manager 09/15/14 03/22/16 Parag Pires PA-C [address] [place] [address] PCP - General Physician Business Resiliency Manager - Medical 03/23/16 09/01/20 Parag Pires PA-C [address] [place] [address] PCP - Assigned PCP 06/17/17 05/14/18 Ceci Kessler MD [facility] & [address] [address] PCP - General Family Medicine 09/02/20 Parag Pires PA-C [address] [place] [address] Assigned PCP 06/17/17 01/20/22 Tiffanie Araya DO [address] [place] 745[address] Assigned Heart and Vascular Provider 01/02/20 06/01/23 documented as of this encounter
--- OUTSIDE RECORDS SUMMARY | 2023-11-14 06:17 | XMS_ITS | Encounter Summary ---
Author Organization [place] Address [address] [facility] [place] [address] Care Team Providers Care Coal Loader Name Role Phone Isabell Keating MD Primary Care Provider Naz Lugo PA-C Primary Care Provid er Jocelyn Jane-C Primary Care Pr ovider Parag Pires PA-C Primary Care Provider Parag Pires PA-C Unavailable + [phone] Parag PiresC Unavailable + [phone] Tiffanie Araya DO Unavailable + [phone] Ceci Kessler MD Primary Care Provider + Encounter Details Date Type Department Care Team (Late st Contact Info) Description 03/20/2011 Office Visit-[facility] [place] [address] [facility] [address] [place] [address] Jessica Franks E, BATTERY CHECKER GUIDANCE DIRECTOR [address] [facility] [address] [place] [id number] Social History Tobacco Use Types Packs/Day Years [...] Progress Note Created by: Jessica Franks N.P. [id number] DATE: 03/20/2011 RADHA DONATO DATE OF : 1950 AGE: [age] years old Referring Physician: ISABELL KEATING Referring Clinic: [facility] CURRENT DIAGNOSES 1. 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 - [place]; Hours Worked - 30 hours per week; [...] hr, 1 1/2 tabs daily, #135 (One [place] Thirty Five) MEDICATIONS REFILLED/STOPPED TODAY: metoprolol succinate [...] on filedocumented in this encounter Care Teams Coal Loader Relationship Specialty Start Date End Date Isabell Keating MD PCP - General Family Practice 09/05/10 10/01/11 Naz Lugo PA-C [address] [address] PCP - General Family Practice 10/02/11 09/14/14 Jocelyn Jane PA-C [address] [place] [address] PCP - General Physician Urologist Physician 09/15/14 03/22/16 Parag Pires PA-C [address] [place] [address] PCP - General Physician Urologist Physician - Medical 03/23/16 09/01/20 Parag Pires PA-C [address] [place] [address] PCP - Assigned PCP 06/17/17 05/14/18 Ceci Kessler MD [facility] & [address] [address] PCP - General Family Medicine 09/02/20 Parag Pires PA-C [address] [place] [address] Assigned PCP 06/17/17 01/20/22 Tiffanie Araya DO [address] [place] [address] Assigned Heart and Vascular Provider 01/02/20 06/01/23 documented as of this encounter
--- OUTSIDE RECORDS SUMMARY | 2023-11-14 06:17 | XMS_ITS | Encounter Summary ---
Author Organization [place] Address [address] [facility] [place] [address] Care Team Providers Care Clinical Trial Educator Name Role Phone Radha Keating MD Primary Care Provider Naz Lugo PA-C Primary Care Provid er Jocelyn Jane-Grant Primary Care Pr ovider Parag Pires PA-C Primary Care Provider Parag Pires PA-C Unavailable +[phone] Parag Pires PA-C Unavailable + [phone] Tiffanie Araya DO Unavailable + [phone] Ceci K[place]ler MD Primary Care Provider + Encounter Details Date Type Department Care Team (Late st Contact Info) Description 09/29/[address] [address] Emilia Lr Social History Tobacco [...] on filedocumented in this encounter Care Teams Clinical Trial Educator Relationship Specialty Start Date End Date Radha Keating MD PCP - General Family Practice 09/05/10 10/01/11 Naz Lugo PA-C [address] [address] PCP - General Family Practice 10/02/11 09/14/14 Jocelyn Jane PA-C [address] [place] [address] PCP - General Physician Telecommunications Specialist 09/15/14 03/22/16 Parag Pires PA-C [address] [place] [address] PCP - General Physician Telecommunications Specialist - Medical 03/23/16 09/01/20 Parag Pires PA-C [address] [place] [address] PCP - Assigned PCP 06/17/17 05/14/18 Ceci Kessler MD [facility] & [address] [address] PCP - General Family Medicine 09/02/20 Parag Pires PA-C [address] [place] [address] Assigned PCP 06/17/17 01/20/22 Tiffanie Araya DO [address] [place] [address] Assigned Heart and Vascular Provider 01/02/20 06/01/23 documented as of this encounter
--- OUTSIDE RECORDS SUMMARY | 2023-11-14 06:17 | XMS_ITS | Encounter Summary ---
Author Organization [place] Address [address] [facility] [place] [address] Care Team Providers Care Kosher Dietary Service Manager Name Role Phone Naz Lugo PA-C Primary Care Provid er Jocelyn Jane PA-C Primary Care Pr ovider Parag Pires PA-C Primary Care Provider Parag Pires PA-C Unavailable +[phone] Parag Pires PA-C Unavailable +[phone] Tiffanie Araya DO Unavailable + [phone] Ceci Kessler MD Primary Care Provider + Reason for Visit * Reason Onset Date Comments MyChart Communication 12/22/2013 Encounter Details Date Type Department Care Team (Latest Contact Info) Description 12/22/2013 MyC Medical Advice [address] [address] Naz Lugo PA-C [address] [id number] MyChart Communication Social History Tobacco Use Types [...] on filedocumented in this encounter Care Teams Kosher Dietary Service Manager Relationship Specialty Start Date End Date Naz Lugo PA-C [address] [facility] [address] [place] [address] PCP - General Family Practice 10/02/11 09/14/14 Jocelyn Jane PA-C [address] [place] [address] PCP - General Physician Mixing Tank Operator 09/15/14 03/22/16 Parag Pires PA-C [address] [place] [address] PCP - General Physician Mixing Tank Operator - Medical 03/23/16 09/01/20 Parag Pires PA-C [address] [place] [address] PCP - Assigned PCP 06/17/17 05/14/18 Ceci Kessler MD [facility] & [address] [address] PCP - General Family Medicine 09/02/20 Parag Pires PA-C [address] [place] [address] Assigned PCP 06/17/17 01/20/22 Tiffanie Araya DO [address] [place] [address] Assigned Heart and Vascular Provider 01/02/20 06/01/23 documented as of this encounter
--- OUTSIDE RECORDS SUMMARY | 2023-11-14 06:17 | XMS_ITS | Encounter Summary ---
Author Organization [place] Address [address] [place] [address] Care Team Providers Care House Mover Name Role Phone Elvis Lugo PA-C Primary Care Provid er Jocelyn Jane PA-C Primary Care Pr ovider Parag Pires PA-C Primary Care Provider Parag Pires PA-C Unavailable +[phone] Parag Pires PA-C Unavailable +[phone] Tiffanie Araya DO Unavailable + [phone] Ceci Kessler MD Primary Care Provider + Encounter Details Date Type Department Care Team (Late st Contact Info) Description 09/05/2012 Office Visit-[facility] [place] [address] [facility] [address] [place] [address] Joleen Pineda APRN CNP Social [...] Progress Note Created by: Joleen Pineda. N.P. #[id number] DATE: 09/05/2012 VI DONATO DATE OF : 1950 AGE: [age] years old Referring Physician: ELVIS LEIVA Referring Clinic: [facility] CURRENT DIAGNOSES 1. 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 - [place]; Hours Worked - 30 hours per week; [...] on filedocumented in this encounter Care Teams House Mover Relationship Specialty Start Date End Date Elvis Lugo PA-C [address] [place] [address] [place] [address] PCP - General Family Practice 10/02/11 09/14/14 Jocelyn Jane PA-C [address] [facility] [facility] [place] [place] [address] PCP - General Physician Hardness Inspector 09/15/14 03/22/16 Parag Pires PA-C [address] [place] [address] PCP - General Physician Hardness Inspector - Medical 03/23/16 09/01/20 Parag Pires PA-C [address] [place] [address] PCP - Assigned PCP 06/17/17 05/14/[address] [facility] & [address] [address] PCP - General Family Medicine 09/02/20 Parag Pires PA-C [address] [place] [address] Assigned PCP 06/17/17 01/20/22 Tiffanie Araya DO [address] [place] [address] Assigned Heart and Vascular Provider 01/02/20 06/01/23 documented as of this encounter
--- OUTSIDE RECORDS SUMMARY | 2023-11-14 06:17 | XMS_ITS | Encounter Summary ---
Author Organization [place] Address [address] [facility] [place] [address] Care Team Providers Care Anesthesiology Fellow Name Role Phone Naz Lugo PA-C Primary Care Provid er Jocelyn Jane PA-C Primary Care Pr ovider Parag Pires PA-C Primary Care Provider Parag Pires PA-C Unavailable [phone] Parag Pires PA-C Unavailable +[phone] Tiffanie Araya DO Unavailable + [phone] Ceci Kessler MD Primary Care Provider + Encounter Details Date Type Department Care Team (Late st Contact Info) Description 06/28/2012 [facility] Only [facility] [address] [facility], [address] [place] [address] Radha Phan Social History Tobacco Use Types [...] on filedocumented in this encounter Care Teams Anesthesiology Fellow Relationship Specialty Start Date End Date Naz Lugo PA-C [address] [place] [address] [place] [address] PCP - General Family Practice 10/02/11 09/14/14 Jocelyn Jane PA-C [address] [place] [address] PCP - General Physician Ibm Mainframe Systems Programmer 09/15/14 03/22/16 Parag Pires PA-C [address] [place] [address] PCP - General Physician Ibm Mainframe Systems Programmer - Medical 03/23/16 09/01/20 Parag Pires PA-C [address] [place] [address] PCP - Assigned PCP 06/17/17 05/14/18 Ceci Kessler MD [facility] & [address] [address] PCP - General Family Medicine 09/02/20 Parag Pires PA-C [address] [facility] [facility] [address] Assigned PCP 06/17/17 01/20/22 Tiffanie Araya DO [address] [place] [address] Assigned Heart and Vascular Provider 01/02/20 06/01/23 documented as of this encounter
--- OUTSIDE RECORDS SUMMARY | 2023-11-14 06:17 | XMS_ITS | Encounter Summary ---
Author Organization [place] Address [address] [facility] [place] [address] Care Team Providers Care Hop Worker Name Role Phone Isabell Capone MD Primary Care Provider Naz Lguo PA-C Primary Care Provid er Jocelyn Jane-C Primary Care Pr ovider Parag Pires PA-C Primary Care Provider Parag Pires PA-C Unavailable [phone] Parag PiresC Unavailable + [phone] Tiffanie Araya DO Unavailable [phone] Ceci Kessler MD Primary Care Provider + Encounter Details Date Type Department Care Team (Late st Contact Info) Description 01/12/2011 Office Visit-[facility] [address] [place] [address] Unknown, DoctorMD Social History Tobacco [...] Created by: Kimberly Alvarez PA-C DATE: 01/12/2011 [id number] VI DONATO DATE OF : 1950 AGE: [age] years old Referring Physician: ISABELL CAPONE Referring Clinic: [facility] CURRENT DIAGNOSES 1. - Atrial Fibrillation, [...] delightful 60-year-old female who presents to [facility] today for a follow-up [...] on filedocumented in this encounter Care Teams Hop Worker Relationship Specialty Start Date End Date Isabell Capone MD PCP - General Family Practice 09/05/10 10/01/11 Naz Lugo PA-C [address] [place] [address] [place] [address] PCP - General Family Practice 10/02/11 09/14/14 Jocelyn Jane PA-C [address] [place] [address] PCP - General Physician Underwriting Support Manager 09/15/14 03/22/16 Parag Pires PA-C [address] [place] [address] PCP - General Physician Underwriting Support Manager - Medical 03/23/16 09/01/20 Parag Pires PA-C [address] [place] [id number] PCP - Assigned PCP 06/17/17 05/14/18 Ceci Kessler MD [facility] & [address] [address] PCP - General Family Medicine 09/02/20 Parag Pires PA-C [address] [place] [id number] Assigned PCP 06/17/17 01/20/22 Tiffanie Araya DO [address] [place] [address] Assigned Heart and Vascular Provider 01/02/20 06/01/23 documented as of this encounter
--- OUTSIDE RECORDS SUMMARY | 2023-11-14 06:17 | XMS_ITS | Encounter Summary ---
Author Organization [place] Address [address] [place] [address] Care Team Providers Care Under Ground Miner Name Role Phone Isabell Keating MD Primary Care Provider Naz Lugo PA-C Primary Care Provid er Jocelyn Jane-C Primary Care Pr ovider Parag Pires PA-C Primary Care Provider Parag Pires PA-C Unavailable [phone] Parag Pires-C Unavailable + [phone] Tiffanie Araya DO Unavailable [phone] Ceci Kessler MD Primary Care Provider + Encounter Details Date Type Department Care Team (Late st Contact Info) Description 07/25/2011 Office Visit-[facility] [place] [address] [facility] [address] [place] [address] Morena Mota MD HEART [facility] [address] [place] [address] Social History Tobacco Use Types Packs/Day Years [...] Progress Note Created by: Morena Mota M.D. [id number] DATE: 07/25/2011 VI DONATO DATE OF : 1950 AGE: [age] years old Referring Physician: ISABELL KEATING Referring Clinic: [facility] CURRENT DIAGNOSES 1. 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 - [place]; Hours Worked - 30 hours per week; [...] hr 1 1/2 tabs daily #135 (One [place] Thirty Five) Patient Request IMPRESSIONS/PLAN A pleasant [...] on filedocumented in this encounter Care Teams Under Ground Miner Relationship Specialty Start Date End Date Isabell Keating MD PCP - General Family Practice 09/05/10 10/01/11 Naz Lugo PA-C [address] [address] PCP - General Family Practice 10/02/11 09/14/14 Jocelyn Jane PA-C [address] [address] [place], [place] [address] PCP - General Physician Staff Development Nurse 09/15/14 03/22/16 Parag Pires PA-C [address] [address] [place], [place] [address] PCP - General Physician Staff Development Nurse - Medical 03/23/16 09/01/20 Parag Pires PA-C [address] [place] [address] PCP - Assigned PCP 06/17/17 05/14/18 Ceci Kessler MD [facility] & [address] [address] PCP - General Family Medicine 09/02/20 Parag Pires PA-C [address] [place] [address] Assigned PCP 06/17/17 01/20/22 Tiffanie Araya DO [address] [place] [address] Assigned Heart and Vascular Provider 01/02/20 06/01/23 documented as of this encounter
--- OUTSIDE RECORDS SUMMARY | 2023-11-14 06:17 | XMS_ITS | Encounter Summary ---
Author Organization [place] Address [address] [facility] [place] [address] Care Team Providers Care Weights And Measures Sealer Name Role Phone Radha Keating MD Primary Care Provider Naz Lugo PA-C Primary Care Provid er Jocelyn Jane-C Primary Care Pr ovider Parag Pires PA-C Primary Care Provider Parag Pires PA-C Unavailable [phone] Parag PiresC Unavailable + [phone] Tiffanie Araya DO Unavailable + [phone] Ceci Kessler MD Primary Care Provider + Reason for Visit * Reason Onset Date Comments Referral 09/26/2010 Cardiology Pt. Information/instruction 09/26/2010 [facility] record Encounter Details Date Type Department Care Team (Late st Contact Info) Description 09/26/2010 MyC Medical Advice [address], [address] [place] [address] [place] [address] [place] [address] Referral (Cardiology); Pt. Information/ins... Social [...] Primary documented in this encounter Care Teams Weights And Measures Sealer Relationship Specialty Start Date End Date Radha Keating MD PCP - General Family Practice 09/05/10 10/01/11 Naz Lugo PA-C [address] [address] PCP - General Family Practice 10/02/11 09/14/14 Jocelyn Jane PA-C [address] [place] [address] PCP - General Physician Body Work Auto Trimmer 09/15/14 03/22/16 Parag Pires PA-C [address] [place] [address] PCP - General Physician Body Work Auto Trimmer - Medical 03/23/16 09/01/20 Parag Pires PA-C [address] [place] [address] PCP - Assigned PCP 06/17/17 05/14/18 Ceci Kessler MD [facility] [address] [place] [address] PCP - General Family Medicine 09/02/20 Parag Pires PA-C [address] [place] [address] Assigned PCP 06/17/17 01/20/22 Tiffanie Araya DO [address] [place] [address] Assigned Heart and Vascular Provider 01/02/20 06/01/23 documented as of this encounter
--- OUTSIDE RECORDS SUMMARY | 2023-11-14 06:17 | XMS_ITS | Encounter Summary ---
Author Organization [place] Address [address] [facility] [place] [address] Care Team Providers Care Crewman Main Battle Tank Name Role Phone Elvis Lugo PA-C Primary Care Provid er Jocelyn Jane PA-C Primary Care Pr ovider Parag Pires PA-C Primary Care Provider Parag Pires PA-C Unavailable [phone] Parag Pires PA-C Unavailable [phone] Tiffanie Araya DO Unavailable + [phone] Ceci Kessler MD Primary Care Provider + Encounter Details Date Type Department Care Team (Late st Contact Info) Description 08/06/2012 Office Visit-[facility] [place] [address] [facility] [address] [place] [address] Morena Mota MD HEART [address] [place], [place] [address] Social History Tobacco Use Types Packs/Day Years [...] Progress Note Created by: Morena Mota M.D. [id number] DATE: 08/06/2012 KING[place] VI DATE OF : 1950 AGE: [age] years old Referring Physician: ELVIS LEIVA Referring Clinic: [facility] CURRENT DIAGNOSES 1. Hyperlipidemia-mixed disorder, [...] hr, 1 tab twice daily, #180 (One [place] Eighty) Metrogel Vaginal 0.75 % Gel, 1 [...] her to get in touch with a grocery clerk selling as been referred previously with Debi, who [...] 1 week, 24-Hour 2. F/U with Any CHEESE BLENDER Return with Diagnostic Testing Morena Mota M.D. documented in this encounter Plan of Treatment Not on file documented as of this encounter Visit Diagnoses Not on filedocumented in this encounter Care Teams Crewman Main Battle Tank Relationship Specialty Start Date End Date Elvis Lugo PA-C [address] [address] PCP - General Family Practice 10/02/11 09/14/14 Jocelyn Jane PA-C [address] [place] [address] PCP - General Physician Metal Stamping Machine Operator 09/15/14 03/22/16 Parag Pires PA-C [address] [place] [address] PCP - General Physician Metal Stamping Machine Operator - Medical 03/23/16 09/01/20 Parag Pires PA-C [address] [facility] [place] [place] [address] PCP - Assigned PCP 06/17/17 05/14/18 Ceci Kessler MD [facility] & [address] [address] PCP - General Family Medicine 09/02/20 Parag Pires PA-C [address] [place] [address] Assigned PCP 06/17/17 01/20/22 Tiffanie Araya DO [address] [place] [address] Assigned Heart and Vascular Provider 01/02/20 06/01/23 documented as of this encounter
--- OUTSIDE RECORDS SUMMARY | 2023-11-14 06:17 | XMS_ITS | Encounter Summary ---
Author Organization [place] Address [address] [place] [address] Care Team Providers Care Photographer Scientific Name Role Phone Radha Keating MD Primary Care Provider Naz Lugo PA-C Primary Care Provid er Jocelyn Jane-C Primary Care Pr ovider Parag Pires PA-C Primary Care Provider Parag Pires PA-C Unavailable [phone] Parag PiresC Unavailable + [phone] Tiffanie Araya DO Unavailable [phone] Ceci Kessler MD Primary Care Provider + Encounter Details Date Type Department Care Team (Late st Contact Info) Description 12/22/2010 Office Visit-[facility] [address] [place] [address] Unknown, DoctorMD Social History Tobacco [...] Created by: Kimberly Alvarez PA-C DATE: 12/22/2010 [id number] [place] DATE OF : 1950 AGE: [age] years old Referring Physician: ELIEZER ROMEO Referring Clinic: [facility] CURRENT DIAGNOSES 1. - Atrial Fibrillation, [...] delightful 60-year-old female who presents to the [facility] today for [...] TODAYS ORDERS 1. Sleep Study Schedule At [facility] 2. Return Visit 3 weeks PALOMO Bennett documented in this encounter Plan of Treatment Not on file documented as of this encounter Visit Diagnoses Not on filedocumented in this encounter Care Teams Photographer Scientific Relationship Specialty Start Date End Date Radha Keating MD PCP - General Family Practice 09/05/10 10/01/11 Naz Lugo PA-C [address] [place] [address] [address] [place] [address] PCP - General Family Practice 10/02/11 09/14/14 Jocelyn Jane PA-C [address] [place] [address] PCP - General Physician Communications Program Manager 09/15/14 03/22/16 Parag Pires PA-C [address] [place] [address] PCP - General Physician Communications Program Manager - Medical 03/23/16 09/01/20 Parag Pires PA-C [address] [place] [address] PCP - Assigned PCP 06/17/17 05/14/18 Ceci Kessler MD [facility] & [address] [address] PCP - General Family Medicine 09/02/20 Parag Pires PA-C [address] [place] [address] Assigned PCP 06/17/17 01/20/22 Tiffanie Araya DO [address] [place] [address] Assigned Heart and Vascular Provider 01/02/20 06/01/23 documented as of this encounter
--- OUTSIDE RECORDS SUMMARY | 2023-11-14 06:17 | XMS_ITS | Encounter Summary ---
Author Organization [place] Address [address] [place] [address] Care Team Providers Care Scrap Yard Worker Name Role Phone Naz Lugo PA-C Primary Care Provid er Jocelyn Jane PA-C Primary Care Pr ovider Parag Pires PA-C Primary Care Provider Parag Pires PA-C Unavailable [phone] Parag Pires PA-C Unavailable [phone] Tiffanie Araya DO Unavailable + [phone] Ceci Kessler MD Primary Care Provider + Encounter Details Date Type Department Care Team (Late st Contact Info) Description 03/04/2012 [facility] [place] [address] [place] [address] Lissy Cintron MD Social History Tobacco [...] on filedocumented in this encounter Care Teams Scrap Yard Worker Relationship Specialty Start Date End Date Naz Lugo PA-C [address] [place] [address] [place] [address] PCP - General Family Practice 10/02/11 09/14/14 Jocelyn Jane PA-C [address] [place] [address] PCP - General Physician Coo & Co Founder 09/15/14 03/22/16 Parag Pires PA-C [address] [place] [address] PCP - General Physician [employer]o [employer] Founder - Medical 03/23/16 09/01/20 Parag Pires PA-C [address] [place] [address] PCP - Assigned PCP 06/17/17 05/14/18 Ceci Kessler MD [facility] & [address] [address] PCP - General Family Medicine 09/02/20 Parag Pires PA-C [address] [place] [address] Assigned PCP 06/17/17 01/20/22 Tiffanie Araya DO [address] [place] [address] Assigned Heart and Vascular Provider 01/02/20 06/01/23 documented as of this encounter
--- OUTSIDE RECORDS SUMMARY | 2023-11-14 06:17 | XMS_ITS | Encounter Summary ---
Author Organization [place] Address [address] [place] [address] Care Team Providers Care Master In Chancery Name Role Phone Isabell Capone MD Primary Care Provider Naz Lugo PA-C Primary Care Provid er Jocelyn Jane-C Primary Care Pr ovider Parag Pires PA-C Primary Care Provider Parag Pires PA-C Unavailable + [phone] Parag Pires-C Unavailable + [phone] Tiffanie Araya DO Unavailable + [phone] Ceci Kessler MD Primary Care Provider + Encounter Details Date Type Department Care Team (Late st Contact Info) Description 08/24/2011 Office Visit-[facility] [place] [address] [facility] [address] [place] [address] Tejal Ugalde MD [address] [facility] [address] [place] [address] Social History Tobacco [...] Progress Note Created by: Tejal Ugalde M.D. [id number] DATE: 08/24/2011 [place]I DATE OF : 1950 AGE: [age] years old Referring Physician: ISABELL CAPONE Referring Clinic: [facility] CURRENT DIAGNOSES 1. 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 Mota has been made in [place] in one year. Thank you very much [...] on filedocumented in this encounter Care Teams Master In Chancery Relationship Specialty Start Date End Date Isabell Capone MD PCP - General Family Practice 09/05/10 10/01/11 Naz Lugo PA-C [address] [address] PCP - General Family Practice 10/02/11 09/14/14 Jocelyn Jane PA-C [address] [place] [address] PCP - General Physician Early Childhood Associate 09/15/14 03/22/16 Parag Pires PA-C [address] [place] [address] PCP - General Physician Early Childhood Associate - Medical 03/23/16 09/01/20 Parag Pires PA-C [address] [facility] [place] [address] PCP - Assigned PCP 06/17/17 05/14/18 Ceci Kessler MD [facility] [address] [place] [address] PCP - General Family Medicine 09/02/20 Parag Pires PA-C [address] [facility] [place] [address] Assigned PCP 06/17/17 01/20/22 Tiffanie rAaya DO [address] [place] [address] Assigned Heart and Vascular Provider 01/02/20 06/01/23 documented as of this encounter
== END 2023-11-13 09:54 | disposition home or self-care (01) ==
LOC: NFLDREF 11-14 06:14
PROVIDERS: PCP Internal Medicine; Referring Provider Internal Medicine; Visit Provider Internal Medicine
DX: R30.0 Dysuria (principal); B95.1 Streptococcus, group B, as the cause of diseases classified elsewhere
CPT/HCPCS: 87086; 87186

== ENCOUNTER 2024-01-24 12:56 | Outpatient (CLI) | payer MEDICARE, SELFPAY ==
--- OUTSIDE RECORDS SUMMARY | 2024-01-27 16:19 | XMS_ITS | Encounter Summary ---
Author Organization [place] Address [address] [place], [place] [address] [address] Care Team Providers Care Ldr Nurse Name Role Phone Parag Pires PA-C Primary Care Provider Parag Pires PA-C Unavailable + [phone] Parag Pires PA-C Unavailable + [phone] Tiffanie Araya Luly DO Unavailable [phone] Ceci Kessler MD Primary Care Provider + Encounter Details Date Type Department Care Team (Late st Contact Info) Description 03/19/2017 MyC Medical Advice [address], [address] [place] [address] Alice Hardin MA Social History Tobacco Use Types Packs/Day Years Used Date Smoking Tobacco: Former Cigarettes Q uit: 10/28/1976 Smokeless Tobacco: Never Comments:quit more than 35 y ears ago Alcohol Use Standard Drinks/Week Comments Yes 0 (1 standard drink = 0.6 oz pur e alcohol) twice a month Comments No Sex and Gender Information Value Date Recorded Sex Assigned at Not on file 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:58 AM ELECTROENCEPHALOGRAPHIC TECHNICIAN Gender Identity Not on file Sexual Orientation Not on file 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 Not on file N ot on file documented as of this encounter Plan of Treatment Not on file documented as of this encounter Visit Diagnoses Not on filedocumented in this encounter Additional Health Concerns Assessment Noted Time PHQ-9 Depression Total Score: 0 09/22/19 17 7:24 AM CDT documented as of this encounter Care Teams Ldr Nurse Relationship Specialty Start Date End Date Parag Pires PA-C PCP - General Physician Embossing Unit Operator - Medical 03/23/16 09/01/20 Parag Pires PA-C [address] [place] [address] PCP - Assigned PCP 06/17/17 05/14/18 Ceci Kessler MD [facility] & [address] [address] PCP - General Family Medicine 09/02/20 Parag Pires PA-C [address] [place] [address] Assigned PCP 06/17/17 01/20/22 Tiffanie Araya DO [address] [place] [address] Assigned Heart and Vascular Provider 01/02/20 06/01/23 documented as of this encounter
--- OUTSIDE RECORDS SUMMARY | 2024-01-27 16:19 | XMS_ITS | Encounter Summary ---
Author Organization [place] Address [address] [place], [place] [address]. [place] [address] Care Team Providers Care Recorder Gravity Prospecting Name Role Phone Parag Pires PA-C Primary Care Provider Parag Pires PA-C Unavailable + [phone] Tiffanie Araya DO Unavailable + [phone] Ceci Kessler MD Primary Care Provider + Encounter Details Date Type Department Care Team (Late st Contact Info) Description 03/14/2019 MyC Medical Advice [address], [address] [place] [address] Gilma Lopez, EVELIO Social History Tobacco Use Types Packs/Day Years Used Date Smoking Tobacco: Former Cigarettes Q uit: 10/28/1976 Smokeless Tobacco: Never Comments:quit more than 35 y ears ago Alcohol Use Standard Drinks/Week Comments Yes 0 (1 standard drink = 0.6 oz pur e alcohol) twice a month PHQ-2 Answer Date Recorded PHQ-2 Score 0 01/16/2019 Comments No Sex and Gender Information Value Date Recorded Sex Assigned at Not on file 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:58 AM SOCIALLY RESPONSIBLE INVESTMENT ADVISER Gender Identity Not on file Sexual Orientation Not on file 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 Not on file N ot on file documented as of this encounter Plan of Treatment Not on file documented as of this encounter Visit Diagnoses Not on filedocumented in this encounter Additional Health Concerns Assessment Noted Time PHQ-9 Depression Total Score: 0 09/22/19 17 7:24 AM CDT documented as of this encounter Care Teams Recorder Gravity Prospecting Relationship Specialty Start Date End Date Parag Pires PA-C PCP - General Physician Reproduction Production Manager - Medical 03/23/16 09/01/20 Ceci Kessler MD [facility] & [address] [address] PCP - General Family Medicine 09/02/20 Parag Pires PA-C [address] [place] [address] Assigned PCP 06/17/17 01/20/22 Tiffanie Araya DO [address] [place] [address] Assigned Heart and Vascular Provider 01/02/20 06/01/23 documented as of this encounter
--- OUTSIDE RECORDS SUMMARY | 2024-01-27 16:19 | XMS_ITS | Encounter Summary ---
Author Organization [place] Address [address] [place], [place] 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 us Provider Outside LAB - BLOOD ORDERABLES Edited R esult - Final ANDRES PFT NON-INTERFACED (ONBASE SCANS) * (ABNORMAL) CRP inflammation (07/29/2021 1:10 PM CDT) Pathologist [facility] CRP Inflammation (External) <0.50(L) 0.5 - 1.0 mg/dL NON-INTERFACE D (ONBASE SCANS) Blood 07/29/2021 1:10 PM CDT Narrative ANDRES WANT - 11/10/2021 9:04 AM CDT Verified by Shahid Leon on 11/10/2021. us Provider Outside LAB - BLOOD ORDERABLES Edited R esult - Final ANDRES PFTai NON-INTERFACED (ONBASE SCANS) * (ABNORMAL) CBC with [...] on 11/10/2021. Provider Outside LAB - BLOOD ORDERABLES Edited [employer] Performing Organization Address City/[facility]/ZIP Co de Phone Number BREEZE PFT NON-INTERFACED (ONBASE SCANS) * INR (07/29/2021 1:10 PM CDT) INR (External) 0.96 0.91 - 1.10 NON-INTERFACED (ONBASE SCANS) Blood 07/29/2021 1:10 PM CDT Narrative BREEZE PFT - 11/10/2021 9:04 AM CDT Verified by Shahid Leon on 11/10/2021. Provider Outside LAB - BLOOD ORDERABLES Edited R [email or web address] BREEZE PFT NON-INTERFACED (ONBASE SCANS) * UA with Microscopic (07/29/2021 1:10 PM CDT) Color Urine (External) YELLOW YELLOW NON-INTERFAC ED (ONBASE SCANS) Appearance Urine (External) CLEAR CLEAR NON-INTERFAC ED (ONBASE SCANS) Glucose Urine (External) NEGATIVE NEGATIVE NON-INTERFAC ED (ONBASE SCANS) Bilirubin Urine (External) NEGATIVE NEGATIVE NON-INTERFAC ED (ONBASE SCANS) Ketones Urine (External) NEGATIVE NEGATIVE NON-INTERFAC ED (ONBASE SCANS) Specific Roberts Urine (External) 1.010 1.000 - 1.030 NON-INTERFAC [...] SCANS) Urine 07/29/2021 1:10 PM CDT Narrative ANDRES PFT - 11/10/2021 9:04 AM CDT Verified by Shahid Leon on 11/10/2021. us Provider Outside LAB - URINE ORDERABLES Edited R esult - Final ANDRES PFT NON-INTERFACED (ONBASE SCANS) * Comprehensive metabolic panel (07/29/2021 1:10 PM CDT) Glucose (External) 113 60 - 115 mg/dL NON-INTERFACE D (ONBASE SCANS) Urea Nitrogen (External) 16 7 - 30 mg/dL NON-INTERFACE D (ONBASE SCANS) Creatinine (External) 0 . 7 0.5 - 1.5 mg/dL NON-INTERFACE D (ONBASE SCANS) GFR Estimated (External) 69.78452 ml/min NON-INTERFACE D (ONBASE SCANS) Sodium (External) [...] CDT Verified by Shahid Leon on 11/10/2021. us Provider Outside LAB - BLOOD ORDERABLES Edited R esult - Final RIDDHIEZE PFT NON-INTERFACED (ONBASE SCANS) * TSH (07/29/2021 1:10 PM CDT) TSH (External) 1.890 0.270 - 4.200 uIU/mL NON-INTERFACED (ONBASE SCANS) Blood 07/29/2021 1:10 PM CDT Narrative BREEZE PFT - 11/10/2021 9:04 AM CDT Verified by Shahid Leon on 11/10/2021. Provider Outside LAB - BLOOD ORDERABLES Edited [facility] Performing Organization Address [facility] Co de Phone Number BREEZE PFT NON-INTERFACED (ONBASE SCANS) * Troponin I (07/29/2021 1:10 PM CDT) Troponin I (External) 0.01 0.00 - 0.04 NG/ML NON-INTERFACED (ONBASE SCANS) Blood 07/29/2021 1:10 PM CDT Narrative BREEZE PFT - 11/10/2021 9:04 AM CDT Verified by Shahid Leon on 11/10/2021. Provider Outside LAB - BLOOD ORDERABLES Edited [facility] Performing Organization Address [facility] de Phone Number BREEZE PFT NON-INTERFACED (ONBASE SCANS) * (ABNORMAL) N terminal pro BNP outpatient (07/29/2021 1:10 PM CDT) N-Terminal Pro BNP (External) 431(H) 0 - 125 pg/mL NON-INTERFACED (ONBASE SCANS) Blood 07/29/2021 1:10 PM CDT Narrative BREEZE PFT - 11/10/2021 9:04 AM CDT Verified by Shahid Leon on 11/10/2021. Provider Outside LAB - BLOOD ORDERABLES Edited R [employer] [facility] Performing Organization Address [facility]/ZIP Co de Phone Number BREEZE PFT NON-INTERFACED (ONBASE SCANS) * External Culture Results (07/29/2021 12:32 PM CDT) Scan Culture Results (External) See Scanned Report NON-INTERFACE D (ONBASE SCANS) Comment:URINE CULTURE 07/29/2021 12:3 2 PM CDT Narrative ANDRES PFT - 11/10/2021 9:04 AM CDT Verified by Shahid Leon on 11/10/2021. us Provider Outside LABORATORY Edited Result - Final ANDRES PFT NON-INTERFACED (ONBASE SCANS) documented in this encounter Visit Diagnoses Not on filedocumented in this encounter Additional Health Concerns Assessment Noted Time PHQ-9 Depression Total Score: 0 09/22/19 17 7:24 AM CDT documented as of this encounter Care Teams South Asian History Professor Relationship Specialty Start Date End Date Ceci Kessler MD [facility] & [address] [address] PCP - General Family Medicine 09/02/20 Parag Pires PA-C [address] [place] [address] Assigned PCP 06/17/17 01/20/22 Tiffanie Araya DO [address] [place] [address] Assigned Heart and Vascular Provider 01/02/20 06/01/23 documented as of this encounter
--- OUTSIDE RECORDS SUMMARY | 2024-01-27 16:19 | XMS_ITS | Referral Summary ---
Author Organization [place] Address [address] [place] [address] [place] [address] Care Team Providers Care Cleaning Machine Operator Name Role Phone Ceci Kessler MD Primary Care Provider + Allergies Active Allergy Reactions Criticality Noted Date Comments No Known Drug Allergy 09/16/2003 Medications MULTI-DAY OR 1 tablet daily Ac tive Cholecalciferol (VITAMIN D3 PO) Take 2,000 Units by mouth daily Active calcium-vitamin D (CALTRATE) 600-400 MG-UNIT per tablet Take 1 tablet by mouth 2 times daily Active Corinne-3 Fatty Acids (OMEGA-3 FISH OIL PO) Take 1,600 mg by mouth daily Active betamethasone dipropionate (DIPROSONE) 0.05 % creamIndications:R emmanuel and nonspecific skin eruption Apply topically 2 times daily 15 g 1 03/23/19 17 Active MAGNESIUM ASPARTATE PO Take 400 mg by mouth daily Active trospium (SANCTURA XR) 60 MG CP24 24 hr capsule Take 60 mg by mouth every morning Active metroNIDAZOLE (METROGEL) 0.75 % external gelIndications:Ros acea Apply topically daily as needed Apply 0.25 inches topically daily as needed. 45 g 2 04/04/19 19 Active gabapentin (NEURONTIN) 300 MG capsule Take 1 capsule at bedtime for 3 to 4 days, then increase to 1 capsule twice daily thereafter if needed 03/13/19 20 Active traMADol (ULTRAM) 50 MG tabletIndications: Chronic pain of both knees Take 1 tablet (50 mg) by mouth every 6 hours as needed for moderate to severe pain 30 tablet 09/05/19 20 Active Additional Information Patient not taking.Reported on 11/25/2021 tolterodine ER (DETROL LA) 4 MG 24 hr capsuleIndications :Urge incontinence of urine Take 1 capsule by mouth daily. This replaces the Oxybutynin and/or Trospium. 90 capsule 1 09/04/19 20 Active fluticasone (FLONASE) 50 MCG/ACT nasal spray [place] 1 spray into both nostrils as needed for rhinitis or allergies Generic target brand Active omeprazole (PRILOSEC) [address] capsule Take 1 capsule by mouth every 24 hours 09/21/19 22 Active triamcinolone (KENALOG) 0.1 % external ointment Apply topically 2 times daily Active losartan (COZAAR) 50 MG tabletIndications: Benign essential hypertension Take 1.5 tablets (75 mg) by mouth daily 135 tablet 4 11/26/19 22 Active metoprolol succinate ER (TOPROL XL) 50 MG 24 hr tabletIndications: Atrial fibrillation, unspecified type (H) Take 1 tablet (50 mg) by mouth 2 times daily 180 tablet 4 11/26/19 22 Active rivaroxaban ANTICOAGULANT (XARELTO ANTICOAGULANT) 20 MG TABS tabletIndications: Atrial fibrillation, unspecified type (H),Benign essential hypertension,Mixed hyperlipidemia Take 1 tablet (20 mg) by mouth daily (with dinner) 90 tablet 4 11/26/19 22 Active acetaminophen (TYLENOL) 500 MG tablet Take 1,000 mg by mouth every 6 hours as needed for mild pain Active rosuvastatin (CRESTOR) 5 MG tablet Take 5 mg by mouth daily Active ibuprofen (ADVIL/MOTRIN) 600 MG tabletIndications: S/P gynecological surgery, follow-up exam Take 1 tablet (600 mg) by mouth every 6 hours as needed for other (mild and/or inflammatory pain) 30 tablet 06/28/19 24 Active oxyCODONE (ROXICODONE) 5 MG tabletIndications: S/P gynecological surgery, follow-up exam Take 1-2 tablets (5-10 mg) by mouth every 4 hours as needed for moderate to severe pain 20 tablet 06/28/19 24 Active Active Problems Problem Noted Date Diagnosed Date Obesity (BMI 35.0-39.9) with comorbidity 019 A-fib 10/01/2012 Overview (04/01/2015): On Xarelto Fam hx-osteoporosis 10/02/2011 Obstructive sleep apnea 02/14/2011 Overview (02/14/2011): On CPAP CARDIOVASCULAR SCREENING; LDL GOAL LESS THAN 160 09/27/2010 Urge incontinence 04/29/2007 Symptomatic menopausal or female climacteric sta melissa 04/29/2007 Obesity 09/16/2003 Overview (12/10/2014): Problem list name updated by automated process. Provider to review Rosacea 09/16/2003 Hyperlipidemia Palpitations Overview (10/09/2013): event monitor: PAC and SVT ANA MARIA (obstructive sleep apnea) Hypertension Resolved Problems Problem Noted Date Diagnosed Date Resolved Date Morbid obesity 01/19/2017 08/22/2018 Advanced directives, counseling/discussion 09/19/2010 08/27/2023 Overview (10/21/2010): Advance Directive Problem List Overview: Name Relationship Phone Primary Health Care Agent Alternative Health Care Agent Discussed advance care planning with patient; information given to patient to review. 10/21/2010 Ines Green RN Hyperlipidemia LDL goal <160 01/09/2010 09/27/2010 Hypercholesteremia 03/08/2009 1 Plantar fascial fibromatosis 10/29/2008 12/14/2008 Contact dermatitis and other eczema, due to unspecified cause 04/29/2007 09/27/2010 Allergic rhinitis 09/16/2003 09/27/2010 Overview (12/10/2014): Problem list name updated by automated process. 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 file Not on file N ot on file Last Filed Vital Signs Vital [...] on file Medical Devices Implanted Type Area Management Instructor Device Identifier Shelf Expiration Date Model / Serial / Lot Kit Nrstm Axonics Caro Lead Curved Stylet 1201 - [id number] Implanted:Qty : 1 on 06/28/2023 by Marco Padilla MD at [facility] Leads N/A: Bladder [employer] [id number] 09/20/2025 1201 / [id number] / Imp Nrstm Axonics Snm System 4101 - [id number] Implanted:Qty : 1 on 06/28/2023 by Marco Padilla MD at [facility] Neurology device N/A: Bladder [employer]ICS [id number] 01/26/2024 4101 / [id number] / Sns Lead 28cm Implanted:Qty : 1 on 10/26/2014 by Sukhjinder Wolf MD at [facility] N/A: Sacrum [employer] 08/18/2018 3889 / / [id number] Stimulator Neuro Interstim Ii 3058 Implanted:Qty : 1 on 10/26/2014 by Sukhjinder Wolf MD at [facility] N/A: Sacrum [employer] 02/07/2016 [id number] / [id number] / Procedures Procedure Name Priority Date/Time Associated Diagnosis Comments MAMMOGRAM - HIM SCAN 08/31/2021 1:36 PM CDT COMPREHENSIVE METABOLIC PANEL Routine 07/29/2021 1:10 PM CDT LIPID PROFILE Routine 08/26/2019 8:33 AM CDT Atrial fibrillation, unspecified type (H) Essential hypertension Paroxysmal atrial fibrillation (H) Benign essential hypertension Mixed hyperlipidemia BASIC METABOLIC PANEL Routine 11/28/2018 9:04 AM CDT Preop general physical exam DX BONE DENSITY Routine 05/16/2017 10:06 AM PAINTER ROUGH Screening for osteoporosis HEPATITIS C SCREEN REFLEX TO HCV RNA QUANT AND GENOTYPE Routine 03/23/2016 9:49 AM PAINTER ROUGH Need for hepatitis C screening test COLONOSCOPY - HIM SCAN Routine 02/16/2014 from Last 3 Months or Most Recently Relevant to Health Maintenance Results * MAMMOGRAM - HIM SCAN (08/31/2021 1:36 PM CDT) Anatomical Region Laterality Modality Other 08/31/2021 1:36 PM CDT us Provider Outside IMG MAMMOGRAPHY ORDERABLES Martha l Result * Comprehensive metabolic panel (07/29/2021 1:10 PM CDT) Glucose (External) 113 60 - 115 mg/dL NON-INTERFACE D (ONBASE SCANS) Urea Nitrogen (External) 16 7 - 30 mg/dL NON-INTERFACE D (ONBASE SCANS) Creatinine (External) 0 . 7 0.5 - 1.5 mg/dL NON-INTERFACE D (ONBASE SCANS) GFR Estimated (External) 69.54354 ml/min NON-INTERFACE D (ONBASE SCANS) Sodium (External) [...] Blood 07/29/2021 1:10 PM CDT Narrative ANDRES PFT - 11/10/2021 9:04 AM CDT Verified by Shahid Leon on 11/10/2021. us Provider Outside LAB - BLOOD ORDERABLES Edited R esult - Final ANDRES PFT NON-INTERFACED (ONBASE SCANS) * (ABNORMAL) Lipid Profile (08/26/2019 8:33 AM CDT) Cholesterol 206(H) <200 mg/dL 08/26/2019 12:46 PM CDT [facility] Comment:Desirable: <200 mg/d l Triglycerides 84 <150 mg/dL 08/26/2019 12:57 PM CDT [facility] HDL Cholesterol 63 >49 mg/dL 0 1:00 PM CDT [facility] LDL Cholesterol Calculated 126(H) <100 mg/dL 08/26/2019 1:00 PM CDT [facility] Comment: Above desirable: ??100-129 mg/dl Borderline High: ??130-159 mg/dL High: ? 160-189 mg/dL Very high: ? >189 mg/dl Non HDL Cholesterol 143(H) <130 mg/dL 08/26/2019 1:00 PM CDT [facility] Comment: Above Desirable: ??130-159 mg/dl Borderline high: ??160-189 mg/dl High: ? 190-219 mg/dl Very high: ? >219 mg/dl Blood specimen (specimen) 08/26/2019 8:33 AM CDT 08/26/2019 8:34 AM CDT us Tiffaniekennedy rAaya DO LAB - BLOOD ORDERAB LES Final Result [facility] [address] [place] [address] * Basic metabolic panel (11/28/2018 9:04 AM CDT) Sodium 139 133 - 144 mmol/L 11/29/2018 8:06 AM CDT [facility] Potassium 4.5 3.4 - 5.3 mmol/L 11/29/2018 8:06 AM CDT [facility] Chloride 105 94 - 109 mmol/L 11/29/2018 8:06 AM CDT [facility] Carbon Dioxide 29 20 - 32 mmol/L 11/29/2018 8:15 AM CDT [facility] Anion Gap 5 3 - 14 mmol/L 11/29/2018 8:15 AM CDT [facility] Glucose 94 70 - 99 mg/dL 11/29/2018 8:15 AM CDT [facility] Urea Nitrogen 16 7 - 30 mg/dL 11/29/2018 8:15 AM CDT [facility] Creatinine 0.81 0.52 - 1.04 mg/dL 11/29/2018 8:15 AM CDT [facility] GFR Estimate 76 >60 mL/min/{1 .73_m2} 11/29/2018 8:15 AM CDT [facility] Comment: Non GFR Calc Starting 02/26/2018, serum creatinine based estimated GFR (eGFR) will be calculated using the Chronic Kidney Disease Epidemiology Collaboration (CKD-EPI) equation. GFR Estimate If Black 88 >60 mL/min/{1 .73_m2} 11/29/2018 8:15 AM T [facility] Comment: GFR Calc Starting 02/26/2018, serum creatinine based estimated GFR (eGFR) will be calculated using the Chronic Kidney Disease Epidemiology Collaboration (CKD-EPI) equation. Calcium 9.4 8.5 - 10.1 mg/dL 11/29/2018 8:15 AM T [facility] Blood specimen (specimen) 11/28/2018 9:04 AM CDT 11/28/2018 9:08 AM CDT us Parag Pires PA-C LAB - BLOOD ORDERABLES Final Result [facility] [address] [place] [address] * DX Hip/Pelvis/Spine (05/16/2017 10:06 AM PAINTER ROUGH) Anatomical Region Laterality Modality Dexa Bone Mineral Den sity Narrative 05/17/2017 4:13 PM PAINTER ROUGH BONE DENSITOMETRY [address] [address] 05/16/2017 ?? PATIENT: Vi Donato CHART: [id number] : ??1950 AGE: ??66 year old SEX: ??female REFERRING PROVIDER: ??Parag Pires PA-C ?? PROCEDURE: ??Bone density scanning was performed using DXA technology of the lumbar spine and hip. ??Scanning was performed on a Simmery scanner. ??Reporting is completed in the form [...] to another DXA performed on a different [employer] machine on 11/06/2011. IMPRESSION Normal bone mineral [...] years. Vero Rodriguez M.D. Electronically signed ? us Parag Pires PA-C IMG DEXA ORDERABLES Fi nal Result * Hepatitis C Screen Reflex to HCV RNA Quant and Genotype (03/23/2016 9:49 AM PAINTER ROUGH) Hepatitis C Antibody Nonreactive Assay performance characteristics have not been established for newborns, infants, and children NR [facility] Blood specimen (specimen) 03/23/2016 9:49 AM PAINTER ROUGH 03/23/2016 9:50 AM PAINTER ROUGH us Parag Pires PA-C LAB - BLOOD ORDERABLES Final Result [facility] [address] * Colonoscopy - HIM Scan (02/16/2014) us Naz Lugo PA-C PROCEDURES Martha l Result from Last 3 Months or Most Recently Relevant to Health Maintenance Insurance UCARE MEDICARE [facility] MEDIC[facility] Care Teams Cleaning Machine Operator Relationship Specialty Start Date End Date Ceci Kessler MD [facility] [address] [place], [place] [id number] PCP - General Family Medicine 09/02/20
--- OUTSIDE RECORDS SUMMARY | 2024-01-27 16:19 | XMS_ITS | Encounter Summary ---
Author Organization [facility] Address [address] [place], [place] [address]. 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 Gender Identity Not on file Sexual Orientation Not on file 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 Not on file N ot on file documented as of this encounter Plan of Treatment Not on file documented as of this encounter Visit Diagnoses Not on filedocumented in this encounter Additional Health Concerns Assessment Noted Time PHQ-9 Depression Total Score: 0 09/22/19 17 7:24 AM CDT documented as of this encounter Care Teams Ribbon Hanking Machine Operator Relationship Specialty Start Date End Date Parag Pires PA-C PCP - General Physician Sheet Folder - Medical 03/23/16 09/01/20 Parag Pires PA-C [id number] [place] [address] PCP - Assigned PCP 06/17/17 05/14/18 Ceci Kessler MD [facility] [address] [address] PCP - General Family Medicine 09/02/20 Parag Pires PA-C [id number] [place] [address] Assigned PCP 06/17/17 01/20/22 Tiffanie Aryaa DO [address] [place] [address] Assigned Heart and Vascular Provider 01/02/20 06/01/23 documented as of this encounter
--- OUTSIDE RECORDS SUMMARY | 2024-01-27 16:19 | XMS_ITS | Clinical Summary ---
Author Organization [facility] Address [address] [place] [address] [place] [address] Care Team Providers Care Laundry Helper Name Role Phone Ceci Kessler MD Primary Care Provider + Allergies Active Allergy Reactions Criticality Noted Date Comments No Known Drug Allergy 09/16/2003 Medications MULTI-DAY OR 1 tablet daily Ac tive Cholecalciferol (VITAMIN D3 PO) Take 2,000 Units by mouth daily Active calcium-vitamin D (CALTRATE) 600-400 MG-UNIT per tablet Take 1 tablet by mouth 2 times daily Active Chavies-3 Fatty Acids (OMEGA-3 FISH OIL PO) Take [...] Active fluticasone (FLONASE) 50 MCG/ACT nasal spray [place] 1 spray into both nostrils as needed [...] on file 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:58 AM CUPOLA CHARGER Gender Identity Not on file Sexual Orientation Not on file 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 Not on file N [...] sDNA (Cologuard) 1950 RSV VACCINE (1 - Risk 60-74 years 1-dose series) 2012 FALL RISK ASSESSMENT 01/17/2020 01/16/2019, 11/28/2018, 11/28/2018, Additional history exists LIPID 08/25/2020 08/26/2019, 08/2018, 12/06/2017, Additional history exists MEDICARE ANNUAL WELLNESS VISIT 08/31/2021 08/31/2020, 07/08/2020, 07/08/2020, Additional history exists GLUCOSE 11/28/2021 11/28/2018, 08/10, 01/22/2018, Additional history exists DEXA 05/16/2022 05/16/2017, 09/2011, 03/20/2006 BMP 07/29/2022 07/29/2021, 11/10, 08/22/2018, Additional history exists PHQ-2 (once per calendar year) 2023 01/16/2019, 11/28/2018, 12/06/2017, Additional history exists MAMMO SCREENING 09/01/2023 08/31/2021, 10/12, 10/18/2017, Additional history exists COVID-19 Vaccine ( season) 2023 09/09/2022, 01/12/2022, 10/04/2021, Additional history exists INFLUENZA VACCINE (#1) 2023 , 12/09/2020, 12/17/2019, Additional history exists ADVANCE CARE PLANNING 01/28/2024 01/27/2019 , 12/06/2017, 10/20/2010, Additional history exists COLONOSCOPY 08/12/2025 08/12/2020, 12/0 10/2013, 01/04/2004 COLORECTAL CANCER SCREENING 08/12/2025 DTAP/TDAP/TD [...] this topic Medical Devices Implanted Type Area Hot Car Charger Device Identifier Shelf Expiration Date Model / Serial / Lot Kit Nrs Axonics Caro Lead Curved Stylet 1201 - [id number] Implanted:Qty : 1 on 06/28/2023 by Marco Padilla MD at [facility] Leads N/A: Bladder [employer] [id number] 09/20/2025 1201 / [id number] / Imp Nrstm [employer] Snm System 4101 - [id number] Implanted:Qty : 1 on 06/28/2023 by Marco Padilla MD at [facility] Neurology device N/A: Bladder [employer] [id number] 01/26/2024 4101 / [id number] / Sns Lead 28cm Implanted:Qty : 1 on 10/26/2014 by Sukhjinder Wolf MD at [facility] N/A: Sacrum [employer] 08/18/2018 3889 / / [id number] Stimulator Neuro Interstim Ii 3058 Implanted:Qty : 1 on 10/26/2014 by Sukhjinder Wolf MD at [facility] N/A: Sacrum [employer] 02/07/2016 [id number] / [id number] / Procedures Procedure Name Priority Date/Time [...] DX BONE DENSITY Routine 05/16/2017 10:06 AM CUPOLA CHARGER Screening for osteoporosis HEPATITIS C SCREEN REFLEX TO HCV RNA QUANT AND GENOTYPE Routine 03/23/2016 9:49 AM CUPOLA CHARGER Need for hepatitis C screening test COLONOSCOPY [...] NON-INTERFACE D (ONBASE SCANS) GFR Estimated (External) 69.27566 ml/min NON-INTERFACE D (ONBASE SCANS) Sodium (External) [...] us Provider Outside LAB - BLOOD ORDERABLES Renee zavala - Final ANDRES PFT NON-INTERFACED (ONBASE SCANS) * (ABNORMAL) Lipid Profile (08/26/2019 8:33 AM CDT) Cholesterol 206(H) <200 mg/dL 08/26/2019 12:46 PM CDT [facility] Comment:Desirable: <200 mg/d l Triglycerides 84 <150 mg/dL 08/26/2019 12:57 PM CDT [facility] HDL Cholesterol 63 >49 mg/dL 0 1:00 PM CDT [facility] LDL Cholesterol Calculated 126(H) <100 mg/dL 08/26/2019 1:00 PM CDT [facility] Comment: Above desirable: ??100-129 mg/dl Borderline High: ??130-159 mg/dL High: ? 160-189 mg/dL Very high: ? >189 mg/dl Non HDL Cholesterol 143(H) <130 mg/dL 08/26/2019 1:00 PM CDT [facility] Comment: Above Desirable: ??130-159 mg/dl Borderline high: ??160-189 mg/dl High: ? 190-219 mg/dl Very high: ? >219 mg/dl Blood specimen (specimen) 08/26/2019 8:33 AM CDT 08/26/2019 8:34 AM CDT Tiffanie Araya DO LAB - BLOOD ORDERAB LES Final Result [facility] [address] [place] [address] * Basic metabolic panel (11/28/2018 9:04 AM CDT) Sodium 139 133 - 144 mmol/L 11/29/2018 8:06 AM CDT [facility] Potassium 4.5 3.4 - 5.3 mmol/L 11/29/2018 8:06 AM CDT [facility] Chloride 105 94 - 109 mmol/L 11/29/2018 8:06 AM CDT [facility] Carbon Dioxide 29 20 - 32 mmol/L 11/29/2018 8:15 AM CDT [facility] Anion Gap 5 3 - 14 mmol/L 11/29/2018 8:15 AM CDT [facility] Glucose 94 70 - 99 mg/dL 11/29/2018 8:15 AM CDT [facility] Urea Nitrogen 16 7 - 30 mg/dL 11/29/2018 8:15 AM CDT [facility] Creatinine 0.81 0.52 - 1.04 mg/dL 11/29/2018 8:15 AM CDT [facility] GFR Estimate 76 >60 mL/min/{1 .73_m2} 11/29/2018 8:15 AM CDT [facility] Comment: Non GFR Calc Starting 02/26/2018, serum creatinine based estimated GFR (eGFR) will be calculated using the Chronic Kidney Disease Epidemiology Collaboration (CKD-EPI) equation. GFR Estimate If Black 88 >60 mL/min/{1 .73_m2} 11/29/2018 8:15 AM CDT [facility] Comment: GFR Calc Starting 02/26/2018, serum creatinine based estimated GFR (eGFR) will be calculated using the Chronic Kidney Disease Epidemiology Collaboration (CKD-EPI) equation. Calcium 9.4 8.5 - 10.1 mg/dL 11/29/2018 8:15 AM CDT [facility] Blood specimen (specimen) 11/28/2018 9:04 AM CDT 11/28/2018 9:08 AM CDT us Parag Pires PA-C LAB - BLOOD ORDERABLES Final Result [facility] [address] [place] [address] * DX Hip/Pelvis/Spine (05/16/2017 10:06 AM CUPOLA CHARGER) Anatomical Region Laterality Modality Dexa Bone Mineral Den sity Narrative 05/17/2017 4:13 PM CUPOLA CHARGER BONE DENSITOMETRY [address] [address] 05/16/2017 ?? PATIENT: Vi Donato CHART: [id number] : ??1950 AGE: ??66 year old SEX: ??female REFERRING PROVIDER: ??Parag Pires PA-C ?? PROCEDURE: ??Bone density scanning was performed using DXA technology of the lumbar spine and hip. ??Scanning was performed on a [employer] scanner. ??Reporting is completed in the form [...] to another DXA performed on a different [employer] machine on 11/06/2011. IMPRESSION Normal bone mineral [...] signed ? Parag Pires PA-C IMG DEXA ORDERABLES Fi nal Result * Hepatitis C Screen Reflex to HCV RNA Quant and Genotype (03/23/2016 9:49 AM CUPOLA CHARGER) Hepatitis C Antibody Nonreactive Assay performance characteristics have not been established for newborns, infants, and children NR [facility] Blood specimen (specimen) 03/23/2016 9:49 AM CUPOLA CHARGER 03/23/2016 9:50 AM CUPOLA CHARGER Parag Pires PA-C LAB - BLOOD ORDERABLES Final Result [facility] [address] * Colonoscopy - HIM Scan (02/16/2014) Naz Lugo PA-C PROCEDURES Martha l Result from Last 3 Months or Most Recently Relevant to Health Maintenance Insurance UCARE MEDICARE UCARE MEDICARE Care Teams Laundry Helper Relationship Specialty Start Date End Date Ceci Kessler MD [facility] [address] [place] [address] PCP - General Family Medicine 09/02/20
--- OUTSIDE RECORDS SUMMARY | 2024-01-27 16:19 | XMS_ITS | Encounter Summary ---
Author Organization [facility] Address [address] [place], [place] [address]. 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 Gender Identity Not on file Sexual Orientation Not on file 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 on file N ot on file documented as of this encounter Plan of Treatment Not on file documented as of this encounter Visit Diagnoses Not on filedocumented in this encounter Additional Health Concerns Assessment Noted Time PHQ-9 Depression Total Score: 0 09/22/19 17 7:24 AM CDT documented as of this encounter Care Teams General Farm Manager Relationship Specialty Start Date End Date Paarg Pires PA-C PCP - General Physician Retail Equipment Associate - Medical 03/23/16 09/01/20 Parag Pires PA-C [address] [address] PCP - Assigned PCP 06/17/17 05/14/18 Ceci Kessler MD [facility] [address] [address] PCP - General Family Medicine 09/02/20 Parag Pires PA-C [address] [id number] Assigned PCP 06/17/17 01/20/22 Tiffanie Araya DO [address] [place] [address] Assigned Heart and Vascular Provider 01/02/20 06/01/23 documented as of this encounter
--- OUTSIDE RECORDS SUMMARY | 2024-01-27 16:19 | XMS_ITS | Encounter Summary ---
Author Organization [facility] Address [address] [place] [address]. [place] [address] Care Team Providers Care Human Resources Manager Manufacturing Name Role Phone Jocelyn Jane PA-C Primary Care Pr ovider Parag Pires PA-C Primary Care Provider Parag Pires PA-C Unavailable + [phone] Parag Pires PA-C Unavailable [phone] Tiffanie Araya DO Unavailable [phone] Ceci Kessler MD Primary Care Provider + Reason for Visit * Reason Onset Date Comments MyChart Communication 06/07/2015 Encounter Details Date Type Department Care Team (Latest Contact Info) Description 06/07/2015 MyC Medical Advice [facility] [id number] [place] [address] Jocelyn Jane PA-C [id number] [place] [address] MyChart Communication Social History Tobacco Use [...] on file 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 & [address] [address] PCP - General Family Medicine 09/02/20 Parag Pires PA-C [address] [place] [address] Assigned PCP 06/17/17 01/20/22 Tiffanie Araya DO [address] [place] [address] Assigned Heart and Vascular Provider 01/02/20 06/01/23 documented as of this encounter
--- OUTSIDE RECORDS SUMMARY | 2024-01-27 16:19 | XMS_ITS | Encounter Summary ---
Author Organization [facility] Address [address] [place] [address] [place] [address] Care Team Providers Care Reimbursement Analyst Name Role Phone Parag Pires PA-C Primary Care Provider Parag Pires PA-C Unavailable + [phone] Tiffanie Araya DO Unavailable + [phone] Ceci Kessler MD Primary Care Provider + Reason for Visit * Reason Onset Date Comments Refill Request 03/10/2019 Tramadol 50mg Encounter Details Date Type Department Care Team (Late st Contact Info) Description 03/10/2019 MyC Medical Advice [address], [address] [place] [address] Parag Pires PA-C [address] [place], [place] [id number] Refill Request (Tramadol 50mg) Social History Tobacco [...] on file 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:58 AM CORPORATE WELLNESS COORDINATOR Gender Identity Not on file Sexual Orientation Not on file 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 on 01/16/2019 for #90 with 1 additional refill. Ines Green RN ORATE WELLNESS COORDINATOR * Telephone Encounter - Shruthi Burger RN - 03/13/2019 3:17 PM CORPORATE WELLNESS COORDINATOR Routing refill request to provider for review/approval because: Tramadol: Drug not on the [facility] refill protocol Requested Prescriptions Pending Prescriptions Disp [...] no refill protocol information for this order ORATE WELLNESS COORDINATOR documented in this encounter Plan of Treatment Not on file documented as of this encounter Visit Diagnoses Diagnosis Urge incontinence of urine Urge incontinence Chronic pain of both knees documented in this encounter Additional Health Concerns Assessment Noted Time PHQ-9 Depression Total Score: 0 09/22/19 17 7:24 AM CDT documented as of this encounter Care Teams Reimbursement Analyst Relationship Specialty Start Date End Date Parag Pires PA-C PCP - General Physician Plastics Patternmaker - Medical 03/23/16 09/01/[address] [facility] & [address] [address] PCP - General Family Medicine 09/02/20 Parag Pires PA-C [address] [place] [address] Assigned PCP 06/17/17 01/20/22 Tiffanie Araya DO [address] [place] [address] Assigned Heart and Vascular Provider 01/02/20 06/01/23 documented as of this encounter
--- OUTSIDE RECORDS SUMMARY | 2024-01-27 16:19 | XMS_ITS | Encounter Summary ---
Author Organization [facility] Address [address] [place] [address]. [place] [address] Care Team Providers Care Machinist Linotype Name Role Phone Jocelyn Jane PA-C Primary Care Pr ovider Parag Pires PA-C Primary Care Provider Parag Pires PA-C Unavailable + [phone] Parag Pires PA-C Unavailable [phone] Tiffanie Araya DO Unavailable + [phone] Ceci Kessler MD Primary Care Provider + Reason for Visit * Reason Onset Date Comments MyChart Communication 04/26/2015 Encounter Details Date Type Department Care Team (Latest Contact Info) Description 04/26/2015 MyC Medical Advice [facility] [id number] [place] [address] Jocelyn Jane PA-C [id number] [place] [address] MyChart Communication Social History Tobacco Use [...] on file 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:58 AM PAINT SPRAYER SANDBLASTER Gender Identity Not on file Sexual Orientation Not on file 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 Not on file N ot on file documented as of this encounter Miscellaneous Notes * Telephone Encounter - Kathy Garduno RN - 04/26/2015 1:09 PM CST Please see my chart Kathy Garduno RN T SPRAYER SANDBLASTER documented in this encounter Plan of Treatment Not on file documented as of this encounter Visit Diagnoses Not on filedocumented in this encounter Care Teams Machinist Linotype Relationship Specialty Start Date End Date Jocelyn Jane PA-C [address] [place] [address] PCP - General Physician Cold Roll Catcher 09/15/14 03/22/16 Parag Pires PA-C [address] [place] [address] PCP - General Physician Cold Roll Catcher - Medical 03/23/16 09/01/20 Parag Pires PA-C [address] [place] [address] PCP - Assigned PCP 06/17/17 05/14/18 Ceci Kessler MD [facility] & [address] [address] PCP - General Family Medicine 09/02/20 Parag Pires PA-C [address] [place] [address] Assigned PCP 06/17/17 01/20/22 Tiffanie Araya DO [address] [place] [address] Assigned Heart and Vascular Provider 01/02/20 06/01/23 documented as of this encounter
--- OUTSIDE RECORDS SUMMARY | 2024-01-27 16:20 | XMS_ITS | Encounter Summary ---
Author Organization [facility] Address [address] [place], [place] [address]. [place] [address] Care Team Providers Care Photo Print Specialist Name Role Phone Isabell Capone MD Primary Care Provider Naz Lugo PA-C Primary Care Provid er Jocelyn Jane-C Primary Care Pr ovider Parag Pires PA-C Primary Care Provider Parag Pires PA-C Unavailable + [phone] Parga Pires-C Unavailable + [phone] Tiffanie Araya DO Unavailable + [phone] Ceci Kessler MD Primary Care Provider + Encounter Details Date Type Department Care Team (Late st Contact Info) Description 03/20/2011 Office Visit-[facility] [place] [address] [facility] [address] [place] [address] Jessica Franks APRN ARTIST'S MANAGER [address] [facility] [address] [place] [address] Social History Tobacco Use Types Packs/Day Years Used Date Smoking Tobacco: Former Cigarettes Q uit: 10/28/1976 Comments:quit more than 25 y ears ago Alcohol Use Standard Drinks/Week Comments Yes 0 (1 standard drink = 0.6 oz pur e alcohol) very rare Comments No Sex and Gender Information Value Date Recorded Sex Assigned at Not on file 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:58 AM PROPERTY MANAGEMENT BOOKKEEPER Gender Identity Not on file Sexual Orientation Not on file 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 [id number] DATE: 03/20/2011 VI DONATO DATE OF : 1950 AGE: [age] years old Referring Physician: ISABELL CAPONE Referring Clinic: [facility] CURRENT DIAGNOSES 1. Hyperlipidemia-mixed disorder, [...] female who presents to the [facility] today for a follow-up visit. She is a patient of Dr. Mota seen in our clinic for a past medical history of: Atrial fibrillation, hypertension and sleep apnea. Vi has a history of chronic atrial fibrillation. [...] her sleep. She returns today for reassessment. Vi tells me she has been doing well. 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 Return Visit 2 months Jessica Franks NKika documented in this encounter Plan of Treatment Not on file documented as of this encounter Visit Diagnoses Not on filedocumented in this encounter Care Teams Photo Print Specialist Relationship Specialty Start Date End Date Isabell Capone MD PCP - General Family Practice 09/05/10 10/01/11 Naz Lugo PA-C [address] [address] PCP - General Family Practice 10/02/11 09/14/14 Jocelyn Jane PA-C [address] [place] [place], [place] [address] PCP - General Physician Larriman Helper 09/15/14 03/22/16 Parag Pires PA-C [address] [place], [place] 66[address] PCP - General Physician Larriman Helper - Medical 03/23/16 09/01/20 Parag Pires PA-C [address] [place] [address] PCP - Assigned PCP 06/17/17 05/14/18 Ceci Kessler MD [facility] & [address] [address] PCP - General Family Medicine 09/02/20 Parag Pires PA-C [address] [place] [address] Assigned PCP 06/17/17 01/20/22 Tiffanie Araya DO [address] [place] [address] Assigned Heart and Vascular Provider 01/02/20 06/01/23 documented as of this encounter
--- OUTSIDE RECORDS SUMMARY | 2024-01-27 16:20 | XMS_ITS | Encounter Summary ---
Author Organization [place] Address [address] [place], [place] [address]price. [place] [address] Care Team Providers Care Shirt Ironer Supervisor Name Role Phone Naz Lugo PA-C Primary Care Provid er Jocelyn Jane PA-C Primary Care Pr ovider Parag Pires PA-C Primary Care Provider Parag Pires PA-C Unavailable [phone] Parag Pires PA-C Unavailable +[phone] Tiffanie Araya DO Unavailable + [phone] Ceci Kessler MD Primary Care Provider + Reason for Visit * Reason Onset Date Comments Refill Request 03/04/2014 metronidazole ge l Encounter Details Date Type Department Care Team (Late st Contact Info) Description 03/04/2014 Refill M [address] [address] Naz Lugo PA-C [address] [id number] Refill Request (metronidazole gel) Social History Tobacco [...] on file 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:58 AM ZIGZAG TUNNEL ELASTIC OPERATOR Gender Identity Not on file Sexual Orientation Not on file 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 PCP, Naz Lugo PA-C, is no longer working for [place]. Will ask team provider to review. Jackson Beyer, RN AG TUNNEL ELASTIC OPERATOR * Telephone Encounter - Phoebe Orosco - 03/04/2014 12:53 PM CST Last Fill Date: 11/17/2013 Last Fill Quantity: 45 Last Office Visit: 01/20/2013 [facility]ebe [facility]rosc[phone] AG TUNNEL ELASTIC OPERATOR documented in this encounter Plan of Treatment Not on file documented as of this encounter Visit Diagnoses Diagnosis Rosacea- Primary documented in this encounter Care Teams Shirt Ironer Supervisor Relationship Specialty Start Date End Date Naz Lugo PA-C [address] [place] [address] [place] [address] PCP - General Family Practice 10/02/11 09/14/14 Jocelyn Jane PA-C [address] [place] [address] PCP - General Physician Quality Assurance Coordinator 09/15/14 03/22/16 Parag Pires PA-C [address] [place] [address] PCP - General Physician Quality Assurance Coordinator - Medical 03/23/16 09/01/20 Parag Pires PA-C [address] [place] [address] PCP - Assigned PCP 06/17/17 05/14/18 Ceci Kessler MD [facility] & [address] [address] PCP - General Family Medicine 09/02/20 Parag Pires PA-C [address] [place] [address] Assigned PCP 06/17/17 01/20/22 Tiffanie Araya DO [address] [place] [address] Assigned Heart and Vascular Provider 01/02/20 06/01/23 documented as of this encounter
--- OUTSIDE RECORDS SUMMARY | 2024-01-27 16:20 | XMS_ITS | Encounter Summary ---
Author Organization [facility] Address [address] [place], [place] [address]. [place] [address] Care Team Providers Care Head And Neck Surgeon Name Role Phone Naz Lugo PA-C Primary Care Provid er Jocelyn Jane PA-C Primary Care Pr ovider Parag Pires PA-C Primary Care Provider Parag Pires PA-C Unavailable [phone] Parag Pires PA-C Unavailable +[phone] Tiffanie Araya DO Unavailable + [phone] Ceci Kessler MD Primary Care Provider + Encounter Details Date Type Department Care Team (Late st Contact Info) Description 03/04/2012 Abstract [facility] [place] [address] [place] [address] Lissy Cintron MD Social History Tobacco [...] on file 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:58 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 Gender Identity Not on file Sexual Orientation Not on file 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 Not on file N [...] on filedocumented in this encounter Care Teams Head And Neck Surgeon Relationship Specialty Start Date End Date Naz Lugo PA-C [address] [address] PCP - General Family Practice 10/02/11 09/14/14 Jocelyn Jane PA-C [address] [place] [address] PCP - General Physician Final Inspector Paper 09/15/14 03/22/16 Parag Pires PA-C [address] [facility] [place] [address] PCP - General Physician Final Inspector Paper - Medical 03/23/16 09/01/20 Parag Pires PA-C [address] [facility] [place] [address] PCP - Assigned PCP 06/17/17 05/14/18 Ceci Kessler MD [facility] & [address] [address] PCP - General Family Medicine 09/02/20 Parag Pires PA-C [address] [place] [address] Assigned PCP 06/17/17 01/20/22 Tiffanie Araya DO [address] [place] [address] Assigned Heart and Vascular Provider 01/02/20 06/01/23 documented as of this encounter
--- OUTSIDE RECORDS SUMMARY | 2024-01-27 16:20 | XMS_ITS | Encounter Summary ---
Author Organization [facility] Address [address] [place] [address]. [place] [address] Care Team Providers Care Screen Printing Equipment Setter Name Role Phone Elvis Lugo PA-C Primary Care Provid er Jocelyn Jane PA-C Primary Care Pr ovider Parag Pires PA-C Primary Care Provider Parag Pires PA-C Unavailable [phone] Parag Pires PA-C Unavailable +[phone] Tiffanie Araya DO Unavailable [phone] Ceci Kessler MD Primary Care Provider + Encounter Details Date Type Department Care Team (Late st Contact Info) Description 09/05/2012 Office Visit-[facility] [place] [address] [facility] [address] [place] [address] Joleen Pineda APRN CNP Social History [...] on file 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 N.P. #[id number] DATE: 09/05/2012 VI DONATO DATE OF : 1950 AGE: [age] years old Referring Physician: ELVIS LEIVA Referring Clinic: [facility] CURRENT DIAGNOSES 1. Hyperlipidemia-mixed disorder, 272.4 2. [...] on filedocumented in this encounter Care Teams Screen Printing Equipment Setter Relationship Specialty Start Date End Date Elvis Lugo PA-C [address] [place] [address] [place] [address] PCP - General Family Practice 10/02/11 09/14/14 Jocelyn Jane PA-C [address] [place] [address] PCP - General Physician Pecan Gatherer 09/15/14 03/22/16 Parag Pires PA-C [address] [place] [address] PCP - General Physician Pecan Gatherer - Medical 03/23/16 09/01/20 Parag Pires PA-C [address] [place] [address] PCP - Assigned PCP 06/17/17 05/14/18 Ceci Kessler MD [facility] & [address] [address] PCP - General Family Medicine 09/02/20 Parag Pires PA-C [address] [place] [address] Assigned PCP 06/17/17 01/20/22 Tiffanie Araya DO [address] [place] [address] Assigned Heart and Vascular Provider 01/02/20 06/01/23 documented as of this encounter
--- OUTSIDE RECORDS SUMMARY | 2024-01-27 16:20 | XMS_ITS | Encounter Summary ---
Author Organization [facility] Address [address] [place], [place] [address]. [place] [address] Care Team Providers Care Driller Brake Lining Name Role Phone Naz Lugo PA-C Primary Care Provid er Jocelyn Jane PA-C Primary Care Pr ovider Parag Pires PA-C Primary Care Provider Parag Pires PA-C Unavailable [phone] Parag Pires PA-C Unavailable [phone] Tiffanie Araya DO Unavailable + [phone] Ceci Kessler MD Primary Care Provider + Reason for Visit * Reason Onset Date Comments MyChart Communication 12/22/2013 Encounter Details Date Type Department Care Team (Latest Contact Info) Description 12/22/2013 MyC Medical Advice [address] [address] Naz Lugo PA-C [address] [id number] MyChart Communication Social History Tobacco Use Types [...] on file 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 Gender Identity Not on file Sexual Orientation Not on file 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 Not on file N ot on file documented as of this encounter Plan of Treatment Not on file documented as of this encounter Visit Diagnoses Not on filedocumented in this encounter Care Teams Driller Brake Lining Relationship Specialty Start Date End Date Naz Lugo PA-C [address] [address] PCP - General Family Practice 10/02/11 09/14/14 Jocelyn Jane PA-C [address] [place] [address] PCP - General Physician Field Advisor 09/15/14 03/22/16 Parag Pires PA-C [address] [place] [address] PCP - General Physician Field Advisor - Medical 03/23/16 09/01/20 Parag Pires PA-C [address] [place] [address] PCP - Assigned PCP 06/17/17 05/14/18 Ceci Kessler MD [facility] & [address] [address] PCP - General Family Medicine 09/02/20 Parag Pires PA-C [address] [place] [address] Assigned PCP 06/17/17 01/20/22 Tiffanie Araya DO [address] [place] [address] Assigned Heart and Vascular Provider 01/02/20 06/01/23 documented as of this encounter
--- OUTSIDE RECORDS SUMMARY | 2024-01-27 16:20 | XMS_ITS | Encounter Summary ---
Author Organization [facility] Address [address] [place], [place] [address]. [place] [address] Care Team Providers Care Toppiece Chopper Name Role Phone Elvis Lugo PA-C Primary Care Provid er Jocelyn Jane PA-C Primary Care Pr ovider Parag Pires PA-C Primary Care Provider Parag Pires PA-C Unavailable [phone] Parag Pires PA-C Unavailable [phone] Tiffanie Araya DO Unavailable + [phone] Ceci Kessler MD Primary Care Provider + Encounter Details Date Type Department Care Team (Late st Contact Info) Description 08/06/2012 Office Visit-[facility] [place] [address] [facility] [address] [place] [address] Morena Mota MD HEART [address] [place], [place] [id number] Social History Tobacco Use Types Packs/Day Years [...] on file 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 [id number] DATE: 08/06/2012 DONATO VI DATE OF : 1950 AGE: [age] years old Referring Physician: ELVIS LEIVA Referring Clinic: [facility] CURRENT DIAGNOSES 1. Hyperlipidemia-mixed disorder, 272.4 2. [...] is a follow-up for atrial fibrillation. Ms. Donato is a very pleasant 61-year-old lady who comes in routine follow-up. She was last seen by Dr. Ugalde in August of last year who started her on Xareltoin the setting of chronic asymptomatic atrial fibrillation and hypertension. He recommended continuing rate control, as well as managing her sleep apnea. Ms. 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 [...] 1 week, 24-Hour 2. F/U with Any BLOCK MACHINE OPERATOR Return with Diagnostic Testing Morena Mota M.D. documented in this encounter Plan of Treatment Not on file documented as of this encounter Visit Diagnoses Not on filedocumented in this encounter Care Teams Toppiece Chopper Relationship Specialty Start Date End Date Elvis Lugo PA-C [address] [address] PCP - General Family Practice 10/02/11 09/14/14 Jocelyn Jane PA-C [address] [place] [address] PCP - General Physician Insurance Adviser 09/15/14 03/22/16 Parag Pires PA-C [address] [place] [address] PCP - General Physician Insurance Adviser - Medical 03/23/16 09/01/20 Parag Pires PA-C [address] [place] [address] PCP - Assigned PCP 06/17/17 05/14/18 Ceci Kessler MD [facility] & [address] [address] PCP - General Family Medicine 09/02/20 Parag Pires PA-C [address] [place] [address] Assigned PCP 06/17/17 01/20/22 Tiffanie Araya DO [address] [place] [address] Assigned Heart and Vascular Provider 01/02/20 06/01/23 documented as of this encounter
--- OUTSIDE RECORDS SUMMARY | 2024-01-27 16:20 | XMS_ITS | Encounter Summary ---
Author Organization [place] Address [address] [place], [place] [address]. [place] [address] Care Team Providers Care Body Rolling Machine Tender Name Role Phone Radha Keating MD Primary Care Provider Naz LugoC Primary Care Provid er Jocelyn Jane-C Primary Care Pr ovider Parag Pires PA-C Primary Care Provider Parag PiresC Unavailable +[phone] Parag Pires-C Unavailable +[phone] Tiffanie Araya DO Unavailable [phone] Ceci Kessler MD Primary Care Provider + Encounter Details Date Type Department Care Team (Late st Contact Info) Description 10/27/2010 Office Visit-[facility] Clinic [place] [id number] [facility] [address] [place] [address] Morena Mota MD HEART [facility] [address] [place], [place] [id number] Social History Tobacco Use Types Packs/Day Years Used Date Smoking Tobacco: Former Cigarettes Q uit: 10/28/1976 Comments:quit more than 25 y ears ago Alcohol Use Standard Drinks/Week Comments Yes 0 (1 standard drink = 0.6 oz pur e alcohol) very rare Comments No Sex and Gender Information Value Date Recorded Sex Assigned at Not on file 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 [id number] DATE: 10/27/2010 RADHA DONATO DATE OF : 1950 AGE: [age] years old Referring Physician: ELIEZER ROMEO Referring Clinic: [facility] CURRENT DIAGNOSES 1. - Atrial Fibrillation, 427.31 [...] doppler 1 week 2. F/U with Any SUPPORT ARCHITECT 7-14 days 3. Holter Monitor Today, 24-Hour Morena Mota M.D. documented in this encounter Plan of Treatment Not on file documented as of this encounter Visit Diagnoses Not on filedocumented in this encounter Care Teams Body Rolling Machine Tender Relationship Specialty Start Date End Date Radha Keating MD PCP - General Family Practice 09/05/10 10/01/11 Naz Lugo PA-C [address] [address] PCP - General Family Practice 10/02/11 09/14/14 Jocelyn Jane PA-C [address] [place] [address] PCP - General Physician Planning Aide 09/15/14 03/22/16 Parag Pires PA-C [address] [place] [address] PCP - General Physician Planning Aide - Medical 03/23/16 09/01/20 Parag Pires PA-C [address] [place] [address] PCP - Assigned PCP 06/17/17 05/14/18 Ceci Kessler MD [facility] & [address] [address] PCP - General Family Medicine 09/02/20 Parag Pires PA-C [address] [place] [address] Assigned PCP 06/17/17 01/20/22 Tiffanie Araya DO [address] [place] [address] Assigned Heart and Vascular Provider 01/02/20 06/01/23 documented as of this encounter
--- OUTSIDE RECORDS SUMMARY | 2024-01-27 16:20 | XMS_ITS | Encounter Summary ---
Author Organization [place] Address [address] [place], [place] [address]price. [place] [address] Care Team Providers Care Front End Loader Driver Name Role Phone Radha Keating MD Primary Care Provider Naz LugoC Primary Care Provid er Jocelyn Jane-C Primary Care Pr ovider Parag Pires PA-C Primary Care Provider Parag Pires PA-C Unavailable [phone] Parag Pires-C Unavailable + [phone] Tiffanie Araya DO Unavailable [phone] Ceci Kessler MD Primary Care Provider + Encounter Details Date Type Department Care Team (Late st Contact Info) Description 12/22/2010 Office Visit-[facility] Heart Clinic [place] [address] [facility] [address] [place] [address] Unknown, DoctorMD Social History Tobacco [...] on file 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 - Atrial [...] delightful 60-year-old female who presents to the [facility] today for a [...] TODAYS ORDERS 1. Sleep Study Schedule At [facility] 2. Return Visit 3 weeks PALOMO Bennett documented in this encounter Plan of Treatment Not on file documented as of this encounter Visit Diagnoses Not on filedocumented in this encounter Care Teams Front End Loader Driver Relationship Specialty Start Date End Date Radha Keating MD PCP - General Family Practice 09/05/10 10/01/11 Naz Lugo PA-C [address] [place] [address] [place] [address] PCP - General Family Practice 10/02/11 09/14/14 Jocelyn Jane PA-C [address] [place] [address] PCP - General Physician Squad Boss 09/15/14 03/22/16 Parag Pires PA-C [address] [place] [address] PCP - General Physician Squad Boss - Medical 03/23/16 09/01/20 Parag Pires PA-C [address] [place] [address] PCP - Assigned PCP 06/17/17 05/14/18 Ceci Kessler MD [facility] & [address] [address] PCP - General Family Medicine 09/02/20 Parag Pires PA-C [address] [place] [address] Assigned PCP 06/17/17 01/20/22 Tiffanie Araya DO [address] [place] [address] Assigned Heart and Vascular Provider 01/02/20 06/01/23 documented as of this encounter
--- OUTSIDE RECORDS SUMMARY | 2024-01-27 16:20 | XMS_ITS | Encounter Summary ---
Author Organization [place] Address [address] [place], [place] [address]price. [place] [address] Care Team Providers Care Powerhouse Attendant Name Role Phone Isabell Keating MD Primary Care Provider Naz Lugo PA-C Primary Care Provid er Jocelyn Jane-C Primary Care Pr ovider Parag Pires PA-C Primary Care Provider Parag Pires PA-C Unavailable [phone] Parag Pires-C Unavailable + [phone] Tiffanie Araya DO Unavailable [phone] Ceci Kessler MD Primary Care Provider + Encounter Details Date Type Department Care Team (Late st Contact Info) Description 07/25/2011 Office Visit-[facility] Heart Clinic [place] [address] [facility] [address] [place] [address] Morena Mota MD HEART [facility] [address] [facility] [address] [place], [place] [id number] Social History Tobacco Use Types Packs/Day Years Used Date Smoking Tobacco: Former Cigarettes Q uit: 10/28/1976 Comments:quit more than 25 y ears ago Alcohol Use Standard Drinks/Week Comments Yes 0 (1 standard drink = 0.6 oz pur e alcohol) very rare Comments No Sex and Gender Information Value Date Recorded Sex Assigned at Not on file 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 [id number] DATE: 07/25/2011 VI DONATO DATE OF : [...] hr 1 1/2 tabs daily #135 ([employer]) Patient Request IMPRESSIONS/PLAN A pleasant [...] on filedocumented in this encounter Care Teams Powerhouse Attendant Relationship Specialty Start Date End Date Isabell Keating MD PCP - General Family Practice 09/05/10 10/01/11 Naz Lugo PA-C [address] [address] PCP - General Family Practice 10/02/11 09/14/14 Jocelyn Jane PA-C [address] [place] [address] PCP - General Physician Physical Security Manager 09/15/14 03/22/16 Parag Pires PA-C [address] [place] [address] PCP - General Physician Physical Security Manager - Medical 03/23/16 09/01/20 Parag Pires PA-C [address] [place] [address] PCP - Assigned PCP 06/17/17 05/14/18 Ceci Kessler MD [facility] & [address] [address] PCP - General Family Medicine 09/02/20 Parag Pires PA-C [address] [place] [address] Assigned PCP 06/17/17 01/20/22 Tiffanie Araya DO [address] [place] [address] Assigned Heart and Vascular Provider 01/02/20 06/01/23 documented as of this encounter
--- OUTSIDE RECORDS SUMMARY | 2024-01-27 16:20 | XMS_ITS | Encounter Summary ---
Author Organization [place] Address [address] [place], [place] [address]. 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 Gender Identity Not on file Sexual Orientation Not on file 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 Not on file N ot on file documented as of this encounter Plan of Treatment Not on file documented as of this encounter Visit Diagnoses Not on filedocumented in this encounter Care Teams Bonsai Culturist Relationship Specialty Start Date End Date Jocelyn Jane PA-C [address] [place] [address] PCP - General Physician Rn Neurosurgical 09/15/14 03/22/16 Parag Pires PA-C [address] [place] [address] PCP - General Physician Rn Neurosurgical - Medical 03/23/16 09/01/20 Parag Pires PA-C [address] [place] [address] PCP - Assigned PCP 06/17/17 05/14/18 Ceci Kessler MD [facility] & [address] [address] PCP - General Family Medicine 09/02/20 Parag Pires PA-C [address] [place] [address] Assigned PCP 06/17/17 01/20/22 Tiffanie Araya DO [address] [place] [id number] Assigned Heart and Vascular Provider 01/02/20 06/01/23 documented as of this encounter
--- OUTSIDE RECORDS SUMMARY | 2024-01-27 16:20 | XMS_ITS | Encounter Summary ---
Author Organization [place] Address [address] [place] [address]. [place] [address] Care Team Providers Care Site Superintendent Name Role Phone Radha Keating MD Primary Care Provider Naz Lugo PA-C Primary Care Provid er Jocelyn Jane-Grant Primary Care Pr ovider Parag Pires PA-C Primary Care Provider Parag Pires PA-C Unavailable [phone] Parag Pires PA-C Unavailable [phone] Tiffanie Araya DO Unavailable + [phone] Ceci Kessler MD Primary Care Provider + Encounter Details Date Type Department Care Team (Late st Contact Info) Description 09/29/2011 [facility] [address] [address] Emilia Lr Social History Tobacco [...] on file 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 Gender Identity Not on file Sexual Orientation Not on file 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 Not on file N ot on file documented as of this encounter Plan of Treatment Not on file documented as of this encounter Visit Diagnoses Not on filedocumented in this encounter Care Teams Site Superintendent Relationship Specialty Start Date End Date Radha Keating MD PCP - General Family Practice 09/05/10 10/01/11 Naz Lugo PA-C [address] [address] PCP - General Family Practice 10/02/11 09/14/14 Jocelyn Jane PA-C [address] [place] [address] PCP - General Physician Functional Architect 09/15/14 03/22/16 Parag Pires PA-C [address] [place] [address] PCP - General Physician Functional Architect - Medical 03/23/16 09/01/20 Parag Pires PA-C [address] [place] [address] PCP - Assigned PCP 06/17/17 05/14/18 Ceci Kessler MD [facility] & [address] [address] PCP - General Family Medicine 09/02/20 Parag Pires PA-C [address] [address] Assigned PCP 06/17/17 01/20/22 Tiffanie Araya DO [address] [place] [address] Assigned Heart and Vascular Provider 01/02/20 06/01/23 documented as of this encounter
--- OUTSIDE RECORDS SUMMARY | 2024-01-27 16:20 | XMS_ITS | Encounter Summary ---
Author Organization [place] Address [address] [place] [address]. [place] [address] Care Team Providers Care Diplomatic Interpreter/Translator Name Role Phone Naz Lugo PA-C Primary Care Provid er Jocelyn Jane PA-C Primary Care Pr ovider Parag Pires PA-C Primary Care Provider Parag Pires PA-C Unavailable [phone] Parag Pires PA-C Unavailable [phone] Tiffanie Araya DO Unavailable + [phone] Ceci Kessler MD Primary Care Provider + Encounter Details Date Type Department Care Team (Late st Contact Info) Description 06/28/2012 [facility] Only [facility] [place] [address] [facility], [address] [place] [address] Radha Phan Social History Tobacco Use Types [...] on file 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 Gender Identity Not on file Sexual Orientation Not on file 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 Not on file N ot on file documented as of this encounter Plan of Treatment Not on file documented as of this encounter Visit Diagnoses Not on filedocumented in this encounter Care Teams Diplomatic Interpreter/Translator Relationship Specialty Start Date End Date Naz Lugo PA-C [address] [place] [address] [place] [address] PCP - General Family Practice 10/02/11 09/14/14 Jocelyn Jane PA-C [address] [place] [address] PCP - General Physician Machine Accountant 09/15/14 03/22/16 Parag Pires PA-C [address] [place] [address] PCP - General Physician Machine Accountant - Medical 03/23/16 09/01/20 Parag Pires PA-C [address] [facility] [place] [address] PCP - Assigned PCP 06/17/17 05/14/18 Ceci Kessler MD [facility] [address] [place] [address] PCP - General Family Medicine 09/02/20 Parag Pires PA-C 274[address] [facility] [place] [place] [address] Assigned PCP 06/17/17 01/20/22 Tiffanie Araya DO [address] [place] [id number] Assigned Heart and Vascular Provider 01/02/20 06/01/23 documented as of this encounter
--- OUTSIDE RECORDS SUMMARY | 2024-01-27 16:20 | XMS_ITS | Encounter Summary ---
Author Organization [place] Address [address] [place], [place] [address]. [place] [address] Care Team Providers Care Site Operations Manager Name Role Phone Radha Keating MD Primary Care Provider Naz Lugo PA-C Primary Care Provid er Jocelyn Jane-C Primary Care Pr ovider Parag Pires PA-C Primary Care Provider Parag Pires PA-C Unavailable [phone] Parag Pires PA-C Unavailable [phone] Tiffanie Araya DO Unavailable + [phone] Ceci Kessler MD Primary Care Provider + Reason for Visit * Reason Onset Date Comments Referral 09/26/2010 Cardiology Pt. Information/instruction 09/26/2010 [facility] record Encounter Details Date Type Department Care Team (Late st Contact Info) Description 09/26/2010 MyC Medical Advice [address], [address] [place] [address] [place] [address] [place] [address] Referral (Cardiology); Pt. Information/ins... 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 Not on file N ot on file documented as of this encounter Plan of Treatment Not on file documented as of this encounter Visit Diagnoses Diagnosis CARDIOVASCULAR SCREENING; LDL GOAL LESS THAN 160- Primary documented in this encounter Care Teams Site Operations Manager Relationship Specialty Start Date End Date Radha Keating MD PCP - General Family Practice 09/05/10 10/01/11 Naz Lugo PA-C [address] [address] PCP - General Family Practice 10/02/11 09/14/14 Jocelyn Jane PA-C [address] [place] [address] PCP - General Physician Jackscrew Man 09/15/14 03/22/16 Parag Pires PA-C [address] [place] [address] PCP - General Physician Jackscrew Man - Medical 03/23/16 09/01/20 Parag Pires PA-C [address] [place] [address] PCP - Assigned PCP 06/17/17 05/14/18 Ceci Kessler MD [facility] [address] [place] [address] PCP - General Family Medicine 09/02/20 Parag Pires PA-C [address] [place] [address] Assigned PCP 06/17/17 01/20/22 Tiffanie Araya DO [address] [place] [address] Assigned Heart and Vascular Provider 01/02/20 06/01/23 documented as of this encounter
--- OUTSIDE RECORDS SUMMARY | 2024-01-27 16:20 | XMS_ITS | Encounter Summary ---
Author Organization [place] Address [address] [place], [place] [address]. [place] [address] Care Team Providers Care Butter Maker Name Role Phone Isabell Capone MD Primary Care Provider Naz LugoC Primary Care Provid er Jocelyn Jane-C Primary Care Pr ovider Parag Pires PA-C Primary Care Provider Parag Pires PA-C Unavailable [phone] Parag Pires-C Unavailable + [phone] Tiffanie Araya DO Unavailable [phone] Ceci Kessler MD Primary Care Provider + Encounter Details Date Type Department Care Team (Late st Contact Info) Description 01/12/2011 Office Visit-[facility] Heart Clinic [address] [place] [address] Unknown, DoctorMD Social History Tobacco [...] on file 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; Place of - [place]; Hours Worked - 30 hours per week; [...] Morena Kolb MD 6 months PALOMO Bennett Electronically signed by [facility] [[email or web address]], Emr Data Conversion at 07/24/2013 7:59 PM CDT documented in this encounter Plan of Treatment Not on file documented as of this encounter Visit Diagnoses Not on filedocumented in this encounter Care Teams Butter Maker Relationship Specialty Start Date End Date Isabell Capone MD PCP - General Family Practice 09/05/10 10/01/11 Naz Lugo PA-C [address] [address] PCP - General Family Practice 10/02/11 09/14/14 Jocelyn Jane PA-C [address] [place] [address] PCP - General Physician Developmental Writing Instructor 09/15/14 03/22/16 Parag Pires PA-C [address] [place] [address] PCP - General Physician Developmental Writing Instructor - Medical 03/23/16 09/01/20 Parag Pires PA-C [address] [place] [address] PCP - Assigned PCP 06/17/17 05/14/18 Ceci Kessler MD [facility] & [address] [address] PCP - General Family Medicine 09/02/20 Parag Pires PA-C [address] [place] [address] Assigned PCP 06/17/17 01/20/22 Tiffanie Araya DO [address] [place] [address] Assigned Heart and Vascular Provider 01/02/20 06/01/23 documented as of this encounter
--- OUTSIDE RECORDS SUMMARY | 2024-01-27 16:20 | XMS_ITS | Encounter Summary ---
Author Organization [place] Address [address] [place], [place] [address]. [place] [address] Care Team Providers Care Patient Access Registrar Name Role Phone Isabell Capone MD Primary Care Provider Naz LugoC Primary Care Provid er Jocelyn Jane-C Primary Care Pr ovider Parag Pires PA-C Primary Care Provider Parag Pires PA-C Unavailable + [phone] Parag Pires-C Unavailable + [phone] Tiffanie Araya DO Unavailable + [phone] Ceci Kessler MD Primary Care Provider + Encounter Details Date Type Department Care Team (Late st Contact Info) Description 08/24/2011 Office Visit-[facility] Heart Clinic [place] [address] [facility] [address] [place] [address] Tejal Ugalde MD [address] [facility] [address] [place] [id number] Social History Tobacco Use Types Packs/Day Years Used Date Smoking Tobacco: Former Cigarettes Q uit: 10/28/1976 Comments:quit more than 25 y ears ago Alcohol Use Standard Drinks/Week Comments Yes 0 (1 standard drink = 0.6 oz pur e alcohol) very rare Comments No Sex and Gender Information Value Date Recorded Sex Assigned at Not on file 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 [id number] DATE: 08/24/2011 VI DONATO DATE OF : 1950 AGE: [age] years old Referring Physician: ISABELL CAPONE Referring Clinic: [facility] CURRENT DIAGNOSES 1. Hyperlipidemia-mixed disorder, [...] was discovered on routine exam in the summer of 2010. Reportedly, the patient had an irregular heartbeat [...] cannot at all tolerate CPAP), I think advent and maintenance of sinus rhythm would be [...] with Dr. Mota has been made in [place] in one year. Thank you very much [...] on filedocumented in this encounter Care Teams Patient Access Registrar Relationship Specialty Start Date End Date Isabell Capone MD PCP - General Family Practice 09/05/10 10/01/11 Naz Lugo PA-C [address] [address] PCP - General Family Practice 10/02/11 09/14/14 Jocelyn Jane PA-C [address] [place] [address] PCP - General Physician Journeyman Molder 09/15/14 03/22/16 Parag Pires PA-C [address] [place] [address] PCP - General Physician Journeyman Molder - Medical 03/23/16 09/01/20 Parag Pires PA-C [address] [place] [address] PCP - Assigned PCP 06/17/17 05/14/18 Ceci Kessler MD [address] [address] PCP - General Family Medicine 09/02/20 Parag Pires PA-C [address] [address] [place] [address] Assigned PCP 06/17/17 01/20/22 Tiffanie Araya DO [address] [place] [address] Assigned Heart and Vascular Provider 01/02/20 06/01/23 documented as of this encounter
== END 2024-01-24 12:57 | disposition home or self-care (01) ==
LOC: NFLDREF 01-27 16:17
PROVIDERS: PCP Internal Medicine; Referring Provider Internal Medicine; Visit Provider Physician Assistant
DX: R30.0 Dysuria (principal); N39.0 Urinary tract infection, site not specified
CPT/HCPCS: 87086; 87186

== ENCOUNTER 2024-01-30 06:16 | Day surgery (SDC) | payer MEDICARE, SELFPAY ==
--- OUTSIDE RECORDS SUMMARY | 2024-01-30 06:19 | XMS_ITS | Encounter Summary ---
Author Organization [place] Address [address] [place], [place] [address]. 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 Gender Identity Not on file Sexual Orientation Not on file 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 Not on file N ot on file documented as of this encounter Plan of Treatment Not on file documented as of this encounter Visit Diagnoses Not on filedocumented in this encounter Care Teams A&P Technician Relationship Specialty Start Date End Date Jocelyn Jane PA-C [address] [place] [address] PCP - General Physician Insert Cutter 09/15/14 03/22/16 Parag Pires PA-C [address] [place] [address] PCP - General Physician Insert Cutter - Medical 03/23/16 09/01/20 Parag Pires PA-C [address] [place] [address] PCP - Assigned PCP 06/17/17 05/14/18 Ceci Kessler MD [facility] & [address] [address] PCP - General Family Medicine 09/02/20 Parag Pires PA-C [address] [place] [address] Assigned PCP 06/17/17 01/20/22 Tiffanie Araya DO [address] [id number] Assigned Heart and Vascular Provider 01/02/20 06/01/23 documented as of this encounter
--- OUTSIDE RECORDS SUMMARY | 2024-01-30 06:19 | XMS_ITS | Encounter Summary ---
Author Organization [place] Address [address] [place], [place] [address]. 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 Not on file N ot on file documented as of this encounter Plan of Treatment Not on file documented as of this encounter Visit Diagnoses Not on filedocumented in this encounter Additional Health Concerns Assessment Noted Time PHQ-9 Depression Total Score: 0 09/22/19 17 7:24 AM CDT documented as of this encounter Care Teams Knitter Hand Relationship Specialty Start Date End Date Parag Pires PA-C PCP - General Physician Shuttle Truck Driver - Medical 03/23/16 09/01/20 Parag Pires PA-C [address] [address] PCP - Assigned PCP 06/17/17 05/14/18 Ceci Kessler MD [facility] & [address] [address] PCP - General Family Medicine 09/02/20 Parag Pires PA-C [address] [address] Assigned PCP 06/17/17 01/20/22 Tiffanie Araya DO [address] [place] [address] Assigned Heart and Vascular Provider 01/02/20 06/01/23 documented as of this encounter
--- OUTSIDE RECORDS SUMMARY | 2024-01-30 06:19 | XMS_ITS | Encounter Summary ---
Author Organization [place] Address [address] [place], [place] [address]price. 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 Gender Identity Not on file Sexual Orientation Not on file 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 Not on file N ot on file documented as of this encounter Plan of Treatment Not on file documented as of this encounter Visit Diagnoses Not on filedocumented in this encounter Additional Health Concerns Assessment Noted Time PHQ-9 Depression Total Score: 0 09/22/19 17 7:24 AM CDT documented as of this encounter Care Teams Conditioning Yard Supervisor Relationship Specialty Start Date End Date Parag Pires PA-C PCP - General Physician Horn Player - Medical 03/23/16 09/01/20 Parag Pires PA-C [address] [place] [address] PCP - Assigned PCP 06/17/17 05/14/18 Ceci Kessler MD [facility] & [address] [address] PCP - General Family Medicine 09/02/20 Parag Pires PA-C [address] [place] [address] Assigned PCP 06/17/17 01/20/22 Tiffanie Araya DO [address] [place] [address] Assigned Heart and Vascular Provider 01/02/20 06/01/23 documented as of this encounter
--- OUTSIDE RECORDS SUMMARY | 2024-01-30 06:19 | XMS_ITS | Encounter Summary ---
Author Organization [place] Address [address] [place], [place] [address]. 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 Not on file N ot on file documented as of this encounter Plan of Treatment Not on file documented as of this encounter Visit Diagnoses Not on filedocumented in this encounter Additional Health Concerns Assessment Noted Time PHQ-9 Depression Total Score: 0 09/22/19 17 7:24 AM CDT documented as of this encounter Care Teams Adoption Social Worker Relationship Specialty Start Date End Date Parag Pires PA-C PCP - General Physician Sap Analyst - Medical 03/23/16 09/01/20 Ceci Kessler MD [facility] & [address] [address] PCP - General Family Medicine 09/02/20 Parag Pires PA-C [address] [place] [address] Assigned PCP 06/17/17 01/20/22 Tiffanie Araya DO [address] [place] [address] Assigned Heart and Vascular Provider 01/02/20 06/01/23 documented as of this encounter
--- OUTSIDE RECORDS SUMMARY | 2024-01-30 06:19 | XMS_ITS | Encounter Summary ---
Author Organization [facility] Address [address] [place], [place] [address]. [place] [address] Care Team Providers Care Pinked Edge Sewing Machine Operator Name Role Phone Naz Lugo PA-C Primary Care Provid er Jocelyn Jane PA-C Primary Care Pr ovider Parag Pires PA-C Primary Care Provider Parag Pires PA-C Unavailable +[phone] Parag Pires PA-C Unavailable +[phone] Tiffanie Araya DO Unavailable + [phone] Ceci Kessler MD Primary Care Provider + Reason for Visit * Reason Onset Date Comments Refill Request 03/04/2014 metronidazole ge l Encounter Details Date Type Department Care Team (Late st Contact Info) Description 03/04/2014 Refill M [address] [address] Naz Lugo PA-C [address] [address] Refill Request (metronidazole gel) Social History Tobacco [...] on file 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 PCP, Naz Lugo PA-C, is no longer working for [facility]. Will ask team provider to review. Jackson Beyer, RN THCARE INSURANCE SALES AGENT * Telephone Encounter - Phoebe Orosco - 03/04/2014 12:53 PM CST Last Fill Date: 11/17/2013 Last Fill Quantity: 45 Last Office Visit: 01/20/2013 [phone] THCARE INSURANCE SALES AGENT documented in this encounter Plan of Treatment Not on file documented as of this encounter Visit Diagnoses Diagnosis Rosacea- Primary documented in this encounter Care Teams Pinked Edge Sewing Machine Operator Relationship Specialty Start Date End Date Naz Lugo PA-C [address] [place] [address] [address] [address] PCP - General Family Practice 10/02/11 09/14/14 Jocelyn Jane PA-C [address] [place] [address] PCP - General Physician Garage Supervisor 09/15/14 03/22/16 Parag Pires PA-C [address] [place] [address] PCP - General Physician Garage Supervisor - Medical 03/23/16 09/01/20 Parag Pires PA-C [address] [place] [address] PCP - Assigned PCP 06/17/17 05/14/18 Ceci Kessler MD [facility] & [address] [address] PCP - General Family Medicine 09/02/20 Parag Pires PA-C [address] [place] [address] Assigned PCP 06/17/17 01/20/22 Tiffanie Araya DO [address] [place] [address] Assigned Heart and Vascular Provider 01/02/20 06/01/23 documented as of this encounter
--- OUTSIDE RECORDS SUMMARY | 2024-01-30 06:19 | XMS_ITS | Encounter Summary ---
Author Organization [place] Address [address] [place] [address] [place] [address] Care Team Providers Care Beef Boner Name Role Phone Parag Pires PA-C Primary Care Provider Parag Pires PA-C Unavailable + [phone] Tiffanie Araya DO Unavailable + [phone] Ceci Kessler MD Primary Care Provider + Reason for Visit * Reason Onset Date Comments Refill Request 03/10/2019 Tramadol 50mg Encounter Details Date Type Department Care Team (Late st Contact Info) Description 03/10/2019 MyC Medical Advice [address], [address] [place] [address] Parag Pires PA-C [address] [place] [id number] Refill Request (Tramadol 50mg) Social History Tobacco [...] on file 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 Ines Green RN TAL AND ESTUARY SPECIALIST * Telephone Encounter - Shruthi Burger RN - 03/13/2019 3:17 PM COASTAL AND ESTUARY SPECIALIST Routing refill request to provider for review/approval because: Tramadol: Drug not on the [facility] refill protocol Requested Prescriptions Pending Prescriptions Disp [...] no refill protocol information for this order TAL AND ESTUARY SPECIALIST documented in this encounter Plan of Treatment Not on file documented as of this encounter Visit Diagnoses Diagnosis Urge incontinence of urine Urge incontinence Chronic pain of both knees documented in this encounter Additional Health Concerns Assessment Noted Time PHQ-9 Depression Total Score: 0 09/22/19 17 7:24 AM CDT documented as of this encounter Care Teams Beef Boner Relationship Specialty Start Date End Date Parag Pires PA-C PCP - General Physician Field Auditor - Medical 03/23/16 09/01/20 Ceci Kessler MD [facility] & [address] [address] PCP - General Family Medicine 09/02/20 Parag Pires PA-C [address] [place] [address] Assigned PCP 06/17/17 01/20/22 Tiffanie Araya DO [address] [place] [address] Assigned Heart and Vascular Provider 01/02/20 06/01/23 documented as of this encounter
--- OUTSIDE RECORDS SUMMARY | 2024-01-30 06:19 | XMS_ITS | Encounter Summary ---
Author Organization [place] Address [address] [place], [place] [address]. 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 Provider Outside LAB - BLOOD ORDERABLES Edited R IntelliFlo - check24 [facility] NON-INTERFACED (ONBASE SCANS) * UA with Microscopic (07/29/2021 1:10 PM CDT) Color Urine (External) YELLOW YELLOW NON-INTERFAC ED (ONBASE SCANS) Appearance Urine (External) CLEAR CLEAR NON-INTERFAC ED (ONBASE SCANS) Glucose Urine (External) NEGATIVE NEGATIVE NON-INTERFAC ED (ONBASE SCANS) Bilirubin Urine (External) NEGATIVE NEGATIVE NON-INTERFAC ED (ONBASE SCANS) Ketones Urine (External) NEGATIVE NEGATIVE NON-INTERFAC ED (ONBASE SCANS) Specific [place] Urine (External) 1.010 1.000 - 1.030 NON-INTERFAC [...] NON-INTERFACE D (ONBASE SCANS) GFR Estimated (External) 69.06259 ml/min NON-INTERFACE D (ONBASE SCANS) Sodium (External) [...] Outside LAB - [facility]LOOD ORDERABLES [facility] Performing Organization Address [facility] Co de Phone Number [facility] PFT NON-INTERFACED (ONBASE SCANS) * Troponin I (07/29/2021 1:10 PM CDT) Troponin I (External) 0.01 0.00 - 0.04 NG/ML NON-INTERFACED (ONBASE SCANS) Blood 07/29/2021 1:10 PM CDT Narrative [facility]FT - 11/10/2021 9:04 AM CDT Verified by Shahid Leon on 11/10/2021. Provider Outside LAB - BLOOD ORDERABLES [facility] Performing Organization Address [facility] de Phone Number [facility] PFT NON-INTERFACED (ONBASE SCANS) * (ABNORMAL) N terminal pro BNP outpatient (07/29/2021 1:10 PM CDT) N-Terminal Pro BNP (External) 431(H) 0 - 125 pg/mL NON-INTERFACED (ONBASE SCANS) Blood 07/29/2021 1:10 PM CDT Narrative [facility]FT - 11/10/2021 9:04 AM CDT Verified by Shahid Leon on 11/10/2021. Provider Outside LAB - BLOOD ORDERABLES Edited R IntelliFlo [facility] Performing Organization Address [facility]/ZIP Co de Phone Number [facility] PFT NON-INTERFACED [...] documented as of this encounter Care Teams Appeals Examiner Relationship Specialty Start Date End Date Ceci Kessler MD [facility] & [address] [address] PCP - General Family Medicine 09/02/20 Parag Pires PA-C [address] [place] [address] Assigned PCP 06/17/17 01/20/22 Tiffanie Araya DO [address] [place] [address] Assigned Heart and Vascular Provider 01/02/20 06/01/23 documented as of this encounter
--- OUTSIDE RECORDS SUMMARY | 2024-01-30 06:19 | XMS_ITS | Encounter Summary ---
Author Organization [place] Address [address] [place], [place] [address]. 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 CUTTING MACHINE OPERATOR Gender Identity Not on file Sexual Orientation Not on file 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 Not on file N ot on file documented as of this encounter Plan of Treatment Not on file documented as of this encounter Visit Diagnoses Not on filedocumented in this encounter Additional Health Concerns Assessment Noted Time PHQ-9 Depression Total Score: 0 09/22/19 17 7:24 AM CDT documented as of this encounter Care Teams Sketch Artist Relationship Specialty Start Date End Date Praag Pires PA-C PCP - General Physician Lead Assistant Manager - Medical 03/23/16 09/01/20 Parag Pires PA-C [address] [address] PCP - Assigned PCP 06/17/17 05/14/18 Ceci Kessler MD [facility] & [address] [address] PCP - General Family Medicine 09/02/20 Parag Pires PA-C [address] [address] Assigned PCP 06/17/17 01/20/22 Tiffanie Araya DO [address] [place] [address] Assigned Heart and Vascular Provider 01/02/20 06/01/23 documented as of this encounter
--- OUTSIDE RECORDS SUMMARY | 2024-01-30 06:19 | XMS_ITS | Clinical Summary ---
Author Organization [facility] Address [address] [place] [address] [place] [address] Care Team Providers Care Digital Media Coordinator Name Role Phone Ceci Kessler MD Primary Care Provider + Allergies Active Allergy Reactions Criticality Noted Date Comments No Known Drug Allergy 09/16/2003 Medications MULTI-DAY OR 1 tablet daily Ac tive Cholecalciferol (VITAMIN D3 PO) Take 2,000 Units by mouth daily Active calcium-vitamin D (CALTRATE) 600-400 MG-UNIT per tablet Take 1 tablet by mouth 2 times daily Active [place]-3 Fatty Acids (OMEGA-3 FISH OIL PO) Take [...] Active fluticasone (FLONASE) 50 MCG/ACT nasal spray [place] 1 spray into both nostrils as needed [...] on file 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:58 AM GAS STATION SUPERVISOR Gender Identity Not on file Sexual Orientation Not on file 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 Not on file N ot on file Last Filed Vital Signs Vital Sign Reading Time Taken Comments Blood Pressure 128/65 06/28/2023 12:13 PM CDT Pulse 62 06/28/2023 12:15 PM CDT Temperature 36.6 C (97.8 F) 06/28/2023 12:13 PM CDT Respiratory Rate 16 06/28/2023 12:1 [...] 09/01/2023 08/31/2021, 08/03/2019, 10/18/2017, Additional history exists COVID-19 Vaccine ( [...] this topic Medical Devices Implanted Type Area Seating Captain Device Identifier Shelf Expiration Date Model / Serial / Lot Kit Nrstm Axonics Caro Lead Curved Stylet 1201 - [id number] Implanted:Qty : 1 on 06/28/2023 by Marco Padilla MD at [facility] Leads N/A: Bladder [employer]ON[employer] [id number] 09/20/2025 1201 / [id number] 33 / Imp Nrstm Axonics Snm System 4101 - [id number] Implanted:Qty : 1 on 06/28/2023 by Marco Padilla MD at [facility] Neurology device N/A: Bladder [employer] [id number] 01/26/2024 4101 / [id number] / Sns Lead 28cm Implanted:Qty : 1 on 10/26/2014 by Sukhjinder Wolf MD at [facility] N/A: Sacrum [employer] 08/18/2018 3889 / / [id number] Stimulator Neuro Interstim Ii [id number] Implanted:Qty : 1 on 10/26/2014 by Sukhjinder Wolf MD at [facility] N/A: Sacrum [employer] 02/07/2016 [id number] / [id number] / Procedures Procedure Name Priority Date/Time [...] DX BONE DENSITY Routine 05/16/2017 10:06 AM GAS STATION SUPERVISOR Screening for osteoporosis HEPATITIS C SCREEN REFLEX TO HCV RNA QUANT AND GENOTYPE Routine 03/23/2016 9:49 AM GAS STATION SUPERVISOR Need for hepatitis C screening test COLONOSCOPY [...] NON-INTERFACE D (ONBASE SCANS) GFR Estimated (External) 69.73045 ml/min NON-INTERFACE D (ONBASE SCANS) Sodium (External) [...] BLOOD ORDERABLES Edited R esult - Final RIDDHIMARQUES PFTai NON-INTERFACED (ONBASE SCANS) * (ABNORMAL) Lipid Profile (08/26/2019 8:33 AM CDT) Cholesterol 206(H) <200 mg/dL 08/26/2019 12:[address] [facility] Comment:Desirable: <200 mg/d l Triglycerides 84 <150 mg/dL 08/26/2019 12:[address] [facility] HDL Cholesterol 63 >49 mg/dL 0 1:[address] [facility] LDL Cholesterol Calculated 126(H) <100 mg/dL 08/26/2019 1:[address] [facility] Comment: Above desirable: 100-129 mg/dl Borderline High: 130-159 mg/dL High: 160-189 mg/dL Very high: >189 mg/dl Non HDL Cholesterol 143(H) <130 mg/dL 08/26/2019 1:[address] [facility] Comment: Above Desirable: 130-159 mg/dl Borderline high: 160-189 mg/dl High: 190-219 mg/dl Very high: >219 mg/dl Blood specimen (specimen) 08/26/2019 8:33 AM CDT 08/26/2019 8:34 AM CDT Tiffanie Araya DO LAB - BLOOD ORDERAB LES Final Result [facility] [address] [place] [address] * Basic metabolic panel (11/28/2018 9:04 AM CDT) Sodium 139 133 - 144 mmol/L 11/29/2018 8:[address] [facility] Potassium 4.5 3.4 - 5.3 mmol/L 11/29/2018 8:[address] [facility] Chloride 105 94 - 109 mmol/L 11/29/2018 8:[address] [facility] Carbon Dioxide 29 20 - 32 mmol/L 11/29/2018 8:[address] [facility] Anion Gap 5 3 - 14 mmol/L 11/29/2018 8:[address] [facility] Glucose 94 70 - 99 mg/dL 11/29/2018 8:[address] [facility] Urea Nitrogen 16 7 - 30 mg/dL 11/29/2018 8:[address] [facility] Creatinine 0.81 0.52 - 1.04 mg/dL 11/29/2018 8:[address] [facility] GFR Estimate 76 >60 mL/min/{1 .73_m2} 11/29/2018 8:[address] [facility] Comment: Non GFR Calc Starting 02/26/2018, serum creatinine based estimated GFR (eGFR) will be calculated using the Chronic Kidney Disease Epidemiology Collaboration (CKD-EPI) equation. GFR Estimate If Black 88 >60 mL/min/{1 .73_m2} 11/29/2018 8:[address] [facility] Comment: GFR Calc Starting 02/26/2018, serum creatinine based estimated GFR (eGFR) will be calculated using the Chronic Kidney Disease Epidemiology Collaboration (CKD-EPI) equation. Calcium 9.4 8.5 - 10.1 mg/dL 11/29/2018 8:[address] [facility] Blood specimen (specimen) 11/28/2018 9:04 AM CDT 11/28/2018 9:08 AM CDT us Parag Pires PA-C LAB - BLOOD ORDERABLES Final Result [facility] [address] [place] [address] * DX Hip/Pelvis/Spine (05/16/2017 10:06 AM GAS STATION SUPERVISOR) Anatomical Region Laterality Modality Dexa Bone Mineral Den sity Narrative 05/17/2017 4:13 PM GAS STATION SUPERVISOR BONE DENSITOMETRY [address] [address] 05/16/2017 PATIENT: Vi Donato CHART: [id number] : 1950 AGE: [age] year old SEX: female REFERRING PROVIDER: Parag Pires PA-C PROCEDURE: Bone density scanning was performed using DXA technology of the lumbar spine and hip. Scanning was performed on a [employer] scanner. Reporting is completed in the form of a T-score. The T-score represents the standard deviation from peak bone mass based on a young healthy adult. REFERENCE T-SCORES: Normal -1.0 and greater Osteopenia Between -1.0 and -2.5 Osteoporosis -2.5 and less RISK FACTORS: Post-menopausal, Parent history of osteoporosis CURRENT TREATMENT: Calcium with Vitamin D FINDINGS: Lumbar Spine (L1-L2) T-score: -1.0, marked degenerative changes present at L3,4, so only L1,2 are evaluated. Left Femoral Neck T-score: -0.7 Right Femoral Neck T-score: -1.0 Lumbar (L1-L2) BMD: 1.047 Previous: 1.198 Total Hip Mean BMD: 1.003 Previous: 1.115 Comparison is made to another DXA performed on a different [employer]SeeWhy machine on 11/06/2011. IMPRESSION Normal bone mineral density. Comparisons from different scanners that have not been cross calibrated, are not necessarily valid. Such a comparison has been performed here; one should interpret with caution. There has been probable significant decrease in bone density of the lumbar [...] calculator (www.shef.ac.uk/FRAX or you can google FRAX). This patient's risks based on available information, [...] 5 years. Vero Rodriguez M.D. Electronically signed Parag Pires PA-C IMG DEXA ORDERABLES Fi nal Result * Hepatitis C Screen Reflex to HCV RNA Quant and Genotype (03/23/2016 9:49 AM GAS STATION SUPERVISOR) Hepatitis C Antibody Nonreactive Assay performance characteristics have not been established for newborns, infants, and children [facility] Blood specimen (specimen) 03/23/2016 9:49 AM GAS STATION SUPERVISOR 03/23/2016 9:50 AM GAS STATION SUPERVISOR Parag Pires PA-C LAB - BLOOD ORDERABLES Final Result [facility] [address] * Colonoscopy - HIM Scan (02/16/2014) Naz Lugo PA-C PROCEDURES Martha l Result from Last 3 Months or Most Recently Relevant to Health Maintenance Insurance UCARE MEDICARE UCARE MEDICARE Care Teams Digital Media Coordinator Relationship Specialty Start Date End Date Ceci Kessler MD [facility] [address] [place] [address] PCP - General Family Medicine 09/02/20
--- OUTSIDE RECORDS SUMMARY | 2024-01-30 06:19 | XMS_ITS | Encounter Summary ---
Author Organization [facility] Address [address] [place] [address]. [place] [address] Care Team Providers Care Appliance Assembler Name Role Phone Jocelyn Jane PA-C Primary Care Pr ovider Parag Pires PA-C Primary Care Provider Parag Pires PA-C Unavailable + [phone] Parag Pires PA-C Unavailable [phone] Tiffanie Araya DO Unavailable [phone] Ceci Kessler MD Primary Care Provider + Reason for Visit * Reason Onset Date Comments MyChart Communication 06/07/2015 Encounter Details Date Type Department Care Team (Latest Contact Info) Description 06/07/2015 MyC Medical Advice [facility] [id number] [place] [id number] Jocelyn Jane PA-C [id number] [place] [address] MyChart Communication Social History Tobacco Use [...] on file 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:58 AM DIRECTOR PERIOPERATIVE Gender Identity Not on file Sexual Orientation Not on file 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 Not on file N [...] Primary documented in this encounter Care Teams Appliance Assembler Relationship Specialty Start Date End Date Jocelyn Jane PA-C [address] [place] [address] PCP - General Physician Sap Bobj Developer 09/15/14 03/22/16 Parag Pires PA-C [address] [place] [address] PCP - General Physician Sap Bobj Developer - Medical 03/23/16 09/01/20 Parag Pires PA-C [address] [place] [address] PCP - Assigned PCP 06/17/17 05/14/18 Ceci Kessler MD [facility] & [address] [address] PCP - General Family Medicine 09/02/20 Parag Pires PA-C [address] [place] [address] Assigned PCP 06/17/17 01/20/22 Tiffanie Araya DO [address] [place] [address] Assigned Heart and Vascular Provider 01/02/20 06/01/23 documented as of this encounter
--- OUTSIDE RECORDS SUMMARY | 2024-01-30 06:19 | XMS_ITS | Referral Summary ---
Author Organization [facility] Address [address] [place] [address] [place] [address] Care Team Providers Care Digital Sales Planner Name Role Phone Ceci Kessler MD Primary Care Provider + Allergies Active Allergy Reactions Criticality Noted Date Comments No Known Drug Allergy 09/16/2003 Medications MULTI-DAY OR 1 tablet daily Ac tive Cholecalciferol (VITAMIN D3 PO) Take 2,000 Units by mouth daily Active calcium-vitamin D (CALTRATE) 600-400 MG-UNIT per tablet Take 1 tablet by mouth 2 times daily Active [place]-3 Fatty Acids (OMEGA-3 FISH OIL PO) Take [...] Active fluticasone (FLONASE) 50 MCG/ACT nasal spray [place] 1 spray into both nostrils as needed [...] (10/09/2013): event monitor: PAC and SVT ANA MARAI (obstructive sleep apnea) Hypertension Resolved Problems Problem [...] on file 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:58 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 INFORMATION 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 Gender Identity Not on file Sexual Orientation Not on file 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 Not on [...] on file Medical Devices Implanted Type Area Education Rep Device Identifier Shelf Expiration Date Model / Serial / Lot Kit Nrstm Axonics Caro Lead Curved Stylet 1201 - [id number] Implanted:Qty : 1 on 06/28/2023 by Marco Padilla MD at [facility] Leads N/A: Bladder [employer] [id number] 09/20/2025 1201 / [id number] 33 / Imp Nrstm Axonics Snm System 4101 - [id number] Implanted:Qty : 1 on 06/28/2023 by Marco Padilla MD at [facility] Neurology device N/A: Bladder [employer] [id number] 01/26/2024 4101 / [id number] / Sns Lead 28cm Implanted:Qty : 1 on 10/26/2014 by Sukhjinder Wolf MD at [facility] N/A: Sacrum [employer] 08/18/2018 3889 / / [id number] Stimulator Neuro Interstim Ii [id number] Implanted:Qty : 1 on 10/26/2014 by Sukhjinder Wolf MD at [facility] N/A: Sacrum [employer] 02/07/2016 [id number] / [id number] / Procedures Procedure Name Priority Date/Time [...] DX BONE DENSITY Routine 05/16/2017 10:06 AM SENIOR INFORMATION DEVELOPER Screening for osteoporosis HEPATITIS C SCREEN REFLEX TO HCV RNA QUANT AND GENOTYPE Routine 03/23/2016 9:49 AM SENIOR INFORMATION DEVELOPER Need for hepatitis C screening test COLONOSCOPY [...] NON-INTERFACE D (ONBASE SCANS) GFR Estimated (External) 69.57215 ml/min NON-INTERFACE D (ONBASE SCANS) Sodium (External) [...] 206(H) <200 mg/dL 08/26/2019 12:46 PM CDT [facility] Comment:Desirable: <200 mg/d l Triglycerides 84 <150 mg/dL 08/26/2019 12:57 PM CDT [facility] HDL Cholesterol 63 >49 mg/dL 0 1:00 PM CDT [facility] LDL Cholesterol Calculated 126(H) <100 mg/dL 08/26/2019 1:00 PM CDT [facility] Comment: Above desirable: 100-129 mg/dl Borderline High: 130-159 mg/dL High: 160-189 mg/dL Very high: >189 mg/dl Non HDL Cholesterol 143(H) <130 mg/dL 08/26/2019 1:00 PM CDT [facility] Comment: Above Desirable: 130-159 mg/dl Borderline high: 160-189 mg/dl High: 190-219 mg/dl Very high: >219 mg/dl Blood specimen (specimen) 08/26/2019 8:33 AM CDT 08/26/2019 8:34 AM CDT Tiffanie Araya DO LAB - BLOOD ORDERAB LES Final Result [facility] [address] [place] [address] * Basic metabolic panel (11/28/2018 9:04 AM CDT) Sodium 139 133 - 144 mmol/L 11/29/2018 8:06 AM CDT [facility] Potassium 4.5 3.4 - 5.3 mmol/L 11/29/2018 8:06 AM CDT [facility] Chloride 105 94 - 109 mmol/L 11/29/2018 8:06 AM CDT [facility] Carbon Dioxide 29 20 - 32 mmol/L 11/29/2018 8:15 AM CDT [facility] Anion Gap 5 3 - 14 mmol/L 11/29/2018 8:15 AM CDT [facility] Glucose 94 70 - 99 mg/dL 11/29/2018 8:15 AM CDT [facility] Urea Nitrogen 16 7 - 30 mg/dL 11/29/2018 8:15 AM CDT [facility] Creatinine 0.81 0.52 - 1.04 mg/dL 11/29/2018 8:15 AM CDT [facility] GFR Estimate 76 >60 mL/min/{1 .73_m2} 11/29/2018 8:15 AM T [facility] Comment: Non GFR Calc Starting 02/26/2018, serum creatinine based estimated GFR (eGFR) will be calculated using the Chronic Kidney Disease Epidemiology Collaboration (CKD-EPI) equation. GFR Estimate If Black 88 >60 mL/min/{1 .73_m2} 11/29/2018 8:15 AM CDT [facility] Comment: GFR Calc Starting 02/26/2018, serum creatinine based estimated GFR (eGFR) will be calculated using the Chronic Kidney Disease Epidemiology Collaboration (CKD-EPI) equation. Calcium 9.4 8.5 - 10.1 mg/dL 11/29/2018 8:15 AM T [facility] Blood specimen (specimen) 11/28/2018 9:04 AM CDT 11/28/2018 9:08 AM CDT us Parag Pires PA-C LAB - BLOOD ORDERABLES Final Result [facility] [address] [place] [address] * DX Hip/Pelvis/Spine (05/16/2017 10:06 AM SENIOR INFORMATION DEVELOPER) Anatomical Region Laterality Modality Dexa Bone Mineral Den sity Narrative 05/17/2017 4:13 PM SENIOR INFORMATION DEVELOPER BONE DENSITOMETRY [address] [address] 05/16/2017 PATIENT: Vi Donato CHART: [id number] : 1950 AGE: [age] year old SEX: female REFERRING PROVIDER: Parag Pires PA-C PROCEDURE: Bone density scanning was performed using DXA technology of the lumbar spine and hip. Scanning was performed on a ezeep scanner. Reporting is completed in the form [...] to another DXA performed on a different [employer] machine on 11/06/2011. IMPRESSION Normal bone mineral [...] RNA Quant and Genotype (03/23/2016 9:49 AM SENIOR INFORMATION DEVELOPER) Hepatitis C Antibody Nonreactive Assay performance characteristics have not been established for newborns, infants, and children NR [facility] Blood specimen (specimen) 03/23/2016 9:49 AM SENIOR INFORMATION DEVELOPER 03/23/2016 9:50 AM SENIOR INFORMATION DEVELOPER Parag Pires PA-C LAB - BLOOD ORDERABLES Final Result [facility] [address] * Colonoscopy - HIM Scan (02/16/2014) Naz Lugo PA-C PROCEDURES Martha l Result from Last 3 Months or Most Recently Relevant to Health Maintenance Insurance UCARE MEDICARE [facility] MEDICARE Care Teams Digital Sales Planner Relationship Specialty Start Date End Date Ceci Kessler MD [facility] [address] [place] [address] PCP - General Family Medicine 09/02/20
--- OUTSIDE RECORDS SUMMARY | 2024-01-30 06:20 | XMS_ITS | Encounter Summary ---
Author Organization [facility] Address [address] [place], [place] [address]. [place] [address] Care Team Providers Care Dosimetrist Name Role Phone Isabell Keating MD Primary Care Provider Naz Lugo PA-C Primary Care Provid er Jocelyn Jane-C Primary Care Pr ovider Parag Pires PA-C Primary Care Provider Parag Pires PA-C Unavailable [phone] Parag Pires-C Unavailable + [phone] Tiffanie Araya DO Unavailable [phone] Ceci Kessler MD Primary Care Provider + Encounter Details Date Type Department Care Team (Late st Contact Info) Description 07/25/2011 Office Visit-[facility] [place] [id number] [facility] [address] [place] [address] Morena Mota MD HEART [facility] [address] [facility] [address] [place], [place] [id number] Social History Tobacco Use Types Packs/Day Years Used Date Smoking Tobacco: Former Cigarettes Q uit: 10/28/1976 Comments:quit more than 25 y ears ago Alcohol Use Standard Drinks/Week Comments Yes 0 (1 standard drink = 0.6 oz pur e alcohol) very rare Comments No Sex and Gender Information Value Date Recorded Sex Assigned at Not on file 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:58 AM SCALDER Gender Identity Not on file Sexual Orientation Not on file 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 [id number] DATE: 07/25/2011 VI DONATO DATE OF : 1950 AGE: [age] years old Referring Physician: ISABELL KEATING Referring Clinic: [facility] CURRENT DIAGNOSES 1. 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; Place of - [place]; Hours Worked - 30 hours per week; [...] hr 1 1/2 tabs daily #135 ([employer] [place] [employer]) Patient Request IMPRESSIONS/PLAN A pleasant [...] on filedocumented in this encounter Care Teams Dosimetrist Relationship Specialty Start Date End Date Isabell Keating MD PCP - General Family Practice 09/05/10 10/01/11 Naz Lugo PA-C [address] [address] PCP - General Family Practice 10/02/11 09/14/14 Jocelyn Jane PA-C [address] [place] [address] PCP - General Physician Cloth Shearer 09/15/14 03/22/16 Parag Pires PA-C [address] [place] [address] PCP - General Physician Cloth Shearer - Medical 03/23/16 09/01/20 Parag Pires PA-C [address] [place] [address] PCP - Assigned PCP 06/17/17 05/14/18 Ceci Kessler MD [facility] & [address] [address] PCP - General Family Medicine 09/02/20 Parag Pires PA-C [address] [place] [address] Assigned PCP 06/17/17 01/20/22 Tiffanie Araya DO [address] [place] [address] Assigned Heart and Vascular Provider 01/02/20 06/01/23 documented as of this encounter
--- OUTSIDE RECORDS SUMMARY | 2024-01-30 06:20 | XMS_ITS | Encounter Summary ---
Author Organization [facility] Address [address] [place] [address]. [place] [address] Care Team Providers Care Alterations Expert Name Role Phone Elvis Lugo PA-C Primary Care Provid er Jocelyn Jane PA-C Primary Care Pr ovider Parag Pires PA-C Primary Care Provider Parag Pires PA-C Unavailable [phone] Parag Pires PA-C Unavailable [phone] Tiffanie Araya DO Unavailable [phone] Ceci Kessler MD Primary Care Provider + Encounter Details Date Type Department Care Team (Late st Contact Info) Description 09/05/2012 Office Visit-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 N.P. #[id number] DATE: 09/05/2012 VI DONATO DATE OF : 1950 AGE: [age] years old Referring Physician: ELVIS LEIVA Referring Clinic: [facility] CURRENT DIAGNOSES 1. Hyperlipidemia-mixed disorder, 272.4 2. 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; Place of - [place]; Hours Worked - 30 hours per week; [...] on filedocumented in this encounter Care Teams Alterations Expert Relationship Specialty Start Date End Date Elvis Lugo PA-C [address] [place] [address] [place] [address] PCP - General Family Practice 10/02/11 09/14/14 Jocelyn Jane PA-C [address] [place] [address] PCP - General Physician Physician Allergist Immunologist 09/15/14 03/22/16 Parag Pires PA-C [address] [place] [address] PCP - General Physician Physician Allergist Immunologist - Medical 03/23/16 09/01/20 Parag Pires PA-C [address] [place] [address] PCP - Assigned PCP 06/17/17 05/14/18 Ceci Kessler MD [facility] & [address] [address] PCP - General Family Medicine 09/02/20 Parag Pires PA-C [address] [place] [address] Assigned PCP 06/17/17 01/20/22 Tiffanie Araya DO [address] [place] [address] Assigned Heart and Vascular Provider 01/02/20 06/01/23 documented as of this encounter
--- OUTSIDE RECORDS SUMMARY | 2024-01-30 06:20 | XMS_ITS | Encounter Summary ---
Author Organization [place] Address [address] [place], [place] [address]. [place] [address] Care Team Providers Care Messenger Office Name Role Phone Isabell Capone MD Primary Care Provider Naz Lugo PA-C Primary Care Provid er Jocelyn Jane-C Primary Care Pr ovider Parag Pires PA-C Primary Care Provider Parag Pires PA-C Unavailable + [phone] Parag Pires-C Unavailable + [phone] Tiffanie Araya DO Unavailable + [phone] Ceci Kessler MD Primary Care Provider + Encounter Details Date Type Department Care Team (Late st Contact Info) Description 03/20/2011 Office Visit-[facility] [place] [address] [facility] [address] [place] [address] Jessica Franks APRN GEOSPATIAL EXTRACTOR ANALYSIS [address] [facility] [address] [place] [address] Social History Tobacco Use Types Packs/Day Years Used Date Smoking Tobacco: Former Cigarettes Q uit: 10/28/1976 Comments:quit more than 25 y ears ago Alcohol Use Standard Drinks/Week Comments Yes 0 (1 standard drink = 0.6 oz pur e alcohol) very rare Comments No Sex and Gender Information Value Date Recorded Sex Assigned at Not on file 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:58 AM GEOPOLITICS TEACHER Gender Identity Not on file Sexual Orientation Not on file 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 [id number] DATE: 03/20/2011 VI DONATO DATE OF : 1950 AGE: [age] years old Referring Physician: ISABELL CAPONE Referring Clinic: [facility] CURRENT DIAGNOSES 1. 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 Return Visit 2 months Jessica rFanks NKika documented in this encounter Plan of Treatment Not on file documented as of this encounter Visit Diagnoses Not on filedocumented in this encounter Care Teams Messenger Office Relationship Specialty Start Date End Date Isabell Capone MD PCP - General Family Practice 09/05/10 10/01/11 Naz Lugo PA-C [address] [address] PCP - General Family Practice 10/02/11 09/14/14 Jocelyn Jane PA-C [address] [place] [place], [place] [address] PCP - General Physician Electrical Logger 09/15/14 03/22/16 Parag Pires PA-C 90[address] [place], [place] [address] PCP - General Physician Electrical Logger - Medical 03/23/16 09/01/20 Parag Pires PA-C [address] [place] [address] PCP - Assigned PCP 06/17/17 05/14/18 Ceci Kessler MD [facility] & [address] [address] PCP - General Family Medicine 09/02/20 Parag Pires PA-C [address] [place] [address] Assigned PCP 06/17/17 01/20/22 Tiffanie Araya DO [address] [place] [address] Assigned Heart and Vascular Provider 01/02/20 06/01/23 documented as of this encounter
--- OUTSIDE RECORDS SUMMARY | 2024-01-30 06:20 | XMS_ITS | Encounter Summary ---
Author Organization [place] Address [address] [place], [place] [address]. [place] [address] Care Team Providers Care Metal Smelter Name Role Phone Radha Keating MD Primary Care Provider Naz LugoC Primary Care Provid er Jocelyn Jane-C Primary Care Pr ovider Parag Pires PA-C Primary Care Provider Parag PiresC Unavailable +[phone] Parag Pires-C Unavailable +[phone] Tiffanie Araya DO Unavailable [phone] Ceci Kessler MD Primary Care Provider + Encounter Details Date Type Department Care Team (Late st Contact Info) Description 10/27/2010 Office Visit-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 [id number] DATE: 10/27/2010 VI DONATO DATE OF : [...] patient evaluation for atrial fibrillation. SUBJECTIVE: Ms. 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 F/U with Any CLIENT INSIGHTS CONSULTANT 7-14 days 3. Holter Monitor Today, 24-Hour Morena Mota M.D. documented in this encounter Plan of Treatment Not on file documented as of this encounter Visit Diagnoses Not on filedocumented in this encounter Care Teams Metal Smelter Relationship Specialty Start Date End Date Radha Keating MD PCP - General Family Practice 09/05/10 10/01/11 Naz Lugo PA-C [address] [address] PCP - General Family Practice 10/02/11 09/14/14 Jocelyn Jane PA-C [address] [place] [address] PCP - General Physician Supervisor Pyrotechnic Loading 09/15/14 03/22/16 Parag Pires PA-C [address] [place] [address] PCP - General Physician Supervisor Pyrotechnic Loading - Medical 03/23/16 09/01/20 Parag Pires PA-C [address] [place] [address] PCP - Assigned PCP 06/17/17 05/14/18 Ceci Kessler MD [facility] & [address] [address] PCP - General Family Medicine 09/02/20 Parag Pires PA-C [address] [place] [address] Assigned PCP 06/17/17 01/20/22 Tiffanie Araya DO [address] [place] [address] Assigned Heart and Vascular Provider 01/02/20 06/01/23 documented as of this encounter
--- OUTSIDE RECORDS SUMMARY | 2024-01-30 06:20 | XMS_ITS | Encounter Summary ---
Author Organization [place] Address [address] [place], [place] [address]. [place] [address] Care Team Providers Care Feather Curling Machine Operator Name Role Phone Naz Lugo PA-C Primary Care Provid er Jocelyn Jane PA-C Primary Care Pr ovider Parag Pires PA-C Primary Care Provider Parag Pires PA-C Unavailable +[phone] Parag Pires PA-C Unavailable +[phone] Tiffanie Araya DO Unavailable + [phone] Ceci Kessler MD Primary Care Provider + Reason for Visit * Reason Onset Date Comments MyChart Communication 12/22/2013 Encounter Details Date Type Department Care Team (Latest Contact Info) Description 12/22/2013 MyC Medical Advice [address] [address] Naz Lugo PA-C [address] [id number] MyChart Communication Social History Tobacco Use Types [...] on file 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 Gender Identity Not on file Sexual Orientation Not on file 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 Not on file N ot on file documented as of this encounter Plan of Treatment Not on file documented as of this encounter Visit Diagnoses Not on filedocumented in this encounter Care Teams Feather Curling Machine Operator Relationship Specialty Start Date End Date Naz Lugo PA-C [address] [address] PCP - General Family Practice 10/02/11 09/14/14 Jocelyn Jane PA-C [address] [place] [address] PCP - General Physician Bottoming Room Inspector 09/15/14 03/22/16 Parag Pires PA-C [address] [place] [address] PCP - General Physician Bottoming Room Inspector - Medical 03/23/16 09/01/20 Parag Pires PA-C [address] [place] [address] PCP - Assigned PCP 06/17/17 05/14/18 Ceci Kessler MD [facility] & [address] [address] PCP - General Family Medicine 09/02/20 Parag Pires PA-C [address] [place] [address] Assigned PCP 06/17/17 01/20/22 Tiffanie Araya DO [address] [place] [address] Assigned Heart and Vascular Provider 01/02/20 06/01/23 documented as of this encounter
--- OUTSIDE RECORDS SUMMARY | 2024-01-30 06:20 | XMS_ITS | Encounter Summary ---
Author Organization [place] Address [address] [place] [address]. [place] [address] Care Team Providers Care Police Detective Name Role Phone Naz Lugo PA-C Primary Care Provid er Jocelyn Jane PA-C Primary Care Pr ovider Parag Pires PA-C Primary Care Provider Parag Pires PA-C Unavailable [phone] Parag Pires PA-C Unavailable [phone] Tiffanie Araya DO Unavailable + [phone] Ceci Kessler MD Primary Care Provider + Encounter Details Date Type Department Care Team (Late st Contact Info) Description 06/28/2012 [facility] Only [facility] Breast [place] [address] [facility], [address] [place] [address] Radha Phan Social History Tobacco [...] on file 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 Gender Identity Not on file Sexual Orientation Not on file 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 Not on file N ot on file documented as of this encounter Plan of Treatment Not on file documented as of this encounter Visit Diagnoses Not on filedocumented in this encounter Care Teams Police Detective Relationship Specialty Start Date End Date Naz Lugo PA-C [address] [place] [address] [place] [address] PCP - General Family Practice 10/02/11 09/14/14 Jocelyn Jane PA-C [address] [place] [address] PCP - General Physician Foundry Molder 09/15/14 03/22/16 Parag Pires PA-C [address] [place] [address] PCP - General Physician Foundry Molder - Medical 03/23/16 09/01/20 Parag Pires PA-C [address] [facility] [place] [address] PCP - Assigned PCP 06/17/17 05/14/18 Ceci Kessler MD [facility] [address] [place] [address] PCP - General Family Medicine 09/02/20 Parag Pires PA-C [address] [facility] [place] [address] Assigned PCP 06/17/17 01/20/22 Tiffanie Araya DO [address] [place] [address] Assigned Heart and Vascular Provider 01/02/20 06/01/23 documented as of this encounter
--- OUTSIDE RECORDS SUMMARY | 2024-01-30 06:20 | XMS_ITS | Encounter Summary ---
Author Organization [place] Address [address] [place], [place] [address]price. [place] [address] Care Team Providers Care Deck Molder Name Role Phone Naz Lugo PA-C Primary Care Provid er Jocelyn Jane PA-C Primary Care Pr ovider Parag Pires PA-C Primary Care Provider Parag Pires PA-C Unavailable [phone] Parag Pires PA-C Unavailable +[phone] Tiffanie Araya DO Unavailable + [phone] Ceci Kessler MD Primary Care Provider + Encounter Details Date Type Department Care Team (Late st Contact Info) Description 03/04/2012 [facility] [place] [address] [place] [address] Lissy Cintron MD Social History Tobacco [...] on file 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:58 AM SOCIAL SERVICES DIRECTOR Gender Identity Not on file Sexual Orientation Not on file 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 Not on file [...] on filedocumented in this encounter Care Teams Deck Molder Relationship Specialty Start Date End Date Naz Lugo PA-C [address] [address] PCP - General Family Practice 10/02/11 09/14/14 Jocelyn Jane PA-C [address] [place] [address] PCP - General Physician Combination Welder Apprentice 09/15/14 03/22/16 Parag Pires PA-C [address] [facility] [place] [address] PCP - General Physician Combination Welder Apprentice - Medical 03/23/16 09/01/20 Parag Pires PA-C [address] [place] [address] PCP - Assigned PCP 06/17/17 05/14/18 Ceci Kessler MD [facility] & [address] [address] PCP - General Family Medicine 09/02/20 Parag Pires PA-C [address] [place] [address] Assigned PCP 06/17/17 01/20/22 Tiffanie Araya DO [address] [place] [address] Assigned Heart and Vascular Provider 01/02/20 06/01/23 documented as of this encounter
--- OUTSIDE RECORDS SUMMARY | 2024-01-30 06:20 | XMS_ITS | Encounter Summary ---
Author Organization [place] Address [address] [place], [place] [address]. [place] [address] Care Team Providers Care Policy Value Calculator Name Role Phone Isabell Capone MD Primary Care Provider Naz LugoC Primary Care Provid er Jocelyn Jane-C Primary Care Pr ovider Parag Pires PA-C Primary Care Provider Parag Pires PA-C Unavailable [phone] Parag Pires-C Unavailable + [phone] Tiffanie Araya DO Unavailable [phone] Ceci Kessler MD Primary Care Provider + Encounter Details Date Type Department Care Team (Late st Contact Info) Description 01/12/2011 Office Visit-[facility] [address] [place] [address] Unknown, DoctorMD Social History Tobacco [...] on file 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:58 AM LEMON PICKER Gender Identity Not on file Sexual Orientation Not on file 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 - Atrial [...] very delightful 60-year-old female who presents to [facility] today for [...] on filedocumented in this encounter Care Teams Policy Value Calculator Relationship Specialty Start Date End Date Isabell Capone MD PCP - General Family Practice 09/05/10 10/01/11 Naz Lugo PA-C [address] [address] PCP - General Family Practice 10/02/11 09/14/14 Jocelyn Jane PA-C [address] [place] [address] PCP - General Physician Automatic Brine Mixer Operator 09/15/14 03/22/16 Parag Pires PA-C [address] [place] [address] PCP - General Physician Automatic Brine Mixer Operator - Medical 03/23/16 09/01/20 Parag Pires PA-C [address] [place] [address] PCP - Assigned PCP 06/17/17 05/14/18 Ceci Kessler MD [facility] & [address] [address] PCP - General Family Medicine 09/02/20 Parag Pires PA-C [address] [place] [address] Assigned PCP 06/17/17 01/20/22 Tiffanie Araya DO [address] [place] [id number] Assigned Heart and Vascular Provider 01/02/20 06/01/23 documented as of this encounter
--- OUTSIDE RECORDS SUMMARY | 2024-01-30 06:20 | XMS_ITS | Encounter Summary ---
Author Organization [place] Address [address] [place], [place] [address]. [place] [address] Care Team Providers Care Joint Terminal Attack Controller Name Role Phone Radha Keating MD Primary Care Provider Naz LugoC Primary Care Provid er Jocelyn Jane-C Primary Care Pr ovider Parag Pires PA-C Primary Care Provider Parag Pires PA-C Unavailable [phone] Parag Pires-C Unavailable + [phone] Tiffanie Araya DO Unavailable [phone] Ceci Kessler MD Primary Care Provider + Encounter Details Date Type Department Care Team (Late st Contact Info) Description 12/22/2010 Office Visit-[facility] [place] [address] [facility] [address] [place] [address] Unknown, DoctorMD Social History Tobacco [...] on file 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 - Atrial Fibrillation, [...] TODAYS ORDERS 1. Sleep Study Schedule At [facility] 2. Return Visit 3 weeks [place] documented in this encounter Plan of Treatment Not on file documented as of this encounter Visit Diagnoses Not on filedocumented in this encounter Care Teams Joint Terminal Attack Controller Relationship Specialty Start Date End Date Radha Keating MD PCP - General Family Practice 09/05/10 10/01/11 Naz Lugo PA-C [address] [place] [address] [place] [address] PCP - General Family Practice 10/02/11 09/14/14 Jocelyn Jane PA-C [address] [place] [address] PCP - General Physician Financial Aid Administrator 09/15/14 03/22/16 Parag Pires PA-C [address] [place] [address] PCP - General Physician Financial Aid Administrator - Medical 03/23/16 09/01/20 Parag Pires PA-C [address] [place] [address] PCP - Assigned PCP 06/17/17 05/14/18 Ceci Kessler MD [facility] & [address] [address] PCP - General Family Medicine 09/02/20 Parag Pires PA-C [address] [place] [address] Assigned PCP 06/17/17 01/20/22 Tiffanie Araya DO [address] [place] [id number] Assigned Heart and Vascular Provider 01/02/20 06/01/23 documented as of this encounter
--- OUTSIDE RECORDS SUMMARY | 2024-01-30 06:20 | XMS_ITS | Encounter Summary ---
Author Organization [place] Address [address] [place], [place] [address]. [place] [address] Care Team Providers Care Fur Repairer Name Role Phone Isabell Capone MD Primary Care Provider Naz LugoC Primary Care Provid er Jocelyn Jane-C Primary Care Pr ovider Parag Pires PA-C Primary Care Provider Parag Pires PA-C Unavailable + [phone] Parag Pires-C Unavailable + [phone] Tiffanie Araya DO Unavailable + [phone] Ceci Kessler MD Primary Care Provider + Encounter Details Date Type Department Care Team (Late st Contact Info) Description 08/24/2011 Office Visit-[facility] [place] [address] [facility] [address] [place] [address] Tejal Ugalde MD [address] [facility] [address] [place] [id number] Social History Tobacco Use Types Packs/Day Years Used Date Smoking Tobacco: Former Cigarettes Q uit: 10/28/1976 Comments:quit more than 25 y ears ago Alcohol Use Standard Drinks/Week Comments Yes 0 (1 standard drink = 0.6 oz pur e alcohol) very rare Comments No Sex and Gender Information Value Date Recorded Sex Assigned at Not on file 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:58 AM CHIROPRACTOR ASSISTANT Gender Identity Not on file Sexual Orientation Not on file 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 [id number] DATE: 08/24/2011 VI DONATO DATE OF : 1950 AGE: [age] years old Referring Physician: ISABELL CAPONE Referring Clinic: [facility] CURRENT DIAGNOSES 1. Hyperlipidemia-mixed disorder, 272.4 [...] cannot at all tolerate CPAP), I think spiritism and maintenance of sinus rhythm would be [...] with Dr. Mota has been made in [place] in one year. Thank you very much [...] on filedocumented in this encounter Care Teams Fur Repairer Relationship Specialty Start Date End Date Isabell Capone MD PCP - General Family Practice 09/05/10 10/01/11 Naz Lugo PA-C [address] [address] PCP - General Family Practice 10/02/11 09/14/14 Jocelyn Jane PA-C [address] [place] [address] PCP - General Physician Stereoptic Projection Topographer 09/15/14 03/22/16 Parag Pires PA-C [address] [place] [address] PCP - General Physician Stereoptic Projection Topographer - Medical 03/23/16 09/01/20 Parag Pires PA-C [address] [place] [address] PCP - Assigned PCP 06/17/17 05/14/18 Ceci Kessler MD [address] [address] PCP - General Family Medicine 09/02/20 Parag Pires PA-C [address] [place] [address] Assigned PCP 06/17/17 01/20/22 Tiffanie Araya DO [address] [place] [address] Assigned Heart and Vascular Provider 01/02/20 06/01/23 documented as of this encounter
--- OUTSIDE RECORDS SUMMARY | 2024-01-30 06:20 | XMS_ITS | Encounter Summary ---
Author Organization [place] Address [address] [place], [place] [address]. [place] [address] Care Team Providers Care Coke Wheeler Name Role Phone Radha Keating MD Primary Care Provider Naz Lugo PA-C Primary Care Provid er Jocelyn Jane-C Primary Care Pr ovider Parag Pires PA-C Primary Care Provider Parag Pires PA-C Unavailable [phone] Parag Pires PA-C Unavailable +[phone] Tiffanie Araya DO Unavailable + [phone] Ceci Kessler MD Primary Care Provider + Reason for Visit * Reason Onset Date Comments Referral 09/26/2010 Cardiology Pt. Information/instruction 09/26/2010 [facility] record Encounter Details Date Type Department Care Team (Late st Contact Info) Description 09/26/2010 MyC Medical Advice [address], [address] [place] [address] [place] [address] [place] [address] Referral (Cardiology); Pt. Information/ins... 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 Not on file N ot on file documented as of this encounter Plan of Treatment Not on file documented as of this encounter Visit Diagnoses Diagnosis CARDIOVASCULAR SCREENING; LDL GOAL LESS THAN 160- Primary documented in this encounter Care Teams Coke Wheeler Relationship Specialty Start Date End Date Radha Keating MD PCP - General Family Practice 09/05/10 10/01/11 Naz Lugo PA-C [address] [address] PCP - General Family Practice 10/02/11 09/14/14 Jocelyn Jane PA-C [address] [place] [address] PCP - General Physician Formulation Technician 09/15/14 03/22/16 Parag Pires PA-C [address] [place] [address] PCP - General Physician Formulation Technician - Medical 03/23/16 09/01/20 Parag Pries PA-C [address] [place] [address] PCP - Assigned PCP 06/17/17 05/14/18 Ceci Kessler MD [facility] [address] [place] [address] PCP - General Family Medicine 09/02/20 Parag Pires PA-C [address] [place] [address] Assigned PCP 06/17/17 01/20/22 Tiffanie Araya DO [address] [place] [address] Assigned Heart and Vascular Provider 01/02/20 06/01/23 documented as of this encounter
--- OUTSIDE RECORDS SUMMARY | 2024-01-30 06:20 | XMS_ITS | Encounter Summary ---
Author Organization [place] Address [address] [place] [address]. [place] [address] Care Team Providers Care Airplane Pilot Chief Name Role Phone Radha Keating MD Primary Care Provider Naz Lugo PA-C Primary Care Provid er Jocelyn Jane-Grant Primary Care Pr ovider Parag Pires PA-C Primary Care Provider Parag Pires PA-C Unavailable [phone] Parag Pires PA-C Unavailable [phone] Tiffanie Araya DO Unavailable + [phone] Ceci Kessler MD Primary Care Provider + Encounter Details Date Type Department Care Team (Late st Contact Info) Description 09/29/2011 [facility] [address] [address] Emilia Lr Social History Tobacco [...] on file 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:58 AM AD WRITER Gender Identity Not on file Sexual Orientation Not on file 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 Not on file N ot on file documented as of this encounter Plan of Treatment Not on file documented as of this encounter Visit Diagnoses Not on filedocumented in this encounter Care Teams Airplane Pilot Chief Relationship Specialty Start Date End Date Radha Keating MD PCP - General Family Practice 09/05/10 10/01/11 Naz Lugo PA-C [address] [address] PCP - General Family Practice 10/02/11 09/14/14 Jocelyn Jane PA-C [address] [place] [address] PCP - General Physician Collection Correspondent 09/15/14 03/22/16 Parag Pires PA-C [address] [place] [address] PCP - General Physician Collection Correspondent - Medical 03/23/16 09/01/20 Parag Pires PA-C [address] [place] [address] PCP - Assigned PCP 06/17/17 05/14/18 Ceci Kessler MD [facility] & [address] [address] PCP - General Family Medicine 09/02/20 Parag Pires PA-C [address] [id number] Assigned PCP 06/17/17 01/20/22 Tiffanie Araya DO [address] [place] [address] Assigned Heart and Vascular Provider 01/02/20 06/01/23 documented as of this encounter
--- OUTSIDE RECORDS SUMMARY | 2024-01-30 06:20 | XMS_ITS | Encounter Summary ---
Author Organization [place] Address [address] [place], [place] [address] [address] Care Team Providers Care Drupal Web Developer Name Role Phone Elvis Lugo PA-C Primary Care Provid er Jocelyn Jane PA-C Primary Care Pr ovider Parag Pires PA-C Primary Care Provider Parag Pires PA-C Unavailable [phone] Parag Pires PA-C Unavailable [phone] Tiffanie Araya DO Unavailable + [phone] Ceci Kessler MD Primary Care Provider + Encounter Details Date Type Department Care Team (Late st Contact Info) Description 08/06/2012 Office Visit-[facility] [place] [id number] [facility] [address] [place] [phone] Morena Mota MD HEART [address] [place], [place] [id number] Social History Tobacco Use Types Packs/Day Years [...] on file 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 [id number] DATE: 08/06/2012 DONATO VI DATE OF : 1950 AGE: [age] years old Referring Physician: ELVIS LEIVA Referring Clinic: [facility] CURRENT DIAGNOSES 1. Hyperlipidemia-mixed disorder, [...] hr, 1 tab twice daily, #180 (One [place]y) Metrogel Vaginal 0.75 % Gel, 1 [...] her to get in touch with a expense analyst as been referred previously with Debi, who [...] 1 week, 24-Hour 2. F/U with [facility] [employer] Return with Diagnostic Testing Morena Mota M.D. documented in this encounter Plan of Treatment Not on file documented as of this encounter Visit Diagnoses Not on filedocumented in this encounter Care Teams Drupal Web Developer Relationship Specialty Start Date End Date Elvis Lugo PA-C [address] [address] PCP - General Family Practice 10/02/11 09/14/14 Jocelyn Jane PA-C [address] [place] [address] PCP - General Physician Manager Medical Device 09/15/14 03/22/16 Parag Pires PA-C [address] [place] [address] PCP - General Physician Manager Medical Device - Medical 03/23/16 09/01/20 Parag Pires PA-C [address] [place] [address] PCP - Assigned PCP 06/17/17 05/14/18 Ceci Kessler MD [facility] & [address] [address] PCP - General Family Medicine 09/02/20 Parag Pires PA-C [address] [id number] Assigned PCP 06/17/17 01/20/22 Tiffanie Araya DO [address] [place] [address] Assigned Heart and Vascular Provider 01/02/20 06/01/23 documented as of this encounter
[2024-01-30] MEDS: BUPIVACAINE 0.5% 30 ML INJECTION (06:26)
[2024-01-30 06:27] VITALS: BMI 49.0
[2024-01-30 06:30] VITALS: BP 148/83; PULSE 97; RESP 20; TEMP 36.7; O2SAT 96
[2024-01-30] MEDS: LIDOCAINE 1%-EPI 1:100,000 20 ML INFILTRATI (06:36)
[2024-01-30] MEDS: ETHYL CHLORIDE 1 APPLICATION 1 APPLIC TOPICAL (06:45)
[2024-01-30 07:20] VITALS: BP 164/77; PULSE 79; RESP 12; O2SAT 98
[2024-01-30 07:25] VITALS: BP 155/74; PULSE 82; RESP 14; O2SAT 100
[2024-01-30 07:30] VITALS: BP 152/75; PULSE 76; RESP 12; O2SAT 99
--- NOTE | 2024-01-30 07:31 | PM.ORPRC ---
Procedure Note Date of procedure: 01/30/24 Procedure: PREOPERATIVE DIAGNOSIS: 1. Right long finger flexor tenosynovitis - trigger finger POSTOPERATIVE DIAGNOSIS: 1. Right long finger flexor tenosynovitis - trigger finger PROCEDURE: 1. Right long finger flexor tendon sheath open release (A1 davi) SURGEON: Aravind Delgado MD. FILTERATION OPERATOR: RANDY Carrizales ANESTHESIA: Local anesthetic 4ml via 50:50 mixture of 1% Lidocaine with epi and 0.5% marcaine plain EBL: 2mL IMPLANTS: None TOURNIQUET: None COMPLICATIONS: None evident INDICATIONS: The patient is a pleasant 73-year-old female who has experienced right long finger catching/triggering for number of months. It has progressively gotten worse. Given the failure of nonoperative management, and how this affects daily life, surgery was recommended. DESCRIPTION OF PROCEDURE: Following a thorough discussion of risks, benefits, and alternatives consent was obtained and the operative digit(s) was marked. The patient was brought to the operating room and placed supine on the operating table. Local anesthesia induction was undertaken in preop holding. No antibiotics were administered as this was planned to be a local case only. Proper time-out was performed identifying proper patient, site, and procedure. The operative extremity was prepped and draped in the appropriate sterile fashion using ChloraPrep. An incision was made on the palmar surface of the hand overlying the MCP joint region of the appropriate digit(s) respecting the palmar creases being cautious not to cross these perpendicularly. Sharp incision through the skin, and blunt dissection through subcutaneous tissue allowing protection of crossing neurologic structures. The A1 davi was visualized directly. It was incised sharply with a 15 blade. It was released completely from its distal to proximal extent under direct visualization. The tendon was inspected and found to be mildly striated consistent with some friction. Otherwise, it was intact. The tendon was removed out of the wound, and further inspected. The patient was asked to manually flex and extend the digits and showed no further catching. The catching, which was visualized initially, was no longer evident with reproduction of a manual fist and relaxation. Closure was performed with 4-O nylon in interrupted fashion. Soft dressings were applied, and the patient was transferred to the recovery room in stable condition. PLAN: 1. Encourage elevation of the operative extremity. 2. Range of motion of the fingers and hand/wrist as tolerated. 3. Ibuprofen/acetaminophen and/or oxycodone as needed for pain control. 4. Follow up with PA visit in 12-16 days for wound check and suture removal.
[2024-01-30] MEDS: BACITRACIN OINTMENT BULK TUBE 1 APPLIC TOPICAL (07:33)
[2024-01-30 07:40] VITALS: BP 138/68; PULSE 74; RESP 20; TEMP 36.4; O2SAT 99
== END 2024-01-30 07:56 | disposition home or self-care (01) ==
PROVIDERS: PCP Internal Medicine; Visit Provider Orthopaedic Surgery Sports Medicine
PROC: (CPT 26055; principal; 2024-01-30 07:15)
DX: M65.331 Trigger finger, right middle finger (principal); M65.841 Other synovitis and tenosynovitis, right hand
CPT/HCPCS: 26055; J0665

== ENCOUNTER 2024-08-19 10:58 | Outpatient (CLI) | payer MEDICARE, SELFPAY | END 2024-08-19 10:59 | disposition home or self-care (01) | LOC: NFLDREF 10:59 | PROVIDERS: PCP Internal Medicine; Visit Provider Internal Medicine | DX: Z01.818 Encounter for other preprocedural examination (principal) | CPT/HCPCS: 80048 ==

== ENCOUNTER 2024-09-08 08:58 | Outpatient (CLI) | payer MEDICARE, SELFPAY | END 2024-09-08 08:59 | disposition home or self-care (01) | LOC: NFLDREF 09-09 15:44 | PROVIDERS: PCP Internal Medicine; Referring Provider Internal Medicine; Visit Provider Internal Medicine | DX: E78.5 Hyperlipidemia, unspecified (principal); R73.03 Prediabetes | CPT/HCPCS: 80061 ==

== ENCOUNTER 2024-10-02 10:05 | Outpatient (CLI) | payer MEDICARE, SELFPAY ==
--- NOTE | 2024-10-02 10:15 | CRLHL7_ITS ---
For Patients: As a result of the Century Cures Act, medical imaging exams and procedure reports are released immediately into your electronic medical record. You may view this report before your referring provider. If you have questions, please contact your health care provider. INDICATION: BILATERAL SCREENING MAMMOGRAM, ASYMPTOMATIC 74 Y/O FEMALE COMPARISON: 09/21/2023, 09/19/2022, 08/31/2021 TECHNIQUE: Digital mammogram in CC and MLO projections including computer-aided detection (CAD) and tomosynthesis. BREAST COMPOSITION: The breasts are almost entirely fatty. FINDINGS: No suspicious findings. ASSESSMENT: BI-RADS 1 Negative RECOMMENDATION: Annual screening mammogram. A lay language report of this examination will be provided to the patient. Dictated by: Katia Zhao MD @ 10/04/2024 14:20:27 (Electronically Signed)
== END 2024-10-02 10:06 | disposition home or self-care (01) ==
LOC: MAMMO 10:06
PROVIDERS: PCP Internal Medicine; Visit Provider Internal Medicine
DX: Z12.31 Encounter for screening mammogram for malignant neoplasm of breast (principal)
CPT/HCPCS: 77063; 77067

== ENCOUNTER 2024-10-07 20:59 | Outpatient (CLI) | payer MEDICARE, SELFPAY | END 2024-10-07 21:00 | disposition home or self-care (01) | LOC: SLEEP 21:00 | PROVIDERS: PCP Internal Medicine; Visit Provider Internal Medicine | DX: G47.33 Obstructive sleep apnea (adult) (pediatric) (principal); E66.9 Obesity, unspecified | CPT/HCPCS: 95810; A9270 ==

== ENCOUNTER 2024-11-11 10:00 | Outpatient (RCR) | payer MEDICARE, SELFPAY | END 2025-01-14 08:16 | disposition home or self-care (01) | PROVIDERS: PCP Internal Medicine; Visit Provider Nurse Practitioner Women's Health | DX: R15.9 Full incontinence of feces (principal); N39.41 Urge incontinence; R15.0 Incomplete defecation; Z51.89 Encounter for other specified aftercare | CPT/HCPCS: 97110; 97112; 97162; 97535 ==